=== PATIENT | female | born 1945 | race Caucasian/White ===

== ENCOUNTER 2018-03-11 15:03 | Emergency (ER) | payer MEDICARE, OTHER, SELFPAY ==
--- NOTE | 2018-03-11 15:03 | DT_ITS ---
This patient was seen during an EMR downtime March 07, 2018 - March 14, 2018. This patient may have a combination of paper and electronic documentation or all paper documentation. All documentation is viewable within the e-chart portion of [facility] for each patient visit.
== END 2018-03-11 16:35 | disposition left against medical advice (07) ==
LOC: ED 03-16 13:37
PROVIDERS: Emergency Provider Emergency Medicine; Family Provider Family Medicine; PCP Family Medicine
DX: R69 Illness, unspecified (principal); Z53.21 Procedure and treatment not carried out due to patient leaving prior to being seen by health care provider

== ENCOUNTER 2018-05-21 18:51 | Inpatient (IN) | payer MEDICARE, SELFPAY ==
[2018-05-21 19:14] VITALS: BP 139/58; BP 140/70; PULSE 67; PULSE 75; RESP 17; RESP 18; TEMP 36.8; TEMP 37.1; O2SAT 93; O2SAT 95; BMI 37.4
[2018-05-21 21:45] LABS: Bedside Glucose 392 mg/dL (70-110)
[2018-05-21] MEDS: Calcium Carb/Vitamin D 1 TABLET Tablet PO (22:38)
[2018-05-21] MEDS: Atorvastatin Calcium 80 MG Tablet PO (22:38)
[2018-05-21] MEDS: Famotidine 20 MG Tablet PO (22:38)
[2018-05-21] MEDS: Latanoprost 0.005% 1 Bottle 1 DRP EACH EYE (22:41)
[2018-05-21] MEDS: Insulin Lispro 100 UNIT/ML INSULN.PEN SC (22:45)
[2018-05-22 03:11] LABS: Bedside Glucose 243 mg/dL (70-110)
[2018-05-22 06:29] LABS: Absolute Lymphocyte Count 1.23 X10^3/ul (0.83-4.51); Absolute Neutrophil Count 5.8 X10^3/uL (2.0-7.7); Basophil# 0.01 X10^3/uL; Basophil% 0.1 % (0-1); Eosinophil# 0.13 X10^3/uL; Eosinophils% 1.6 % (0-5); Hematocrit 36.9 % (37-47); Hemoglobin 11.8 g/dl (12.0-15.0); Lymphocyte # 1.23 X10^3/ul (4.0); Lymphocyte % 15.6 % (19-41); Mean Corpuscular Hgb 27.6 pg (27.0-32.0); Mean Corpuscular Volume 86.2 fL (81-99); Mean Platelet Vol. 10.3 fl (6.2-12.0); Monocyte# 0.71 X10^3/uL; Neutrophil # 5.78 X10^3/uL (2.7-7.7); Neutrophil % 73.4 % (47-70); Platelet Count 207 K/mm3 (150-450); RBC Distribution Width CV 12.6 % (11.6-14.6); Red Blood Count 4.28 M/mm3 (4.2-5.4); White Blood Count 7.9 K/mm3 (4.4-11.0)
[2018-05-22] MEDS: Enoxaparin 40 MG/0.4 ML Syringe SC (06:38)
[2018-05-22 06:43] LABS: POSITIVE COUNT NO; POSITIVE DIFFERENTIAL NO; POSITIVE MORPHOLOGY NO
[2018-05-22 06:51] LABS: Bedside Glucose 261 mg/dL (70-110)
[2018-05-22 07:05] LABS: ALB/GLOB Ratio 0.6 RATIO (0.9-2.4); AST(SGOT) 14 U/L (15-37); Alanine Aminotransfer ALT/SGPT 11 U/L (13-56); Albumin, Serum 2.6 g/dL (3.2-5.0); Alkaline Phosphatase 65 U/L (45-117); Anion Gap 11 (5-15); BUN 24 mg/dL (7-18); BUN/Creat Ratio 17.8 RATIO (10-20); Calcium,Total 8.7 mg/dL (8.5-10.1); Chloride 104 mmol/L (98-107); Creatinine, Serum 1.35 mg/dL (0.55-1.02); EST Glomerular Filtration Rate 41 mL/min (>60); Est Glom Filt Rate - Afr Amer 49 mL/min (>60); Estimated Creatinine Clearance 31.57 ml/min; Globulin 4.3 g/dL (2.2-4.2); Glucose 260 mg/dL (74-106); Potassium 3.8 mmol/L (3.5-5.1); Protein, Total 6.9 g/dL (6.4-8.2); Sodium Level 142 mmol/L (136-145)
[2018-05-22] MEDS: Furosemide 40 MG Tablet PO ×2 (07:49→17:24)
[2018-05-22] MEDS: Lisinopril 20 MG Tablet PO (07:49)
[2018-05-22] MEDS: Insulin Lispro 100 UNIT/ML INSULN.PEN SC ×4 (07:49→21:29)
[2018-05-22] MEDS: amLODIPine 10 MG Tablet PO (07:49)
[2018-05-22] MEDS: Cyanocobalamin 500 MCG Tablet 1000 MCG PO (07:49)
[2018-05-22] MEDS: Famotidine 20 MG Tablet PO ×2 (07:49→21:26)
[2018-05-22] MEDS: Calcium Carb/Vitamin D 1 TABLET Tablet PO ×2 (07:49→21:26)
[2018-05-22] MEDS: Aspirin 81 MG TAB.CHEW PO (07:49)
[2018-05-22] MEDS: FLUoxetine 20 MG Capsule 40 MG PO (07:49)
[2018-05-22] MEDS: Clopidogrel Bisulfate 75 MG Tablet PO (07:50)
[2018-05-22 07:55] VITALS: BP 138/60; PULSE 71; RESP 16; TEMP 36.9; O2SAT 92
--- NOTE | 2018-05-22 08:02 | NURSING ---
Addendum entered by Janae Valdes 05/22/18 08:44: not tough but through Original Note: patient coughing with mechanical soft diet, diet decreased to puree and will reassess. no coughing noted with thin liquids. mechanical soft was ordered from previous hospital as discharge order to rehab. severe n/t to erica feet and c/o pain with movement or tough to ble. dr machado aware, new order for duplex to ble.
--- NOTE | 2018-05-22 08:43 | PCM.HP.STD ---
Problem List (1) Debility Status: Acute (2) Stroke Status: Acute Qualifiers: CVA mechanism: thrombosis Precerebral and cerebral artery: middle cerebral artery Laterality of affected vessel: left Qualified Code(s): I63.312 - Cerebral infarction due to thrombosis of left middle cerebral artery (3) HTN (hypertension) Status: Chronic (4) HLD (hyperlipidemia) Status: Chronic (5) Diabetes Status: Chronic Qualifiers: Diabetes mellitus type: type 2 (6) Neuropathy Status: Chronic (7) GUERITA (obstructive sleep apnea) Status: Chronic History of Present Illness Date of Admission: 05/22/18 Chief Complaint: Debility post stroke The patient is a 73 year old CF with PMH HTN, HLD, DM, DM Neuropathy, GUERITA not on CPAP, recent acute left MCA stroke (05/17/18), now admitted to [facility] with debility post acute left MCA stroke, for >3hrs therapy daily, with the goal of returning home at or near her prior level of functional baseline. Per patient she was admitted to [facility] on 05/17/18 with acute onset right sided weakness and dysarthria, had a fall at home due to right sided weakness with bruise and laceration to the right forehead and right side of the face, MRI brain done at OSH reported to show lacunar infarct in the periventricular distribution (left LACE STRIPPER-left MCA per neurology consult note), MRA head reported to show 3mm Acomm aneurysm, carotid ultrasound reported to show B/L ICA 1-19% stenosis, Hba1c 8.7%, LDL-25, had normal EEG. Patient at present continues to have right sided weakness with speech disturbances, needs max assist for her ADLs. Complained to nursing about bilateral leg pain but denied the same to me at present. Per patient she lives with her , lives in a 2 storeyed house, has no steps going into the house, has steps to go to the second level but has no basement. Per patient she does not use CPAP for her sleep apnea at home. Patient was not on any AP prior to her stroke. Patient was started on ASA and Plavix following her stroke. Per documentation patient was treated for UTI prior to coming to the Rehab. [] Past Medical History Past Medical History (Chronic Problems): Chronic Problems HTN (hypertension) (Chronic) HLD (hyperlipidemia) (Chronic) Diabetes (Chronic) Neuropathy (Chronic) GUERITA (obstructive sleep apnea) (Chronic) Allergies No Known Allergies Allergy (Verified 05/21/18 19:14) Home Medications: Ambulatory Orders Medication Instructions Recorded Amlodipine [Norvasc] 10 mg PO DAILY 05/21/18 Aspirin [Aspirin, Baby] 81 mg PO DAILY@0800 05/21/18 Atorvastatin Calcium [Lipitor] 80 mg PO QHS 05/21/18 Calcium Carbonate/Vitamin D3 1 each PO BID 05/21/18 [Calcium 500 mg-Vit D3 600 Unit] Clopidogrel Bisulfate [Plavix] 75 mg PO DAILY 05/21/18 Cyanocobalamin (Vitamin B-12) 1,000 mcg PO DAILY 05/21/18 [Vitamin B-12] Famotidine [Pepcid] 20 mg PO BID 05/21/18 Fluoxetine HCl [Prozac] 40 mg PO DAILY 05/21/18 Furosemide [Lasix] 40 mg PO BID 05/21/18 Hydroxyzine HCl 25 mg PO Q6H PRN PRN 05/21/18 Insulin Glargine [Lantus (BKC)] 18 units SC QHS 05/21/18 Lactobacillus Acidophilus 1 each PO DAILY 05/21/18 [Acidophilus] Latanoprost 0.005% [Xalatan 1 drop EACH EYE QHS 05/21/18 Opthalmic] Lipase/Protease/Amylase [Creon Dr 1 capsule PO TID 05/21/18 24,000 Units Capsule] Lisinopril [Zestril] 20 mg PO DAILY 05/21/18 Mecobal/Levomefolat Ca/B6 Phos 2 tab PO DAILY 05/21/18 [[id number] Tablet] Lives: Spouse/ Significant Other Smoking Status: Never smoker Alcohol: None Drugs: None Review of Systems Constitutional: Reports: - - complete ROS negative except as documented in HPI VTE Information - Inpt Only VTE Present on Admission: No VTE Mechan Device Prophylaxis: SCD's, Thigh High BROOKE Hose VTE Pharm Prophylaxis ordered?: Yes Patient Problems: Active and Suspected Problems Debility (Acute) Stroke (Acute) - Physical Exam General: Alert HEENT: Normocephalic Neck: Supple Lungs: Clear to auscultation Cardiovascular: Normal S1, Normal S2 Abdomen: Bowel Sounds Present Extremities: No cyanosis Skin: - - bruise and laceration on the right forehead and right face from fall (per pateint fall was at home when she had stroke on 05/17/18) Musculoskeletal: No Tenderness to Palpation of Joints or Extremities Neurological: - - consious, alert, CN- right 7th UMN facial palsy, pupils BERL, power right UE 3/5, LE 3/4, left UE/LE 5/5, denies any sensory loss, no cerebellar signs, Reflexes + B/L B/S/T/K/A, gait deferred. Psych/Mental Status: Normal Affect Vital Signs Temp Pulse Resp BP Pulse Ox 98.4 F 71 16 138/60 H 92 05/22/18 07:55 05/22/18 07:55 05/22/18 07:55 05/22/18 07:55 05/22/18 07:55 Oxygen Delivery Method Room Air Weight: 98.883 kg Body Mass Index (BMI) 37.4 Intake and Output for Last 24 Hours 05/20/18 05/21/18 05/22/18 23:59 23:59 23:59 Intake Total 118 / 118 Balance 118 / 118 Laboratory Tests Past 24 Hrs 05/22/18 05/22/18 05:52 05:52 WBC 7.9 RBC 4.28 Hgb 11.8 L Hct 36.9 L MCV 86.2 MCH 27.6 MCHC 32.0 RDW 12.6 RDW Differential 40.0 Plt Count 207 MPV 10.3 Immature Gran % (Auto) 0.300 Neut % (Auto) 73.4 H Lymph % (Auto) 15.6 L [place] % (Auto) 9.0 Eos % (Auto) 1.6 Baso % (Auto) 0.1 Absolute Neuts (auto) 5.8 Absolute Lymphs (auto) 1.23 Total Counted Not Reportable Sodium 142 Potassium 3.8 Chloride 104 Carbon Dioxide 27.0 Anion Gap 11 BUN 24 H Creatinine 1.35 H Estim Creat Clear Calc 31.57 Est GFR (MDRD) Af Amer 49 L Est GFR (MDRD) Non-Af 41 L BUN/Creatinine Ratio 17.8 Glucose 260 H Calcium 8.7 Total Bilirubin 0.40 AST 14 L ALT 11 L Alkaline Phosphatase 65 Total Protein 6.9 Albumin 2.6 L Globulin 4.3 H Albumin/Globulin Ratio 0.6 L POC Glucose 05/22/18 05/22/1805/21/18 06:41 03:07 21:38 POC Glucose 261 H 243 H 392 H Assessment/Plan All Active Problems Debility (Acute) Stroke (Acute) The patient is a 73 year old CF with PMH HTN, HLD, DM, DM Neuropathy, GUERITA not on CPAP, recent acute left MCA stroke (05/17/18), now admitted to [facility] with debility post acute left MCA stroke, for >3hrs therapy daily, with the goal of returning home at or near her prior level of functional baseline. Plan -PT for gait stability -OT for ADLs -ST for swallow evaluation -Analgesics PRN -Bowel protocol -Stroke-acute left MCA stroke- on ASA/Plavix and Lipitor. Stroke risk factors discussed and stroke education provided -HTN-stable, on Amlodipine, Lisinopril and Lasix -HLD-on Lipitor -DM- uncontrolled, on Lantus, may need endocrinology evaluation as outpatient, Hba1c 8.7%. Consult hospitalist for further management of DM. -DM Neuropathy- patient complaints of pain in the feet. Start Neurontin 100 mg PO TID for 5 days then increase to 300 mg PO TID to continue -GUERITA-needs to be on CPAP -Check B/L LE venous Doppler-complained to leg/calf pain to the nursing. -Fall precautions -GI/DVT prophylaxis-Lovenox 40 mg SQ daily -Further medical management per hospitalist recommendations. Code Visit Inpatient E&M: 32457 Init Hosp L3
--- NOTE | 2018-05-22 08:50 | HP.PCM_ITS ---
Problem List (1) Debility Status: Acute (2) Stroke Status: Acute Qualifiers: CVA mechanism: thrombosis Precerebral and cerebral artery: middle cerebral artery Laterality of affected vessel: left Qualified Code(s): I63.312 - Cerebral infarction due to thrombosis of left middle cerebral artery (3) HTN (hypertension) Status: Chronic (4) HLD (hyperlipidemia) Status: Chronic (5) Diabetes Status: Chronic Qualifiers: Diabetes mellitus type: type 2 (6) Neuropathy Status: Chronic (7) GUERITA (obstructive sleep apnea) Status: Chronic History of Present Illness Date of Admission: 05/22/18 Chief Complaint: Debility post stroke The patient is a 73 year old CF with PMH HTN, HLD, DM, DM Neuropathy, GUERITA not on CPAP, recent acute left MCA stroke (05/17/18), now admitted to [facility] with debility post acute left MCA stroke, for >3hrs therapy daily, with the goal of returning home at or near her prior level of functional baseline. 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 Patient at present continues to have right sided weakness with speech disturbances, needs max assist for her ADLs. Complained to nursing about bilateral leg pain but denied the same to me at present. Per patient she lives with her , lives in a 2 storeyed house , has no steps going into the house, has steps to go to the second level but has no basement. Per patient she does not use CPAP for her sleep apnea at home. Patient was not on any AP prior to her stroke. Patient was started on ASA and Plavix following her stroke. Per documentation patient was treated for UTI prior to coming to the Rehab. [] Past Medical History Past Medical History (Chronic Problems): Chronic Problems HTN (hypertension) (Chronic) HLD (hyperlipidemia) (Chronic) Diabetes (Chronic) Neuropathy (Chronic) GUERITA (obstructive sleep apnea) (Chronic) Allergies No Known Allergies Allergy (Verified 05/21/18 19:14) Home Medications: Ambulatory Orders Medication Instructions Recorded Amlodipine [Norvasc] 10 mg PO DAILY 05/21/18 Aspirin [Aspirin, Baby] 81 mg PO DAILY@0800 05/21/18 Atorvastatin Calcium [Lipitor] 80 mg PO QHS 05/21/18 Calcium Carbonate/Vitamin D3 1 each PO BID 05/21/18 [Calcium 500 mg-Vit D3 600 Unit] Clopidogrel Bisulfate [Plavix] 75 mg PO DAILY 05/21/18 Cyanocobalamin (Vitamin B-12) 1,000 mcg PO DAILY 05/21/18 [Vitamin B-12] Famotidine [Pepcid] 20 mg PO BID 05/21/18 Fluoxetine HCl [Prozac] 40 mg PO DAILY 05/21/18 Furosemide [Lasix] 40 mg PO BID 05/21/18 Hydroxyzine HCl 25 mg PO Q6H PRN PRN 05/21/18 Insulin Glargine [Lantus (BKC)] 18 units SC QHS 05/21/18 Lactobacillus Acidophilus 1 each PO DAILY 05/21/18 [Acidophilus] Latanoprost 0.005% [Xalatan 1 drop EACH EYE QHS 05/21/18 Opthalmic] Lipase/Protease/Amylase [Creon Dr 1 capsule PO TID 05/21/18 24,000 Units Capsule] Lisinopril [Zestril] 20 mg PO DAILY 05/21/18 Mecobal/Levomefolat Ca/B6 Phos 2 tab PO DAILY 05/21/18 [[id number]-[id number] Tablet] Lives: Spouse/ Significant Other Smoking Status: Never smoker Alcohol: None Drugs: None Review of Systems Constitutional: Reports: - - complete ROS negative except as documented in HPI VTE Information - Inpt Only VTE Present on Admission: No VTE Mechan Device Prophylaxis: SCD's, Thigh High BROOKE Hose VTE Pharm Prophylaxis ordered?: Yes Patient Problems: Active and Suspected Problems Debility (Acute) Stroke (Acute) - Physical Exam General: Alert HEENT: Normocephalic Neck: Supple Lungs: Clear to auscultation Cardiovascular: Normal S1, Normal S2 Abdomen: Bowel Sounds Present Extremities: No cyanosis Skin: - - bruise and laceration on the right forehead and right face from fall ( per pateint fall was at home when she had stroke on 05/17/18) Musculoskeletal: No Tenderness to Palpation of Joints or Extremities Neurological: - - consious, alert, CN- right 7th UMN facial palsy, pupils BERL, power right UE 3/5, LE 3/4, left UE/LE 5/5, denies any sensory loss, no cerebellar signs, Reflexes + B/L B/S/T/K/A, gait deferred. Psych/Mental Status: Normal Affect Vital Signs Temp Pulse Resp BP Pulse Ox 98.4 F 71 16 138/60 H 92 05/22/18 07:55 05/22/18 07:55 05/22/18 07:55 05/22/18 07:55 05/22/18 07:55 Oxygen Delivery Method Room Air Weight: 98.883 kg Body Mass Index (BMI) 37.4 Intake and Output for Last 24 Hours 05/20/18 05/21/18 05/22/18 23:59 23:59 23:59 Intake Total 118 / 118 Balance 118 / 118 Laboratory Tests Past 24 Hrs 05/22/18 05/22/18 05:52 05:52 WBC 7.9 RBC 4.28 Hgb 11.8 L Hct 36.9 L MCV 86.2 MCH 27.6 MCHC 32.0 RDW 12.6 RDW Differential 40.0 Plt Count 207 MPV 10.3 Immature Gran % (Auto) 0.300 Neut % (Auto) 73.4 H Lymph % (Auto) 15.6 L [place] % (Auto) 9.0 Eos % (Auto) 1.6 Baso % (Auto) 0.1 Absolute Neuts (auto) 5.8 Absolute Lymphs (auto) 1.23 Total Counted Not Reportable Sodium 142 Potassium 3.8 Chloride 104 Carbon Dioxide 27.0 Anion Gap 11 BUN 24 H Creatinine 1.35 H Estim Creat Clear Calc 31.57 Est GFR (MDRD) Af Amer 49 L Est GFR (MDRD) Non-Af 41 L BUN/Creatinine Ratio 17.8 Glucose 260 H Calcium 8.7 Total Bilirubin 0.40 AST 14 L ALT 11 L Alkaline Phosphatase 65 Total Protein 6.9 Albumin 2.6 L Globulin 4.3 H Albumin/Globulin Ratio 0.6 L POC Glucose 05/22/18 05/22/1805/21/18 06:41 03:07 21:38 POC Glucose 261 H 243 H 392 H Assessment/Plan All Active Problems Debility (Acute) Stroke (Acute) The patient is a 73 year old CF with PMH HTN, HLD, DM, DM Neuropathy, GUERITA not on CPAP, recent acute left MCA stroke (05/17/18), now admitted to [facility] with debility post acute left MCA stroke, for >3hrs therapy daily, with the goal of returning home at or near her prior level of functional baseline. Plan -PT for gait stability -OT for ADLs -ST for swallow evaluation -Analgesics PRN -Bowel protocol -Stroke-acute left MCA stroke- on ASA/Plavix and Lipitor. Stroke risk factors discussed and stroke education provided -HTN-stable, on Amlodipine, Lisinopril and Lasix -HLD-on Lipitor -DM- uncontrolled, on Lantus, may need endocrinology evaluation as outpatient, Hba1c 8.7%. Consult hospitalist for further management of DM. -DM Neuropathy- patient complaints of pain in the feet. Start Neurontin 100 mg PO TID for 5 days then increase to 300 mg PO TID to continue -GUERITA-needs to be on CPAP -Check B/L LE venous Doppler-complained to leg/calf pain to the nursing. -Fall precautions -GI/DVT prophylaxis-Lovenox 40 mg SQ daily -Further medical management per hospitalist recommendations. Code Visit Inpatient E&M: 27831 Init Hosp L3
--- NOTE | 2018-05-22 08:58 | PCM.RU.PYE ---
Admission Information Status Changes from Prescreening?: No changes Identified Actual Problem List:: Falls, Mobility Impaired, Self Care Deficit, Diabetes, Hyperglycemia, BP, Hypertension Potential Problem List:: DVT, Bleeding, Infection, UTI, Aspiration, Falls, Skin Integrity, Depression Risk of Complications DVT: LMWH, BROOKE Hose, Sequential Compression Device Bleeding: Monitor Lab Values, Nursing to Teach Precautions for anti-coagulation therapy., Wound, if applicable, to be assessed every shift., Stroke patients assessed for lethargy or change in status. Infection: Clinical Staff to Monitor for S/S of infection:, S/S of infection include fever, redness, warmth, etc. Urinary Tract Infection: Monitor for frequency, burning, discomfort, or incontinence., Nursing will obtain urine sample for urinalysis and C&S when ordered. Aspiration: Clinical staff will monitor for coughing, drooling, congestion., Speech will evaluate swallowing and dsyphasia., Nursing will monitor patient swallowing during meals. Falls: Patient will be evaluated for Fall Precautions, Patient will be placed on Fall Precautions as indicated per protocol. Skin Breakdown: Nursing will assess skin daily using assessment tool., Nursing will place on Skin Breakdown Precautions as indicated. Pain: Clinical staff will assess patient's pain level per protocol., Medications will be given, if needed, and the pain level reassessed., Other methods: Massage, distraction, decrease stimulus, etc. used PRN. Plan of Care Patient requires physician specializing in physical medicine and rehab oversight to provide close medical supervision of rehab issues including: Pain Management, Sleep Problems, Bowel and Bladder, Medical and co-morbidity Management, DVT prophylaxis, Rehabilitation Leadership, Coordination of treatment team Patient needs Physical Therapy: For a minimum of 1 hour, At least 5 out of 7 days Patient needs Physical Therapy to improve:: Mobility, Mobility, Mobility, Strengthening, Transfers, Stretching, ROM, Endurance, Stairs, Gait, Balance Patient needs Occupational Therapy: For a minimum of 1 hour, At least 5 out of 7 days Patient needs Occupational Therapy to improve ADL's incl.: Eating, Grooming, Bathing, Dressing, Toileting, Toilet transfers, Community Reintegration, Higher functioning activities, Household tasks, Adaptive Equipment, Splinting, Other activities as determined Patient requires speech therapy: For a minimum of 1 hour, At least 5 out of 7 days Patient requires speech therapy for: Swallowing, Cognition, Language Skills, Compensatory Strategies Patient requires 24/7 Rehabilitation Nursing for: Pain Issues, Identifying and preventing risk factors, Monitoring and reporting current medical conditions, Assisting with ambulation, transfer, and all ADL's, Teaching patients about disease process and medications, Family teaching, Providing safe environment, Bowel and Bladder Issues, Skin integrity, Medication Management Patient needs Piano Instructor/ Case Management for: Discharge Planning, Arranging Home Equipment or Services, Family Interventions Patient needs Dietary and Nutrition Services for: Adequate Nutrition, Nutritional Supplements, Nutritional Education Goals Patient will remain: free from falls, or injury at time of discharge. Patient will perform bed mobility at: MOD I level of assist. Patient will complete transfers from bed to chair at: MOD I level of assist. Patient will ambulate: 100 feet, with MOD I assist, with LRD Patient will complete upper body dressing at: MOD I level of assist. Patient will complete lower body dressing at: MOD I level of assist. Patient will complete toileting at: MOD I level of assist. Patient will perform bathing at: MOD I level of assist. Patient will complete grooming at: MOD I level of assist. Patient will complete home management skills at: MOD I level of assist. Patient will achieve: 12 stairs, at MOD I assist Patient will have pain level of: of 3 or less Patient's skin will: remain intact, free from infection. Patient will receive: adequate nutrition. Discharge Planning Pt Prognosis for Sig. Practical Improv. w/in Reasonable Time: Good Estimated Length of stay (days): 16 Anticipated D/C Destination: Home with Outpt Therapy Was Preadmission Assessment Accurate?: Yes
--- NOTE | 2018-05-22 09:51 | PCM.PN.HOSP ---
Patient Problems: Active and Suspected Problems Debility (Acute) Stroke (Acute) Subjective: Patient with no acute events per self since transition to [facility]. She has had continued blood sugar elevations above goal. Discussed current status at length and she is willing to transition insulin to a more aggressive regimen for better control. Discussed CPAP usage in the past and she has not used her machine in several years secondary to issues with the mask. She is willing to try again. Discussed diet and lifestyle changes at length. Patient eager to continue therapies to improve hemiplegia. Patient denies fevers, chills, nausea, emesis, abdominal pain, chest pain or dyspnea. Objective: Physical Examination: General: awake, alert, oriented x 3 and cooperative, seated upright in bed in no apparent distress. Skin: normal color, turgor, no icterus, cyanosis, improving facial ecchymoses status post fall. HEENT: AT/NC, EOMI, PERRLA, MMM. Lungs: Diminished BS BL bases, moderate effort, no rales, ronchi or wheezing. Heart: Regular rate and rhythm; no gallop, rub audible. Abdomen: soft, obese, NTTP, ND, normal BS Extremities: no cyanosis, clubbing, or edema. Neurological: patient awake, alert, oriented x 3; cognitive function intact; pupils equally reactive to light and accomodation; cranial nerves II-XII grossly normal except R 7th facial nerve palsy, R hemiplegia, strength RU/RL 3-4/5, L intact, sensation intact, FTN/HTS deficits L sided as expected. Psychiatric: affect appears mildly flat, no acute evidence of depressive or anxiety feelings. Vitals/I&O's: Vital Signs Temp Pulse Resp BP Pulse Ox 98.4 F 71 16 138/60 H 92 05/22/18 07:55 05/22/18 07:55 05/22/18 07:55 05/22/18 07:55 05/22/18 07:55 Oxygen Delivery Method Room Air Weight: 218 lb Body Mass Index (BMI) 37.4 Intake and Output for Last 24 Hours 05/20/18 05/21/18 05/22/18 23:59 23:59 23:59 Intake Total 118 / 118 Balance 118 / 118 Laboratory Results 05/21/18 21:38: POC Glucose 392 H 05/22/18 03:07: POC Glucose 243 H 05/22/18 05:52: WBC 7.9, RBC 4.28, Hgb 11.8 L, Hct 36.9 L, MCV 86.2, MCH 27.6, MCHC 32.0, RDW 12.6, RDW Differential 40.0, Plt Count 207, MPV 10.3, Immature Gran % (Auto) 0.300, Neut % (Auto) 73.4 H, Lymph % (Auto) 15.6 L, [place] % (Auto) 9.0, Eos % (Auto) 1.6, Baso % (Auto) 0.1, Absolute Neuts (auto) 5.8, Absolute Lymphs (auto) 1.23, Total Counted Not Reportable 05/22/18 05:52: Sodium 142, Potassium 3.8, Chloride 104, Carbon Dioxide 27.0, Anion Gap 11, BUN 24 H, Creatinine 1.35 H, Estim Creat Clear Calc 31.57, Est GFR (MDRD) Af Amer 49 L, Est GFR (MDRD) Non-Af 41 L, BUN/Creatinine Ratio 17.8, Glucose 260 H, Calcium 8.7, Total Bilirubin 0.40, AST 14 L, ALT 11 L, Alkaline Phosphatase 65, Total Protein 6.9, Albumin 2.6 L, Globulin 4.3 H, Albumin/Globulin Ratio 0.6 L 05/22/18 06:41: POC Glucose 261 H Current Medications Acetaminophen (Tylenol) 650 mg PO Q6H PRN PRN PRN Reason: Mild Pain (0-3/10)/Headache Amlodipine Besylate (Norvasc) 10 mg PO DAILY [facility] Last Admin: 05/22/18 07:49 Dose: 10 mg Aspirin (Aspirin, Baby) 81 mg PO DAILY@0800 [facility] Last Admin: 05/22/18 07:49 Dose: 81 mg Atorvastatin Calcium (Lipitor) 80 mg PO QHS [facility] Last Admin: 05/21/18 22:38 Dose: 80 mg Bisacodyl (Dulcolax) 10 mg RECTAL .PRN X 1 PRN PRN Reason: Constipation Calcium/Vitamin D (Os-Josue 500mg + D) 1 tablet PO BID [facility] Last Admin: 05/22/18 07:49 Dose: 1 tablet Clopidogrel Bisulfate (Plavix) 75 mg PO DAILY [facility] Last Admin: 05/22/18 07:50 Dose: 75 mg Cyanocobalamin (Vitamin B12) 1,000 mcg PO DAILY [facility] Last Admin: 05/22/18 07:49 Dose: 1,000 mcg Dextrose (D50w Syringe) 0 gm IV X1 PRN; Protocol PRN Reason: Hypoglycemia Enoxaparin Sodium (Lovenox) 30 mg SC DAILY@0600 [facility] Famotidine (Pepcid) 20 mg PO BID [facility] Last Admin: 05/22/18 07:49 Dose: 20 mg Fluoxetine HCl (Prozac) 40 mg PO DAILY [facility] Last Admin: 05/22/18 07:49 Dose: 40 mg Furosemide (Lasix) 40 mg PO BIDLX [facility] Last Admin: 05/22/18 07:49 Dose: 40 mg Gabapentin (Neurontin) 100 mg PO TIDCM [facility] Stop: 05/27/18 09:07 Gabapentin (Neurontin) 300 mg PO TIDCM [facility] Glucagon () 1 mg IM .X1 PRN PRN Reason: Hypoglycemia Hydroxyzine Pamoate (Vistaril Pamoate Capsule) 25 mg PO Q6H PRN PRN PRN Reason: ITCHING Insulin Glargine (Lantus (Bkc)) 20 units SC BID [facility] Insulin Human Lispro (Humalog Kwikpen (Bkc)) 0 unit SC ACHS [facility] PRN Reason: Protocol Last Admin: 05/22/18 07:49 Dose: 9 u Lactobacillus Acidophilus (Acidophilus) 1 tablet PO DAILY [facility] Last Admin: 05/22/18 07:49 Dose: 1 tablet Latanoprost (Xalatan Opthalmic) 1 drop EACH EYE QHS [facility] Last Admin: 05/21/18 22:41 Dose: 1 drop Lisinopril (Zestril) 20 mg PO DAILY [facility] Last Admin: 05/22/18 07:49 Dose: 20 mg Magnesium Hydroxide (Milk Of Magnesia) 30 ml PO .PRN X 1 PRN PRN Reason: Constipation Non-Formulary Medication (Mecobal/Levomefolat Ca/B6 Phos) 2 tab PO DAILY [facility] Pancrelipase (Creon Dr 12,000 Unit Capsule) 2 capsule PO TIDCM [facility] Last Admin: 05/22/18 08:13 Dose: 2 capsule Medical Necessity - Tobacco Use Smoking Status: Never smoker Assessment/Plan All Active Problems Debility (Acute) Stroke (Acute) The patient is a 73 y/o F w/ PMHx: HTN, HLD, Diabetes mellitus type II w/ Neuropathy, Obesity, Depression and Anxiety, appearance CKD stage III, GUERITA no on CPAP who presents to the Acute Rehabilitation Facility on 05/22/18 with history of Acute L MCA Stroke w/ associated Fall which occurred on 05/17/18 with R hemiplegia and dysarthria for ongoing therapies and rehabilitation. (1) Recent Acute L MCA Stroke: Noted CVA on 05/17/18, onset R hemiplegia and dysarthria, evaluated initially at [facility] w/ transfer to [facility], OSH evaluation included MRI brain w/ acute lacunar infarct in the periventricular distribution, MRA head w/ 3mm aneurysm, CUS w/ B/L ICA 1-19% stenosis, given DM hx and hyperglycemia obtained HgbA1c 8.7%, FLP w/ noted LDL-25, EEG unremarkable. Continue aspiration, fall precautions, HOB, encourage IS, PT, OT, Speech therapies ongoing, will increase lantus to 20 BID to attempt to achieve < 140 BS with further changes as needed, continue asa, plavix, BP regimen and alterations as needed to achieve goal BP, high dose statin. (2) Diabetes mellitus type II w/ neuropathy: Will increase lantus regimen given trends of BS notably elevated to 20 u BID and further alter as needed to improve BS trending, HgbA1c 8.7% obtained during recent acute CVA work-up OSH, continue ADA diet, accu checks w/ ISS currently high dose but if BS improve will de-escalate to moderate ISS to avoid hypoglycemia. Continue education and teaching. Continue gabapentin regimen. (3) Hypertension: Continue home regimen including Norvasc, Lasix, lisinopril, PRN hydralazine. (4) Hyperlipidemia: Continue home statin regimen. (5) Suspect CKD stage III: Admission Rehab facility BUN/Cr 24/1.35, will trend further as needed, suspect CKD stage III, maintain on current BP regimen which includes ACEI and lasix but monitor function, change to renally dosed lovenox. (6) Normocytic Anemia, Unclear if Chronic: Admission Hgb 11.8, MCV 86.2, iron panel, ferritin consistent w/ potential mixed AOCD/Fe deficiency, pending vitamin B12, folic acid low normal range, will add supplementation, pending vitamin B12 level. (7) Obesity: Weight loss and lifestyle changes encouraged, attrition consulted for education and teaching. (8) Depression and anxiety: Continue home Prozac regimen. (9) GERD: Continue home famotidine. (10) GUERITA: Trial CPAP and continue if able to tolerate. (11) BL LE Calf Discomfort: Noted ongoing discomfort, BL LE DVT US ordered per Rehabilitation physician, pending. If negative consider addition BROOKE. May be secondary to her lasix usage if was increased from prior or new addition to her HTN regimen. (12) DVT prophylaxis: SCDs, change to renally dosed lovenox. Code Visit Inpatient E&M: 89977 Subs Hosp L3
[2018-05-22 10:01] LABS: Bedside Glucose 336 mg/dL (70-110)
[2018-05-22] MEDS: Gabapentin 100 MG Capsule PO ×3 (10:09→17:24)
[2018-05-22 11:10] VITALS: O2SAT 94
[2018-05-22 11:23] LABS: Ferritin 113 ng/mL (8-252); Iron 21 ug/dL (50-170); Iron Binding Capacity,Total 201 ug/dL (250-450); PERCENT IRON SATURATION 10.4 % (15.0-55.0)
[2018-05-22 12:20] LABS: Bedside Glucose 364 mg/dL (70-110)
[2018-05-22] MEDS: Folic Acid 1 MG Tablet PO (12:24)
--- NOTE | 2018-05-22 12:56 | NURSING ---
discussed with shannon BERNAL recommendations use mahesh lift for transfers d/t severe n/t peripheral neuropathy to bilateral feet. patient is unable to stand d/t pain to bilateral feet. therapy will continue to reassess for ambulation. neurontin started per dr machado.
--- NOTE | 2018-05-22 12:58 | NURSING ---
patient assisted back to bed after lunch from chair. oral care provided, patient tolerated pureed food without coughing. thin liquids continue without coughing.
--- NOTE | 2018-05-22 16:15 | NURSING ---
patient up to chair via mahesh and tolerated well. family present and discussed visiting hours, rehab routine and orders.
[2018-05-22 16:36] LABS: Bedside Glucose 270 mg/dL (70-110)
[2018-05-22] MEDS: Ferrous Gluconate 325 MG Tablet PO (17:24)
[2018-05-22 17:25] VITALS: BP 138/59; PULSE 65
[2018-05-22 21:25] VITALS: BP 131/59; PULSE 68; RESP 16; TEMP 37.5; O2SAT 94
[2018-05-22] MEDS: Atorvastatin Calcium 80 MG Tablet PO (21:26)
[2018-05-22] MEDS: Latanoprost 0.005% 1 Bottle 1 DRP EACH EYE (21:26)
[2018-05-22 21:50] LABS: Bedside Glucose 407 mg/dL (70-110)
[2018-05-23] MEDS: Enoxaparin 30 MG/0.3 ML Syringe SC (06:47)
[2018-05-23 07:35] LABS: Bedside Glucose 209 mg/dL (70-110)
[2018-05-23 08:00] VITALS: BP 122/60; PULSE 76; RESP 17; TEMP 36.8; O2SAT 93
[2018-05-23] MEDS: Lisinopril 20 MG Tablet PO (08:09)
[2018-05-23] MEDS: Cyanocobalamin 500 MCG Tablet 1000 MCG PO (08:09)
[2018-05-23] MEDS: Aspirin 81 MG TAB.CHEW PO (08:09)
[2018-05-23] MEDS: FLUoxetine 20 MG Capsule 40 MG PO (08:10)
[2018-05-23] MEDS: amLODIPine 10 MG Tablet PO (08:10)
[2018-05-23] MEDS: Furosemide 40 MG Tablet PO ×2 (08:10→17:17)
[2018-05-23] MEDS: Clopidogrel Bisulfate 75 MG Tablet PO (08:10)
[2018-05-23] MEDS: Famotidine 20 MG Tablet PO ×2 (08:10→20:24)
[2018-05-23] MEDS: Folic Acid 1 MG Tablet PO (08:10)
[2018-05-23] MEDS: Calcium Carb/Vitamin D 1 TABLET Tablet PO ×2 (08:10→20:24)
[2018-05-23] MEDS: Ferrous Gluconate 325 MG Tablet PO ×2 (08:10→17:17)
[2018-05-23] MEDS: Gabapentin 100 MG Capsule PO ×3 (08:10→17:17)
[2018-05-23] MEDS: Insulin Lispro 100 UNIT/ML INSULN.PEN SC ×4 (08:11→20:22)
[2018-05-23 08:31] LABS: Vitamin B12 > 2000 pg/mL (211-911)
[2018-05-23 11:36] LABS: Bedside Glucose 336 mg/dL (70-110)
[2018-05-23 16:41] LABS: Bedside Glucose 404 mg/dL (70-110)
[2018-05-23 19:30] VITALS: BP 141/71; PULSE 69; RESP 18; TEMP 36.7; O2SAT 95
[2018-05-23] MEDS: Atorvastatin Calcium 80 MG Tablet PO (20:24)
[2018-05-23] MEDS: Latanoprost 0.005% 1 Bottle 1 DRP EACH EYE (20:24)
--- NOTE | 2018-05-23 21:12 | SLEEP ---
set pt up on home CPAP unit.
[2018-05-23 23:15] LABS: Bedside Glucose 396 mg/dL (70-110)
--- NOTE | 2018-05-24 03:33 | NURSING ---
Reviewed and agree with HOUSEMAN documentation and FIMs charting.
[2018-05-24] MEDS: Acetaminophen 325 MG Tablet 650 MG PO ×2 (04:54→20:20)
[2018-05-24] MEDS: Enoxaparin 30 MG/0.3 ML Syringe SC (04:54)
[2018-05-24 07:04] VITALS: O2SAT 95
[2018-05-24 07:05] LABS: Bedside Glucose 258 mg/dL (70-110)
[2018-05-24] MEDS: FLUoxetine 20 MG Capsule 40 MG PO (08:14)
[2018-05-24] MEDS: Cyanocobalamin 500 MCG Tablet 1000 MCG PO (08:14)
[2018-05-24] MEDS: Lisinopril 20 MG Tablet PO (08:14)
[2018-05-24] MEDS: Gabapentin 100 MG Capsule PO ×3 (08:15→17:01)
[2018-05-24] MEDS: Calcium Carb/Vitamin D 1 TABLET Tablet PO ×2 (08:15→20:20)
[2018-05-24] MEDS: Famotidine 20 MG Tablet PO ×2 (08:20→20:20)
[2018-05-24] MEDS: Aspirin 81 MG TAB.CHEW PO (08:20)
[2018-05-24] MEDS: amLODIPine 10 MG Tablet PO (08:20)
[2018-05-24] MEDS: Ferrous Gluconate 325 MG Tablet PO ×2 (08:21→17:11)
[2018-05-24] MEDS: Folic Acid 1 MG Tablet PO (08:24)
[2018-05-24] MEDS: Clopidogrel Bisulfate 75 MG Tablet PO (08:28)
[2018-05-24] MEDS: Furosemide 40 MG Tablet PO ×2 (08:28→17:01)
[2018-05-24] MEDS: Insulin Lispro 100 UNIT/ML INSULN.PEN SC ×4 (08:30→20:30)
--- NOTE | 2018-05-24 09:30 | SP.MBSS_ITS ---
PRIMARY / SECONDARY DIAGNOSIS: dysphagia (R13.10) REFERRING PHYSICIAN: Dr. Elam CURRENT DIET: Pureed Textures, Thin Liquids DENTITION: Natural dentition present w/ partially missing/decayed molars MENTAL STATUS: WNL for participation in MBS RESPIRATORY STATUS: Oxygenating on room air PREVIOUS MODIFIED BARIUM SWALLOW STUDY: n/a REASON FOR REFERRAL: Further objective assessment of swallow function recommended under fluoroscopy d/t suspected premature pharyngeal bolus entry/delayed swallow onset/incomplete laryngeal vestibule closure w/ increased likelihood of penetration/aspiration. MEDICAL HISTORY: Patient is a 73 year old female with a past medical history significant for HTN , HLD, DM, diabetic neuropathy, GUERITA not on CPAP w/ recent acute left MCA stroke (05/17/18) STUDY FINDINGS: Patient participated in a Modified Barium Swallow (MBS) study on 05/24/2018. Dr. Gutierrez as the radiologist present for this evaluation. This study was recorded in the lateral view and images were sent to PACs for storage. The following consistencies were presented to this patient for analysis of oropharyngeal swallow function: thin liquid, nectar thickened liquid pudding, and a regular texture [place] Shortbread cookie. Results of the MBS are as follows: PENETRATION / ASPIRATION SCALE ([place]): 1 = does not enter airway 2 = enters airway/above vocal folds/ejected 3 = enters airway/above vocal folds/not ejected 4 = enters airway/contacts vocal folds/ejected 5 = enters airway/contacts vocal folds/not ejected 6 = enters airway/below vocal folds/ejected 7 = enters airway/below vocal folds/not ejected despite effort 8 = enters airway/below vocal folds/no effort PENETRATION / ASPIRATION SCALE (SCORE): Thin liquid - 5 mL tsp: 7 Thin liquid - 5 mL tsp: 7 Thin liquids via cup (single sip): 3 Thin liquids via cup (chin tuck): 1 Thin liquids via cup (chin tuck): 1 Pudding via spoon: 1 Regular textured cookie: 1 Thin liquids via cup (single sip): 5 Thin liquids via cup (chin tuck): 1 [place] thickened liquids via spoon (chin tuck): 2 IMPRESSION: DIAGNOSIS: moderate oropharyngeal dysphagia (R13.12) ORAL PHASE CHARACTERIZED BY: LABIAL SEAL: escape beyond mid chin TONGUE CONTROL DURING BOLUS MANIPULATION: cohesive bolus between tongue to palatal seal BOLUS PREPARATION / MASTICATION: slow prolonged chewing/mashing with complete recollection BOLUS TRANSPORT / LINGUAL MOTION: slowed tongue motion ORAL RESIDUE: majority of bolus remaining PHARYNGEAL PHASE CHARACTERIZED BY: INITIATION OF PHARYNGEAL SWALLOW: bolus head in pyriforms at first hyoid excursion SOFT PALATE ELEVATION: no bolus between soft palate and pharyngeal wall LARYNGEAL ELEVATION: minimal superior movement of thyroid cartilage/minimal approximation of arytenoids cartilage to epiglottic petiole ANTERIOR HYOID EXCURSION: partial anterior movement EPIGLOTTIC MOVEMENT: complete epiglottic inversion LARYNGEAL VESTIBULE CLOSURE AT HEIGHT OF SWALLOW: incomplete laryngeal vestibule closure with narrow column of air/contrast in laryngeal vestibule PHARYNGEAL STRIPPING WAVE: pharyngeal stripping wave present / diminished PHARYNGOESOPHAGEAL SEGMENT OPENING: complete distension and complete duration with no obstruction of flow TONGUE BASE RETRACTION: narrow column of contrast between tongue base and posterior pharyngeal wall PHARYNGEAL RESIDUE: collection of residue within or on pharyngeal structures ESOPHAGEAL PHASE CHARACTERIZED BY: ESOPHAGEAL BOLUS CLEARANCE IN THE UPRIGHT POSITION: complete clearance; esophageal coating EFFECTS OF TREATMENT STRATEGIES ATTEMPTED: Chin tuck posture = effective Cough and reswallow = not effective to expel aspirated contrast from the laryngeal vestibule/trachea RECOMMENDATIONS: Will recommend a pureed texture, thin liquid diet. COMPENSATORY STRATEGIES RECOMMENDED: Chin tuck w/ all liquids, Small bites and sips, one sip at a time, no straws, no liquids via spoon (avoid cereal, soup consumed via drinking from cup/bowl), remain upright for 30-60 minutes post meal (GERD precaution). INTERPRETATION OF RESULTS: Patient presents with moderate oropharyngeal dysphagia (R13.12) Oral phase is marked by mastication inefficiency resulting in insufficient bolus breakdown and increased likelihood of fatigue w/ increased risk for aspiration. Insufficient labial control resulting in anterior bolus loss w/ thin liquids. Poor oral clearance w/ majority of solid texture bolus remaining w /in the oral cavity following the initial swallow, requiring additional swallows to achieve oral bolus clearance. Pharyngeal phase is marked by suboptimal bolus location upon swallow onset ( liquids in pyriforms), reduced tongue based retraction and reduced pharyngeal stripping wave resulting in impaired pharyngeal motility (residue retention w/ in valleculae post deglutition). Reduced laryngeal elevation and reduced anterior hyoid excursion resulting in incomplete laryngeal vestibule closure w/ penetration and aspiration of thin liquids during/post deglutition. Use of a chin tuck posture was effective to improve laryngeal vestibule closure and ameliorate penetration/aspiration of thin liquids via cup. NEED FOR SKILLED SPEECH LANGUAGE SERVICES: Patient requires intensive skilled speech-language intervention targeting: * continued diet texture management * training and implementation of recommended compensatory strategies * training and implementation of recommended oral strengthening exercises to facilitate improved intraoral bolus manipulation and A-P bolus transfer, oral clearance * training and implementation of recommended oropharyngeal strengthening exercises to facilitate improved hyolaryngeal excursion/laryngeal vestibule closure/pharyngeal clearance Patient noted to inconsistently demonstrate overt aspiration during trials of thin liquids, w/ no outward response to penetration contacting the vocal folds. Clinical assessment at bedside relying on identification of classic overt signs and symptoms of aspiration may not be sufficient to determine appropriateness for elimination of chin tuck posture, consider a repeat MBS prior to removing this compensatory strategy. ADDITIONAL COMMENTS/RECOMMENDATIONS: Results and recommendations were discussed with this patient immediately following MBS completion. Images were reviewed wand importance of strict adherence to compensatory strategies and improve comprehension of deficits identified. IMAGE COUNT: [id number]
[2018-05-24 10:00] VITALS: BP 125/49; PULSE 58; RESP 17; TEMP 36.6; O2SAT 94
[2018-05-24 11:25] LABS: Bedside Glucose 416 mg/dL (70-110)
--- NOTE | 2018-05-24 11:50 | PCM.PN.NEU ---
Patient Problems: Active and Suspected Problems Debility (Acute) Stroke (Acute) Subjective: No new complaints. Tolerating therapies. No GI or complaints. - Physical Exam General: Alert, Oriented x3, Cooperative, No apparent distress Neurological: - - Right facial droop and hemiparesis stable Psych/Mental Status: Flat Affect Vital Signs Temp Pulse Resp BP Pulse Ox 36.6 C 58 L 17 125/49 H 94 05/24/18 10:00 05/24/18 10:00 05/24/18 10:00 05/24/18 10:00 05/24/18 10:00 Oxygen Delivery Method Room Air Weight: 98.883 kg Body Mass Index (BMI) 37.4 Intake and Output for Last 24 Hours 05/22/18 05/23/18 05/24/18 23:59 23:59 23:59 Intake Total 198 / 198 200 / 200 100 / 100 Balance 198 / 198 200 / 200 100 / 100 POC Glucose 05/24/18 05/24/18 05/23/18 11:18 07:01 20:17 POC Glucose 416 H 258 H 396 H 05/23/18 16:34 POC Glucose 404 H Current Medications Generic Name Dose Route Start Last Admin Trade Name Freq PRN Reason Stop Dose Admin Acetaminophen 650 mg 05/21/18 19:18 05/24/18 04:54 Tylenol PO 650 mg Q6H PRN PRN Administration Mild Pain (0-3/10)/Headache Amlodipine Besylate 10 mg 05/22/18 10:00 05/24/18 08:20 Norvasc PO 10 mg DAILY [facility] Administration Aspirin 81 mg 05/22/18 08:00 05/24/18 08:20 Aspirin, Baby PO 81 mg DAILY@0800 [facility] Administration Atorvastatin Calcium 80 mg 05/21/18 22:00 05/23/18 20:24 Lipitor PO 80 mg QHS [facility] Administration Bisacodyl 10 mg 05/21/18 19:18 Dulcolax RECTAL .PRN X 1 PRN Constipation Calcium/Vitamin D 1 tablet 05/21/18 22:00 05/24/18 08:15 Os-Josue 500mg + D PO 1 tablet BID [facility] Administration Clopidogrel Bisulfate 75 mg 05/22/18 10:00 05/24/18 08:28 Plavix PO 75 mg DAILY [facility] Administration Cyanocobalamin 1,000 mcg 05/22/18 10:00 05/24/18 08:14 Vitamin B12 PO 1,000 mcg DAILY [facility] Administration Dextrose 0 gm 05/22/18 09:49 D50w Syringe IV X1 PRN Hypoglycemia Protocol Enoxaparin Sodium 30 mg 05/22/18 09:50 05/24/18 04:54 Lovenox SC 30 mg DAILY@0600 [facility] Administration Famotidine 20 mg 05/21/18 22:00 05/24/18 08:20 Pepcid PO 20 mg BID [facility] Administration Ferrous Gluconate 325 mg 05/22/18 17:00 05/24/18 08:21 Ferrous Gluconate PO 325 mg BIDCM [facility] Administration Fluoxetine HCl 40 mg 05/22/18 10:00 05/24/18 08:14 Prozac PO 40 mg DAILY [facility] Administration Folic Acid 1 mg 05/22/18 11:27 05/24/18 08:24 Folic Acid PO 1 mg DAILY@0800 [facility] Administration Furosemide 40 mg 05/22/18 10:00 05/24/18 08:28 Lasix PO 40 mg BIDLX [facility] Administration Gabapentin 100 mg 05/22/18 09:06 05/24/18 08:15 Neurontin PO 05/27/18 09:07 100 mg TIDCM [facility] Administration Gabapentin 300 mg 05/27/18 12:00 Neurontin PO TIDCM [facility] Glucagon 1 mg 05/22/18 09:49 IM .X1 PRN Hypoglycemia Hydroxyzine Pamoate 25 mg 05/21/18 20:00 Vistaril Pamoate Capsule PO Q6H PRN PRN ITCHING Insulin Glargine 25 units 05/23/18 22:00 05/24/18 08:31 Lantus ([facility]) SC 25 u BID [facility] Administration Insulin Human Lispro 0 unit 05/21/18 22:00 05/24/18 08:30 Humalog Kwikpen ([facility]) SC 6 u ACHS [facility] Administration Protocol Lactobacillus Acidophilus 1 tablet 05/22/18 10:00 05/24/18 08:24 Acidophilus PO 1 tablet DAILY [facility] Administration Latanoprost 1 drop 05/21/18 22:00 05/23/18 20:24 Xalatan Opthalmic EACH EYE 1 drop QHS [facility] Administration Lisinopril 20 mg 05/22/18 10:00 05/24/18 08:14 Zestril PO 20 mg DAILY [facility] Administration Magnesium Hydroxide 30 ml 05/21/18 19:18 Milk Of Magnesia PO .PRN X 1 PRN Constipation Pancrelipase 2 capsule 05/22/18 08:00 05/24/18 08:14 Arnaud Camargo 12,000 Unit Capsule PO 2 capsule TIDCM [facility] Administration Medical Necessity - Tobacco Use Smoking Status: Never smoker Assessment/Plan All Active Problems Debility (Acute) Stroke (Acute) 73 year old CF with PMH HTN, HLD, DM, DM Neuropathy, GUERITA not on CPAP, recent acute left MCA stroke (05/17/18), now admitted to [facility] with debility post acute left MCA stroke, for >3hrs therapy daily, with the goal of returning home at or near her prior level of functional baseline. Plan -PT for gait stability -OT for ADLs -ST for swallow evaluation -Analgesics PRN -Bowel protocol -Stroke-acute left MCA stroke- on ASA/Plavix and Lipitor. Stroke risk factors discussed and stroke education provided. 05/24: STABLE -HTN-stable, on Amlodipine, Lisinopril and Lasix -HLD-on Lipitor -DM- uncontrolled, on Lantus, may need endocrinology evaluation as outpatient, Hba1c 8.7%. Consult hospitalist for further management of DM. 05/24, improved, hospitalist managing -DM Neuropathy- patient complaints of pain in the feet. Start Neurontin 100 mg PO TID for 5 days then increase to 300 mg PO TID to continue -GUERITA-needs to be on CPAP. 05/24 on home cpap, will need repeat titration as outpt, last study 5yrs ago -Check B/L LE venous Doppler-complained to leg/calf pain to the nursing. -Fall precautions -GI/DVT prophylaxis-Lovenox 40 mg SQ daily -Further medical management per hospitalist recommendations.
--- NOTE | 2018-05-24 11:53 | PN.NEURO_ITS ---
Patient Problems: Active and Suspected Problems Debility (Acute) Stroke (Acute) Subjective: No new complaints. Tolerating therapies. No GI or complaints. - Physical Exam General: Alert, Oriented x3, Cooperative, No apparent distress Neurological: - - Right facial droop and hemiparesis stable Psych/Mental Status: Flat Affect Vital Signs Temp Pulse Resp BP Pulse Ox 36.6 C 58 L 17 125/49 H 94 05/24/18 10:00 05/24/18 10:00 05/24/18 10:00 05/24/18 10:00 05/24/18 10:00 Oxygen Delivery Method Room Air Weight: 98.883 kg Body Mass Index (BMI) 37.4 Intake and Output for Last 24 Hours 05/22/18 05/23/18 05/24/18 23:59 23:59 23:59 Intake Total 198 / 198 200 / 200 100 / 100 Balance 198 / 198 200 / 200 100 / 100 POC Glucose 05/24/18 05/24/18 05/23/18 11:18 07:01 20:17 POC Glucose 416 H 258 H 396 H 05/23/18 16:34 POC Glucose 404 H Current Medications Generic Name Dose Route Start Last Admin Trade Name Freq PRN Reason Stop Dose Admin Acetaminophen 650 mg 05/21/18 19:18 05/24/18 04:54 Tylenol PO 650 mg Q6H PRN PRN Administration Mild Pain (0-3/10)/Headache Amlodipine Besylate 10 mg 05/22/18 10:00 05/24/18 08:20 Norvasc PO 10 mg DAILY [facility] Administration Aspirin 81 mg 05/22/18 08:00 05/24/18 08:20 Aspirin, Baby PO 81 mg DAILY@0800 [facility] Administration Atorvastatin Calcium 80 mg 05/21/18 22:00 05/23/18 20:24 Lipitor PO 80 mg QHS [facility] Administration Bisacodyl 10 mg 05/21/18 19:18 Dulcolax RECTAL .PRN X 1 PRN Constipation Calcium/Vitamin D 1 tablet 05/21/18 22:00 05/24/18 08:15 Os-Josue 500mg + D PO 1 tablet BID [facility] Administration Clopidogrel Bisulfate 75 mg 05/22/18 10:00 05/24/18 08:28 Plavix PO 75 mg DAILY [facility] Administration Cyanocobalamin 1,000 mcg 05/22/18 10:00 05/24/18 08:14 Vitamin B12 PO 1,000 mcg DAILY [facility] Administration Dextrose 0 gm 05/22/18 09:49 D50w Syringe IV X1 PRN Hypoglycemia Protocol Enoxaparin Sodium 30 mg 05/22/18 09:50 05/24/18 04:54 Lovenox SC 30 mg DAILY@0600 [facility] Administration Famotidine 20 mg 05/21/18 22:00 05/24/18 08:20 Pepcid PO 20 mg BID [facility] Administration Ferrous Gluconate 325 mg 05/22/18 17:00 05/24/18 08:21 Ferrous Gluconate PO 325 mg BIDCM [facility] Administration Fluoxetine HCl 40 mg 05/22/18 10:00 05/24/18 08:14 Prozac PO 40 mg DAILY [facility] Administration Folic Acid 1 mg 05/22/18 11:27 05/24/18 08:24 Folic Acid PO 1 mg DAILY@0800 [facility] Administration Furosemide 40 mg 05/22/18 10:00 05/24/18 08:28 Lasix PO 40 mg BIDLX [facility] Administration Gabapentin 100 mg 05/22/18 09:06 05/24/18 08:15 Neurontin PO 05/27/18 09:07 100 mg TIDCM [facility] Administration Gabapentin 300 mg 05/27/18 12:00 Neurontin PO TIDCM [facility] Glucagon 1 mg 05/22/18 09:49 IM .X1 PRN Hypoglycemia Hydroxyzine Pamoate 25 mg 05/21/18 20:00 Vistaril Pamoate Capsule PO Q6H PRN PRN ITCHING Insulin Glargine 25 units 05/23/18 22:00 05/24/18 08:31 Lantus ([facility]) SC 25 u BID [facility] Administration Insulin Human Lispro 0 unit 05/21/18 22:00 05/24/18 08:30 Humalog Kwikpen ([facility]) SC 6 u ACHS [facility] Administration Protocol Lactobacillus Acidophilus 1 tablet 05/22/18 10:00 05/24/18 08:24 Acidophilus PO 1 tablet DAILY [facility] Administration Latanoprost 1 drop 05/21/18 22:00 05/23/18 20:24 Xalatan Opthalmic EACH EYE 1 drop QHS [facility] Administration Lisinopril 20 mg 05/22/18 10:00 05/24/18 08:14 Zestril PO 20 mg DAILY [facility] Administration Magnesium Hydroxide 30 ml 05/21/18 19:18 Milk Of Magnesia PO .PRN X 1 PRN Constipation Pancrelipase 2 capsule 05/22/18 08:00 05/24/18 08:14 Arnaud Camargo 12,000 Unit Capsule PO 2 capsule TIDCM [facility] Administration Medical Necessity - Tobacco Use Smoking Status: Never smoker Assessment/Plan All Active Problems Debility (Acute) Stroke (Acute) 73 year old CF with PMH HTN, HLD, DM, DM Neuropathy, GUERITA not on CPAP, recent acute left MCA stroke (05/17/18), [facility] with debility post acute left MCA stroke, for >3hrs therapy daily, with the goal of returning home at or near her prior level of functional baseline. Plan -PT for gait stability -OT for ADLs -ST for swallow evaluation -Analgesics PRN -Bowel protocol -Stroke-acute left MCA stroke- on ASA/Plavix and Lipitor. Stroke risk factors discussed and stroke education provided. 05/24: STABLE -HTN-stable, on Amlodipine, Lisinopril and Lasix -HLD-on Lipitor -DM- uncontrolled, on Lantus, may need endocrinology evaluation as outpatient, Hba1c 8.7%. Consult hospitalist for further management of DM. 05/24, improved, hospitalist managing -DM Neuropathy- patient complaints of pain in the feet. Start Neurontin 100 mg PO TID for 5 days then increase to 300 mg PO TID to continue -GUERITA-needs to be on CPAP. 05/24 on home cpap, will need repeat titration as outpt , last study 5yrs ago -Check B/L LE venous Doppler-complained to leg/calf pain to the nursing. -Fall precautions -GI/DVT prophylaxis-Lovenox 40 mg SQ daily -Further medical management per hospitalist recommendations.
--- NOTE | 2018-05-24 16:24 | PCM.PN.HOSP ---
Patient Problems: Active and Suspected Problems Debility (Acute) Stroke (Acute) Subjective: Patient with no acute events per self and per nursing report except continued elevated blood sugars above goal despite changes following prior evaluation. Discussed plan for increased long-acting as well as addition of short-acting with meals and continued sliding scale coverage with continued attempts and likely future change needs to maintain appropriate blood sugar less than 140. Patient did discuss intake of diet pop and related studies on weight loss which supports intake of water versus diet pop. Patient denies fevers, chills, nausea, emesis, abdominal pain, chest pain or dyspnea. Objective: Physical Examination: General: awake, alert, oriented x 3 and cooperative, seated upright in bed in no apparent distress. Skin: normal color, turgor, no icterus, cyanosis, improving facial ecchymoses status post fall. HEENT: AT/NC, EOMI, PERRLA, MMM. Lungs: Diminished BS BL bases, moderate effort, no rales, ronchi or wheezing. Heart: Regular rate and rhythm; no gallop, rub audible. Abdomen: soft, obese, NTTP, ND, normal BS Extremities: no cyanosis, clubbing, or edema. Neurological: patient awake, alert, oriented x 3; cognitive function intact; pupils equally reactive to light and accomodation; cranial nerves II-XII grossly normal except R 7th facial nerve palsy, R hemiplegia, strength RU/RL 3-4/5, L intact, sensation intact, FTN/HTS deficits L sided as expected. Psychiatric: affect appears mildly flat, no acute evidence of depressive or anxiety feelings. Vitals/I&O's: Vital Signs Temp Pulse Resp BP Pulse Ox 97.9 F 58 L 17 125/49 H 94 05/24/18 10:00 05/24/18 10:00 05/24/18 10:00 05/24/18 10:00 05/24/18 10:00 Oxygen Delivery Method Room Air Weight: 217 lb 15.995 oz Body Mass Index (BMI) 37.4 Intake and Output for Last 24 Hours 05/22/18 05/23/18 05/24/18 23:59 23:59 23:59 Intake Total 198 / 198 200 / 200 320 / 320 Balance 198 / 198 200 / 200 320 / 320 Laboratory Results 05/23/18 16:34: POC Glucose 404 H 05/23/18 20:17: POC Glucose 396 H 05/24/18 07:01: POC Glucose 258 H 05/24/18 11:18: POC Glucose 416 H Current Medications Acetaminophen (Tylenol) 650 mg PO Q6H PRN PRN PRN Reason: Mild Pain (0-3/10)/Headache Last Admin: 05/24/18 04:54 Dose: 650 mg Amlodipine Besylate (Norvasc) 10 mg PO DAILY [facility] Last Admin: 05/24/18 08:20 Dose: 10 mg Aspirin (Aspirin, Baby) 81 mg PO DAILY@0800 [facility] Last Admin: 05/24/18 08:20 Dose: 81 mg Atorvastatin Calcium (Lipitor) 80 mg PO QHS [facility] Last Admin: 05/23/18 20:24 Dose: 80 mg Bisacodyl (Dulcolax) 10 mg RECTAL .PRN X 1 PRN PRN Reason: Constipation Calamine/Phenol (Calmoseptine Ointment) 1 applic TOPICAL BID@0600,2200 [facility] PRN Reason: Protocol Calcium/Vitamin D (Os-Josue 500mg + D) 1 tablet PO BID [facility] Last Admin: 05/24/18 08:15 Dose: 1 tablet Clopidogrel Bisulfate (Plavix) 75 mg PO DAILY [facility] Last Admin: 05/24/18 08:28 Dose: 75 mg Cyanocobalamin (Vitamin B12) 1,000 mcg PO DAILY [facility] Last Admin: 05/24/18 08:14 Dose: 1,000 mcg Dextrose (D50w Syringe) 0 gm IV X1 PRN; Protocol PRN Reason: Hypoglycemia Enoxaparin Sodium (Lovenox) 30 mg SC DAILY@0600 [facility] Last Admin: 05/24/18 04:54 Dose: 30 mg Famotidine (Pepcid) 20 mg PO BID [facility] Last Admin: 05/24/18 08:20 Dose: 20 mg Ferrous Gluconate (Ferrous Gluconate) 325 mg PO BIDCM [facility] Last Admin: 05/24/18 08:21 Dose: 325 mg Fluoxetine HCl (Prozac) 40 mg PO DAILY [facility] Last Admin: 05/24/18 08:14 Dose: 40 mg Folic Acid (Folic Acid) 1 mg PO DAILY@0800 [facility] Last Admin: 05/24/18 08:24 Dose: 1 mg Furosemide (Lasix) 40 mg PO BIDLX [facility] Last Admin: 05/24/18 08:28 Dose: 40 mg Gabapentin (Neurontin) 100 mg PO TIDCM [facility] Stop: 05/27/18 09:07 Last Admin: 05/24/18 12:12 Dose: 100 mg Gabapentin (Neurontin) 300 mg PO TIDCM [facility] Glucagon () 1 mg IM .X1 PRN PRN Reason: Hypoglycemia Hydroxyzine Pamoate (Vistaril Pamoate Capsule) 25 mg PO Q6H PRN PRN PRN Reason: ITCHING Insulin Glargine (Lantus ([facility])) 25 units SC BID [facility] Last Admin: 05/24/18 08:31 Dose: 25 u Insulin Human Lispro (Humalog Kwikpen (Bk)) 0 unit SC ACHS [facility] PRN Reason: Protocol Last Admin: 05/24/18 12:14 Dose: 16 u Lactobacillus Acidophilus (Acidophilus) 1 tablet PO DAILY [facility] Last Admin: 05/24/18 08:24 Dose: 1 tablet Latanoprost (Xalatan Opthalmic) 1 drop EACH EYE QHS [facility] Last Admin: 05/23/18 20:24 Dose: 1 drop Lisinopril (Zestril) 20 mg PO DAILY [facility] Last Admin: 05/24/18 08:14 Dose: 20 mg Magnesium Hydroxide (Milk Of Magnesia) 30 ml PO .PRN X 1 PRN PRN Reason: Constipation Nystatin (Nystatin) 500,000 unit PO 4X/DAY [facility] Pancrelipase (Creon Dr 12,000 Unit Capsule) 2 capsule PO TIDCM [facility] Last Admin: 05/24/18 12:12 Dose: 2 capsule Medical Necessity - Tobacco Use Smoking Status: Never smoker Assessment/Plan All Active Problems Debility (Acute) Stroke (Acute) The patient is a 73 y/o F w/ PMHx: HTN, HLD, Diabetes mellitus type II w/ Neuropathy, Obesity, Depression and Anxiety, appearance CKD stage III, GUERITA no on CPAP who [facility] on 05/22/18 with history of Acute L MCA Stroke w/ associated Fall which occurred on 05/17/18 with R hemiplegia and dysarthria for ongoing therapies and rehabilitation. (1) Recent Acute L MCA Stroke: Noted CVA on 05/17/18, onset R hemiplegia and dysarthria, evaluated initially at [facility] w/ transfer to [facility], OSH evaluation included MRI brain w/ acute lacunar infarct in the periventricular distribution, MRA head w/ 3mm aneurysm, CUS w/ B/L ICA 1-19% stenosis, given DM hx and hyperglycemia obtained HgbA1c 8.7%, FLP w/ noted LDL-25, EEG unremarkable. Continue aspiration, fall precautions, HOB, encourage IS, PT, OT, Speech therapies ongoing, will again increase lantus as ongoing BS above goal significantly, add TID scheduled lispro with meals and continue overlapping ISS in attempt to achieve < 140 BS with further changes as needed, continue asa, plavix, BP regimen and alterations as needed to achieve goal BP, high dose statin. (2) Diabetes mellitus type II w/ neuropathy: Ongoing hyperglycemia, above goal, will further increase lantus 35 u BID, add TIDw/ meals scheduled 10 units lispro with overlapping continued ISS currently high dose but if BS improve will de-escalate to moderate ISS to avoid hypoglycemia. HgbA1c 8.7% obtained during recent acute CVA work-up OSH, continue ADA diet, accu checks w/ ISS currently Continue education and teaching. Continue gabapentin regimen. (3) Hypertension: Continue home regimen including Norvasc, Lasix, lisinopril, PRN hydralazine. (4) Hyperlipidemia: Continue home statin regimen. (5) Suspect CKD stage III: Admission Rehab facility BUN/Cr 24/1.35, will trend further as needed, suspect CKD stage III, maintain on current BP regimen which includes ACEI and lasix but monitor function, change to renally dosed lovenox. (6) Normocytic Anemia, Unclear if Chronic: Admission Hgb 11.8, MCV 86.2, iron panel, ferritin consistent w/ potential mixed AOCD/Fe deficiency, vitamin B12 level elevated, folic acid low normal range, continue supplementations with iron and folic acid addition. (7) Obesity: Weight loss and lifestyle changes encouraged, attrition consulted for education and teaching. (8) Depression and anxiety: Continue home Prozac regimen. (9) GERD: Continue home famotidine. (10) GUERITA: CPAP q HS. (11) BL LE Calf Discomfort: Noted ongoing discomfort, BL LE DVT US ordered per Rehabilitation physician, pending. If negative consider addition BROOKE. May be secondary to her lasix usage if was increased from prior or new addition to her HTN regimen. (12) DVT prophylaxis: SCDs, change to renally dosed lovenox. Code Visit Inpatient E&M: 15428 Subs Hosp L2
[2018-05-24 17:15] LABS: Bedside Glucose 403 mg/dL (70-110)
[2018-05-24] MEDS: NYSTATIN 500,000 UNIT/5 ML UDC 500000 UNIT PO ×2 (19:00→23:57)
[2018-05-24 19:30] VITALS: BP 105/69; PULSE 73; RESP 16; TEMP 36.8; O2SAT 100
[2018-05-24 20:00] VITALS: PULSE 73; RESP 16; O2SAT 100
[2018-05-24] MEDS: Atorvastatin Calcium 80 MG Tablet PO (20:19)
[2018-05-24] MEDS: Latanoprost 0.005% 1 Bottle 1 DRP EACH EYE (20:22)
[2018-05-24] MEDS: Menthol/Lanolin/Calamine/Znox 113 GM Tube 1 APPLIC TOPICAL (20:22)
--- NOTE | 2018-05-24 22:05 | CPS ---
Pt placed on home pap unit for HS. No further needs at this time.
[2018-05-24 22:11] LABS: Bedside Glucose 392 mg/dL (70-110)
--- NOTE | 2018-05-24 23:39 | NURSING ---
Reviewed and agree with MOBILE LAB TECHNICIAN documentation and FIMs charting.
[2018-05-25 02:56] LABS: Bedside Glucose 187 mg/dL (70-110)
[2018-05-25 06:22] LABS: Anion Gap 10 (5-15); BUN 44 mg/dL (7-18); BUN/Creat Ratio 29.1 RATIO (10-20); Calcium,Total 9.1 mg/dL (8.5-10.1); Chloride 104 mmol/L (98-107); Creatinine, Serum 1.51 mg/dL (0.55-1.02); EST Glomerular Filtration Rate 36 mL/min (>60); Est Glom Filt Rate - Afr Amer 43 mL/min (>60); Estimated Creatinine Clearance 28.23 ml/min; Glucose 199 mg/dL (74-106); Potassium 3.8 mmol/L (3.5-5.1); Sodium Level 143 mmol/L (136-145)
[2018-05-25] MEDS: Enoxaparin 30 MG/0.3 ML Syringe SC (06:51)
[2018-05-25] MEDS: Menthol/Lanolin/Calamine/Znox 113 GM Tube 1 APPLIC TOPICAL ×2 (06:52→22:00)
[2018-05-25] MEDS: Acetaminophen 325 MG Tablet 650 MG PO (06:52)
[2018-05-25 07:01] LABS: Bedside Glucose 198 mg/dL (70-110)
[2018-05-25] MEDS: Insulin Lispro 100 UNIT/ML INSULN.PEN SC ×4 (07:43→22:01)
[2018-05-25] MEDS: Insulin Lispro 100 UNIT/ML INSULN.PEN 10 UNIT SC ×3 (07:43→17:20)
[2018-05-25] MEDS: Calcium Carb/Vitamin D 1 TABLET Tablet PO ×2 (07:44→22:03)
[2018-05-25] MEDS: FLUoxetine 20 MG Capsule 40 MG PO (07:44)
[2018-05-25] MEDS: Furosemide 40 MG Tablet PO ×2 (07:44→17:23)
[2018-05-25] MEDS: Ferrous Gluconate 325 MG Tablet PO ×2 (07:44→17:20)
[2018-05-25] MEDS: Clopidogrel Bisulfate 75 MG Tablet PO (07:44)
[2018-05-25] MEDS: Cyanocobalamin 500 MCG Tablet 1000 MCG PO (07:44)
[2018-05-25] MEDS: Gabapentin 100 MG Capsule PO ×3 (07:44→17:20)
[2018-05-25] MEDS: Aspirin 81 MG TAB.CHEW PO (07:45)
[2018-05-25] MEDS: Folic Acid 1 MG Tablet PO (07:50)
[2018-05-25 07:54] VITALS: BP 135/69; PULSE 71; RESP 17; TEMP 36.7; O2SAT 92
[2018-05-25] MEDS: Famotidine 20 MG Tablet PO ×2 (10:24→22:03)
[2018-05-25] MEDS: amLODIPine 10 MG Tablet PO (10:24)
[2018-05-25] MEDS: Lisinopril 20 MG Tablet PO (10:24)
[2018-05-25] MEDS: NYSTATIN 500,000 UNIT/5 ML UDC 500000 UNIT PO ×4 (10:25→22:02)
[2018-05-25 11:41] LABS: Bedside Glucose 267 mg/dL (70-110)
[2018-05-25 17:10] LABS: Bedside Glucose 239 mg/dL (70-110)
[2018-05-25 21:57] VITALS: BP 117/52; PULSE 63; RESP 18; TEMP 36.9; O2SAT 94
[2018-05-25] MEDS: Atorvastatin Calcium 80 MG Tablet PO (22:02)
[2018-05-25] MEDS: Latanoprost 0.005% 1 Bottle 1 DRP EACH EYE (22:03)
[2018-05-25 22:26] LABS: Bedside Glucose 335 mg/dL (70-110)
--- NOTE | 2018-05-25 23:13 | NURSING ---
2230: While doing HS oral care, pt noted to be coughing post swish and spit of fluids. HOB was elevated to 90 degrees at the time. Will continue to monitor with am am oral care.
--- NOTE | 2018-05-26 01:23 | NURSING ---
Reviewed and agree with CARBON BRUSHER ASSEMBLER documentation and FIMs charting.
[2018-05-26] MEDS: Enoxaparin 30 MG/0.3 ML Syringe SC (06:44)
[2018-05-26] MEDS: Menthol/Lanolin/Calamine/Znox 113 GM Tube 1 APPLIC TOPICAL ×2 (06:45→21:44)
[2018-05-26 07:16] LABS: Bedside Glucose 211 mg/dL (70-110)
[2018-05-26 08:10] VITALS: BP 155/73; PULSE 69; RESP 18; TEMP 36.8; O2SAT 94
[2018-05-26] MEDS: Insulin Lispro 100 UNIT/ML INSULN.PEN 10 UNIT SC ×3 (08:23→17:19)
[2018-05-26] MEDS: Insulin Lispro 100 UNIT/ML INSULN.PEN SC ×4 (08:23→21:43)
[2018-05-26] MEDS: Aspirin 81 MG TAB.CHEW PO (08:24)
[2018-05-26] MEDS: Gabapentin 100 MG Capsule PO ×3 (08:25→17:20)
[2018-05-26] MEDS: amLODIPine 10 MG Tablet PO (08:25)
[2018-05-26] MEDS: Ferrous Gluconate 325 MG Tablet PO ×2 (08:25→17:20)
[2018-05-26] MEDS: Furosemide 40 MG Tablet PO ×2 (08:25→17:20)
[2018-05-26] MEDS: Folic Acid 1 MG Tablet PO (08:25)
[2018-05-26] MEDS: Clopidogrel Bisulfate 75 MG Tablet PO (08:26)
[2018-05-26] MEDS: Cyanocobalamin 500 MCG Tablet 1000 MCG PO (08:26)
[2018-05-26] MEDS: Famotidine 20 MG Tablet PO ×2 (08:26→21:41)
[2018-05-26] MEDS: Lisinopril 20 MG Tablet PO (08:26)
[2018-05-26] MEDS: Calcium Carb/Vitamin D 1 TABLET Tablet PO ×2 (08:26→21:41)
[2018-05-26] MEDS: FLUoxetine 20 MG Capsule 40 MG PO (08:26)
[2018-05-26] MEDS: NYSTATIN 500,000 UNIT/5 ML UDC 500000 UNIT PO ×4 (08:36→21:41)
--- NOTE | 2018-05-26 10:11 | PN.NEURO_ITS ---
Patient Problems: Active and Suspected Problems Debility (Acute) Stroke (Acute) Subjective: Staffed in team meeting today. is present. Questions are answered. With physical therapy and occupational therapy she remains max assist of 2 but is able to stand for 30-40 seconds at the parallel bar. Speech therapy notes that her risk of aspiration is eliminated by modified barium swallow with chin tuck maneuvers. Doing well from nursing standpoint, blood sugars are improving. Objective: Examination she is awake and alert, right hemiparesis is stable. - Physical Exam Vital Signs Temp Pulse Resp BP Pulse Ox 36.8 C 69 18 155/73 H 94 05/26/18 08:10 05/26/18 08:10 05/26/18 08:10 05/26/18 08:10 05/26/18 08:10 Oxygen Delivery Method Room Air Weight: 98.3 kg Body Mass Index (BMI) 37.4 Finger Stick Blood Glucose 187 Intake and Output for Last 24 Hours 05/24/18 05/25/18 05/26/18 23:59 23:59 23:59 Intake Total 320 / 320 360 / 360 40 / 40 Balance 320 / 320 360 / 360 40 / 40 POC Glucose 05/26/18 05/25/18 05/25/18 07:10 21:59 16:32 POC Glucose 211 H 335 H 239 H 05/25/18 11:34 POC Glucose 267 H Current Medications Generic Name Dose Route Start Last Admin Trade Name Freq PRN Reason Stop Dose Admin Acetaminophen 650 mg 05/21/18 19:18 05/25/18 06:52 Tylenol PO 650 mg Q6H PRN PRN Administration Mild Pain (0-3/10)/Headache Amlodipine Besylate 10 mg 05/22/18 10:00 05/26/18 08:25 Norvasc PO 10 mg DAILY [facility] Administration Aspirin 81 mg 05/22/18 08:00 05/26/18 08:24 Aspirin, Baby PO 81 mg DAILY@0800 [facility] Administration Atorvastatin Calcium 80 mg 05/21/18 22:00 05/25/18 22:02 Lipitor PO 80 mg QHS [facility] Administration Bisacodyl 10 mg 05/21/18 19:18 Dulcolax RECTAL .PRN X 1 PRN Constipation Calamine/Phenol 1 applic 05/24/18 22:00 05/26/18 06:45 Calmoseptine Ointment TOPICAL 1 applicatio BID@0600,2200 [facility] Administration Protocol Calcium/Vitamin D 1 tablet 05/21/18 22:00 05/26/18 08:26 Os-Josue 500mg + D PO 1 tablet BID [facility] Administration Clopidogrel Bisulfate 75 mg 05/22/18 10:00 05/26/18 08:26 Plavix PO 75 mg DAILY [facility] Administration Cyanocobalamin 1,000 mcg 05/22/18 10:00 05/26/18 08:26 Vitamin B12 PO 1,000 mcg DAILY [facility] Administration Dextrose 0 gm 05/22/18 09:49 D50w Syringe IV X1 PRN Hypoglycemia Protocol Enoxaparin Sodium 30 mg 05/22/18 09:50 05/26/18 06:44 Lovenox SC 30 mg DAILY@0600 [facility] Administration Famotidine 20 mg 05/21/18 22:00 05/26/18 08:26 Pepcid PO 20 mg BID [facility] Administration Ferrous Gluconate 325 mg 05/22/18 17:00 05/26/18 08:25 Ferrous Gluconate PO 325 mg BIDCM [facility] Administration Fluoxetine HCl 40 mg 05/22/18 10:00 05/26/18 08:26 Prozac PO 40 mg DAILY [facility] Administration Folic Acid 1 mg 05/22/18 11:27 05/26/18 08:25 Folic Acid PO 1 mg DAILY@0800 [facility] Administration Furosemide 40 mg 05/22/18 10:00 05/26/18 08:25 Lasix PO 40 mg BIDLX [facility] Administration Gabapentin 100 mg 05/22/18 09:06 05/26/18 08:25 Neurontin PO 05/27/18 09:07 100 mg TIDCM [facility] Administration Gabapentin 300 mg 05/27/18 12:00 Neurontin PO TIDCM [facility] Glucagon 1 mg 05/22/18 09:49 IM .X1 PRN Hypoglycemia Hydroxyzine Pamoate 25 mg 05/21/18 20:00 Vistaril Pamoate Capsule PO Q6H PRN PRN ITCHING Insulin Glargine 35 units 05/24/18 16:25 05/26/18 08:36 Lantus ([facility]) SC 35 units BID [facility] Administration Insulin Human Lispro 0 unit 05/21/18 22:00 05/26/18 08:23 Humalog Kwikpen ([facility]) SC 6 u ACHS [facility] Administration Protocol Insulin Human Lispro 10 unit 05/25/18 07:00 05/26/18 08:23 Humalog Kee ([facility]) SC 10 u TIDAC [facility] Administration Lactobacillus Acidophilus 1 tablet 05/22/18 10:00 05/26/18 08:25 Acidophilus PO 1 tablet DAILY [facility] Administration Latanoprost 1 drop 05/21/18 22:00 05/25/18 22:03 Xalatan Opthalmic EACH EYE 1 drop QHS [facility] Administration Lisinopril 20 mg 05/22/18 10:00 05/26/18 08:26 Zestril PO 20 mg DAILY [facility] Administration Magnesium Hydroxide 30 ml 05/21/18 19:18 Milk Of Magnesia PO .PRN X 1 PRN Constipation Nystatin 500,000 unit 05/24/18 14:00 05/26/18 08:36 Nystatin PO 500,000 unit 4X/DAY [facility] Administration Pancrelipase 2 capsule 05/22/18 08:00 05/26/18 08:24 Creon 12,000 Unit Capsule PO 2 capsule TIDCM [facility] Administration Medical Necessity - Tobacco Use Smoking Status: Never smoker Assessment/Plan All Active Problems Debility (Acute) Stroke (Acute) 73 year old CF with PMH HTN, HLD, DM, DM Neuropathy, GUERITA not on CPAP, recent acute left MCA stroke (05/17/18), now admitted to [facility] with debility post acute left MCA stroke, for >3hrs therapy daily, with the goal of returning home at or near her prior level of functional baseline. Plan -PT for gait stability -OT for ADLs -ST for swallow evaluation -Analgesics PRN -Bowel protocol -Stroke-acute left MCA stroke- on ASA/Plavix and Lipitor. Stroke risk factors discussed and stroke education provided. 05/24: STABLE -HTN-stable, on Amlodipine, Lisinopril and Lasix -HLD-on Lipitor -DM- uncontrolled, on Lantus, may need endocrinology evaluation as outpatient, Hba1c 8.7%. Consult hospitalist for further management of DM. 05/24, improved, hospitalist managing -DM Neuropathy- patient complaints of pain in the feet. Start Neurontin 100 mg PO TID for 5 days then increase to 300 mg PO TID to continue -GUERITA-needs to be on CPAP. 05/24 on home cpap, will need repeat titration as outpt , last study 5yrs ago -Check B/L LE venous Doppler-complained to leg/calf pain to the nursing. -Fall precautions -GI/DVT prophylaxis-Lovenox 40 mg SQ daily -Further medical management per hospitalist recommendations. Oral candidiasis: Improved with nystatin
--- NOTE | 2018-05-26 11:22 | CASEMGMT ---
Insurance Clinical information faxed. Pending continued stay approval. Auth#[id number] Carole LEDESMA, SHIP WORKER
--- NOTE | 2018-05-26 11:24 | CASEMGMT ---
Team meeting held. Patient present as well as patient family. No discharge date set at this time. Patient to continue with further care and treatment on the Inpatient Rehab Unit. Patient with insurance update due on 05/26/18, patient and patient family aware that continued stay approval is not guaranteed at this time. Support given. Will continue to follow. Carole LEDESMA, DISTRIBUTION SALES MANAGER
[2018-05-26 11:51] LABS: Bedside Glucose 246 mg/dL (70-110)
[2018-05-26 13:26] VITALS: BP 127/66; PULSE 70; RESP 16; O2SAT 94
[2018-05-26] MEDS: Acetaminophen 325 MG Tablet 650 MG PO (13:43)
[2018-05-26 16:40] LABS: Bedside Glucose 173 mg/dL (70-110)
[2018-05-26 19:44] VITALS: BP 148/82; PULSE 64; RESP 17; TEMP 36.6; O2SAT 92
[2018-05-26 21:25] LABS: Bedside Glucose 338 mg/dL (70-110)
[2018-05-26] MEDS: Latanoprost 0.005% 1 Bottle 1 DRP EACH EYE (21:40)
[2018-05-26] MEDS: Atorvastatin Calcium 80 MG Tablet PO (21:41)
[2018-05-27] MEDS: Enoxaparin 30 MG/0.3 ML Syringe SC (05:59)
[2018-05-27] MEDS: Menthol/Lanolin/Calamine/Znox 113 GM Tube 1 APPLIC TOPICAL ×2 (05:59→21:49)
[2018-05-27 06:21] LABS: Bedside Glucose 199 mg/dL (70-110)
[2018-05-27 07:33] VITALS: BP 117/71; PULSE 61; RESP 18; TEMP 36.4; O2SAT 94
[2018-05-27] MEDS: Cyanocobalamin 500 MCG Tablet 1000 MCG PO (07:42)
[2018-05-27] MEDS: FLUoxetine 20 MG Capsule 40 MG PO (07:42)
[2018-05-27] MEDS: NYSTATIN 500,000 UNIT/5 ML UDC 500000 UNIT PO ×4 (07:42→21:51)
[2018-05-27] MEDS: Famotidine 20 MG Tablet PO ×2 (07:43→21:51)
[2018-05-27] MEDS: Clopidogrel Bisulfate 75 MG Tablet PO (07:43)
[2018-05-27] MEDS: Ferrous Gluconate 325 MG Tablet PO ×2 (07:43→16:52)
[2018-05-27] MEDS: Aspirin 81 MG TAB.CHEW PO (07:43)
[2018-05-27] MEDS: Calcium Carb/Vitamin D 1 TABLET Tablet PO ×2 (07:43→21:51)
[2018-05-27] MEDS: Acetaminophen 325 MG Tablet 650 MG PO (07:44)
[2018-05-27] MEDS: Folic Acid 1 MG Tablet PO (07:44)
[2018-05-27] MEDS: Furosemide 40 MG Tablet PO ×2 (07:47→16:52)
[2018-05-27] MEDS: amLODIPine 10 MG Tablet PO (07:47)
[2018-05-27] MEDS: Lisinopril 20 MG Tablet PO (07:48)
[2018-05-27] MEDS: Gabapentin 100 MG Capsule PO (07:52)
[2018-05-27] MEDS: Insulin Lispro 100 UNIT/ML INSULN.PEN SC ×3 (09:41→21:50)
[2018-05-27] MEDS: Insulin Lispro 100 UNIT/ML INSULN.PEN 10 UNIT SC ×3 (09:42→16:51)
--- NOTE | 2018-05-27 10:05 | PCM.PN.NEU ---
Patient Problems: Active and Suspected Problems Debility (Acute) Stroke (Acute) Subjective: Patient reports a new headache this morning, posterior. No other complaints. She was given Tylenol and she says this has adequately improved her headache. She agrees to have a CAT scan. Objective: Neurologically stable with right hemiparesis and right central 7. - Physical Exam General: Alert, Oriented x3 Vital Signs Temp Pulse Resp BP Pulse Ox 36.4 C L 61 18 117/71 94 05/27/18 07:33 05/27/18 07:33 05/27/18 07:33 05/27/18 07:33 05/27/18 07:33 Oxygen Delivery Method Room Air Weight: 98.3 kg Body Mass Index (BMI) 37.4 Finger Stick Blood Glucose 187 Intake and Output for Last 24 Hours 05/25/18 05/26/18 05/27/18 23:59 23:59 23:59 Intake Total 360 / 360 120 / 120 60 / 60 Balance 360 / 360 120 / 120 60 / 60 POC Glucose 05/27/18 05/26/18 05/26/18 06:14 21:18 16:32 POC Glucose 199 H 338 H 173 H 05/26/18 11:43 POC Glucose 246 H Current Home Med List Medication Instructions Recorded Confirmed Type Amlodipine [Norvasc] 10 mg PO DAILY 05/21/18 05/21/18 History Aspirin [Aspirin, Baby] 81 mg PO DAILY@0800 05/21/18 05/21/18 History Atorvastatin Calcium [Lipitor] 80 mg PO QHS 05/21/18 05/21/18 History Calcium Carbonate/Vitamin D3 1 each PO BID 05/21/18 05/21/18 History [Calcium 500 mg-Vit D3 600 Unit] Clopidogrel Bisulfate [Plavix] 75 mg PO DAILY 05/21/18 05/21/18 History Cyanocobalamin (Vitamin B-12) 1,000 mcg PO DAILY 05/21/18 05/21/18 History [Vitamin B-12] Famotidine [Pepcid] 20 mg PO BID 05/21/18 05/21/18 History Fluoxetine HCl [Prozac] 40 mg PO DAILY 05/21/18 05/21/18 History Furosemide [Lasix] 40 mg PO BID 05/21/18 05/21/18 History Hydroxyzine HCl 25 mg PO Q6H PRN PRN 05/21/18 05/21/18 History Insulin Glargine [Lantus (BKC)] 18 units SC QHS 05/21/18 05/21/18 History Lactobacillus Acidophilus 1 each PO DAILY 05/21/18 05/21/18 History [Acidophilus] Latanoprost 0.005% [Xalatan 1 drop EACH EYE QHS 05/21/18 05/21/18 History Opthalmic] Lipase/Protease/Amylase [Creon Dr 1 capsule PO TID 05/21/18 05/22/18 History 24,000 Units Capsule] Lisinopril [Zestril] 20 mg PO DAILY 05/21/18 05/21/18 History Mecobal/Levomefolat Ca/B6 Phos 2 tab PO DAILY 05/21/18 05/21/18 History [[id number] Tablet] Current Medications Generic Name Dose Route Start Last Admin Trade Name Freq PRN Reason Stop Dose Admin Acetaminophen 650 mg 05/21/18 19:18 05/27/18 07:44 Tylenol PO 650 mg Q6H PRN PRN Administration Mild Pain (0-3/10)/Headache Amlodipine Besylate 10 mg 05/22/18 10:00 05/27/18 07:47 Norvasc PO 10 mg DAILY [facility] Administration Aspirin 81 mg 05/22/18 08:00 05/27/18 07:43 Aspirin, Baby PO 81 mg DAILY@0800 [facility] Administration Atorvastatin Calcium 80 mg 05/21/18 22:00 05/26/18 21:41 Lipitor PO 80 mg QHS [facility] Administration Bisacodyl 10 mg 05/21/18 19:18 Dulcolax RECTAL .PRN X 1 PRN Constipation Calamine/Phenol 1 applic 05/24/18 22:00 05/27/18 05:59 Calmoseptine Ointment TOPICAL 1 applicatio BID@0600,2200 [facility] Administration Protocol Calcium/Vitamin D 1 tablet 05/21/18 22:00 05/27/18 07:43 Os-Jouse 500mg + D PO 1 tablet BID [facility] Administration Clopidogrel Bisulfate 75 mg 05/22/18 10:00 05/27/18 07:43 Plavix PO 75 mg DAILY [facility] Administration Cyanocobalamin 1,000 mcg 05/22/18 10:00 05/27/18 07:42 Vitamin B12 PO 1,000 mcg DAILY [facility] Administration Dextrose 0 gm 05/22/18 09:49 D50w Syringe IV X1 PRN Hypoglycemia Protocol Enoxaparin Sodium 30 mg 05/22/18 09:50 05/27/18 05:59 Lovenox SC 30 mg DAILY@0600 [facility] Administration Famotidine 20 mg 05/21/18 22:00 05/27/18 07:43 Pepcid PO 20 mg BID [facility] Administration Ferrous Gluconate 325 mg 05/22/18 17:00 05/27/18 07:43 Ferrous Gluconate PO 325 mg BIDCM [facility] Administration Fluoxetine HCl 40 mg 05/22/18 10:00 05/27/18 07:42 Prozac PO 40 mg DAILY [facility] Administration Folic Acid 1 mg 05/22/18 11:27 05/27/18 07:44 Folic Acid PO 1 mg DAILY@0800 [facility] Administration Furosemide 40 mg 05/22/18 10:00 05/27/18 07:47 Lasix PO 40 mg BIDLX [facility] Administration Gabapentin 300 mg 05/27/18 12:00 Neurontin PO TIDCM [facility] Glucagon 1 mg 05/22/18 09:49 IM .X1 PRN Hypoglycemia Hydroxyzine Pamoate 25 mg 05/21/18 20:00 Vistaril Pamoate Capsule PO Q6H PRN PRN ITCHING Insulin Glargine 35 units 05/24/18 16:25 05/27/18 09:42 Lantus ([facility]) SC 35 units BID [facility] Administration Insulin Human Lispro 0 unit 05/21/18 22:00 05/27/18 09:41 Humalog Kwikpen ([facility]) SC 3 u ACHS [facility] Administration Protocol Insulin Human Lispro 10 unit 05/25/18 07:00 05/27/18 09:42 Humalog Kwikpen ([facility]) SC 10 u TIDAC [facility] Administration Lactobacillus Acidophilus 1 tablet 05/22/18 10:00 05/27/18 07:44 Acidophilus PO 1 tablet DAILY [facility] Administration Latanoprost 1 drop 05/21/18 22:00 05/26/18 21:40 Xalatan Opthalmic EACH EYE 1 drop QHS [facility] Administration Lisinopril 20 mg 05/22/18 10:00 05/27/18 07:48 Zestril PO 20 mg DAILY [facility] Administration Magnesium Hydroxide 30 ml 05/21/18 19:18 Milk Of Magnesia PO .PRN X 1 PRN Constipation Nystatin 500,000 unit 05/24/18 14:00 05/27/18 07:42 Nystatin PO 500,000 unit 4X/DAY [facility] Administration Pancrelipase 2 capsule 05/22/18 08:00 05/27/18 07:43 Creon 12,000 Unit Capsule PO 2 capsule TIDCM [facility] Administration Medical Necessity - Tobacco Use Smoking Status: Never smoker Assessment/Plan All Active Problems Debility (Acute) Stroke (Acute) 73 year old CF with PMH HTN, HLD, DM, DM Neuropathy, GUERITA not on CPAP, recent acute left MCA stroke (05/17/18), now admitted to [facility] with debility post acute left MCA stroke, for >3hrs therapy daily, with the goal of returning home at or near her prior level of functional baseline. Plan -PT for gait stability -OT for ADLs -ST for swallow evaluation -Analgesics PRN -Bowel protocol -Stroke-acute left MCA stroke- on ASA/Plavix and Lipitor. Stroke risk factors discussed and stroke education provided. 05/24: STABLE -HTN-stable, on Amlodipine, Lisinopril and Lasix -HLD-on Lipitor -DM- uncontrolled, on Lantus, may need endocrinology evaluation as outpatient, Hba1c 8.7%. Consult hospitalist for further management of DM. 05/24, improved, hospitalist managing -DM Neuropathy- patient complaints of pain in the feet. Start Neurontin 100 mg PO TID for 5 days then increase to 300 mg PO TID to continue -GUERITA-needs to be on CPAP. 05/24 on home cpap, will need repeat titration as outpt, last study 5yrs ago -Check B/L LE venous Doppler-complained to leg/calf pain to the nursing. -Fall precautions -GI/DVT prophylaxis-Lovenox 40 mg SQ daily -Further medical management per hospitalist recommendations. Oral candidiasis: Improved with nystatin New headache: This is improved with Tylenol acceptably. I will check a CAT scan of the brain.
[2018-05-27 11:30] LABS: Bedside Glucose 301 mg/dL (70-110)
--- NOTE | 2018-05-27 12:55 | PCM.PROGNOTE ---
Patient Problems: Active and Suspected Problems Debility (Acute) Stroke (Acute) Subjective: Chief complaint: Follow-up after consultation for medical management after admission to inpatient rehabilitation unit for acute left MCA stroke with resultant right-sided hemiplegia and dysarthria. Patient seen and examined. No acute events overnight. Nursing staff reported that patient had episode of vomiting this afternoon. At this time, she denies any abdominal pain. Also, it was reported that she had an episode of double vision this morning for which CT scan head performed and reported findings consistent with ongoing left temporoparietal lobe ischemia compatible with left MCA stroke. Her vital signs are stable, blood pressure under control, afebrile. - Physical Exam General: Alert, Cooperative, No apparent distress HEENT: Atraumatic, PERRLA, EOMI, Normocephalic Oral: Moist Mucosa, No Gingival or Mucosal Lesions/ Ulcerations Neck: Supple, No JVD, Negative Carotid Bruits, Trachea Midline, Thyroid Normal Size and Texture Lungs: Clear to auscultation, No rhonchi, No wheeze, No rales, Diminished Cardiovascular: Regular rate, Regular Rhythm, Normal S1, Normal S2, PMI Normal Abdomen: Bowel Sounds Present, Soft, Non Tender, Non-Distended, No Hepato-splenomegaly, Obese Extremities: No clubbing, No cyanosis, No edema Skin: No rashes, No breakdown Neurological: - - Right seventh facial palsy, right facial droop, dysarthria, right hemiplegia. Psych/Mental Status: Normal Affect, Appropriate Vital Signs Temp Pulse Resp BP Pulse Ox 97.5 F L 61 18 117/71 94 05/27/18 07:33 05/27/18 07:33 05/27/18 07:33 05/27/18 07:33 05/27/18 07:33 Oxygen Delivery Method Room Air Weight: 216 lb 11.43 oz Body Mass Index (BMI) 37.4 Finger Stick Blood Glucose 187 Intake and Output for Last 24 Hours 05/25/18 05/26/18 05/27/18 23:59 23:59 23:59 Intake Total 360 / 360 120 / 120 60 / 60 Balance 360 / 360 120 / 120 60 / 60 POC Glucose 05/27/18 05/27/18 05/26/18 11:26 06:14 21:18 POC Glucose 301 H 199 H 338 H 05/26/18 16:32 POC Glucose 173 H Clinical Impression(s) from Imaging Studies Videofluoroscopic Swallow 05/24/18 09:35 IMPRESSION: Aspiration with thin liquids when given by spoon. This improved with the chin tuck maneuver The swallow study findings were discussed with the patient by the speech pathologist at the conclusion of the examination. Please see speech pathology report for more information and recommendations. Electronically Signed: Valeriano Gutierrez MD at 11:27 EDT Tel [phone], Service support , Brain CT 05/27/18 10:00 IMPRESSION: Decreased attenuation in the left temporoparietal lobe suggestive of a ongoing ischemia. No significant mass effect is seen. Electronically Signed: Valeriano Gutierrez MD at 10:29 EDT Tel [phone], Service support , Medical Necessity - Tobacco Use Smoking Status: Never smoker Assessment/Plan All Active Problems Debility (Acute) Stroke (Acute) This is a 73 years old female patient admitted to rehabilitation unit after she suffered acute left MCA stroke with resultant right-sided hemiplegia, and dysarthria and I am seeing this patient in follow-up for consultation for medical management. #1 acute left MCA ischemic stroke: With resultant right-sided hemiplegia, right facial droop and dysarthria. She is on aspirin and statins as well as Plavix. Blood pressure under control, other vital signs are stable. Today, CT scan brain repeated because patient complained of diplopia and revealed findings consistent with left MCA stroke. Recommend neurology to review the CAT scan again. Plan to continue PT OT according to rehab team. #2 type 2 diabetes mellitus: Blood sugar has been fluctuating significantly. She is on pre-meal Humalog, Lantus twice daily and sliding scale. Plan to continue monitoring. #3 hypertension: Blood pressure stable, continue Norvasc and lisinopril. #4 hyperlipidemia: Continue statins. #5 suspect stage III chronic kidney disease: Serum creatinine has been around 1.3-1.5 and has been stable. Plan to continue monitor. #6 depression: Continue Prozac. #7 GERD: Continue Pepcid. #8 DVT prophylaxis: SCDs, subcu Lovenox. This note was generated with [employer] dictation software. It may contain incorrect words, spelling, and punctuation that were not noted in checking the note before signing. Code Visit Inpatient E&M: 80697 Subs Hosp L2
[2018-05-27] MEDS: Gabapentin 300 MG Capsule PO ×2 (13:17→16:52)
[2018-05-27 16:50] LABS: Bedside Glucose 147 mg/dL (70-110)
[2018-05-27 21:20] LABS: Bedside Glucose 182 mg/dL (70-110)
[2018-05-27] MEDS: Atorvastatin Calcium 80 MG Tablet PO (21:51)
[2018-05-27] MEDS: Latanoprost 0.005% 1 Bottle 1 DRP EACH EYE (21:52)
[2018-05-27 21:53] VITALS: BP 123/48; PULSE 84; RESP 16; TEMP 36.6; O2SAT 93
[2018-05-27 22:00] VITALS: PULSE 84; RESP 16; O2SAT 93
--- NOTE | 2018-05-28 00:51 | NURSING ---
Reviewed and agree with LPNs fims and handoff
[2018-05-28] MEDS: Enoxaparin 30 MG/0.3 ML Syringe SC (05:29)
[2018-05-28] MEDS: Menthol/Lanolin/Calamine/Znox 113 GM Tube 1 APPLIC TOPICAL ×2 (05:29→23:10)
[2018-05-28 06:46] LABS: Bedside Glucose 121 mg/dL (70-110)
[2018-05-28 08:28] VITALS: BP 105/52; PULSE 62; RESP 16; TEMP 36.8; O2SAT 94
[2018-05-28] MEDS: Clopidogrel Bisulfate 75 MG Tablet PO (08:39)
[2018-05-28] MEDS: Famotidine 20 MG Tablet PO ×2 (08:39→23:08)
[2018-05-28] MEDS: Ferrous Gluconate 325 MG Tablet PO ×2 (08:39→17:56)
[2018-05-28] MEDS: Cyanocobalamin 500 MCG Tablet 1000 MCG PO (08:39)
[2018-05-28] MEDS: Calcium Carb/Vitamin D 1 TABLET Tablet PO ×2 (08:39→23:08)
[2018-05-28] MEDS: FLUoxetine 20 MG Capsule 40 MG PO (08:39)
[2018-05-28] MEDS: Folic Acid 1 MG Tablet PO (08:40)
[2018-05-28] MEDS: Gabapentin 300 MG Capsule PO ×3 (08:40→17:49)
[2018-05-28] MEDS: Aspirin 81 MG TAB.CHEW PO (08:40)
[2018-05-28] MEDS: NYSTATIN 500,000 UNIT/5 ML UDC 500000 UNIT PO ×4 (08:40→23:08)
[2018-05-28] MEDS: Insulin Lispro 100 UNIT/ML INSULN.PEN 10 UNIT SC ×3 (08:41→17:51)
[2018-05-28 10:13] VITALS: BP 119/51; PULSE 65
[2018-05-28] MEDS: Lisinopril 20 MG Tablet PO (10:15)
[2018-05-28] MEDS: Furosemide 40 MG Tablet PO ×2 (10:15→17:49)
[2018-05-28] MEDS: amLODIPine 10 MG Tablet PO (10:15)
[2018-05-28] MEDS: Acetaminophen 325 MG Tablet 650 MG PO (10:53)
[2018-05-28 12:01] LABS: Bedside Glucose 215 mg/dL (70-110)
[2018-05-28] MEDS: Insulin Lispro 100 UNIT/ML INSULN.PEN SC ×3 (12:36→23:09)
[2018-05-28 17:16] LABS: Bedside Glucose 252 mg/dL (70-110)
[2018-05-28 19:31] VITALS: BP 116/57; PULSE 95; RESP 16; TEMP 36.6; O2SAT 95
[2018-05-28 21:41] LABS: Bedside Glucose 323 mg/dL (70-110)
[2018-05-28] MEDS: Latanoprost 0.005% 1 Bottle 1 DRP EACH EYE (23:07)
[2018-05-28] MEDS: Atorvastatin Calcium 80 MG Tablet PO (23:08)
[2018-05-28 23:31] LABS: Bedside Glucose 288 mg/dL (70-110)
[2018-05-29] MEDS: Enoxaparin 30 MG/0.3 ML Syringe SC (06:22)
[2018-05-29] MEDS: Menthol/Lanolin/Calamine/Znox 113 GM Tube 1 APPLIC TOPICAL ×2 (06:23→20:37)
[2018-05-29 06:36] LABS: Bedside Glucose 150 mg/dL (70-110)
[2018-05-29 07:46] VITALS: BP 129/70; PULSE 60; RESP 16; TEMP 36.7; O2SAT 93
[2018-05-29] MEDS: Lisinopril 20 MG Tablet PO (07:52)
[2018-05-29] MEDS: Cyanocobalamin 500 MCG Tablet 1000 MCG PO (07:52)
[2018-05-29] MEDS: Clopidogrel Bisulfate 75 MG Tablet PO (07:53)
[2018-05-29] MEDS: amLODIPine 10 MG Tablet PO (07:53)
[2018-05-29] MEDS: Famotidine 20 MG Tablet PO ×2 (07:53→20:34)
[2018-05-29] MEDS: Furosemide 40 MG Tablet PO ×2 (07:53→17:35)
[2018-05-29] MEDS: Calcium Carb/Vitamin D 1 TABLET Tablet PO ×2 (07:53→20:34)
[2018-05-29] MEDS: NYSTATIN 500,000 UNIT/5 ML UDC 500000 UNIT PO ×4 (07:53→20:34)
[2018-05-29] MEDS: FLUoxetine 20 MG Capsule 40 MG PO (07:53)
[2018-05-29] MEDS: Ferrous Gluconate 325 MG Tablet PO ×2 (07:54→17:35)
[2018-05-29] MEDS: Folic Acid 1 MG Tablet PO (07:54)
[2018-05-29] MEDS: Gabapentin 300 MG Capsule PO ×3 (07:54→17:35)
[2018-05-29] MEDS: Aspirin 81 MG TAB.CHEW PO (07:54)
[2018-05-29] MEDS: Insulin Lispro 100 UNIT/ML INSULN.PEN 10 UNIT SC ×3 (07:55→17:35)
[2018-05-29] MEDS: Insulin Lispro 100 UNIT/ML INSULN.PEN SC ×4 (07:55→20:36)
[2018-05-29 12:00] LABS: Bedside Glucose 283 mg/dL (70-110)
[2018-05-29 12:05] LABS: Bedside Glucose 291 mg/dL (70-110)
[2018-05-29 17:06] LABS: Bedside Glucose 158 mg/dL (70-110)
[2018-05-29 19:32] VITALS: BP 152/71; PULSE 81; RESP 18; TEMP 37.1; O2SAT 94
[2018-05-29] MEDS: Latanoprost 0.005% 1 Bottle 1 DRP EACH EYE (20:34)
[2018-05-29] MEDS: Atorvastatin Calcium 80 MG Tablet PO (20:34)
[2018-05-29 20:46] LABS: Bedside Glucose 216 mg/dL (70-110)
[2018-05-30] MEDS: Enoxaparin 30 MG/0.3 ML Syringe SC (06:14)
[2018-05-30] MEDS: Menthol/Lanolin/Calamine/Znox 113 GM Tube 1 APPLIC TOPICAL ×2 (06:14→23:11)
[2018-05-30 06:36] LABS: Bedside Glucose 125 mg/dL (70-110)
[2018-05-30] MEDS: Insulin Lispro 100 UNIT/ML INSULN.PEN 10 UNIT SC ×3 (07:45→17:34)
[2018-05-30] MEDS: Aspirin 81 MG TAB.CHEW PO (07:47)
[2018-05-30] MEDS: Gabapentin 300 MG Capsule PO ×3 (07:48→17:35)
[2018-05-30] MEDS: Folic Acid 1 MG Tablet PO (07:48)
[2018-05-30] MEDS: NYSTATIN 500,000 UNIT/5 ML UDC 500000 UNIT PO ×4 (07:48→22:29)
[2018-05-30] MEDS: amLODIPine 10 MG Tablet PO (07:48)
[2018-05-30] MEDS: Ferrous Gluconate 325 MG Tablet PO ×2 (07:48→17:35)
[2018-05-30] MEDS: Furosemide 40 MG Tablet PO ×2 (07:48→17:35)
[2018-05-30] MEDS: Lisinopril 20 MG Tablet PO (07:49)
[2018-05-30] MEDS: Calcium Carb/Vitamin D 1 TABLET Tablet PO ×2 (07:49→22:29)
[2018-05-30] MEDS: Clopidogrel Bisulfate 75 MG Tablet PO (07:49)
[2018-05-30] MEDS: FLUoxetine 20 MG Capsule 40 MG PO (07:49)
[2018-05-30] MEDS: Famotidine 20 MG Tablet PO ×2 (07:49→22:29)
[2018-05-30] MEDS: Cyanocobalamin 500 MCG Tablet 1000 MCG PO (07:49)
[2018-05-30 08:17] VITALS: BP 125/58; PULSE 57; RESP 12; TEMP 36.4; O2SAT 95
[2018-05-30] MEDS: Acetaminophen 325 MG Tablet 650 MG PO (09:23)
[2018-05-30 11:35] LABS: Bedside Glucose 206 mg/dL (70-110)
[2018-05-30] MEDS: Insulin Lispro 100 UNIT/ML INSULN.PEN SC ×2 (12:07→22:28)
--- NOTE | 2018-05-30 13:01 | PN.NEURO_ITS ---
Patient Problems: Active and Suspected Problems Debility (Acute) Stroke (Acute) Subjective: Patient seen and examined. No new complaints. Tolerating therapy. Denies any headaches today, blurry vision or double vision. No issues with GI/. - Physical Exam General: Alert, Oriented x3, Cooperative HEENT: Atraumatic, PERRLA, EOMI, Normocephalic Neck: Supple, No JVD, Negative Carotid Bruits Lungs: Clear to auscultation, Normal air movement Cardiovascular: Regular rate, No murmurs Abdomen: Bowel Sounds Present, Soft, Non Tender Extremities: No edema, Capillary Refill Less than 3 Seconds Skin: No rashes, No breakdown Musculoskeletal: No Tenderness to Palpation of Joints or Extremities Neurological: Cranial nerves II-XII grossly intact, - - Right seventh facial palsy, right facial droop, dysarthria, right hemiplegia. Psych/Mental Status: Normal Affect, Appropriate Vital Signs Temp Pulse Resp BP Pulse Ox 97.6 F L 57 L 12 125/58 H 95 05/30/18 08:17 05/30/18 08:17 05/30/18 08:17 05/30/18 08:17 05/30/18 08:17 Oxygen Delivery Method Room Air Weight: 98.3 kg Body Mass Index (BMI) 37.4 Finger Stick Blood Glucose 187 Intake and Output for Last 24 Hours 05/28/18 05/29/18 05/30/18 23:59 23:59 23:59 Intake Total 480 / 480 700 / 700 240 / 240 Output Total 300 / 300 Balance 480 / 480 400 / 400 240 / 240 POC Glucose 05/30/18 05/30/18 05/29/18 11:33 06:23 20:32 POC Glucose 206 H 125 H 216 H 05/29/18 16:59 POC Glucose 158 H Active Medications Acetaminophen (Tylenol) 650 mg PO Q6H PRN PRN PRN Reason: Mild Pain (0-3/10)/Headache Last Admin: 05/30/18 09:23 Dose: 650 mg Amlodipine Besylate (Norvasc) 10 mg PO DAILY [facility] Last Admin: 05/30/18 07:48 Dose: 10 mg Aspirin (Aspirin, Baby) 81 mg PO DAILY@0800 [facility] Last Admin: 05/30/18 07:47 Dose: 81 mg Atorvastatin Calcium (Lipitor) 80 mg PO QHS [facility] Last Admin: 05/29/18 20:34 Dose: 80 mg Bisacodyl (Dulcolax) 10 mg RECTAL .PRN X 1 PRN PRN Reason: Constipation Calamine/Phenol (Calmoseptine Ointment) 1 applic TOPICAL BID@0600,2200 [facility] PRN Reason: Protocol Last Admin: 05/30/18 06:14 Dose: 1 applicatio Calcium/Vitamin D (Os-Josue 500mg + D) 1 tablet PO BID [facility] Last Admin: 05/30/18 07:49 Dose: 1 tablet Clopidogrel Bisulfate (Plavix) 75 mg PO DAILY [facility] Last Admin: 05/30/18 07:49 Dose: 75 mg Cyanocobalamin (Vitamin B12) 1,000 mcg PO DAILY [facility] Last Admin: 05/30/18 07:49 Dose: 1,000 mcg Dextrose (D50w Syringe) 0 gm IV X1 PRN; Protocol PRN Reason: Hypoglycemia Enoxaparin Sodium (Lovenox) 30 mg SC DAILY@0600 [facility] Last Admin: 05/30/18 06:14 Dose: 30 mg Famotidine (Pepcid) 20 mg PO BID [facility] Last Admin: 05/30/18 07:49 Dose: 20 mg Ferrous Gluconate (Ferrous Gluconate) 325 mg PO BIDCM [facility] Last Admin: 05/30/18 07:48 Dose: 325 mg Fluoxetine HCl (Prozac) 40 mg PO DAILY [facility] Last Admin: 05/30/18 07:49 Dose: 40 mg Folic Acid (Folic Acid) 1 mg PO DAILY@0800 [facility] Last Admin: 05/30/18 07:48 Dose: 1 mg Furosemide (Lasix) 40 mg PO BIDLX [facility] Last Admin: 05/30/18 07:48 Dose: 40 mg Gabapentin (Neurontin) 300 mg PO TIDCM [facility] Last Admin: 05/30/18 12:07 Dose: 300 mg Glucagon () 1 mg IM .X1 PRN PRN Reason: Hypoglycemia Hydroxyzine Pamoate (Vistaril Pamoate Capsule) 25 mg PO Q6H PRN PRN PRN Reason: ITCHING Insulin Glargine (Lantus (Bkc)) 35 units SC BID [facility] Last Admin: 05/30/18 07:45 Dose: 35 units Insulin Human Lispro (Humalog Kwikpen (Bkc)) 0 unit SC ACHS [facility] PRN Reason: Protocol Last Admin: 05/30/18 12:07 Dose: 3 u Insulin Human Lispro (Humalog Kwikpen (Bkc)) 10 unit SC TIDAC [facility] Last Admin: 05/30/18 12:07 Dose: 10 u Lactobacillus Acidophilus (Acidophilus) 1 tablet PO DAILY [facility] Last Admin: 05/30/18 07:48 Dose: 1 tablet Latanoprost (Xalatan Opthalmic) 1 drop EACH EYE QHS [facility] Last Admin: 05/29/18 20:34 Dose: 1 drop Lisinopril (Zestril) 20 mg PO DAILY [facility] Last Admin: 05/30/18 07:49 Dose: 20 mg Magnesium Hydroxide (Milk Of Magnesia) 30 ml PO .PRN X 1 PRN PRN Reason: Constipation Nystatin (Nystatin) 500,000 unit PO 4X/DAY [facility] Last Admin: 05/30/18 07:48 Dose: 500,000 unit Pancrelipase (Creon Dr 12,000 Unit Capsule) 2 capsule PO TIDCM [facility] Last Admin: 05/30/18 12:20 Dose: Not Given Medical Necessity - Tobacco Use Smoking Status: Never smoker Assessment/Plan All Active Problems Debility (Acute) Stroke (Acute) 73 year old CF with PMH HTN, HLD, DM, DM Neuropathy, GUERITA not on CPAP, recent acute left MCA stroke (05/17/18), now admitted to [facility] with debility post acute left MCA stroke, for >3hrs therapy daily, with the goal of returning home at or near her prior level of functional baseline. Plan -PT for gait stability -OT for ADLs -ST for swallow evaluation -Analgesics PRN -Bowel protocol -Stroke-acute left MCA stroke- on ASA/Plavix and Lipitor. Stroke risk factors discussed and stroke education provided. 05/24: STABLE -HTN-stable, on Amlodipine, Lisinopril and Lasix -HLD-on Lipitor -DM- uncontrolled, on Lantus, may need endocrinology evaluation as outpatient, Hba1c 8.7%. Consult hospitalist for further management of DM. 05/24, improved, hospitalist managing -DM Neuropathy- patient complaints of pain in the feet. Start Neurontin 100 mg PO TID for 5 days then increase to 300 mg PO TID to continue -GUERITA-needs to be on CPAP. 05/24 on home cpap, will need repeat titration as outpt , last study 5yrs ago -Check B/L LE venous Doppler-complained to leg/calf pain to the nursing. -Fall precautions -GI/DVT prophylaxis-Lovenox 40 mg SQ daily -Further medical management per hospitalist recommendations. - Oral candidiasis: Improved with nystatin - New headache: This is improved with Tylenol acceptably. check a CAT scan of the brain, no acute changes noted
[2018-05-30 17:16] LABS: Bedside Glucose 148 mg/dL (70-110)
[2018-05-30 19:05] VITALS: BP 120/63; PULSE 63; RESP 16; TEMP 36.8; O2SAT 95
[2018-05-30] MEDS: Latanoprost 0.005% 1 Bottle 1 DRP EACH EYE (22:29)
[2018-05-30] MEDS: Atorvastatin Calcium 80 MG Tablet PO (22:29)
[2018-05-30 23:06] LABS: Bedside Glucose 266 mg/dL (70-110)
--- NOTE | 2018-05-31 02:59 | NURSING ---
Reviewed and agree with AUTOMOBILE PAINTER documentation and FIMs charting
[2018-05-31] MEDS: Menthol/Lanolin/Calamine/Znox 113 GM Tube 1 APPLIC TOPICAL ×2 (05:24→20:30)
[2018-05-31] MEDS: Enoxaparin 30 MG/0.3 ML Syringe SC (05:25)
[2018-05-31 07:06] LABS: Bedside Glucose 117 mg/dL (70-110)
[2018-05-31] MEDS: Insulin Lispro 100 UNIT/ML INSULN.PEN 10 UNIT SC ×3 (07:49→17:48)
[2018-05-31] MEDS: Calcium Carb/Vitamin D 1 TABLET Tablet PO ×2 (07:50→20:32)
[2018-05-31] MEDS: Furosemide 40 MG Tablet PO ×2 (07:51→17:48)
[2018-05-31] MEDS: FLUoxetine 20 MG Capsule 40 MG PO (07:51)
[2018-05-31] MEDS: Aspirin 81 MG TAB.CHEW PO (07:51)
[2018-05-31] MEDS: amLODIPine 10 MG Tablet PO (07:51)
[2018-05-31] MEDS: Cyanocobalamin 500 MCG Tablet 1000 MCG PO (07:51)
[2018-05-31] MEDS: Folic Acid 1 MG Tablet PO (07:51)
[2018-05-31] MEDS: Clopidogrel Bisulfate 75 MG Tablet PO (07:51)
[2018-05-31] MEDS: Gabapentin 300 MG Capsule PO ×3 (07:51→17:48)
[2018-05-31] MEDS: Famotidine 20 MG Tablet PO ×2 (07:51→20:32)
[2018-05-31] MEDS: NYSTATIN 500,000 UNIT/5 ML UDC 500000 UNIT PO ×4 (07:52→20:31)
[2018-05-31] MEDS: Lisinopril 20 MG Tablet PO (07:52)
[2018-05-31] MEDS: Ferrous Gluconate 325 MG Tablet PO ×2 (07:52→17:50)
[2018-05-31 07:53] VITALS: BP 131/63; PULSE 60; RESP 16; TEMP 36.6; O2SAT 94
[2018-05-31 11:25] LABS: Bedside Glucose 198 mg/dL (70-110)
[2018-05-31] MEDS: Insulin Lispro 100 UNIT/ML INSULN.PEN SC ×3 (12:22→20:29)
[2018-05-31 16:50] LABS: Bedside Glucose 209 mg/dL (70-110)
--- NOTE | 2018-05-31 16:53 | PCM.PN.NEU ---
Patient Problems: Active and Suspected Problems Debility (Acute) Stroke (Acute) Subjective: Patient seen, no new complaints. Tolerating therapy. Denies any headaches today, any blurry vision or double vision. Tolerating diet, lungs clear. - Physical Exam General: Alert, Oriented x3, Cooperative HEENT: Atraumatic, PERRLA, EOMI, Normocephalic Neck: Supple, No JVD, Negative Carotid Bruits Lungs: Clear to auscultation, Normal air movement Cardiovascular: Regular rate, No murmurs Abdomen: Bowel Sounds Present, Soft, Non Tender Extremities: No edema, Capillary Refill Less than 3 Seconds Skin: No rashes, No breakdown Musculoskeletal: No Tenderness to Palpation of Joints or Extremities Neurological: Cranial nerves II-XII grossly intact Psych/Mental Status: Normal Affect, Appropriate Vital Signs Temp Pulse Resp BP Pulse Ox 97.8 F 60 16 131/63 H 94 05/31/18 07:53 05/31/18 07:53 05/31/18 07:53 05/31/18 07:53 05/31/18 07:53 Oxygen Delivery Method Room Air Weight: 98.3 kg Body Mass Index (BMI) 37.4 Finger Stick Blood Glucose 187 Intake and Output for Last 24 Hours 05/29/18 05/30/18 05/31/18 23:59 23:59 23:59 Intake Total 700 / 700 480 / 480 360 / 360 Output Total 300 / 300 Balance 400 / 400 480 / 480 360 / 360 POC Glucose 05/31/18 05/31/18 05/31/18 16:44 11:22 07:01 POC Glucose 209 H 198 H 117 H 05/30/18 05/30/18 22:27 17:09 POC Glucose 266 H 148 H Active Medications Acetaminophen (Tylenol) 650 mg PO Q6H PRN PRN PRN Reason: Mild Pain (0-3/10)/Headache Last Admin: 05/30/18 09:23 Dose: 650 mg Amlodipine Besylate (Norvasc) 10 mg PO DAILY [facility] Last Admin: 05/31/18 07:51 Dose: 10 mg Aspirin (Aspirin, Baby) 81 mg PO DAILY@0800 [facility] Last Admin: 05/31/18 07:51 Dose: 81 mg Atorvastatin Calcium (Lipitor) 80 mg PO QHS [facility] Last Admin: 05/30/18 22:29 Dose: 80 mg Bisacodyl (Dulcolax) 10 mg RECTAL .PRN X 1 PRN PRN Reason: Constipation Calamine/Phenol (Calmoseptine Ointment) 1 applic TOPICAL BID@0600,2200 [facility] PRN Reason: Protocol Last Admin: 05/31/18 05:24 Dose: 1 applicatio Calcium/Vitamin D (Os-Josue 500mg + D) 1 tablet PO BID [facility] Last Admin: 05/31/18 07:50 Dose: 1 tablet Clopidogrel Bisulfate (Plavix) 75 mg PO DAILY [facility] Last Admin: 05/31/18 07:51 Dose: 75 mg Cyanocobalamin (Vitamin B12) 1,000 mcg PO DAILY [facility] Last Admin: 05/31/18 07:51 Dose: 1,000 mcg Dextrose (D50w Syringe) 0 gm IV X1 PRN; Protocol PRN Reason: Hypoglycemia Enoxaparin Sodium (Lovenox) 30 mg SC DAILY@0600 [facility] Last Admin: 05/31/18 05:25 Dose: 30 mg Famotidine (Pepcid) 20 mg PO BID [facility] Last Admin: 05/31/18 07:51 Dose: 20 mg Ferrous Gluconate (Ferrous Gluconate) 325 mg PO BIDCM [facility] Last Admin: 05/31/18 07:52 Dose: 325 mg Fluoxetine HCl (Prozac) 40 mg PO DAILY [facility] Last Admin: 05/31/18 07:51 Dose: 40 mg Folic Acid (Folic Acid) 1 mg PO DAILY@0800 [facility] Last Admin: 05/31/18 07:51 Dose: 1 mg Furosemide (Lasix) 40 mg PO BIDLX [facility] Last Admin: 05/31/18 07:51 Dose: 40 mg Gabapentin (Neurontin) 300 mg PO TIDCM [facility] Last Admin: 05/31/18 12:22 Dose: 300 mg Glucagon () 1 mg IM .X1 PRN PRN Reason: Hypoglycemia Hydroxyzine Pamoate (Vistaril Pamoate Capsule) 25 mg PO Q6H PRN PRN PRN Reason: ITCHING Insulin Glargine (Lantus (Bkc)) 35 units SC BID [facility] Last Admin: 05/31/18 11:02 Dose: 35 units Insulin Human Lispro (Humalog Kwikpen (Bkc)) 0 unit SC ACHS [facility] PRN Reason: Protocol Last Admin: 05/31/18 12:22 Dose: 3 u Insulin Human Lispro (Humalog Kwikpen (Bkc)) 10 unit SC TIDAC [facility] Last Admin: 05/31/18 12:22 Dose: 10 u Lactobacillus Acidophilus (Acidophilus) 1 tablet PO DAILY [facility] Last Admin: 05/31/18 07:51 Dose: 1 tablet Latanoprost (Xalatan Opthalmic) 1 drop EACH EYE QHS [facility] Last Admin: 05/30/18 22:29 Dose: 1 drop Lisinopril (Zestril) 20 mg PO DAILY [facility] Last Admin: 05/31/18 07:52 Dose: 20 mg Magnesium Hydroxide (Milk Of Magnesia) 30 ml PO .PRN X 1 PRN PRN Reason: Constipation Nystatin (Nystatin) 500,000 unit PO 4X/DAY [facility] Last Admin: 05/31/18 13:42 Dose: 500,000 unit Pancrelipase (Creon Dr 12,000 Unit Capsule) 2 capsule PO TIDCM [facility] Last Admin: 05/31/18 16:27 Dose: Not Given Medical Necessity - Tobacco Use Smoking Status: Never smoker Assessment/Plan All Active Problems Debility (Acute) Stroke (Acute) 73 year old CF with PMH HTN, HLD, DM, DM Neuropathy, GUERITA not on CPAP, recent acute left MCA stroke (05/17/18), now admitted to [facility] with debility post acute left MCA stroke, for >3hrs therapy daily, with the goal of returning home at or near her prior level of functional baseline. Plan -PT for gait stability -OT for ADLs -ST for swallow evaluation -Analgesics PRN -Bowel protocol -Stroke-acute left MCA stroke- on ASA/Plavix and Lipitor. Stroke risk factors discussed and stroke education provided. 05/24: STABLE -HTN-stable, on Amlodipine, Lisinopril and Lasix -HLD-on Lipitor -DM- uncontrolled, on Lantus, may need endocrinology evaluation as outpatient, Hba1c 8.7%. Consult hospitalist for further management of DM. 05/24, improved, hospitalist managing -DM Neuropathy- patient complaints of pain in the feet. Start Neurontin 100 mg PO TID for 5 days then increase to 300 mg PO TID to continue -GUERITA-needs to be on CPAP. 05/24 on home cpap, will need repeat titration as outpt, last study 5yrs ago -Check B/L LE venous Doppler-complained to leg/calf pain to the nursing. -Fall precautions -GI/DVT prophylaxis-Lovenox 40 mg SQ daily -Further medical management per hospitalist recommendations. - Oral candidiasis: Improved with nystatin - New headache: This is improved with Tylenol acceptably. check a CAT scan of the brain, no acute changes noted
[2018-05-31 20:22] VITALS: BP 122/53; PULSE 66; RESP 18; TEMP 36.8; O2SAT 94
[2018-05-31 20:30] VITALS: RESP 18
[2018-05-31] MEDS: Atorvastatin Calcium 80 MG Tablet PO (20:31)
[2018-05-31] MEDS: Latanoprost 0.005% 1 Bottle 1 DRP EACH EYE (20:32)
[2018-05-31 20:45] LABS: Bedside Glucose 242 mg/dL (70-110)
--- NOTE | 2018-06-01 01:10 | NURSING ---
Reviewed and agree with DISPENSARY TECHNICIAN documentation and FIMs charting
[2018-06-01] MEDS: Enoxaparin 30 MG/0.3 ML Syringe SC (05:01)
[2018-06-01] MEDS: Menthol/Lanolin/Calamine/Znox 113 GM Tube 1 APPLIC TOPICAL ×2 (05:21→21:46)
[2018-06-01 07:25] LABS: Bedside Glucose 170 mg/dL (70-110)
[2018-06-01] MEDS: Insulin Lispro 100 UNIT/ML INSULN.PEN SC ×4 (07:52→21:45)
[2018-06-01] MEDS: Insulin Lispro 100 UNIT/ML INSULN.PEN 10 UNIT SC ×3 (07:52→17:04)
[2018-06-01] MEDS: Aspirin 81 MG TAB.CHEW PO (07:53)
[2018-06-01] MEDS: Gabapentin 300 MG Capsule PO ×3 (07:53→17:01)
[2018-06-01] MEDS: Folic Acid 1 MG Tablet PO (07:53)
[2018-06-01] MEDS: Ferrous Gluconate 325 MG Tablet PO ×2 (07:53→17:10)
[2018-06-01] MEDS: NYSTATIN 500,000 UNIT/5 ML UDC 500000 UNIT PO ×4 (07:54→21:44)
[2018-06-01] MEDS: Calcium Carb/Vitamin D 1 TABLET Tablet PO ×2 (07:54→21:44)
[2018-06-01] MEDS: amLODIPine 10 MG Tablet PO (07:54)
[2018-06-01] MEDS: Furosemide 40 MG Tablet PO ×2 (07:54→17:01)
[2018-06-01] MEDS: Famotidine 20 MG Tablet PO ×2 (07:55→21:44)
[2018-06-01] MEDS: Clopidogrel Bisulfate 75 MG Tablet PO (07:55)
[2018-06-01] MEDS: Cyanocobalamin 500 MCG Tablet 1000 MCG PO (07:55)
[2018-06-01] MEDS: Lisinopril 20 MG Tablet PO (07:55)
[2018-06-01] MEDS: FLUoxetine 20 MG Capsule 40 MG PO (07:55)
[2018-06-01 08:41] VITALS: BP 114/53; PULSE 67; RESP 16; TEMP 36.6; O2SAT 93
[2018-06-01] MEDS: Senna/Docusate Sodium 1 Tablet 2 TABLET PO ×2 (10:50→21:43)
--- NOTE | 2018-06-01 10:50 | PCM.PN.NEU ---
Patient Problems: Active and Suspected Problems Debility (Acute) Stroke (Acute) Subjective: Patient seen and examined. No acute issues overnight. Tolerating therapy, Still no movement in the right upper or lower extremity. Tolerating Pureed diet with thicken liquids. - Physical Exam General: Alert, Oriented x3, Cooperative HEENT: Atraumatic, PERRLA, EOMI, Normocephalic Neck: Supple, No JVD, Negative Carotid Bruits Lungs: Clear to auscultation, Normal air movement Cardiovascular: Regular rate, No murmurs Abdomen: Bowel Sounds Present, Soft, Non Tender Extremities: No edema, Capillary Refill Less than 3 Seconds Skin: No rashes, No breakdown Musculoskeletal: No Tenderness to Palpation of Joints or Extremities Neurological: Cranial nerves II-XII grossly intact Psych/Mental Status: Normal Affect, Appropriate, Alert and oriented to time, place, person, mood and affect Vital Signs Temp Pulse Resp BP Pulse Ox 97.9 F 67 16 114/53 L 93 06/01/18 08:41 06/01/18 08:41 06/01/18 08:41 06/01/18 08:41 06/01/18 08:41 Oxygen Delivery Method Room Air Weight: 98.3 kg Body Mass Index (BMI) 37.4 Finger Stick Blood Glucose 187 Intake and Output for Last 24 Hours 05/30/18 05/31/18 06/01/18 23:59 23:59 23:59 Intake Total 480 / 480 600 / 600 160 / 160 Balance 480 / 480 600 / 600 160 / 160 POC Glucose 06/01/18 05/31/18 05/31/18 07:22 20:27 16:44 POC Glucose 170 H 242 H 209 H 05/31/18 11:22 POC Glucose 198 H Active Medications Acetaminophen (Tylenol) 650 mg PO Q6H PRN PRN PRN Reason: Mild Pain (0-3/10)/Headache Last Admin: 05/30/18 09:23 Dose: 650 mg Amlodipine Besylate (Norvasc) 10 mg PO DAILY COUNTS [facility] 234 BEDS AT [facility] Last Admin: 06/01/18 07:54 Dose: 10 mg Aspirin (Aspirin, Baby) 81 mg PO DAILY@0800 [facility]S [facility]CLUDE 234 BEDS AT THE [facility] Last Admin: 06/01/18 07:53 Dose: 81 mg Atorvastatin Calcium (Lipitor) 80 mg PO QHS COUNTS INCLUDE 234 BEDS AT THE [facility] Last Admin: 05/31/18 20:31 Dose: 80 mg Bisacodyl (Dulcolax) 10 mg RECTAL .PRN X 1 PRN PRN Reason: Constipation Calamine/Phenol (Calmoseptine Ointment) 1 applic TOPICAL BID@0600,2200 [facility]S [facility]CLUDE 234 BEDS AT THE [facility] PRN Reason: Protocol Last Admin: 06/01/18 05:21 Dose: 1 applicatio Calcium/Vitamin D (Os-Josue 500mg + D) 1 tablet PO BID [facility]S [facility]CLUDE 234 BEDS AT THE [facility] Last Admin: 06/01/18 07:54 Dose: 1 tablet Clopidogrel Bisulfate (Plavix) 75 mg PO DAILY COUNTS INCLUDE 234 BEDS AT THE [facility] Last Admin: 06/01/18 07:55 Dose: 75 mg Cyanocobalamin (Vitamin B12) 1,000 mcg PO DAILY [facility]S [facility]CLUDE 234 BEDS AT THE [facility] Last Admin: 06/01/18 07:55 Dose: 1,000 mcg Dextrose (D50w Syringe) 0 gm IV X1 PRN; Protocol PRN Reason: Hypoglycemia Enoxaparin Sodium (Lovenox) 30 mg SC DAILY@0600 [facility]S [facility]CLUDE 234 BEDS AT [facility] Last Admin: 06/01/18 05:01 Dose: 30 mg Famotidine (Pepcid) 20 mg PO BID [facility]S [facility]CLUDE 234 BEDS AT THE [facility] Last Admin: 06/01/18 07:55 Dose: 20 mg Ferrous Gluconate (Ferrous Gluconate) 325 mg PO BIDCM COUNTS INCLUDE 234 BEDS AT THE [facility] Last Admin: 06/01/18 07:53 Dose: 325 mg Fluoxetine HCl (Prozac) 40 mg PO DAILY COUNTS INCLUDE 234 BEDS AT THE [facility] Last Admin: 06/01/18 07:55 Dose: 40 mg Folic Acid (Folic Acid) 1 mg PO DAILY@0800 COUNTS [facility]CLUDE 234 BEDS AT [facility] Last Admin: 06/01/18 07:53 Dose: 1 mg Furosemide (Lasix) 40 mg PO BIDLX COUNTS INCLUDE 234 BEDS AT THE [facility] Last Admin: 06/01/18 07:54 Dose: 40 mg Gabapentin (Neurontin) 300 mg PO TIDCM COUNTS INCLUDE 234 BEDS AT THE [facility] Last Admin: 06/01/18 07:53 Dose: 300 mg Glucagon () 1 mg IM .X1 PRN PRN Reason: Hypoglycemia Hydroxyzine Pamoate (Vistaril Pamoate Capsule) 25 mg PO Q6H PRN PRN PRN Reason: ITCHING Insulin Glargine (Lantus (Bkc)) 35 units SC BID COUNTS INCLUDE 234 BEDS AT THE [facility] Last Admin: 06/01/18 09:11 Dose: 35 units Insulin Human Lispro (Humalog Kwikpen (Bkc)) 0 unit SC ACHS [facility]S [facility]CLUDE 234 BEDS AT THE [facility] PRN Reason: Protocol Last Admin: 08/29/18 07:52 Dose: 3 u Insulin Human Lispro (Humalog Kwikpen (Bkc)) 10 unit SC TIDAC [facility]S [facility]CLUDE 234 BEDS AT THE [facility] Last Admin: 06/01/18 07:52 Dose: 10 u Lactobacillus Acidophilus (Acidophilus) 1 tablet PO DAILY COUNTS INCLUDE 234 BEDS AT THE [facility] Last Admin: 06/01/18 07:54 Dose: 1 tablet Latanoprost (Xalatan Opthalmic) 1 drop EACH EYE QHS COUNTS INCLUDE 234 BEDS AT THE [facility] Last Admin: 05/31/18 20:32 Dose: 1 drop Lisinopril (Zestril) 20 mg PO DAILY COUNTS INCLUDE 234 BEDS AT [facility] Last Admin: 06/01/18 07:55 Dose: 20 mg Magnesium Hydroxide (Milk Of Magnesia) 30 ml PO .PRN X 1 PRN PRN Reason: Constipation Nystatin (Nystatin) 500,000 unit PO 4X/DAY COUNTS INCLUDE 234 BEDS AT THE [facility] Last Admin: 06/01/18 07:54 Dose: 500,000 unit Pancrelipase (Creon Dr 12,000 Unit Capsule) 2 capsule PO TIDCM COUNTS INCLUDE 234 BEDS AT THE [facility] Last Admin: 05/31/18 16:27 Dose: Not Given Senna/Docusate Sodium (Senokot-S, Jessica-Colace) 2 tablet PO BID COUNTS INCLUDE 234 BEDS AT THE [facility] Medical Necessity - Tobacco Use Smoking Status: Never smoker Assessment/Plan All Active Problems Debility (Acute) Stroke (Acute) 73 year old CF with PMH HTN, HLD, DM, DM Neuropathy, GUERITA not on CPAP, recent acute left MCA stroke (05/17/18), now admitted to [facility] with debility post acute left MCA stroke, for >3hrs therapy daily, with the goal of returning home at or near her prior level of functional baseline. Plan -PT for gait stability -OT for ADLs -ST for swallow evaluation -Analgesics PRN -Bowel protocol -Stroke-acute left MCA stroke- on ASA/Plavix and Lipitor. Stroke risk factors discussed and stroke education provided. 05/24: STABLE -HTN-stable, on Amlodipine, Lisinopril and Lasix -HLD-on Lipitor -DM- uncontrolled, on Lantus, may need endocrinology evaluation as outpatient, Hba1c 8.7%. Consult hospitalist for further management of DM. 05/24, improved, hospitalist managing -DM Neuropathy- patient complaints of pain in the feet. Start Neurontin 100 mg PO TID for 5 days then increase to 300 mg PO TID to continue -GUERITA-needs to be on CPAP. 05/24 on home cpap, will need repeat titration as outpt, last study 5yrs ago -Check B/L LE venous Doppler-complained to leg/calf pain to the nursing. -Fall precautions -GI/DVT prophylaxis-Lovenox 40 mg SQ daily -Further medical management per hospitalist recommendations. - Oral candidiasis: Improved with nystatin - New headache: This is improved with Tylenol acceptably. check a CAT scan of the brain, no acute changes noted
--- NOTE | 2018-06-01 10:57 | PN.NEURO_ITS ---
Patient Problems: Active and Suspected Problems Debility (Acute) Stroke (Acute) Subjective: Patient seen and examined. No acute issues overnight. Tolerating therapy, Still no movement in the right upper or lower extremity. Tolerating Pureed diet with thicken liquids. - Physical Exam General: Alert, Oriented x3, Cooperative HEENT: Atraumatic, PERRLA, EOMI, Normocephalic Neck: Supple, No JVD, Negative Carotid Bruits Lungs: Clear to auscultation, Normal air movement Cardiovascular: Regular rate, No murmurs Abdomen: Bowel Sounds Present, Soft, Non Tender Extremities: No edema, Capillary Refill Less than 3 Seconds Skin: No rashes, No breakdown Musculoskeletal: No Tenderness to Palpation of Joints or Extremities Neurological: Cranial nerves II-XII grossly intact Psych/Mental Status: Normal Affect, Appropriate, Alert and oriented to time, place, person, mood and affect Vital Signs Temp Pulse Resp BP Pulse Ox 97.9 F 67 16 114/53 L 93 06/01/18 08:41 06/01/18 08:41 06/01/18 08:41 06/01/18 08:41 06/01/18 08:41 Oxygen Delivery Method Room Air Weight: 98.3 kg Body Mass Index (BMI) 37.4 Finger Stick Blood Glucose 187 Intake and Output for Last 24 Hours 05/30/18 05/31/18 06/01/18 23:59 23:59 23:59 Intake Total 480 / 480 600 / 600 160 / 160 Balance 480 / 480 600 / 600 160 / 160 POC Glucose 06/01/18 05/31/18 05/31/18 07:22 20:27 16:44 POC Glucose 170 H 242 H 209 H 05/31/18 11:22 POC Glucose 198 H Active Medications Acetaminophen (Tylenol) 650 mg PO Q6H PRN PRN PRN Reason: Mild Pain (0-3/10)/Headache Last Admin: 05/30/18 09:23 Dose: 650 mg Amlodipine Besylate (Norvasc) 10 mg PO DAILY [facility] Last Admin: 06/01/18 07:54 Dose: 10 mg Aspirin (Aspirin, Baby) 81 mg PO DAILY@0800 [facility] Last Admin: 06/01/18 07:53 Dose: 81 mg Atorvastatin Calcium (Lipitor) 80 mg PO QHS [facility] Last Admin: 05/31/18 20:31 Dose: 80 mg Bisacodyl (Dulcolax) 10 mg RECTAL .PRN X 1 PRN PRN Reason: Constipation Calamine/Phenol (Calmoseptine Ointment) 1 applic TOPICAL BID@0600,2200 [facility] PRN Reason: Protocol Last Admin: 06/01/18 05:21 Dose: 1 applicatio Calcium/Vitamin D (Os-Josue 500mg + D) 1 tablet PO BID [facility] Last Admin: 06/01/18 07:54 Dose: 1 tablet Clopidogrel Bisulfate (Plavix) 75 mg PO DAILY [facility] Last Admin: 06/01/18 07:55 Dose: 75 mg Cyanocobalamin (Vitamin B12) 1,000 mcg PO DAILY [facility] Last Admin: 06/01/18 07:55 Dose: 1,000 mcg Dextrose (D50w Syringe) 0 gm IV X1 PRN; Protocol PRN Reason: Hypoglycemia Enoxaparin Sodium (Lovenox) 30 mg SC DAILY@0600 [facility] Last Admin: 06/01/18 05:01 Dose: 30 mg Famotidine (Pepcid) 20 mg PO BID [facility] Last Admin: 06/01/18 07:55 Dose: 20 mg Ferrous Gluconate (Ferrous Gluconate) 325 mg PO BIDCM [facility] Last Admin: 06/01/18 07:53 Dose: 325 mg Fluoxetine HCl (Prozac) 40 mg PO DAILY [facility] Last Admin: 06/01/18 07:55 Dose: 40 mg Folic Acid (Folic Acid) 1 mg PO DAILY@0800 [facility] Last Admin: 06/01/18 07:53 Dose: 1 mg Furosemide (Lasix) 40 mg PO BIDLX [facility] Last Admin: 06/01/18 07:54 Dose: 40 mg Gabapentin (Neurontin) 300 mg PO TIDCM [facility] Last Admin: 06/01/18 07:53 Dose: 300 mg Glucagon () 1 mg IM .X1 PRN PRN Reason: Hypoglycemia Hydroxyzine Pamoate (Vistaril Pamoate Capsule) 25 mg PO Q6H PRN PRN PRN Reason: ITCHING Insulin Glargine (Lantus (Bkc)) 35 units SC BID [facility] Last Admin: 06/01/18 09:11 Dose: 35 units Insulin Human Lispro (Humalog Kwikpen (Bkc)) 0 unit SC ACHS [facility] PRN Reason: Protocol Last Admin: 08/29/18 07:52 Dose: 3 u Insulin Human Lispro (Humalog Kwikpen (Bkc)) 10 unit SC TIDAC [facility] Last Admin: 06/01/18 07:52 Dose: 10 u Lactobacillus Acidophilus (Acidophilus) 1 tablet PO DAILY [facility] Last Admin: 06/01/18 07:54 Dose: 1 tablet Latanoprost (Xalatan Opthalmic) 1 drop EACH EYE QHS [facility] Last Admin: 05/31/18 20:32 Dose: 1 drop Lisinopril (Zestril) 20 mg PO DAILY [facility] Last Admin: 06/01/18 07:55 Dose: 20 mg Magnesium Hydroxide (Milk Of Magnesia) 30 ml PO .PRN X 1 PRN PRN Reason: Constipation Nystatin (Nystatin) 500,000 unit PO 4X/DAY [facility] Last Admin: 06/01/18 07:54 Dose: 500,000 unit Pancrelipase (Creon Dr 12,000 Unit Capsule) 2 capsule PO TIDCM [facility] Last Admin: 05/31/18 16:27 Dose: Not Given Senna/Docusate Sodium (Senokot-S, Jessica-Colace) 2 tablet PO BID [facility] Medical Necessity - Tobacco Use Smoking Status: Never smoker Assessment/Plan All Active Problems Debility (Acute) Stroke (Acute) 73 year old CF with PMH HTN, HLD, DM, DM Neuropathy, GUERITA not on CPAP, recent acute left MCA stroke (05/17/18), now admitted to [facility] with debility post acute left MCA stroke, for >3hrs therapy daily, with the goal of returning home at or near her prior level of functional baseline. Plan -PT for gait stability -OT for ADLs -ST for swallow evaluation -Analgesics PRN -Bowel protocol -Stroke-acute left MCA stroke- on ASA/Plavix and Lipitor. Stroke risk factors discussed and stroke education provided. 05/24: STABLE -HTN-stable, on Amlodipine, Lisinopril and Lasix -HLD-on Lipitor -DM- uncontrolled, on Lantus, may need endocrinology evaluation as outpatient, Hba1c 8.7%. Consult hospitalist for further management of DM. 05/24, improved, hospitalist managing -DM Neuropathy- patient complaints of pain in the feet. Start Neurontin 100 mg PO TID for 5 days then increase to 300 mg PO TID to continue -GUERITA-needs to be on CPAP. 05/24 on home cpap, will need repeat titration as outpt , last study 5yrs ago -Check B/L LE venous Doppler-complained to leg/calf pain to the nursing. -Fall precautions -GI/DVT prophylaxis-Lovenox 40 mg SQ daily -Further medical management per hospitalist recommendations. - Oral candidiasis: Improved with nystatin - New headache: This is improved with Tylenol acceptably. check a CAT scan of the brain, no acute changes noted
[2018-06-01 11:26] LABS: Bedside Glucose 280 mg/dL (70-110)
[2018-06-01] MEDS: Acetaminophen 325 MG Tablet 650 MG PO (13:42)
[2018-06-01 16:40] LABS: Bedside Glucose 249 mg/dL (70-110)
[2018-06-01 19:47] VITALS: BP 113/51; PULSE 57; RESP 17; TEMP 36.5; O2SAT 92
[2018-06-01] MEDS: Latanoprost 0.005% 1 Bottle 1 DRP EACH EYE (21:43)
[2018-06-01] MEDS: Atorvastatin Calcium 80 MG Tablet PO (21:44)
[2018-06-01 21:55] LABS: Bedside Glucose 379 mg/dL (70-110)
[2018-06-02] MEDS: Enoxaparin 30 MG/0.3 ML Syringe SC (05:48)
[2018-06-02] MEDS: Menthol/Lanolin/Calamine/Znox 113 GM Tube 1 APPLIC TOPICAL ×2 (05:50→21:03)
[2018-06-02 06:36] LABS: Bedside Glucose 140 mg/dL (70-110)
[2018-06-02] MEDS: Senna/Docusate Sodium 1 Tablet 2 TABLET PO ×2 (07:47→20:54)
[2018-06-02] MEDS: Insulin Lispro 100 UNIT/ML INSULN.PEN 10 UNIT SC (07:47)
[2018-06-02] MEDS: Lisinopril 20 MG Tablet PO (07:47)
[2018-06-02] MEDS: Cyanocobalamin 500 MCG Tablet 1000 MCG PO (07:48)
[2018-06-02] MEDS: Folic Acid 1 MG Tablet PO (07:48)
[2018-06-02] MEDS: Famotidine 20 MG Tablet PO ×2 (07:48→20:54)
[2018-06-02] MEDS: Furosemide 40 MG Tablet PO ×2 (07:48→17:01)
[2018-06-02] MEDS: FLUoxetine 20 MG Capsule 40 MG PO (07:48)
[2018-06-02] MEDS: Clopidogrel Bisulfate 75 MG Tablet PO (07:48)
[2018-06-02] MEDS: Calcium Carb/Vitamin D 1 TABLET Tablet PO ×2 (07:48→20:54)
[2018-06-02] MEDS: amLODIPine 10 MG Tablet PO (07:48)
[2018-06-02] MEDS: NYSTATIN 500,000 UNIT/5 ML UDC 500000 UNIT PO ×4 (07:48→20:54)
[2018-06-02] MEDS: Gabapentin 300 MG Capsule PO ×3 (07:48→17:00)
[2018-06-02] MEDS: Aspirin 81 MG TAB.CHEW PO (07:49)
[2018-06-02] MEDS: Ferrous Gluconate 325 MG Tablet PO ×2 (07:50→17:02)
[2018-06-02 07:57] VITALS: BP 119/60; PULSE 60; RESP 16; TEMP 36.6; O2SAT 95
--- NOTE | 2018-06-02 08:51 | PN.NEURO_ITS ---
Patient Problems: Active and Suspected Problems Debility (Acute) Stroke (Acute) Subjective: Staffed in team meeting. at bedside, questions answered. With Physical therapy, she is able to get in and out of bed with the assist of 2 people, the [place] lift is also being used to help with standing to strengthen muscles and increase endurance. They used the E-stim to her right leg. With Occupational therapy, she is able to do her personal care and upper body with moderate assistance. She is max assist for dressing and she requires total assist for lower body and toileting. With speech therapy, she has been changed from thicken liquids to nectar thicken liquids, also has been started on the [place] water protocol. Will continue to work on oral strengthen exercises and respiratory muscles strengthen exercises. Will continue to work on motor planning cues, and cognitive issues. With nursing, her blood pressure has been stable, lungs clear, some issues with constipation has changed medications in her bowel regimen. Will re-team again next June 09. - Physical Exam General: Alert, Oriented x3, Cooperative HEENT: Atraumatic, PERRLA, EOMI, Normocephalic Neck: Supple, No JVD, Negative Carotid Bruits Lungs: Clear to auscultation, Normal air movement Cardiovascular: Regular rate, No murmurs Abdomen: Bowel Sounds Present, Soft, Non Tender Extremities: No edema, Capillary Refill Less than 3 Seconds Skin: No rashes, No breakdown Musculoskeletal: No Tenderness to Palpation of Joints or Extremities Neurological: Cranial nerves II-XII grossly intact Psych/Mental Status: Normal Affect, Appropriate, Alert and oriented to time, place, person, mood and affect Vital Signs Temp Pulse Resp BP Pulse Ox 97.9 F 60 16 119/60 95 06/02/18 07:57 06/02/18 07:57 06/02/18 07:57 06/02/18 07:57 06/02/18 07:57 Oxygen Delivery Method Room Air Weight: 102.1 kg Body Mass Index (BMI) 37.4 Finger Stick Blood Glucose 187 Intake and Output for Last 24 Hours 05/31/18 06/01/18 06/02/18 23:59 23:59 23:59 Intake Total 600 / 600 400 / 400 Balance 600 / 600 400 / 400 POC Glucose 06/02/18 06/01/18 06/01/18 06:29 21:42 16:33 POC Glucose 140 H 379 H 249 H 06/01/18 11:21 POC Glucose 280 H Active Medications Acetaminophen (Tylenol) 650 mg PO Q6H PRN PRN PRN Reason: Mild Pain (0-3/10)/Headache Last Admin: 06/01/18 13:42 Dose: 650 mg Amlodipine Besylate (Norvasc) 10 mg PO DAILY [facility] Last Admin: 06/02/18 07:48 Dose: 10 mg Aspirin (Aspirin, Baby) 81 mg PO DAILY@0800 [facility] Last Admin: 06/02/18 07:49 Dose: 81 mg Atorvastatin Calcium (Lipitor) 80 mg PO QHS [facility] Last Admin: 06/01/18 21:44 Dose: 80 mg Bisacodyl (Dulcolax) 10 mg RECTAL .PRN X 1 PRN PRN Reason: Constipation Calamine/Phenol (Calmoseptine Ointment) 1 applic TOPICAL BID@0600,2200 [facility] PRN Reason: Protocol Last Admin: 06/02/18 05:50 Dose: 1 applicatio Calcium/Vitamin D (Os-Josue 500mg + D) 1 tablet PO BID [facility] Last Admin: 06/02/18 07:48 Dose: 1 tablet Clopidogrel Bisulfate (Plavix) 75 mg PO DAILY [facility] Last Admin: 06/02/18 07:48 Dose: 75 mg Cyanocobalamin (Vitamin B12) 1,000 mcg PO DAILY [facility] Last Admin: 06/02/18 07:48 Dose: 1,000 mcg Dextrose (D50w Syringe) 0 gm IV X1 PRN; Protocol PRN Reason: Hypoglycemia Enoxaparin Sodium (Lovenox) 30 mg SC DAILY@0600 [facility] Last Admin: 06/02/18 05:48 Dose: 30 mg Famotidine (Pepcid) 20 mg PO BID [facility] Last Admin: 06/02/18 07:48 Dose: 20 mg Ferrous Gluconate (Ferrous Gluconate) 325 mg PO BIDCM [facility] Last Admin: 06/02/18 07:50 Dose: 325 mg Fluoxetine HCl (Prozac) 40 mg PO DAILY [facility] Last Admin: 06/02/18 07:48 Dose: 40 mg Folic Acid (Folic Acid) 1 mg PO DAILY@0800 [facility] Last Admin: 06/02/18 07:48 Dose: 1 mg Furosemide (Lasix) 40 mg PO BIDLX [facility] Last Admin: 06/02/18 07:48 Dose: 40 mg Gabapentin (Neurontin) 300 mg PO TIDCM [facility] Last Admin: 06/02/18 07:48 Dose: 300 mg Glucagon () 1 mg IM .X1 PRN PRN Reason: Hypoglycemia Hydroxyzine Pamoate (Vistaril Pamoate Capsule) 25 mg PO Q6H PRN PRN PRN Reason: ITCHING Insulin Glargine (Lantus (Bkc)) 35 units SC BID [facility] Last Admin: 06/02/18 08:59 Dose: 35 units Insulin Human Lispro (Humalog Kwikpen (Bkc)) 14 unit SC TIDAC [facility] Insulin Human Lispro (Humalog Kwikpen (Bkc)) 0 unit SC TIDAC [facility] PRN Reason: Protocol Lactobacillus Acidophilus (Acidophilus) 1 tablet PO DAILY [facility] Last Admin: 06/02/18 07:48 Dose: 1 tablet Latanoprost (Xalatan Opthalmic) 1 drop EACH EYE QHS [facility] Last Admin: 06/01/18 21:43 Dose: 1 drop Lisinopril (Zestril) 20 mg PO DAILY [facility] Last Admin: 06/02/18 07:47 Dose: 20 mg Magnesium Hydroxide (Milk Of Magnesia) 30 ml PO .PRN X 1 PRN PRN Reason: Constipation [facility] Nystatin (Nystatin) 500,000 unit PO 4X/DAY [facility] Last Admin: 06/02/18 07:48 Dose: 500,000 unit Pancrelipase (Creon Dr 12,000 Unit Capsule) 2 capsule PO TIDCM [facility] Last Admin: 06/02/18 07:48 Dose: 2 capsule Senna/Docusate Sodium (Senokot-S, Jessica-Colace) 2 tablet PO BID [facility] Last Admin: 06/02/18 07:47 Dose: 2 tablet Medical Necessity - Tobacco Use Smoking Status: Never smoker Assessment/Plan All Active Problems Debility (Acute) Stroke (Acute) 73 year old CF with PMH HTN, HLD, DM, DM Neuropathy, GUERITA not on CPAP, recent acute left MCA stroke (05/17/18), now admitted to [facility] with debility post acute left MCA stroke, for >3hrs therapy daily, with the goal of returning home at or near her prior level of functional baseline. Plan -PT for gait stability -OT for ADLs -ST for swallow evaluation -Analgesics PRN -Bowel protocol -Stroke-acute left MCA stroke- on ASA/Plavix and Lipitor. Stroke risk factors discussed and stroke education provided. 05/24: STABLE -HTN-stable, on Amlodipine, Lisinopril and Lasix -HLD-on Lipitor -DM- uncontrolled, on Lantus, may need endocrinology evaluation as outpatient, Hba1c 8.7%. Consult hospitalist for further management of DM. 05/24, improved, hospitalist managing -DM Neuropathy- patient complaints of pain in the feet. Start Neurontin 100 mg PO TID for 5 days then increase to 300 mg PO TID to continue -GUERITA-needs to be on CPAP. 05/24 on home cpap, will need repeat titration as outpt , last study 5yrs ago -Check B/L LE venous Doppler-complained to leg/calf pain to the nursing. -Fall precautions -GI/DVT prophylaxis-Lovenox 40 mg SQ daily -Further medical management per hospitalist recommendations. - Oral candidiasis: Improved with nystatin - New headache: This is improved with Tylenol acceptably. check a CAT scan of the brain, no acute changes noted
--- NOTE | 2018-06-02 10:43 | CASEMGMT ---
Insurance Clinical information faxed. Pending continued stay approval. Auth#[id number] Carole LEDESMA, NOTCHER
--- NOTE | 2018-06-02 10:53 | CASEMGMT ---
Team meeting held. Patient present as well as patient spouse. No discharge date set at this time. Patient with insurance update due on 06/02/18, patient and patient family aware that continued stay approval is not guaranteed. Patient plans to discharge to home with spouse. This social insurance adviser broaching topic of plan B in the event that continued stay approval is denied and patient spouse is unable to care for patient within the home. Patient reporting that plan to discharge to [facility] in the event that continued stay approval is denied with attempting approval for skilled services. In the event that skilled services would be denied as well patient and patient spouse reporting that patient would return home with spouse. This social insurance adviser expressing concerns of patient spouse being able to care for patient within the home at this time. Patient spouse voicing understanding but declining to complete medicaid application or pay privately for the retirement. Patient spouse reporting to have a mahesh lift and hospital bed at home as well as help within the home. Support given. Will continue to follow to see what insurances says as well as assist with support and discharge planning. Will continue to follow. Carole LEDESMA, [employer] SYSTEM[employer]
[2018-06-02 11:20] LABS: Bedside Glucose 313 mg/dL (70-110)
[2018-06-02] MEDS: Insulin Lispro 100 UNIT/ML INSULN.PEN 14 UNIT SC ×2 (12:06→17:00)
[2018-06-02] MEDS: Insulin Lispro 100 UNIT/ML INSULN.PEN SC ×2 (12:09→17:00)
[2018-06-02 17:10] LABS: Bedside Glucose 340 mg/dL (70-110)
[2018-06-02] MEDS: Atorvastatin Calcium 80 MG Tablet PO (20:54)
[2018-06-02] MEDS: Latanoprost 0.005% 1 Bottle 1 DRP EACH EYE (20:55)
[2018-06-02 21:17] VITALS: BP 108/48; PULSE 66; RESP 16; TEMP 36.4; O2SAT 94
[2018-06-02 21:19] VITALS: RESP 16
[2018-06-02 21:20] LABS: Bedside Glucose 241 mg/dL (70-110)
[2018-06-03] MEDS: Enoxaparin 30 MG/0.3 ML Syringe SC (05:11)
[2018-06-03] MEDS: Menthol/Lanolin/Calamine/Znox 113 GM Tube 1 APPLIC TOPICAL ×2 (05:11→21:24)
--- NOTE | 2018-06-03 06:56 | NURSING ---
Reviewed and agree with LPNs fims and handoff
[2018-06-03 07:30] LABS: Bedside Glucose 128 mg/dL (70-110)
[2018-06-03] MEDS: Insulin Lispro 100 UNIT/ML INSULN.PEN 14 UNIT SC ×3 (07:58→17:09)
[2018-06-03] MEDS: Cyanocobalamin 500 MCG Tablet 1000 MCG PO (07:59)
[2018-06-03] MEDS: Gabapentin 300 MG Capsule PO ×3 (07:59→17:14)
[2018-06-03] MEDS: Clopidogrel Bisulfate 75 MG Tablet PO (07:59)
[2018-06-03] MEDS: Senna/Docusate Sodium 1 Tablet 2 TABLET PO ×2 (07:59→21:23)
[2018-06-03] MEDS: Calcium Carb/Vitamin D 1 TABLET Tablet PO ×2 (08:00→21:24)
[2018-06-03] MEDS: Folic Acid 1 MG Tablet PO (08:00)
[2018-06-03] MEDS: Furosemide 40 MG Tablet PO ×2 (08:00→17:14)
[2018-06-03] MEDS: Aspirin 81 MG TAB.CHEW PO (08:00)
[2018-06-03] MEDS: NYSTATIN 500,000 UNIT/5 ML UDC 500000 UNIT PO ×4 (08:01→21:24)
[2018-06-03] MEDS: Ferrous Gluconate 325 MG Tablet PO ×2 (08:01→17:13)
[2018-06-03] MEDS: FLUoxetine 20 MG Capsule 40 MG PO (08:01)
[2018-06-03] MEDS: Famotidine 20 MG Tablet PO ×2 (08:20→21:24)
[2018-06-03 09:03] VITALS: BP 112/47; PULSE 61; RESP 14; TEMP 36.4; O2SAT 95
--- NOTE | 2018-06-03 11:53 | PCM.PN.NEU ---
Patient Problems: Active and Suspected Problems Debility (Acute) Stroke (Acute) Subjective: Patient seen and examined. No new complaints. Tolerating therapy. Denies any headaches today, blurry vision or double vision. No issues with GI/. - Physical Exam General: Alert, Oriented x3, Cooperative HEENT: Atraumatic, PERRLA, EOMI, Normocephalic Neck: Supple, No JVD, Negative Carotid Bruits Lungs: Clear to auscultation, Normal air movement Cardiovascular: Regular rate, No murmurs Abdomen: Bowel Sounds Present, Soft, Non Tender Extremities: No edema, Capillary Refill Less than 3 Seconds Skin: No rashes, No breakdown Musculoskeletal: No Tenderness to Palpation of Joints or Extremities Neurological: Cranial nerves II-XII grossly intact Psych/Mental Status: Normal Affect, Appropriate, Alert and oriented to time, place, person, mood and affect Vital Signs Temp Pulse Resp BP Pulse Ox 97.5 F L 61 14 112/47 L 95 06/03/18 09:03 06/03/18 09:03 06/03/18 09:03 06/03/18 09:03 06/03/18 09:03 Oxygen Delivery Method Room Air Weight: 102.1 kg Body Mass Index (BMI) 37.4 Finger Stick Blood Glucose 187 Intake and Output for Last 24 Hours 06/01/18 06/02/18 06/03/18 23:59 23:59 23:59 Intake Total 400 / 400 360 / 360 120 / 120 Balance 400 / 400 360 / 360 120 / 120 POC Glucose 06/03/18 06/02/18 06/02/18 07:22 20:52 16:58 POC Glucose 128 H 241 H 340 H Active Medications Acetaminophen (Tylenol) 650 mg PO Q6H PRN PRN PRN Reason: Mild Pain (0-3/10)/Headache Last Admin: 06/01/18 13:42 Dose: 650 mg Amlodipine Besylate (Norvasc) 10 mg PO DAILY [facility] Last Admin: 06/03/18 10:18 Dose: Not Given Aspirin (Aspirin, Baby) 81 mg PO DAILY@0800 [facility] Last Admin: 06/03/18 08:00 Dose: 81 mg Atorvastatin Calcium (Lipitor) 80 mg PO QHS [facility] Last Admin: 06/02/18 20:54 Dose: 80 mg Bisacodyl (Dulcolax) 10 mg RECTAL .PRN X 1 PRN PRN Reason: Constipation Calamine/Phenol (Calmoseptine Ointment) 1 applic TOPICAL BID@0600,2200 [facility] PRN Reason: Protocol Last Admin: 06/03/18 05:11 Dose: 1 applicatio Calcium/Vitamin D (Os-Josue 500mg + D) 1 tablet PO BID [facility] Last Admin: 06/03/18 08:00 Dose: 1 tablet Clopidogrel Bisulfate (Plavix) 75 mg PO DAILY [facility] Last Admin: 06/03/18 07:59 Dose: 75 mg Cyanocobalamin (Vitamin B12) 1,000 mcg PO DAILY [facility] Last Admin: 06/03/18 07:59 Dose: 1,000 mcg Dextrose (D50w Syringe) 0 gm IV X1 PRN; Protocol PRN Reason: Hypoglycemia Enoxaparin Sodium (Lovenox) 30 mg SC DAILY@0600 [facility] Last Admin: 06/03/18 05:11 Dose: 30 mg Famotidine (Pepcid) 20 mg PO BID [facility] Last Admin: 06/03/18 08:20 Dose: 20 mg Ferrous Gluconate (Ferrous Gluconate) 325 mg PO BIDCM [facility] Last Admin: 06/03/18 08:01 Dose: 325 mg Fluoxetine HCl (Prozac) 40 mg PO DAILY [facility] Last Admin: 06/03/18 08:01 Dose: 40 mg Folic Acid (Folic Acid) 1 mg PO DAILY@0800 [facility] Last Admin: 06/03/18 08:00 Dose: 1 mg Furosemide (Lasix) 40 mg PO BIDLX [facility] Last Admin: 06/03/18 08:00 Dose: 40 mg Gabapentin (Neurontin) 300 mg PO TIDCM [facility] Last Admin: 06/03/18 07:59 Dose: 300 mg Glucagon () 1 mg IM .X1 PRN PRN Reason: Hypoglycemia Hydroxyzine Pamoate (Vistaril Pamoate Capsule) 25 mg PO Q6H PRN PRN PRN Reason: ITCHING Insulin Glargine (Lantus (Bkc)) 35 units SC BID [facility] Last Admin: 06/03/18 10:39 Dose: 35 units Insulin Human Lispro (Humalog Kwikpen (Bkc)) 14 unit SC TIDAC [facility] Last Admin: 06/03/18 07:58 Dose: 14 u Insulin Human Lispro (Humalog Kwikpen (Bkc)) 0 unit SC TIDAC [facility] PRN Reason: Protocol Last Admin: 06/03/18 07:59 Dose: Not Given Lactobacillus Acidophilus (Acidophilus) 1 tablet PO DAILY [facility] Last Admin: 06/03/18 08:01 Dose: 1 tablet Latanoprost (Xalatan Opthalmic) 1 drop EACH EYE QHS [facility] Last Admin: 06/02/18 20:55 Dose: 1 drop Lisinopril (Zestril) 20 mg PO DAILY [facility] Last Admin: 06/03/18 10:19 Dose: Not Given Magnesium Hydroxide (Milk Of Magnesia) 30 ml PO .PRN X 1 PRN PRN Reason: Constipation Metformin HCl (Glucophage) 500 mg PO BIDCM [facility] Last Admin: 06/03/18 08:00 Dose: 500 mg Nystatin (Nystatin) 500,000 unit PO 4X/DAY [facility] Last Admin: 06/03/18 08:01 Dose: 500,000 unit Pancrelipase (Creon Dr 12,000 Unit Capsule) 2 capsule PO TIDCM [facility] Last Admin: 06/03/18 07:59 Dose: 2 capsule Senna/Docusate Sodium (Senokot-S, Jessica-Colace) 2 tablet PO BID [facility] Last Admin: 06/03/18 07:59 Dose: 2 tablet Medical Necessity - Tobacco Use Smoking Status: Never smoker Assessment/Plan All Active Problems Debility (Acute) Stroke (Acute) 73 year old CF with PMH HTN, HLD, DM, DM Neuropathy, GUERITA not on CPAP, recent acute left MCA stroke (05/17/18), now admitted to [facility] with debility post acute left MCA stroke, for >3hrs therapy daily, with the goal of returning home at or near her prior level of functional baseline. Plan -PT for gait stability -OT for ADLs -ST for swallow evaluation -Analgesics PRN -Bowel protocol -Stroke-acute left MCA stroke- on ASA/Plavix and Lipitor. Stroke risk factors discussed and stroke education provided. 05/24: STABLE -HTN-stable, on Amlodipine, Lisinopril and Lasix -HLD-on Lipitor -DM- uncontrolled, on Lantus, may need endocrinology evaluation as outpatient, Hba1c 8.7%. Consult hospitalist for further management of DM. 05/24, improved, hospitalist managing -DM Neuropathy- patient complaints of pain in the feet. Start Neurontin 100 mg PO TID for 5 days then increase to 300 mg PO TID to continue -GUERITA-needs to be on CPAP. 05/24 on home cpap, will need repeat titration as outpt, last study 5yrs ago -Check B/L LE venous Doppler-complained to leg/calf pain to the nursing. -Fall precautions -GI/DVT prophylaxis-Lovenox 40 mg SQ daily -Further medical management per hospitalist recommendations. - Oral candidiasis: Improved with nystatin - New headache: This is improved with Tylenol acceptably. check a CAT scan of the brain, no acute changes noted
[2018-06-03 12:00] LABS: Bedside Glucose 197 mg/dL (70-110)
[2018-06-03] MEDS: Insulin Lispro 100 UNIT/ML INSULN.PEN SC ×2 (12:08→17:10)
--- NOTE | 2018-06-03 15:01 | PCM.PN.HOSP ---
Patient Problems: Active and Suspected Problems Debility (Acute) Stroke (Acute) Subjective: f/u for stroke and diabetes Patient seen and examined Chart extensively reviewed In bed and asleep at this time Vitals/I&O's: Vital Signs Temp Pulse Resp BP Pulse Ox 97.5 F L 61 14 112/47 L 95 06/03/18 09:03 06/03/18 09:03 06/03/18 09:03 06/03/18 09:03 06/03/18 09:03 Oxygen Delivery Method Room Air Weight: 102.1 kg Body Mass Index (BMI) 37.4 Finger Stick Blood Glucose 187 Intake and Output for Last 24 Hours 06/01/18 06/02/18 06/03/18 23:59 23:59 23:59 Intake Total 400 / 400 360 / 360 120 / 120 Balance 400 / 400 360 / 360 120 / 120 General: Alert, No apparent distress Lungs: - - non labored breathing Abdomen: - - MWR Laboratory Results 06/02/18 16:58: POC Glucose 340 H 06/02/18 20:52: POC Glucose 241 H 06/03/18 07:22: POC Glucose 128 H 06/03/18 11:54: POC Glucose 197 H Current Medications Acetaminophen (Tylenol) 650 mg PO Q6H PRN PRN PRN Reason: Mild Pain (0-3/10)/Headache Last Admin: 06/01/18 13:42 Dose: 650 mg Amlodipine Besylate (Norvasc) 10 mg PO DAILY [facility] Last Admin: 06/03/18 10:18 Dose: Not Given Aspirin (Aspirin, Baby) 81 mg PO DAILY@0800 [facility] Last Admin: 06/03/18 08:00 Dose: 81 mg Atorvastatin Calcium (Lipitor) 80 mg PO QHS [facility] Last Admin: 06/02/18 20:54 Dose: 80 mg Bisacodyl (Dulcolax) 10 mg RECTAL .PRN X 1 PRN PRN Reason: Constipation Calamine/Phenol (Calmoseptine Ointment) 1 applic TOPICAL BID@0600,2200 [facility] PRN Reason: Protocol Last Admin: 06/03/18 05:11 Dose: 1 applicatio Calcium/Vitamin D (Os-Josue 500mg + D) 1 tablet PO BID [facility] Last Admin: 06/03/18 08:00 Dose: 1 tablet Clopidogrel Bisulfate (Plavix) 75 mg PO DAILY [facility] Last Admin: 06/03/18 07:59 Dose: 75 mg Cyanocobalamin (Vitamin B12) 1,000 mcg PO DAILY [facility] Last Admin: 06/03/18 07:59 Dose: 1,000 mcg Dextrose (D50w Syringe) 0 gm IV X1 PRN; Protocol PRN Reason: Hypoglycemia Enoxaparin Sodium (Lovenox) 30 mg SC DAILY@0600 [facility] Last Admin: 06/03/18 05:11 Dose: 30 mg Famotidine (Pepcid) 20 mg PO BID [facility] Last Admin: 06/03/18 08:20 Dose: 20 mg Ferrous Gluconate (Ferrous Gluconate) 325 mg PO BIDCM [facility] Last Admin: 06/03/18 08:01 Dose: 325 mg Fluoxetine HCl (Prozac) 40 mg PO DAILY [facility] Last Admin: 06/03/18 08:01 Dose: 40 mg Folic Acid (Folic Acid) 1 mg PO DAILY@0800 [facility] Last Admin: 06/03/18 08:00 Dose: 1 mg Furosemide (Lasix) 40 mg PO BIDLX [facility] Last Admin: 06/03/18 08:00 Dose: 40 mg Gabapentin (Neurontin) 300 mg PO TIDCM [facility] Last Admin: 06/03/18 12:08 Dose: 300 mg Glucagon () 1 mg IM .X1 PRN PRN Reason: Hypoglycemia Hydroxyzine Pamoate (Vistaril Pamoate Capsule) 25 mg PO Q6H PRN PRN PRN Reason: ITCHING Insulin Glargine (Lantus (Bkc)) 35 units SC BID [facility] Last Admin: 06/03/18 10:39 Dose: 35 units Insulin Human Lispro (Humalog Kwikpen (Bkc)) 14 unit SC TIDAC [facility] Last Admin: 06/03/18 12:07 Dose: 14 u Insulin Human Lispro (Humalog Kwikpen (Bkc)) 0 unit SC TIDAC [facility] PRN Reason: Protocol Last Admin: 06/03/18 12:08 Dose: 3 u Lactobacillus Acidophilus (Acidophilus) 1 tablet PO DAILY [facility] Last Admin: 06/03/18 08:01 Dose: 1 tablet Latanoprost (Xalatan Opthalmic) 1 drop EACH EYE QHS [facility] Last Admin: 06/02/18 20:55 Dose: 1 drop Lisinopril (Zestril) 20 mg PO DAILY [facility] Last Admin: 06/03/18 10:19 Dose: Not Given Magnesium Hydroxide (Milk Of Magnesia) 30 ml PO .PRN X 1 PRN PRN Reason: Constipation Metformin HCl (Glucophage) 500 mg PO BIDCM [facility] Last Admin: 06/03/18 08:00 Dose: 500 mg Nystatin (Nystatin) 500,000 unit PO 4X/DAY [facility] Last Admin: 06/03/18 14:12 Dose: 500,000 unit Pancrelipase (Creon Dr 12,000 Unit Capsule) 2 capsule PO TIDCM [facility] Last Admin: 06/03/18 12:08 Dose: 2 capsule Senna/Docusate Sodium (Senokot-S, Jessica-Colace) 2 tablet PO BID [facility] Last Admin: 06/03/18 07:59 Dose: 2 tablet Medical Necessity - Tobacco Use Smoking Status: Never smoker Assessment/Plan All Active Problems Debility (Acute) Stroke (Acute) #1 acute left MCA ischemic stroke: With resultant right-sided hemiplegia, right facial droop and dysarthria. She is on aspirin and statins as well as Plavix for secondary stroke prophylaxis. Blood pressure under control, other vital signs are stable. Continue with post stroke rehab #2 type 2 diabetes mellitus. Not well controlled. On basal and meal time insulin. Added metformin yesterday for better control #3 Hypertension: Blood pressure stable, continue Norvasc and lisinopril. #4 Hyperlipidemia: Continue statins. #5 Stage III chronic kidney disease: Serum creatinine has been around 1.3-1.5 and has been stable. Plan to continue monitor. Likely diabetic nephropathy and hypertensive nephrosclerosis #6 Depression: Clinically euthymic at this time. Continue Prozac. #7 GERD: Continue Pepcid. #8 DVT prophylaxis: SCDs, subcu Lovenox. Code Visit Inpatient E&M: 89590 Subs Hosp L3
--- NOTE | 2018-06-03 15:08 | CASEMGMT ---
Addendum entered by Rosalba Santiago 06/03/18 15:40: Reviewed insurance coverage for in network and out of network facilities with pt spouse and he would prefer pt goes to TCU (in network). VM left with Kay in TCU with request to start precert. Anshul at [facility] notified of pt preference due to not in network. SW to follow for d/c planning. BALTAZAR Gilbert Original Note: Insurance/Social Work Received phone call from insurance and continued stay is denied with last covered day 06/07/18. RN stating pt is not improving in any way and SNF may be more appropriate for pt. Met with pt in room and informed of above. Pt disappointed but agreeable for to make referral to [facility]. Requesting spouse be notified. Referral made to [facility]. They do have beds available but are out of network with pt insurance. Insurance cards faxed to [facility] to check on out of network benefits. Linda to call SW back with benefit information. Phone call to pt and informed of the above. Spouse agreeable to [facility] but dependent on the insurance coverage. Spouse inquired about TCU. SW confirmed they are in network and can check on bed availability. Phone call to Kay in TCU and a bed is available and they can accept pt. Will await insurance coverage information from [facility] and notify pt spouse for final decision. BALTAZAR Gilbert
[2018-06-03 17:00] LABS: Bedside Glucose 250 mg/dL (70-110)
[2018-06-03 19:41] VITALS: BP 113/50; PULSE 69; RESP 16; TEMP 36.4; O2SAT 91
[2018-06-03 19:46] VITALS: PULSE 69; RESP 16; O2SAT 91
[2018-06-03] MEDS: Atorvastatin Calcium 80 MG Tablet PO (21:24)
[2018-06-03] MEDS: Latanoprost 0.005% 1 Bottle 1 DRP EACH EYE (21:24)
[2018-06-03] MEDS: Acetaminophen 325 MG Tablet 650 MG PO (21:29)
--- NOTE | 2018-06-03 23:17 | NURSING ---
Reviewed and agree with LPNs fims and handoff
[2018-06-04] MEDS: Enoxaparin 30 MG/0.3 ML Syringe SC (05:38)
[2018-06-04] MEDS: Menthol/Lanolin/Calamine/Znox 113 GM Tube 1 APPLIC TOPICAL ×2 (05:41→21:29)
[2018-06-04 07:51] VITALS: BP 111/59; PULSE 67; RESP 18; TEMP 36.6; O2SAT 95
[2018-06-04 08:11] LABS: Bedside Glucose 102 mg/dL (70-110)
[2018-06-04] MEDS: Cyanocobalamin 500 MCG Tablet 1000 MCG PO (08:42)
[2018-06-04] MEDS: Folic Acid 1 MG Tablet PO (08:42)
[2018-06-04] MEDS: Aspirin 81 MG TAB.CHEW PO (08:42)
[2018-06-04] MEDS: Gabapentin 300 MG Capsule PO ×3 (08:42→17:36)
[2018-06-04] MEDS: Clopidogrel Bisulfate 75 MG Tablet PO (08:42)
[2018-06-04] MEDS: Calcium Carb/Vitamin D 1 TABLET Tablet PO ×2 (08:43→20:21)
[2018-06-04] MEDS: Senna/Docusate Sodium 1 Tablet 2 TABLET PO ×2 (08:43→20:21)
[2018-06-04] MEDS: Famotidine 20 MG Tablet PO ×2 (08:43→20:22)
[2018-06-04] MEDS: FLUoxetine 20 MG Capsule 40 MG PO (08:43)
[2018-06-04] MEDS: Ferrous Gluconate 325 MG Tablet PO ×2 (08:44→17:36)
[2018-06-04 09:36] LABS: Bedside Glucose 214 mg/dL (70-110)
[2018-06-04] MEDS: Insulin Lispro 100 UNIT/ML INSULN.PEN 14 UNIT SC ×3 (10:12→17:35)
[2018-06-04] MEDS: Lisinopril 20 MG Tablet PO (10:58)
[2018-06-04] MEDS: NYSTATIN 500,000 UNIT/5 ML UDC 500000 UNIT PO ×4 (10:58→20:22)
[2018-06-04] MEDS: amLODIPine 10 MG Tablet PO (10:58)
[2018-06-04] MEDS: Furosemide 40 MG Tablet PO ×2 (10:58→17:36)
[2018-06-04 11:30] LABS: Bedside Glucose 170 mg/dL (70-110)
[2018-06-04] MEDS: Insulin Lispro 100 UNIT/ML INSULN.PEN SC ×2 (12:21→17:36)
[2018-06-04 16:31] LABS: Bedside Glucose 242 mg/dL (70-110)
[2018-06-04 19:52] VITALS: BP 114/50; PULSE 70; RESP 16; TEMP 36.7; O2SAT 94
[2018-06-04 20:01] VITALS: PULSE 71; RESP 16; O2SAT 91
[2018-06-04] MEDS: Latanoprost 0.005% 1 Bottle 1 DRP EACH EYE (20:22)
[2018-06-04] MEDS: Atorvastatin Calcium 80 MG Tablet PO (20:22)
[2018-06-04 21:36] LABS: Bedside Glucose 173 mg/dL (70-110)
--- NOTE | 2018-06-05 00:17 | NURSING ---
Reviewed and agree with [employer] documentation and FIMs charting.
[2018-06-05] MEDS: Enoxaparin 30 MG/0.3 ML Syringe SC (05:46)
[2018-06-05] MEDS: Menthol/Lanolin/Calamine/Znox 113 GM Tube 1 APPLIC TOPICAL ×2 (05:46→21:34)
[2018-06-05 06:31] LABS: Bedside Glucose 131 mg/dL (70-110)
[2018-06-05 07:21] VITALS: BP 109/48; PULSE 79; RESP 18; TEMP 36.7; O2SAT 94
[2018-06-05] MEDS: Insulin Lispro 100 UNIT/ML INSULN.PEN 14 UNIT SC ×3 (07:58→16:58)
[2018-06-05] MEDS: Aspirin 81 MG TAB.CHEW PO (07:59)
[2018-06-05] MEDS: Clopidogrel Bisulfate 75 MG Tablet PO (08:00)
[2018-06-05] MEDS: Gabapentin 300 MG Capsule PO ×3 (08:00→16:58)
[2018-06-05] MEDS: FLUoxetine 20 MG Capsule 40 MG PO (08:00)
[2018-06-05] MEDS: Calcium Carb/Vitamin D 1 TABLET Tablet PO ×2 (08:00→21:33)
[2018-06-05] MEDS: amLODIPine 10 MG Tablet PO (08:00)
[2018-06-05] MEDS: Famotidine 20 MG Tablet PO ×2 (08:00→21:33)
[2018-06-05] MEDS: Furosemide 40 MG Tablet PO ×2 (08:00→17:00)
[2018-06-05] MEDS: Folic Acid 1 MG Tablet PO (08:00)
[2018-06-05] MEDS: Ferrous Gluconate 325 MG Tablet PO ×2 (08:01→17:01)
[2018-06-05] MEDS: Lisinopril 20 MG Tablet PO (08:01)
[2018-06-05] MEDS: NYSTATIN 500,000 UNIT/5 ML UDC 500000 UNIT PO ×4 (08:01→21:33)
[2018-06-05] MEDS: Cyanocobalamin 500 MCG Tablet 1000 MCG PO (08:02)
[2018-06-05 11:26] LABS: Bedside Glucose 139 mg/dL (70-110)
[2018-06-05 16:50] LABS: Bedside Glucose 117 mg/dL (70-110)
[2018-06-05] MEDS: metFORMIN HCl 1,000 MG Tablet 1000 MG PO (17:04)
[2018-06-05 19:24] VITALS: BP 102/71; PULSE 67; RESP 17; TEMP 36.6; O2SAT 92
[2018-06-05] MEDS: Acetaminophen 325 MG Tablet 650 MG PO (20:25)
[2018-06-05] MEDS: Atorvastatin Calcium 80 MG Tablet PO (21:33)
[2018-06-05] MEDS: Senna/Docusate Sodium 1 Tablet 2 TABLET PO (21:33)
[2018-06-05] MEDS: Latanoprost 0.005% 1 Bottle 1 DRP EACH EYE (21:33)
--- NOTE | 2018-06-05 21:53 | NURSING ---
DR CAPONE NOTIFIED THAT PT'S BLOOD SUGAR IS 100 AND THAT SHE WAS GIVEN A SNACK. ORDERS GIVEN. INFORMED THAT PT IS DUE FOR LANTUS 30 U NOW. ORDER GIVEN
[2018-06-05 22:10] LABS: Bedside Glucose 100 mg/dL (70-110)
--- NOTE | 2018-06-05 23:00 | NURSING ---
PAGE PLACED TO DR CAPONE TO INFORM HER OF REPEAT BLOOD SUGAR.
[2018-06-05 23:05] LABS: Bedside Glucose 117 mg/dL (70-110)
--- NOTE | 2018-06-05 23:20 | NURSING ---
DR CAPONE PAGED. INFORMED THAT PT'S REPEAT BLOOD SUGAR IS 117. ORDERS GIVEN.
[2018-06-06] MEDS: Menthol/Lanolin/Calamine/Znox 113 GM Tube 1 APPLIC TOPICAL ×2 (05:09→22:25)
[2018-06-06] MEDS: Enoxaparin 30 MG/0.3 ML Syringe SC (05:09)
[2018-06-06 05:11] LABS: Bedside Glucose 112 mg/dL (70-110)
[2018-06-06 07:01] LABS: Bedside Glucose 116 mg/dL (70-110)
[2018-06-06] MEDS: Senna/Docusate Sodium 1 Tablet 2 TABLET PO (07:50)
[2018-06-06] MEDS: Cyanocobalamin 500 MCG Tablet 1000 MCG PO (07:50)
[2018-06-06] MEDS: Lisinopril 20 MG Tablet PO (07:50)
[2018-06-06] MEDS: Calcium Carb/Vitamin D 1 TABLET Tablet PO ×2 (07:51→22:24)
[2018-06-06] MEDS: FLUoxetine 20 MG Capsule 40 MG PO (07:51)
[2018-06-06] MEDS: amLODIPine 10 MG Tablet PO (07:51)
[2018-06-06] MEDS: Clopidogrel Bisulfate 75 MG Tablet PO (07:51)
[2018-06-06] MEDS: metFORMIN HCl 1,000 MG Tablet 1000 MG PO ×2 (07:51→17:41)
[2018-06-06] MEDS: Furosemide 40 MG Tablet PO ×2 (07:51→17:42)
[2018-06-06] MEDS: Gabapentin 300 MG Capsule PO ×3 (07:51→17:42)
[2018-06-06] MEDS: Folic Acid 1 MG Tablet PO (07:51)
[2018-06-06] MEDS: Famotidine 20 MG Tablet PO ×2 (07:51→22:24)
[2018-06-06] MEDS: Aspirin 81 MG TAB.CHEW PO (07:52)
[2018-06-06] MEDS: Insulin Lispro 100 UNIT/ML INSULN.PEN 14 UNIT SC ×2 (07:52→17:40)
[2018-06-06] MEDS: Ferrous Gluconate 325 MG Tablet PO ×2 (07:53→17:41)
[2018-06-06] MEDS: NYSTATIN 500,000 UNIT/5 ML UDC 500000 UNIT PO ×4 (07:53→22:24)
[2018-06-06 08:44] VITALS: BP 108/49; PULSE 63; RESP 16; TEMP 36.6; O2SAT 96
[2018-06-06 08:48] VITALS: PULSE 63; RESP 16; O2SAT 96
[2018-06-06 09:00] LABS: Bedside Glucose 180 mg/dL (70-110)
--- NOTE | 2018-06-06 11:55 | NURSING ---
glucose level 73 patient asymptomatic at this time. dr lepe aware ok to hold humalog 14 units with lunch.
[2018-06-06 16:45] LABS: Bedside Glucose 73 mg/dL (70-110)
[2018-06-06 16:56] LABS: Bedside Glucose 123 mg/dL (70-110)
[2018-06-06 18:43] VITALS: BP 108/73; PULSE 72; RESP 18; TEMP 36.6; O2SAT 95
[2018-06-06 22:01] LABS: Bedside Glucose 115 mg/dL (70-110)
[2018-06-06] MEDS: Latanoprost 0.005% 1 Bottle 1 DRP EACH EYE (22:23)
[2018-06-06] MEDS: Atorvastatin Calcium 80 MG Tablet PO (22:24)
[2018-06-07 02:46] LABS: Bedside Glucose 76 mg/dL (70-110)
--- NOTE | 2018-06-07 02:53 | NURSING ---
Pt had nausea with emesis at beginning of hs shift. Pt finished had dinner late d/t visitors and had a large amount of emesis. Pt denied intervention suggestions & staff cleaned up pt and changed bed linens. Upon further monitoring, pt resting quietly in bed and denied needs.
--- NOTE | 2018-06-07 03:04 | NURSING ---
BS check @ 02:40 d/t pt vomiting after dinner and BS medication adjustment recently. BS =76 and asymptomatic. Mchenry juice provided. Will continue to monitor pt.
[2018-06-07] MEDS: Menthol/Lanolin/Calamine/Znox 113 GM Tube 1 APPLIC TOPICAL ×2 (05:10→22:28)
[2018-06-07] MEDS: Enoxaparin 30 MG/0.3 ML Syringe SC (05:10)
[2018-06-07 07:10] LABS: Bedside Glucose 145 mg/dL (70-110)
[2018-06-07] MEDS: Folic Acid 1 MG Tablet PO (08:00)
[2018-06-07] MEDS: Ferrous Gluconate 325 MG Tablet PO ×2 (08:00→17:16)
[2018-06-07] MEDS: metFORMIN HCl 1,000 MG Tablet 1000 MG PO ×2 (08:00→17:16)
[2018-06-07] MEDS: Gabapentin 300 MG Capsule PO ×3 (08:00→17:16)
[2018-06-07] MEDS: Insulin Lispro 100 UNIT/ML INSULN.PEN 14 UNIT SC ×3 (08:00→18:28)
[2018-06-07] MEDS: Aspirin 81 MG TAB.CHEW PO (08:00)
[2018-06-07 08:20] VITALS: BP 110/50; PULSE 83; RESP 16; TEMP 37; O2SAT 95
[2018-06-07] MEDS: Calcium Carb/Vitamin D 1 TABLET Tablet PO ×2 (08:24→22:27)
[2018-06-07] MEDS: Furosemide 40 MG Tablet PO ×2 (08:24→17:15)
[2018-06-07] MEDS: Lisinopril 20 MG Tablet PO (08:24)
[2018-06-07] MEDS: Famotidine 20 MG Tablet PO ×2 (08:24→22:27)
[2018-06-07] MEDS: amLODIPine 10 MG Tablet PO (08:24)
[2018-06-07] MEDS: Cyanocobalamin 500 MCG Tablet 1000 MCG PO (08:24)
[2018-06-07] MEDS: Clopidogrel Bisulfate 75 MG Tablet PO (08:24)
[2018-06-07] MEDS: FLUoxetine 20 MG Capsule 40 MG PO (08:26)
--- NOTE | 2018-06-07 09:23 | PN.NEURO_ITS ---
Patient Problems: Active and Suspected Problems Debility (Acute) Stroke (Acute) Subjective: Patient seen and examined. During the night she had a emesis x 1, after consuming 100% of her dinner which was provided by the family. Otherwise she is doing better. She is tolerating therapy, an E-Stim of her right leg produced movement, still no movement in her right arm. - Physical Exam General: Alert, Oriented x3, Cooperative HEENT: Atraumatic, PERRLA, EOMI, Normocephalic Neck: Supple, No JVD, Negative Carotid Bruits Lungs: Clear to auscultation, Normal air movement Cardiovascular: Regular rate, No murmurs Abdomen: Bowel Sounds Present, Soft, Non Tender Extremities: No edema, Capillary Refill Less than 3 Seconds Skin: No rashes, No breakdown Musculoskeletal: No Tenderness to Palpation of Joints or Extremities Neurological: Cranial nerves II-XII grossly intact Psych/Mental Status: Normal Affect, Appropriate Vital Signs Temp Pulse Resp BP Pulse Ox 98.6 F 83 16 110/50 L 95 06/07/18 08:20 06/07/18 08:20 06/07/18 08:20 06/07/18 08:20 06/07/18 08:20 Oxygen Delivery Method Room Air Weight: 102.1 kg Body Mass Index (BMI) 37.4 Finger Stick Blood Glucose 187 Intake and Output for Last 24 Hours 06/05/18 06/06/18 06/07/18 23:59 23:59 23:59 Intake Total 220 / 220 400 / 400 Balance 220 / 220 400 / 400 POC Glucose 06/07/18 06/07/18 06/06/18 07:05 02:40 21:54 POC Glucose 145 H 76 115 H 06/06/18 06/06/18 16:50 11:37 POC Glucose 123 H 73 Medical Necessity - Tobacco Use Smoking Status: Never smoker Assessment/Plan All Active Problems Debility (Acute) Stroke (Acute) 73 year old CF with PMH HTN, HLD, DM, DM Neuropathy, GUERITA not on CPAP, recent acute left MCA stroke (05/17/18), now admitted to [facility] with debility post acute left MCA stroke, for >3hrs therapy daily, with the goal of returning home at or near her prior level of functional baseline. Plan -PT for gait stability -OT for ADLs -ST for swallow evaluation -Analgesics PRN -Bowel protocol -Stroke-acute left MCA stroke- on ASA/Plavix and Lipitor. Stroke risk factors discussed and stroke education provided. 05/24: STABLE -HTN-stable, on Amlodipine, Lisinopril and Lasix -HLD-on Lipitor -DM- uncontrolled, on Lantus, may need endocrinology evaluation as outpatient, Hba1c 8.7%. Consult hospitalist for further management of DM. 05/24, improved, hospitalist managing -DM Neuropathy- patient complaints of pain in the feet. Start Neurontin 100 mg PO TID for 5 days then increase to 300 mg PO TID to continue -GUERITA-needs to be on CPAP. 05/24 on home cpap, will need repeat titration as outpt , last study 5yrs ago -Check B/L LE venous Doppler-complained to leg/calf pain to the nursing. -Fall precautions -GI/DVT prophylaxis-Lovenox 40 mg SQ daily -Further medical management per hospitalist recommendations. - Oral candidiasis: Improved with nystatin - New headache: This is improved with Tylenol acceptably. check a CAT scan of the brain, no acute changes noted - Patient will be discharged to TCU or a Skill Nursing Facility tomorrow 06/08
[2018-06-07] MEDS: NYSTATIN 500,000 UNIT/5 ML UDC 500000 UNIT PO ×3 (10:42→22:27)
[2018-06-07 11:21] LABS: Bedside Glucose 80 mg/dL (70-110)
--- NOTE | 2018-06-07 17:01 | TREXTCAR_ITS ---
- Diet 05/21/18 19:19 Diet: Calorie Controlled Food consistency:: Puree Liquid Consistency:: [place] Thick Dietary Modifications:: Pureed Diet [place] Thick Liquids How many daily calories?: 1800 calorie Diet: Cardiac/Low Cholesterol Food consistency:: Puree Liquid Consistency:: [place] Thick Dietary Modifications:: [place] Thick Liquids - Wound(s) right cheek, forehead Wound Type: Abrasion - Therapies Weight Bearing: Weight bearing as tolerated Physical Therapy: Eval and Treat Occupational Therapy: Eval and Treat Speech Therapy: Eval and Treat - Allergies/Procedures Done in Hospital Allergies/Adverse Reactions: Allergies No Known Allergies Allergy (Verified 05/21/18 19:14) - Type of Care/Length of Stay Estimated LOS: More Than 30 Days Type of Care Needed: Skilled Rehab Potential: Fair Prognosis: Fair - Additional Orders/Day of Discharge Day of Discharge: 06/08/18 - Follow Up Care Primary Care Physician: Alexander Jack MD [Primary Care Provider] -
[2018-06-07 17:16] LABS: Bedside Glucose 90 mg/dL (70-110)
[2018-06-07 19:51] VITALS: BP 108/52; PULSE 68; RESP 16; TEMP 36.9; O2SAT 93
[2018-06-07] MEDS: Acetaminophen 325 MG Tablet 650 MG PO (22:25)
[2018-06-07] MEDS: Atorvastatin Calcium 80 MG Tablet PO (22:27)
[2018-06-07] MEDS: Latanoprost 0.005% 1 Bottle 1 DRP EACH EYE (22:27)
[2018-06-07 22:41] LABS: Bedside Glucose 74 mg/dL (70-110)
--- NOTE | 2018-06-07 22:47 | NURSING ---
pt BS was 73 this hs and asymptomatic. Hospitalist, Dr Jostin Walls, alerted and N/O for Lantus [address] of Lantus 35 units.
--- NOTE | 2018-06-08 00:09 | NURSING ---
Pt refused CPAP this hs.
[2018-06-08 03:06] LABS: Bedside Glucose 95 mg/dL (70-110)
[2018-06-08] MEDS: Enoxaparin 30 MG/0.3 ML Syringe SC (05:16)
[2018-06-08] MEDS: Menthol/Lanolin/Calamine/Znox 113 GM Tube 1 APPLIC TOPICAL (05:17)
[2018-06-08 06:00] VITALS: BP 120/50; PULSE 70; RESP 16; TEMP 36.9; O2SAT 95
[2018-06-08 06:41] LABS: Bedside Glucose 112 mg/dL (70-110)
[2018-06-08] MEDS: Cyanocobalamin 500 MCG Tablet 1000 MCG PO (08:10)
[2018-06-08] MEDS: Lisinopril 20 MG Tablet PO (08:11)
[2018-06-08] MEDS: Famotidine 20 MG Tablet PO (08:11)
[2018-06-08] MEDS: metFORMIN HCl 1,000 MG Tablet 1000 MG PO (08:11)
[2018-06-08] MEDS: Furosemide 40 MG Tablet PO (08:11)
[2018-06-08] MEDS: Clopidogrel Bisulfate 75 MG Tablet PO (08:11)
[2018-06-08] MEDS: Calcium Carb/Vitamin D 1 TABLET Tablet PO (08:11)
[2018-06-08] MEDS: amLODIPine 10 MG Tablet PO (08:11)
[2018-06-08] MEDS: Gabapentin 300 MG Capsule PO ×2 (08:11→12:01)
[2018-06-08] MEDS: Folic Acid 1 MG Tablet PO (08:11)
[2018-06-08] MEDS: FLUoxetine 20 MG Capsule 40 MG PO (08:11)
[2018-06-08] MEDS: Ferrous Gluconate 325 MG Tablet PO (08:12)
[2018-06-08] MEDS: Aspirin 81 MG TAB.CHEW PO (08:12)
--- NOTE | 2018-06-08 08:35 | CASEMGMT ---
Social Work Spoke with Kay on the Transitional Care Unit. Patient precert has been obtained and TCU is able to accept patient today. Spoke with patient and patient family. This psychosocial rehabilitation counselor communicating above information. All agreeable to discharge plan. Support given. Proposed discharge date: 06/08/18 PLAN: Discharge to the TCU skilled. Carole LEDESMA, [employer]
[2018-06-08 09:56] VITALS: PULSE 70; RESP 16; O2SAT 95
--- NOTE | 2018-06-08 10:00 | PCM.DC ---
- Discharge Diagnoses Current Active Problems: Current Active and Chronic Problems Debility (Acute) Stroke (Acute) HTN (hypertension) (Chronic) HLD (hyperlipidemia) (Chronic) Diabetes (Chronic) Neuropathy (Chronic) GUERITA (obstructive sleep apnea) (Chronic) Reason(s) for Visit for Discharge Instructions: Stroke You will use the following diet at home:: Calorie/Carbohydrate Controlled (specify 1200, 1400, etc), Cardiac, Other Your food should be the consistency of: Puree Your liquids should be the consistency of: [place] Thick Discharge Activity: May Not Drive, May Shower Weight Bearing Status: Weight bearing as tolerated Call your doctor if you observe: Fever of 101 or Higher, Coldness, Increased Pain, Numbness or Tingling, Change in Color, Inability to urinate, Inability to have a bowel movement, Using more than one pad per hour, Shortness of breath, Dizziness, Fainting spells, Swelling in the ankles, Chest pain, Prolonged hiccoughing, Increased palpitations (irregular heartbeat), Calf discomfort, Uncontrolled pain Allergies/Adverse Reactions: Allergies No Known Allergies Allergy (Verified 05/21/18 19:14) Medications to take at Discharge Insulin Glargine [Lantus (BKC)] 18 units SC QHS 05/21/18 Lipase/Protease/Amylase [Creon Dr 24,000 Units Capsule] 1 capsule PO TID 05/21/18 Mecobal/Levomefolat Ca/B6 Phos [[id number] Tablet] 2 tab PO DAILY 05/21/18 Acetaminophen [Tylenol Tablet] 650 mg PO Q6H PRN PRN tablet 06/08/18 Amlodipine [Norvasc] 10 mg PO DAILY tablet 06/08/18 Aspirin [Aspirin, Baby] 81 mg PO DAILY@0800 tab.chew 06/08/18 Atorvastatin Calcium [Lipitor] 80 mg PO QHS tablet 06/08/18 Bisacodyl [Dulcolax] 10 mg RECTAL .PRN X 1 PRN suppos. 06/08/18 Calcium Carb/Vitamin D [Os-Josue 500MG + D] 1 tablet PO BID tablet 06/08/18 Clopidogrel Bisulfate [Plavix] 75 mg PO DAILY tablet 06/08/18 Cyanocobalamin [Vitamin B12] 1,000 mcg PO DAILY tablet 06/08/18 Enoxaparin [Lovenox] 30 mg SC DAILY@0600 syringe 06/08/18 Famotidine [Pepcid] 20 mg PO BID tablet 06/08/18 Ferrous Gluconate 325 mg PO BIDCM tablet 06/08/18 Fluoxetine [Prozac] 40 mg PO DAILY capsule 06/08/18 Folic Acid 1 mg PO DAILY@0800 tablet 06/08/18 Furosemide [Lasix] 40 mg PO BIDLX tablet 06/08/18 Gabapentin [Neurontin] 300 mg PO TIDCM capsule 06/08/18 Glucagon 1 mg IM .X1 PRN syringe 06/08/18 Insulin Glargine [Lantus SoloStar Pen] 15 units SC BID pen 06/08/18 Insulin Lispro [Humalog KwikPen] 14 unit SC TIDAC insuln.pen 06/08/18 Insulin Lispro [Humalog KwikPen] See Protocol SC TIDAC insuln.pen 06/08/18 Lactobacillus Acidophilus [Acidophilus] 1 tablet PO DAILY tablet 06/08/18 Latanoprost 0.005% [Xalatan Opthalmic] 1 drop EACH EYE QHS bottle 06/08/18 Lisinopril [Zestril] 20 mg PO DAILY tablet 06/08/18 Magnesium Hydroxide [Milk Of Magnesia] 30 ml PO .PRN X 1 PRN udc 06/08/18 Menthol/Lanolin/Calamine/Znox [Calmoseptine Ointment] 1 applic TOPICAL BID@0600,2200 tube 06/08/18 Metformin HCl [Glucophage] 1,000 mg PO BIDCM tablet 06/08/18 Nystatin 500,000 unit PO 4X/DAY udc 06/08/18 Senna/Docusate Sodium [Senokot-S] 2 tablet PO BID tablet 06/08/18 hydrOXYzine pamoate capsule [Vistaril pamoate capsule] 25 mg PO Q6H PRN PRN capsule 06/08/18 lipase/protease/amylase [Creon DR 12,000 Unit Capsule] 2 capsule PO TIDCM capsule 06/08/18 Primary Care Physician: Alexander Jack MD [Primary Care Provider] - Test Results: Test results from this visit will be discussed in further detail at your follow-up appointment, if applicable. Proposed Discharge Date: 06/08/18
--- NOTE | 2018-06-08 10:05 | DS.PCM_ITS ---
Rehab Discharge Summary DATE OF ADMISSION: 05/21/18 DATE OF DISCHARGE: 06/08/18 - Rehab Diagnosis Stroke Discharge Diet: Low fat/ Low Cholesterol, 2000 Calorie Control Diet, 2000 mg Sodium Diet Discharge Activity: May Not Drive, May Shower Weight Bearing Status: Weight bearing as tolerated Call your doctor if you observe: Fever of 101 or Higher, Coldness, Increased Pain, Numbness or Tingling, Change in Color, Inability to urinate, Inability to have a bowel movement, Using more than one pad per hour, Shortness of breath, Dizziness, Fainting spells, Swelling in the ankles, Chest pain, Prolonged hiccoughing, Increased palpitations (irregular heartbeat), Calf discomfort, Uncontrolled pain Home Medications: Medications to take at Discharge Insulin Glargine [Lantus (BKC)] 18 units SC QHS 05/21/18 Lipase/Protease/Amylase [Creon Dr 24,000 Units Capsule] 1 capsule PO TID Mecobal/Levomefolat Ca/B6 Phos [q-[id number]-S8-B12 Tablet] 2 tab PO DAILY 05/21/18 Acetaminophen [Tylenol Tablet] 650 mg PO Q6H PRN PRN tablet 06/08/18 Amlodipine [Norvasc] 10 mg PO DAILY tablet 06/08/18 Aspirin [Aspirin, Baby] 81 mg PO DAILY@0800 tab.chew 06/08/18 Atorvastatin Calcium [Lipitor] 80 mg PO QHS tablet 06/08/18 Bisacodyl [Dulcolax] 10 mg RECTAL .PRN X 1 PRN suppos. 06/08/18 Calcium Carb/Vitamin D [Os-Josue 500MG + D] 1 tablet PO BID tablet 06/08/18 Clopidogrel Bisulfate [Plavix] 75 mg PO DAILY tablet 06/08/18 Cyanocobalamin [Vitamin B12] 1,000 mcg PO DAILY tablet 06/08/18 Enoxaparin [Lovenox] 30 mg SC DAILY@0600 syringe 06/08/18 Famotidine [Pepcid] 20 mg PO BID tablet 06/08/18 Ferrous Gluconate 325 mg PO BIDCM tablet 06/08/18 Fluoxetine [Prozac] 40 mg PO DAILY capsule 06/08/18 Folic Acid 1 mg PO DAILY@0800 tablet 06/08/18 Furosemide [Lasix] 40 mg PO BIDLX tablet 06/08/18 Gabapentin [Neurontin] 300 mg PO TIDCM capsule 06/08/18 Glucagon 1 mg IM .X1 PRN syringe 06/08/18 Insulin Glargine [Lantus SoloStar Pen] 15 units SC BID pen 06/08/18 Insulin Lispro [Humalog KwikPen] 14 unit SC TIDAC insuln.pen 06/08/18 Insulin Lispro [Humalog KwikPen] See Protocol SC TIDAC insuln.pen 06/08/18 Lactobacillus Acidophilus [Acidophilus] 1 tablet PO DAILY tablet 06/08/18 Latanoprost 0.005% [Xalatan Opthalmic] 1 drop EACH EYE QHS bottle 06/08/18 Lisinopril [Zestril] 20 mg PO DAILY tablet 06/08/18 Magnesium Hydroxide [Milk Of Magnesia] 30 ml PO .PRN X 1 PRN udc 06/08/18 Menthol/Lanolin/Calamine/Znox [Calmoseptine Ointment] 1 applic TOPICAL BID@0600, 2200 tube 06/08/18 Metformin HCl [Glucophage] 1,000 mg PO BIDCM tablet 06/08/18 Nystatin 500,000 unit PO 4X/DAY udc 06/08/18 Senna/Docusate Sodium [Senokot-S] 2 tablet PO BID tablet 06/08/18 hydrOXYzine pamoate capsule [Vistaril pamoate capsule] 25 mg PO Q6H PRN PRN capsule 06/08/18 lipase/protease/amylase [Creon DR 12,000 Unit Capsule] 2 capsule PO TIDCM capsule 06/08/18 Primary Care Physician: Alexander Jack MD [Primary Care Provider] - Disposition: Senior Living facility Minutes spent on discharge:: 40 Patient Condition:: Fair Rehab Course The patient is a 73 year old CF with PMH HTN, HLD, DM, DM Neuropathy, GUERITA not on CPAP, recent acute left MCA stroke (05/17/18), now admitted to [facility] with debility post acute left MCA stroke, for >3hrs therapy daily, with the goal of returning home at or near her prior level of functional baseline. Per patient she was admitted to [facility] on 05/17/18 with acute onset right sided weakness and dysarthria, had a fall at home due to right sided weakness with bruise and laceration to the right forehead and right side of the face, MRI brain done at OSH reported to show lacunar infarct in the periventricular distribution (left MARINA PORTER-left MCA per neurology consult note), MRA head reported to show 3mm Acomm aneurysm, carotid ultrasound reported to show B/L ICA 1-19% stenosis, Hba1c 8.7%, LDL-25, had normal EEG. Patient at present continues to have right sided weakness with speech disturbances, needs max assist for her ADLs. Complained to nursing about bilateral leg pain but denied the same to me at present. Per patient she lives with her , lives in a 2 storeyed house , has no steps going into the house, has steps to go to the second level but has no basement. Per patient she does not use CPAP for her sleep apnea at home. Patient was not on any AP prior to her stroke. Patient was started on ASA and Plavix following her stroke. Per documentation patient was treated for UTI prior to coming to the Rehab. With Physical therapy, she is able to get in and out of bed with the assist of 2 people, the [place] lift is also being used to help with standing to strengthen muscles and increase endurance. They used the E -stim to her right leg. With Occupational therapy, she is able to do her personal care and upper body with moderate assistance. She is max assist for dressing and she requires total assist for lower body and toileting. With speech therapy, she has been changed from thicken liquids to nectar thicken liquids, also has been started on the [place] water protocol. Will continue to work on oral strengthen exercises and respiratory muscles strengthen exercises. Will continue to work on motor planning cues, and cognitive issues. With nursing , her blood pressure has been stable, lungs clear, some issues with constipation has changed medications in her bowel regimen. Patient will be discharged to TCU, [facility] on 06/08. Meaningful Use Info Meaningful Use Diagnoses (Choose all that apply): Ischemic CVA - CVA Therapy Assessed for PT,OT and/or ST?: Yes - Ischemic Stroke Antithrombotic order at d/c?: Yes Dx of Atrial fib/flutter?: No Statins at discharge?: Yes Primary Dx Acute Ischemic CVA?: Yes IV tPA ordered during stay?: No Reason IV t-PA not ordered: Medical Contraindication
[2018-06-08] MEDS: NYSTATIN 500,000 UNIT/5 ML UDC 500000 UNIT PO (10:21)
[2018-06-08] MEDS: Insulin Lispro 100 UNIT/ML INSULN.PEN 14 UNIT SC (12:00)
[2018-06-08] MEDS: Insulin Lispro 100 UNIT/ML INSULN.PEN SC (12:01)
[2018-06-08 12:10] LABS: Bedside Glucose 182 mg/dL (70-110)
--- NOTE | 2018-06-08 14:08 | NURSING ---
Gave report to DELORES vinson
--- NOTE | 2018-06-08 14:08 | NURSING ---
Gave report to DELORES Jones on TCU pt will be in room 7
[2018-06-08 14:16] LABS: Bedside Glucose 152 mg/dL (70-110)
--- NOTE | 2018-06-08 14:40 | CASEMGMT ---
Insurance Notified insurance of patient discharge on 06/08/18 to skilled facility. Auth#[id number] Carole LEDESMA, TALLOW MAKER
== END 2018-06-08 14:10 | disposition skilled nursing facility (03) | DRG 57 ==
PROVIDERS: Family Medicine; Hospitalist; Internal Medicine; Admitting Provider Psychiatry & Neurology Neurology; Family Provider Family Medicine; PCP Family Medicine
DX: I69.351 Hemiplegia and hemiparesis following cerebral infarction affecting right dominant side (principal); B37.0 Candidal stomatitis; I69.322 Dysarthria following cerebral infarction; I69.328 Other speech and language deficits following cerebral infarction; E78.5 Hyperlipidemia, unspecified; E11.40 Type 2 diabetes mellitus with diabetic neuropathy, unspecified; I12.9 Hypertensive chronic kidney disease with stage 1 through stage 4 chronic kidney disease, or unspecified chronic kidney disease; N18.3 Chronic kidney disease, stage 3 (moderate); G47.33 Obstructive sleep apnea (adult) (pediatric); S01.81XD Laceration without foreign body of other part of head, subsequent encounter; W19.XXXD Unspecified fall, subsequent encounter; E66.9 Obesity, unspecified; Z68.38 Body mass index [BMI] 38.0-38.9, adult; Z71.3 Dietary counseling and surveillance; K21.9 Gastro-esophageal reflux disease without esophagitis; F32.9 Major depressive disorder, single episode, unspecified; F41.9 Anxiety disorder, unspecified; I69.392 Facial weakness following cerebral infarction; E11.22 Type 2 diabetes mellitus with diabetic chronic kidney disease
CPT/HCPCS: 36415; 70450; 74230; 80048; 80053; 82607; 82728; 82746; 82962; 83540; 83550; 85025; 92507; 92523; 92526; 92611; 93970; 97032; 97110; 97163; 97166; 97530; 97535; 97802

== ENCOUNTER 2018-06-08 14:00 | Inpatient (IN) | payer MEDICARE, SELFPAY ==
--- NOTE | 2018-06-08 14:18 | NURSING ---
PT ARRIVED BY RECLINER AT 1400 FROM REHAB.
[2018-06-08 15:30] VITALS: BP 113/50; PULSE 79; RESP 20; TEMP 36.7; O2SAT 95; BMI 38.6
[2018-06-08 15:45] VITALS: BMI 38.6
[2018-06-08 17:05] LABS: Bedside Glucose 86 mg/dL (70-110)
[2018-06-08 18:16] LABS: Bedside Glucose 114 mg/dL (70-110)
[2018-06-08] MEDS: Senna/Docusate Sodium 1 Tablet 2 TABLET PO (18:20)
[2018-06-08] MEDS: Ferrous Gluconate 325 MG Tablet PO (18:20)
[2018-06-08] MEDS: Calcium Carb/Vitamin D 1 TABLET Tablet PO (18:20)
[2018-06-08] MEDS: Famotidine 20 MG Tablet PO (18:20)
[2018-06-08] MEDS: NYSTATIN 500,000 UNIT/5 ML UDC 500000 UNIT PO ×2 (18:21→21:33)
[2018-06-08] MEDS: Gabapentin 300 MG Capsule PO (18:28)
[2018-06-08 19:54] VITALS: PULSE 70; O2SAT 92
--- NOTE | 2018-06-08 19:57 | PCM.HP.STD ---
Problem List (1) Acute ischemic left MCA stroke Status: Acute (2) Diabetic polyneuropathy Status: Chronic (3) Sleep apnea Status: Chronic (4) GERD (gastroesophageal reflux disease) Status: Chronic (5) Depression Status: Chronic (6) Glaucoma Status: Chronic (7) Debility Status: Acute (8) HTN (hypertension) Status: Chronic (9) HLD (hyperlipidemia) Status: Chronic (10) Diabetes Status: Chronic History of Present Illness Date of Admission: 06/08/18 Chief Complaint: Here for rehabilitation, strengthening, prior to discharge home with spouse. The patient is a 73 year old Female with below past medical history suffered left MCA stroke, admitted to Rehab Unit 05/21/2018, underwent intensive rehabilitation. 06/08/2018 Admit to TCU with debility, to continue rehabilitation, strengthening, prior to discharge home with spouse. Past Medical History Past Medical History (Chronic Problems): Chronic Problems HTN (hypertension) (Chronic) HLD (hyperlipidemia) (Chronic) Diabetes (Chronic) Neuropathy (Chronic) UGERITA (obstructive sleep apnea) (Chronic) Diabetic polyneuropathy (Chronic) Sleep apnea (Chronic) GERD (gastroesophageal reflux disease) (Chronic) Depression (Chronic) Glaucoma (Chronic) Allergies No Known Allergies Allergy (Verified 05/21/18 19:14) Home Medications: Ambulatory Orders Medication Instructions Recorded Insulin Glargine [Lantus (BKC)] 18 units SC QHS 05/21/18 Mecobal/Levomefolat Ca/B6 Phos 2 tab PO DAILY 05/21/18 [a-[id number]-P1-B12 Tablet] Acetaminophen [Tylenol Tablet] 650 mg PO Q6H PRN PRN tablet 06/08/18 Amlodipine [Norvasc] 10 mg PO DAILY 06/08/18 Aspirin [Aspirin, Baby] 81 mg PO DAILY@0800 06/08/18 Atorvastatin Calcium [Lipitor] 80 mg PO QHS 06/08/18 Bisacodyl [Dulcolax] 10 mg RECTAL .PRN X 1 PRN suppos. 06/08/18 Calcium Carb/Vitamin D [Os-Josue 1 tablet PO BID 06/08/18 500MG + D] Clopidogrel Bisulfate [Plavix] 75 mg PO DAILY 06/08/18 Cyanocobalamin [Vitamin B12] 1,000 mcg PO DAILY 06/08/18 Enoxaparin [Lovenox] 30 mg SC DAILY@0600 06/08/18 Famotidine [Pepcid] 20 mg PO BID 06/08/18 Ferrous Gluconate 325 mg PO BIDCM 06/08/18 Fluoxetine [Prozac] 40 mg PO DAILY 06/08/18 Folic Acid 1 mg PO DAILY@0800 06/08/18 Furosemide [Lasix] 40 mg PO BIDLX 06/08/18 Gabapentin [Neurontin] 300 mg PO TIDCM 06/08/18 Glucagon 1 mg IM .X1 PRN syringe 06/08/18 Insulin Glargine [Lantus SoloStar 15 units SC BID 06/08/18 Pen] Insulin Lispro [Humalog KwikPen] 14 unit SC TIDAC 06/08/18 Insulin Lispro [Humalog KwikPen] See Protocol SC TIDAC 06/08/18 Lactobacillus Acidophilus 1 tablet PO DAILY 06/08/18 [Acidophilus] Latanoprost 0.005% [Xalatan 1 drop EACH EYE QHS 06/08/18 Opthalmic] Lisinopril [Zestril] 20 mg PO DAILY 06/08/18 Magnesium Hydroxide [Milk Of 30 ml PO .PRN X 1 PRN udc 06/08/18 Magnesia] Menthol/Lanolin/Calamine/Znox 1 applic TOPICAL BID@0600,2200 06/08/18 [Calmoseptine Ointment] Metformin HCl [Glucophage] 1,000 mg PO BIDCM 06/08/18 Nystatin 500,000 unit PO 4X/DAY 06/08/18 Senna/Docusate Sodium [Senokot-S] 2 tablet PO BID 06/08/18 hydrOXYzine pamoate capsule 25 mg PO Q6H PRN PRN capsule 06/08/18 [Vistaril pamoate capsule] lipase/protease/amylase [Creon DR 2 capsule PO TIDCM 06/08/18 12,000 Unit Capsule] Surgical History: noncontributory Psychiatric History: Anxiety, Depression DIABETES EDUCATION COORDINATOR History: No pertinent DIABETES EDUCATION COORDINATOR history Lives: Spouse/ Significant Other Smoking Status: Never smoker Tobacco Use: Non-smoker Alcohol: None Drugs: None - *Family History Maternal History Items: No pertinent history Paternal History Items: No pertinent history Review of Systems Constitutional: Denies: Chills, Fever, Weight Change HEENT: Denies: Head Aches, Sinus Congestion, Sinus Drainage Cardiovascular: Denies: Chest Pain, Palpitations Respiratory: Denies: Cough, Shortness of breath at rest, Sputum production Gastrointestinal: Denies: Abdominal Pain, Nausea, Vomiting Genitourinary: Denies: Dysuria Musculoskeletal: Denies: Joint Pain, Joint Tenderness Skin: Denies: Rash, Wounds Neurological: Denies: Numbness, Tingling, Focal weakness Psychiatric: Denies: Anxiety, Depression, Homicidal Ideations, Suicidal Ideations Hematologic/ Lymphatic: Denies: Easy Bruising, Easy Bleeding VTE Information - Inpt Only VTE Present on Admission: No VTE Mechan Device Prophylaxis: Knee High BROOKE Hose VTE Pharm Prophylaxis ordered?: Yes Patient Problems: Active and Suspected Problems Acute ischemic left MCA stroke (Acute) - Physical Exam General: Alert, Oriented x3, Cooperative HEENT: Atraumatic, PERRLA, EOMI, Normocephalic Neck: Supple, No JVD, Negative Carotid Bruits Lungs: Clear to auscultation, Normal air movement Cardiovascular: Regular rate, No murmurs Abdomen: Bowel Sounds Present, Soft, Non Tender Extremities: No edema, Capillary Refill Less than 3 Seconds Skin: No rashes, No breakdown Musculoskeletal: No Tenderness to Palpation of Joints or Extremities Neurological: Cranial nerves II-XII grossly intact, - - Right hemiparesis. Psych/Mental Status: Normal Affect, Appropriate Vital Signs Temp Pulse Resp BP Pulse Ox 98.1 F 79 20 H 113/50 L 95 06/08/18 15:30 06/08/18 15:30 06/08/18 15:30 06/08/18 15:30 06/08/18 15:30 Oxygen Delivery Method Room Air Weight: 102.1 kg Body Mass Index (BMI) 38.6 Finger Stick Blood Glucose 187 Intake and Output for Last 24 Hours 06/06/18 06/07/18 06/08/18 23:59 23:59 23:59 Intake Total 120 / 120 Balance 120 / 120 POC Glucose 06/08/18 06/08/18 18:10 16:52 POC Glucose 114 H 86 Assessment/Plan All Active Problems Debility (Acute) Stroke (Acute) Acute ischemic left MCA stroke (Acute) 73 year old female with below past medical history hospitalized for acute left MCA stroke, admitted from Rehab Unit, to continue rehabilitation, strengthening, prior to discharge home with spouse. Debility - PT/OT. Dysphagia - ST. Pain - Tylenol 1000MG Q8H PRN mild pain. Bowel - Miralax 17GM daily, Senna/colace 1 tablet BID, Dulcolax 10MG PO daily PRN. Pneumonia vaccination - Administer Prevnar 13 and/or Pneumovax 23 as necessary. DVT prophylaxis - Lovenox 30MG SC daily. Hypertension - Lisinopril 20MG daily, Amlodipine 10MG daily. Stroke - Aspirin 81MG daily, Plavix 75MG daily. Hyperlipidemia - Atorvastatin 80MG QHS. Calcium deficiency - Os-Josue 500MG BID. Vitamin B12 deficiency - B12 1000MCG daily. GERD - Famotidine 20MG BID. Iron deficiency anemia - Ferrous Gluconate 325MG BID. Depression - Fluoxetine 40MG daily. Folate deficiency - Folic Acid 1MG daily. Edema - Lasix 40MG BID. Diabetic polyneuropathy - Gabapentin 300MG TID. Diabetes Mellitus II - Lantus 15 units BID, Humalog 14 units TID, Glucagon 1MG IM PRN low blood sugar. GI prophylaxis - Lactobacillus 1 tablet daily. Glaucoma - Xalatan 0.005% 1GTT OU QHS. Pancreatic insufficiency - Creon 12,000 units 2 caps TID. Skin Irritation - Calmoseptine BID buttocks. Thrush - Nystatin 500,000 4x/day x 10 days.
[2018-06-08 20:56] LABS: Bedside Glucose 161 mg/dL (70-110)
[2018-06-08] MEDS: Atorvastatin Calcium 80 MG Tablet PO (21:33)
[2018-06-08] MEDS: Latanoprost 0.005% 1 Bottle 1 DRP EACH EYE (21:33)
[2018-06-08] MEDS: Menthol/Lanolin/Calamine/Znox 113 GM Tube 1 APPLIC TOPICAL (21:49)
--- NOTE | 2018-06-08 22:33 | NURSING ---
Dr. Vogt updated on no void since admission to unit. Bladder scan [address] Vogt updated. Straight cath x1 now and bladder scan Qshift. Start Flomax 0.4mg QHS. Call him if greater than 500cc again.
[2018-06-08 23:07] LABS: Bacteria 0 SEEN /hpf (None Seen); Mucous, Urine 0 SEEN /hpf (<or=2+); Red Blood Cells-Urine 0 SEEN /hpf (0-5); Squamous Epithelial Cells - UA 0 SEEN /hpf (5-10)
[2018-06-08] MEDS: Tamsulosin HCl 0.4 MG Capsule PO (23:09)
--- NOTE | 2018-06-08 23:12 | NURSING ---
Received a new order to straight cath pt d/t urine retention and send for a UA. Explained to pt that the doctor want a urine sample and that I would have to straight cath. Pt tolerated the procedure during this time. Void 500 via straight cath send to lab.
[2018-06-08 23:19] LABS: Color, Urine Yellow (Yellow); Glucose, Dipstick Normal (Normal); Ketone-Dipstick Negative (Negative); Leukocyte Esterase-Dipstick 25 /ul (Negative); Nitrite-Dipstick Negative (Negative); Occult Blood-Urine Negative /ul (Negative); Protein-Dipstick 15 mg/dl (Negative); Urine Bilirubin Dipstick Negative (Negative); Urine Clarity Clear (Clear); Urine Urobilinogen Normal (Normal)
[2018-06-08 23:45] LABS: White Blood Cells 0-5 SEEN /hpf (0-5)
[2018-06-09 02:06] LABS: Bedside Glucose 116 mg/dL (70-110)
[2018-06-09] MEDS: Polyethylene Glycol 3350 17 GM PACKET PO (05:05)
[2018-06-09] MEDS: amLODIPine 10 MG Tablet PO (05:07)
[2018-06-09] MEDS: Furosemide 40 MG Tablet PO (05:07)
[2018-06-09] MEDS: Calcium Carb/Vitamin D 1 TABLET Tablet PO ×2 (05:07→17:21)
[2018-06-09] MEDS: Clopidogrel Bisulfate 75 MG Tablet PO (05:08)
[2018-06-09] MEDS: Lisinopril 20 MG Tablet PO (05:08)
[2018-06-09] MEDS: NYSTATIN 500,000 UNIT/5 ML UDC 500000 UNIT PO ×4 (05:08→21:16)
[2018-06-09] MEDS: Senna/Docusate Sodium 1 Tablet PO ×2 (05:08→17:21)
[2018-06-09] MEDS: Menthol/Lanolin/Calamine/Znox 113 GM Tube 1 APPLIC TOPICAL ×2 (05:09→21:14)
[2018-06-09] MEDS: Cyanocobalamin 500 MCG Tablet 1000 MCG PO (05:10)
[2018-06-09] MEDS: Famotidine 20 MG Tablet PO ×2 (05:11→17:21)
[2018-06-09] MEDS: FLUoxetine 20 MG Capsule 40 MG PO (05:11)
[2018-06-09] MEDS: Enoxaparin 30 MG/0.3 ML Syringe SC (05:22)
[2018-06-09] MEDS: Nystatin Powder 15gm Bottle 1 APPLIC TOPICAL ×2 (05:22→21:15)
[2018-06-09 05:56] LABS: Absolute Lymphocyte Count 1.75 X10^3/ul (0.83-4.51); Basophil# 0.02 X10^3/uL; Basophil% 0.3 % (0-1); Eosinophil# 0.16 X10^3/uL; Eosinophils% 2.5 % (0-5); Hemoglobin 11.8 g/dl (12.0-15.0); Lymphocyte # 1.75 X10^3/ul (4.0); Lymphocyte % 27.3 % (19-41); Mean Corp Hgb Conc 31.1 g/gl (32-36); Mean Corpuscular Hgb 27.6 pg (27.0-32.0); Mean Corpuscular Volume 88.8 fL (81-99); Mean Platelet Vol. 10.7 fl (6.2-12.0); Monocyte# 0.52 X10^3/uL; Monocyte% 8.1 % (0-10); Neutrophil # 3.96 X10^3/uL (2.7-7.7); Neutrophil % 61.6 % (47-70); Platelet Count 190 K/mm3 (150-450); RBC Distribution Width SD 41.7 fl (35.1-43.9); Red Blood Count 4.28 M/mm3 (4.2-5.4); White Blood Count 6.4 K/mm3 (4.4-11.0)
[2018-06-09 06:12] LABS: Anion Gap 8 (5-15); BUN 68 mg/dL (7-18); BUN/Creat Ratio 22.7 RATIO (10-20); Calcium,Total 9.1 mg/dL (8.5-10.1); Chloride 101 mmol/L (98-107); EST Glomerular Filtration Rate 16 mL/min (>60); Est Glom Filt Rate - Afr Amer 20 mL/min (>60); Estimated Creatinine Clearance 14.21 ml/min; Glucose 141 mg/dL (74-106); Potassium 4.7 mmol/L (3.5-5.1); Sodium Level 142 mmol/L (136-145)
[2018-06-09 06:28] LABS: POSITIVE COUNT NO; POSITIVE DIFFERENTIAL NO; POSITIVE MORPHOLOGY NO
[2018-06-09 06:51] LABS: Bedside Glucose 168 mg/dL (70-110)
[2018-06-09] MEDS: Gabapentin 300 MG Capsule PO ×3 (09:16→17:21)
[2018-06-09] MEDS: Folic Acid 1 MG Tablet PO (09:16)
[2018-06-09] MEDS: Aspirin 81 MG TAB.CHEW PO (09:17)
[2018-06-09] MEDS: Ferrous Gluconate 325 MG Tablet PO ×2 (09:17→17:21)
[2018-06-09] MEDS: Insulin Lispro 100 UNIT/ML INSULN.PEN 14 UNIT SC ×2 (09:27→11:49)
[2018-06-09 11:40] LABS: Bedside Glucose 256 mg/dL (70-110)
[2018-06-09] MEDS: 0.9% Normal Saline 1,000 ML 60 ML IV (11:56)
--- NOTE | 2018-06-09 12:01 | NURSING ---
Dr Vogt reviewed labs this AM, new order for iv start and IVF continuous. This information writer attempted IV start with 22 gauge w/out success. RN supervisior, Sabina notified & attempted x2 without success. RN phosphatic fertilizer supervisor notified DELORES Olivarez MS2.
[2018-06-09] MEDS: Tuberculin,Purif.prot.deriv. 50 TU/ML Vial 5 ML ID (13:38)
--- NOTE | 2018-06-09 14:29 | CASEMGMT ---
Social Work Met with resident and resident spouse along with resident son-in-law, Joshua Jung - [phone]. This social security specialist collaborating on discharge plan. Resident spouse aware that current level of assist that resident requires is more then resident spouse can handle at home. This social security specialist broached topic of nursing placement in the event that resident is unable to return home. Resident and resident spouse agreeable to this as a plan B and reporting that the [facility] would be the first choice. Resident spouse then reporting to have limited financial status and to not be able to afford a fci. This social security specialist completing a medicaid application with resident spouse and resident. Resident currently lives in [facility]. Medicaid application faxed to [employer] [facility] in [facility]. Support given. Plan A: Return home with spouse Plan B: Discharge to extended care facility under medicaid Will continue to follow. Carole LEDESMA, CONSTRUCTION CONTRACTOR
--- NOTE | 2018-06-09 14:36 | PCM.PN.RX ---
<Quinn Loza D - Last Filed: 06/09/18 14:36> Progress Note - Pharmacy Subjective: TCU Admission Objective: Allergies No Known Allergies Allergy (Verified 05/21/18 19:14) Current Medications Generic Name Dose Route Start Last Admin Trade Name Freq PRN Reason Stop Dose Admin Acetaminophen 1,000 mg 06/08/18 20:18 Tylenol PO Q8H PRN MILD PAIN (1-3/10) Amlodipine Besylate 10 mg 06/09/18 06:00 06/09/18 05:07 Norvasc PO 10 mg DAILY [facility] Administration Aspirin 81 mg 06/09/18 08:00 06/09/18 09:17 Aspirin, Baby PO 81 mg DAILY@0800 [facility] Administration Atorvastatin Calcium 80 mg 06/08/18 22:00 06/08/18 21:33 Lipitor PO 80 mg QHS [facility] Administration Bisacodyl 10 mg 06/08/18 20:18 Dulcolax RECTAL DAILY PRN CONSTIPATION Calamine/Phenol 1 applic 06/08/18 22:00 06/09/18 05:09 Calmoseptine Ointment TOPICAL 1 applicatio BID@0600,2200 [facility] Administration Protocol Calcium/Vitamin D 1 tablet 06/08/18 18:00 06/09/18 05:07 Os-Josue 500mg + D PO 1 tablet BID [facility] Administration Clopidogrel Bisulfate 75 mg 06/09/18 06:00 06/09/18 05:08 Plavix PO 75 mg DAILY [facility] Administration Cyanocobalamin 1,000 mcg 06/09/18 06:00 06/09/18 05:10 Vitamin B12 PO 1,000 mcg DAILY [facility] Administration Enoxaparin Sodium 30 mg 06/09/18 06:00 06/09/18 05:22 Lovenox SC 30 mg DAILY@0600 [facility] Administration Famotidine 20 mg 06/08/18 18:00 06/09/18 05:11 Pepcid PO 20 mg BID [facility] Administration Ferrous Gluconate 325 mg 06/08/18 17:00 06/09/18 09:17 Ferrous Gluconate PO 325 mg BIDCM [facility] Administration Fluoxetine HCl 40 mg 06/09/18 06:00 06/09/18 05:11 Prozac PO 40 mg DAILY [facility] Administration Folic Acid 1 mg 06/09/18 08:00 06/09/18 09:16 Folic Acid PO 1 mg DAILY@0800 [facility] Administration Gabapentin 300 mg 06/08/18 17:45 06/09/18 11:51 Neurontin PO 300 mg TIDCM [facility] Administration Glucagon 1 mg 06/08/18 16:00 IM X1 PRN HYPOGLYCEMIA Sodium Chloride 1,000 mls @ 60 mls/hr 06/09/18 08:05 06/09/18 11:56 IV 60 mls/hr .[id number] [facility] Administration Insulin Glargine 15 units 06/08/18 18:00 06/09/18 06:44 Lantus ([facility]) SC 15 u BID [facility] Administration Insulin Human Lispro 14 unit 06/08/18 16:45 06/09/18 11:49 Humalog Kwikpen ([facility]) SC 14 units TIDAC [facility] Administration Lactobacillus Acidophilus 1 tablet 06/09/18 06:00 06/09/18 05:07 Acidophilus PO 1 tablet DAILY [facility] Administration Latanoprost 1 drop 06/08/18 22:00 06/08/18 21:33 Xalatan Opthalmic EACH EYE 1 drop QHS [facility] Administration Lisinopril 20 mg 06/09/18 06:00 06/09/18 05:08 Zestril PO 20 mg DAILY [facility] Administration Multi-Ingredient Cream 1 applic 06/09/18 06:00 06/09/18 05:03 Eucerin TOPICAL 1 applicatio 599,2199 [facility] Administration Protocol Nystatin 500,000 unit 06/08/18 17:00 06/09/18 11:50 Nystatin PO 06/18/18 17:01 500,000 unit 4X/DAY [facility] Administration Nystatin 1 applic 06/09/18 06:00 06/09/18 05:22 Mycostatin Powder TOPICAL 1 applicatio 599,2200 [facility] Administration Protocol Pancrelipase 2 capsule 06/08/18 17:45 06/09/18 11:[address] 12,000 Unit Capsule PO 2 capsule TIDCM [facility] Administration Polyethylene Glycol 17 gm 06/09/18 06:00 06/09/18 05:05 Miralax PO 17 gm DAILY [facility] Administration Senna/Docusate Sodium 1 tablet 06/08/18 18:00 06/09/18 05:08 Senokot-S, Jessica-Colace PO 1 tablet BID [facility] Administration Tamsulosin HCl 0.4 mg 06/08/18 22:38 06/08/18 23:09 Flomax PO 0.4 mg QHS [facility] Administration Tuberculin PPD 5 tu 06/16/18 10:00 Tubersol, Aplisol, Ppd ID 06/16/18 10:01 X1 ONE Problem List Acute ischemic left MCA stroke (Acute) Diabetic polyneuropathy (Chronic) Sleep apnea (Chronic) GERD (gastroesophageal reflux disease) (Chronic) Depression (Chronic) Glaucoma (Chronic) Vital Signs Temp Pulse Resp BP Pulse Ox 98.1 F 70 20 H 113/50 L 92 06/08/18 15:30 06/08/18 19:54 06/08/18 15:30 06/08/18 15:30 06/08/18 19:54 Oxygen Delivery Method Room Air Weight: 102.1 kg Body Mass Index (BMI) 38.6 Finger Stick Blood Glucose 187 Sodium 142 mmol/L (136-145) 06/09/18 05:40 Potassium 4.7 mmol/L (3.5-5.1) 06/09/18 05:40 Chloride 101 mmol/L (98-107) 06/09/18 05:40 Carbon Dioxide 33.0 mmol/L (21.0-32.0) H 06/09/18 05:40 Anion Gap 8 (5-15) 06/09/18 05:40 BUN 68 mg/dL (7-18) H 06/09/18 05:40 Creatinine 3.00 mg/dL (0.55-1.02) H 06/09/18 05:40 Est GFR (MDRD) Af Amer 20 mL/min (>60) L 06/09/18 05:40 Est GFR (MDRD) Non-Af 16 mL/min (>60) L 06/09/18 05:40 BUN/Creatinine Ratio 22.7 RATIO (10-20) H 06/09/18 05:40 Glucose 141 mg/dL (74-106) H 06/09/18 05:40 Assessment/Plan: 1) Pain APAP for mild pain, gabapentin. 2) HTN/HLD/Stroke Amlodipine, ASA, atorvastatin, clopidogrel, lisinopril. Continue to monitor BP/HR, renal function, electrolytes, lipids, s/s stroke. 3) DM2 Insulin glargine, lispro with meals. Continue to monitor BGT, s/s hyper/hypoglycemia. 4) Thrush Nystatin orally until 06/18. Continue to monitor for thrush. 5) Tamsulosin at HS. Continue to monitor symptoms. 6) Derm Calmoseptine, moisturizer, nystatin powder. Continue to monitor clinically. 7) GI Creon with meals, lactobacillus, famotidine. Continue to monitor s/s GI distress. 8) Nutrition Ca/D, Fe, B12, FA. Continue to monitor clinically. 9) DVT PPx Enoxaparin daily. Continue to monitor s/s bleeding/clot. Psychotropic Medications: 10) Depression Fluoxetine daily. Continue to monitor s/s depression. Unnecessary Medications: None Bowel Regimen: 11) Senna/s, PEG, prn bisacodyl. Continue to monitor prn medication use, for constipation/diarrhea. Date of Note:: 06/09/18 - Provider Comments Provider responsibility: Provider responsible to enter orders to implement recommendations <Kenneth Vogt Chi - Last Filed: 06/09/18 17:44> Progress Note - Pharmacy Subjective: [] Objective: Allergies No Known Allergies Allergy (Verified 05/21/18 19:14) Current Medications Generic Name Dose Route Start Last Admin Trade Name Freq PRN Reason Stop Dose Admin Acetaminophen 1,000 mg 06/08/18 20:18 Tylenol PO Q8H PRN MILD PAIN (1-3/10) Amlodipine Besylate 10 mg 06/09/18 06:00 06/09/18 05:07 Norvasc PO 10 mg DAILY [facility] Administration Aspirin 81 mg 06/09/18 08:00 06/09/18 09:17 Aspirin, Baby PO 81 mg DAILY@0800 [facility] Administration Atorvastatin Calcium 80 mg 06/08/18 22:00 06/08/18 21:33 Lipitor PO 80 mg QHS [facility] Administration Bisacodyl 10 mg 06/08/18 20:18 Dulcolax RECTAL DAILY PRN CONSTIPATION Calamine/Phenol 1 applic 06/08/18 22:00 06/09/18 05:09 Calmoseptine Ointment TOPICAL 1 applicatio BID@0600,2200 [facility] Administration Protocol Calcium/Vitamin D 1 tablet 06/08/18 18:00 06/09/18 17:21 Os-Josue 500mg + D PO 1 tablet BID [facility] Administration Clopidogrel Bisulfate 75 mg 06/09/18 06:00 06/09/18 05:08 Plavix PO 75 mg DAILY [facility] Administration Cyanocobalamin 1,000 mcg 06/09/18 06:00 06/09/18 05:10 Vitamin B12 PO 1,000 mcg DAILY [facility] Administration Enoxaparin Sodium 30 mg 06/09/18 06:00 06/09/18 05:22 Lovenox SC 30 mg DAILY@0600 [facility] Administration Famotidine 20 mg 06/08/18 18:00 06/09/18 17:21 Pepcid PO 20 mg BID [facility] Administration Ferrous Gluconate 325 mg 06/08/18 17:00 06/09/18 17:21 Ferrous Gluconate PO 325 mg BIDCM [facility] Administration Fluoxetine HCl 40 mg 06/09/18 06:00 06/09/18 05:11 Prozac PO 40 mg DAILY [facility] Administration Folic Acid 1 mg 06/09/18 08:00 06/09/18 09:16 Folic Acid PO 1 mg DAILY@0800 [facility] Administration Gabapentin 300 mg 06/08/18 17:45 06/09/18 17:21 Neurontin PO 300 mg TIDCM [facility] Administration Glucagon 1 mg 06/08/18 16:00 IM X1 PRN HYPOGLYCEMIA Sodium Chloride 1,000 mls @ 60 mls/hr 06/09/18 08:05 06/09/18 11:56 IV 60 mls/hr .[id number] [facility] Administration Insulin Glargine 15 units 06/08/18 18:00 06/09/18 17:29 Lantus ([facility]) SC 15 u BID [facility] Administration Insulin Human Lispro 14 unit 06/08/18 16:45 06/09/18 17:16 Humalog Kwikpen ([facility]) SC Not Given TIDAC [facility] Lactobacillus Acidophilus 1 tablet 06/09/18 06:00 06/09/18 05:07 Acidophilus PO 1 tablet DAILY [facility] Administration Latanoprost 1 drop 06/08/18 22:00 06/08/18 21:33 Xalatan Opthalmic EACH EYE 1 drop QHS [facility] Administration Lisinopril 20 mg 06/09/18 06:00 06/09/18 05:08 Zestril PO 20 mg DAILY [facility] Administration Multi-Ingredient Cream 1 applic 06/09/18 06:00 06/09/18 05:03 Eucerin TOPICAL 1 applicatio 0600,2200 [facility] Administration Protocol Nystatin 500,000 unit 06/08/18 17:00 06/09/18 17:24 Nystatin PO 06/18/18 17:01 500,000 unit 4X/DAY [facility] Administration Nystatin 1 applic 06/09/18 06:00 06/09/18 05:22 Mycostatin Powder TOPICAL 1 applicatio 06,2200 [facility] Administration Protocol Pancrelipase 2 capsule 06/08/18 17:45 06/09/18 17:[address] 12,000 Unit Capsule PO 2 capsule TIDCM [facility] Administration Polyethylene Glycol 17 gm 06/09/18 06:00 06/09/18 05:05 Miralax PO 17 gm DAILY [facility] Administration Senna/Docusate Sodium 1 tablet 06/08/18 18:00 06/09/18 17:21 Senokot-S, Jessica-Colace PO 1 tablet BID [facility] Administration Tamsulosin HCl 0.4 mg 06/08/18 22:38 06/08/18 23:09 Flomax PO 0.4 mg QHS [facility] Administration Tuberculin PPD 5 tu 06/16/18 10:00 Tubersol, Aplisol, Ppd ID 06/16/18 10:01 X1 ONE Problem List Acute ischemic left MCA stroke (Acute) Diabetic polyneuropathy (Chronic) Sleep apnea (Chronic) GERD (gastroesophageal reflux disease) (Chronic) Depression (Chronic) Glaucoma (Chronic) Vital Signs Temp Pulse Resp BP Pulse Ox 98.5 F 66 16 138/7 H 92 06/09/18 15:47 06/09/18 15:47 06/09/18 15:47 06/09/18 15:47 06/09/18 15:47 Oxygen Delivery Method Room Air Weight: 102.1 kg Body Mass Index (BMI) 38.6 Finger Stick Blood Glucose 187 Sodium 142 mmol/L (136-145) 06/09/18 05:40 Potassium 4.7 mmol/L (3.5-5.1) 06/09/18 05:40 Chloride 101 mmol/L (98-107) 06/09/18 05:40 Carbon Dioxide 33.0 mmol/L (21.0-32.0) H 06/09/18 05:40 Anion Gap 8 (5-15) 06/09/18 05:40 BUN 68 mg/dL (7-18) H 09/06/18 05:40 Creatinine 3.00 mg/dL (0.55-1.02) H 06/09/18 05:40 Est GFR (MDRD) Af Amer 20 mL/min (>60) L 06/09/18 05:40 Est GFR (MDRD) Non-Af 16 mL/min (>60) L 06/09/18 05:40 BUN/Creatinine Ratio 22.7 RATIO (10-20) H 06/09/18 05:40 Glucose 141 mg/dL (74-106) H 06/09/18 05:40 Assessment/Plan: Psychotropic Medications: Unnecessary Medications: Bowel Regimen: - Provider Comments Provider responsibility: Provider responsible to enter orders to implement recommendations Provider Comments to Recommendations by Pharmacy: Agree
--- NOTE | 2018-06-09 14:43 | PHA.CONS_ITS ---
<Quinn Loza D - Last Filed: 06/09/18 14:36> Progress Note - Pharmacy Subjective: TCU Admission Objective: Allergies No Known Allergies Allergy (Verified 05/21/18 19:14) Current Medications Generic Name Dose Route Start Last Admin Trade Name Freq PRN Reason Stop Dose Admin Acetaminophen 1,000 mg 06/08/18 20:18 Tylenol PO Q8H PRN MILD PAIN (1-3/10) Amlodipine Besylate 10 mg 06/09/18 06:00 06/09/18 05:07 Norvasc PO 10 mg DAILY [facility] Administration Aspirin 81 mg 06/09/18 08:00 06/09/18 09:17 Aspirin, Baby PO 81 mg DAILY@0800 [facility] Administration Atorvastatin Calcium 80 mg 06/08/18 22:00 06/08/18 21:33 Lipitor PO 80 mg QHS [facility] Administration Bisacodyl 10 mg 06/08/18 20:18 Dulcolax RECTAL DAILY PRN CONSTIPATION Calamine/Phenol 1 applic 06/08/18 22:00 06/09/18 05:09 Calmoseptine Ointment TOPICAL 1 applicatio BID@0600,2200 [facility] Administration Protocol Calcium/Vitamin D 1 tablet 06/08/18 18:00 06/09/18 05:07 Os-Josue 500mg + D PO 1 tablet BID [facility] Administration Clopidogrel Bisulfate 75 mg 06/09/18 06:00 06/09/18 05:08 Plavix PO 75 mg DAILY [facility] Administration Cyanocobalamin 1,000 mcg 06/09/18 06:00 06/09/18 05:10 Vitamin B12 PO 1,000 mcg DAILY [facility] Administration Enoxaparin Sodium 30 mg 06/09/18 06:00 06/09/18 05:22 Lovenox SC 30 mg DAILY@0600 [facility] Administration Famotidine 20 mg 06/08/18 18:00 06/09/18 05:11 Pepcid PO 20 mg BID [facility] Administration Ferrous Gluconate 325 mg 06/08/18 17:00 06/09/18 09:17 Ferrous Gluconate PO 325 mg BIDCM [facility] Administration Fluoxetine HCl 40 mg 06/09/18 06:00 06/09/18 05:11 Prozac PO 40 mg DAILY [facility] Administration Folic Acid 1 mg 06/09/18 08:00 06/09/18 09:16 Folic Acid PO 1 mg DAILY@0800 [facility] Administration Gabapentin 300 mg 06/08/18 17:45 06/09/18 11:51 Neurontin PO 300 mg TIDCM [facility] Administration Glucagon 1 mg 06/08/18 16:00 IM X1 PRN HYPOGLYCEMIA Sodium Chloride 1,000 mls @ 60 mls/hr 06/09/18 08:05 06/09/18 11:56 IV 60 mls/hr .[id number] [facility] Administration Insulin Glargine 15 units 06/08/18 18:00 06/09/18 06:44 Lantus ([facility]) SC 15 u BID [facility] Administration Insulin Human Lispro 14 unit 06/08/18 16:45 06/09/18 11:49 Humalog Kwikpen ([facility]) SC 14 units TIDAC [facility] Administration Lactobacillus Acidophilus 1 tablet 06/09/18 06:00 06/09/18 05:07 Acidophilus PO 1 tablet DAILY [facility] Administration Latanoprost 1 drop 06/08/18 22:00 06/08/18 21:33 Xalatan Opthalmic EACH EYE 1 drop QHS [facility] Administration Lisinopril 20 mg 06/09/18 06:00 06/09/18 05:08 Zestril PO 20 mg DAILY [facility] Administration Multi-Ingredient Cream 1 applic 06/09/18 06:00 06/09/18 05:03 Eucerin TOPICAL 1 applicatio 599,2199 [facility] Administration Protocol Nystatin 500,000 unit 06/08/18 17:00 06/09/18 11:50 Nystatin PO 06/18/18 17:01 500,000 unit 4X/DAY [facility] Administration Nystatin 1 applic 06/09/18 06:00 06/09/18 05:22 Mycostatin Powder TOPICAL 1 applicatio 599,2200 [facility] Administration Protocol Pancrelipase 2 capsule 06/08/18 17:45 06/09/18 11:[address] 12,000 Unit Capsule PO 2 capsule TIDCM [facility] Administration Polyethylene Glycol 17 gm 06/09/18 06:00 06/09/18 05:05 Miralax PO 17 gm DAILY [facility] Administration Senna/Docusate Sodium 1 tablet 06/08/18 18:00 06/09/18 05:08 Senokot-S, Jessica-Colace PO 1 tablet BID [facility] Administration Tamsulosin HCl 0.4 mg 06/08/18 22:38 06/08/18 23:09 Flomax PO 0.4 mg QHS [facility] Administration Tuberculin PPD 5 tu 06/16/18 10:00 Tubersol, Aplisol, Ppd ID 06/16/18 10:01 X1 ONE Problem List Acute ischemic left MCA stroke (Acute) Diabetic polyneuropathy (Chronic) Sleep apnea (Chronic) GERD (gastroesophageal reflux disease) (Chronic) Depression (Chronic) Glaucoma (Chronic) Vital Signs Temp Pulse Resp BP Pulse Ox 98.1 F 70 20 H 113/50 L 92 06/08/18 15:30 06/08/18 19:54 06/08/18 15:30 06/08/18 15:30 06/08/18 19:54 Oxygen Delivery Method Room Air Weight: 102.1 kg Body Mass Index (BMI) 38.6 Finger Stick Blood Glucose 187 Sodium 142 mmol/L (136-145) 06/09/18 05:40 Potassium 4.7 mmol/L (3.5-5.1) 06/09/18 05:40 Chloride 101 mmol/L (98-107) 06/09/18 05:40 Carbon Dioxide 33.0 mmol/L (21.0-32.0) H 06/09/18 05:40 Anion Gap 8 (5-15) 06/09/18 05:40 BUN 68 mg/dL (7-18) H 06/09/18 05:40 Creatinine 3.00 mg/dL (0.55-1.02) H 06/09/18 05:40 Est GFR (MDRD) Af Amer 20 mL/min (>60) L 06/09/18 05:40 Est GFR (MDRD) Non-Af 16 mL/min (>60) L 06/09/18 05:40 BUN/Creatinine Ratio 22.7 RATIO (10-20) H 06/09/18 05:40 Glucose 141 mg/dL (74-106) H 06/09/18 05:40 Assessment/Plan: 1) Pain APAP for mild pain, gabapentin. 2) HTN/HLD/Stroke Amlodipine, ASA, atorvastatin, clopidogrel, lisinopril. Continue to monitor BP/HR, renal function, electrolytes, lipids, s/s stroke. 3) DM2 Insulin glargine, lispro with meals. Continue to monitor BGT, s/s hyper/ hypoglycemia. 4) Thrush Nystatin orally until 06/18. Continue to monitor for thrush. 5) Tamsulosin at HS. Continue to monitor symptoms. 6) Derm Calmoseptine, moisturizer, nystatin powder. Continue to monitor clinically. 7) GI Creon with meals, lactobacillus, famotidine. Continue to monitor s/s GI distress. 8) Nutrition Ca/D, Fe, B12, FA. Continue to monitor clinically. 9) DVT PPx Enoxaparin daily. Continue to monitor s/s bleeding/clot. Psychotropic Medications: 10) Depression Fluoxetine daily. Continue to monitor s/s depression. Unnecessary Medications: None Bowel Regimen: 11) Senna/s, PEG, prn bisacodyl. Continue to monitor prn medication use, for constipation/diarrhea. Date of Note:: 06/09/18 - Provider Comments Provider responsibility: Provider responsible to enter orders to implement recommendations <Kenneth Vogt Chi - Last Filed: 06/09/18 17:44> Progress Note - Pharmacy Subjective: [] Objective: Allergies No Known Allergies Allergy (Verified 05/21/18 19:14) Current Medications Generic Name Dose Route Start Last Admin Trade Name Freq PRN Reason Stop Dose Admin Acetaminophen 1,000 mg 06/08/18 20:18 Tylenol PO Q8H PRN MILD PAIN (1-3/10) Amlodipine Besylate 10 mg 06/09/18 06:00 06/09/18 05:07 Norvasc PO 10 mg DAILY [facility] Administration Aspirin 81 mg 06/09/18 08:00 06/09/18 09:17 Aspirin, Baby PO 81 mg DAILY@0800 [facility] Administration Atorvastatin Calcium 80 mg 06/08/18 22:00 06/08/18 21:33 Lipitor PO 80 mg QHS [facility] Administration Bisacodyl 10 mg 06/08/18 20:18 Dulcolax RECTAL DAILY PRN CONSTIPATION Calamine/Phenol 1 applic 06/08/18 22:00 06/09/18 05:09 Calmoseptine Ointment TOPICAL 1 applicatio BID@0600,2200 [facility] Administration Protocol Calcium/Vitamin D 1 tablet 06/08/18 18:00 06/09/18 17:21 Os-Josue 500mg + D PO 1 tablet BID [facility] Administration Clopidogrel Bisulfate 75 mg 06/09/18 06:00 06/09/18 05:08 Plavix PO 75 mg DAILY [facility] Administration Cyanocobalamin 1,000 mcg 06/09/18 06:00 06/09/18 05:10 Vitamin B12 PO 1,000 mcg DAILY [facility] Administration Enoxaparin Sodium 30 mg 06/09/18 06:00 06/09/18 05:22 Lovenox SC 30 mg DAILY@0600 [facility] Administration Famotidine 20 mg 06/08/18 18:00 06/09/18 17:21 Pepcid PO 20 mg BID [facility] Administration Ferrous Gluconate 325 mg 06/08/18 17:00 06/09/18 17:21 Ferrous Gluconate PO 325 mg BIDCM [facility] Administration Fluoxetine HCl 40 mg 06/09/18 06:00 06/09/18 05:11 Prozac PO 40 mg DAILY [facility] Administration Folic Acid 1 mg 06/09/18 08:00 06/09/18 09:16 Folic Acid PO 1 mg DAILY@0800 [facility] Administration Gabapentin 300 mg 06/08/18 17:45 06/09/18 17:21 Neurontin PO 300 mg TIDCM [facility] Administration Glucagon 1 mg 06/08/18 16:00 IM X1 PRN HYPOGLYCEMIA Sodium Chloride 1,000 mls @ 60 mls/hr 06/09/18 08:05 06/09/18 11:56 IV 60 mls/hr .[id number] [facility] Administration Insulin Glargine 15 units 06/08/18 18:00 06/09/18 17:29 Lantus ([facility]) SC 15 u BID [facility] Administration Insulin Human Lispro 14 unit 06/08/18 16:45 06/09/18 17:16 Humalog Kwikpen ([facility]) SC Not Given TIDAC [facility] Lactobacillus Acidophilus 1 tablet 06/09/18 06:00 06/09/18 05:07 Acidophilus PO 1 tablet DAILY [facility] Administration Latanoprost 1 drop 06/08/18 22:00 06/08/18 21:33 Xalatan Opthalmic EACH EYE 1 drop QHS [facility] Administration Lisinopril 20 mg 06/09/18 06:00 06/09/18 05:08 Zestril PO 20 mg DAILY [facility] Administration Multi-Ingredient Cream 1 applic 06/09/18 06:00 06/09/18 05:03 Eucerin TOPICAL 1 applicatio 0600,2200 [facility] Administration Protocol Nystatin 500,000 unit 06/08/18 17:00 06/09/18 17:24 Nystatin PO 06/18/18 17:01 500,000 unit 4X/DAY [facility] Administration Nystatin 1 applic 06/09/18 06:00 06/09/18 05:22 Mycostatin Powder TOPICAL 1 applicatio 06,2200 [facility] Administration Protocol Pancrelipase 2 capsule 06/08/18 17:45 06/09/18 17:[address] 12,000 Unit Capsule PO 2 capsule TIDCM [facility] Administration Polyethylene Glycol 17 gm 06/09/18 06:00 06/09/18 05:05 Miralax PO 17 gm DAILY [facility] Administration Senna/Docusate Sodium 1 tablet 06/08/18 18:00 06/09/18 17:21 Senokot-S, Jessica-Colace PO 1 tablet BID [facility] Administration Tamsulosin HCl 0.4 mg 06/08/18 22:38 06/08/18 23:09 Flomax PO 0.4 mg QHS [facility] Administration Tuberculin PPD 5 tu 06/16/18 10:00 Tubersol, Aplisol, Ppd ID 06/16/18 10:01 X1 ONE Problem List Acute ischemic left MCA stroke (Acute) Diabetic polyneuropathy (Chronic) Sleep apnea (Chronic) GERD (gastroesophageal reflux disease) (Chronic) Depression (Chronic) Glaucoma (Chronic) Vital Signs Temp Pulse Resp BP Pulse Ox 98.5 F 66 16 138/7 H 92 06/09/18 15:47 06/09/18 15:47 06/09/18 15:47 06/09/18 15:47 06/09/18 15:47 Oxygen Delivery Method Room Air Weight: 102.1 kg Body Mass Index (BMI) 38.6 Finger Stick Blood Glucose 187 Sodium 142 mmol/L (136-145) 06/09/18 05:40 Potassium 4.7 mmol/L (3.5-5.1) 06/09/18 05:40 Chloride 101 mmol/L (98-107) 06/09/18 05:40 Carbon Dioxide 33.0 mmol/L (21.0-32.0) H 06/09/18 05:40 Anion Gap 8 (5-15) 06/09/18 05:40 BUN 68 mg/dL (7-18) H 09/06/18 05:40 Creatinine 3.00 mg/dL (0.55-1.02) H 06/09/18 05:40 Est GFR (MDRD) Af Amer 20 mL/min (>60) L 06/09/18 05:40 Est GFR (MDRD) Non-Af 16 mL/min (>60) L 06/09/18 05:40 BUN/Creatinine Ratio 22.7 RATIO (10-20) H 06/09/18 05:40 Glucose 141 mg/dL (74-106) H 06/09/18 05:40 Assessment/Plan: Psychotropic Medications: Unnecessary Medications: Bowel Regimen: - Provider Comments Provider responsibility: Provider responsible to enter orders to implement recommendations Provider Comments to Recommendations by Pharmacy: Agree
[2018-06-09 15:47] VITALS: BP 138/7; PULSE 66; RESP 16; TEMP 36.9; O2SAT 92
[2018-06-09 17:05] LABS: Bedside Glucose 114 mg/dL (70-110)
--- NOTE | 2018-06-09 18:20 | NURSING ---
Pt kiko held for bs 114. Pt is brittle diabetic and will drop rapidly. Dr Vogt aware
[2018-06-09 20:45] LABS: Bedside Glucose 189 mg/dL (70-110)
[2018-06-09] MEDS: Latanoprost 0.005% 1 Bottle 1 DRP EACH EYE (21:16)
[2018-06-09] MEDS: Atorvastatin Calcium 80 MG Tablet PO (21:18)
[2018-06-09] MEDS: Tamsulosin HCl 0.4 MG Capsule PO (21:18)
[2018-06-09 22:00] VITALS: PULSE 66; RESP 16; O2SAT 97
[2018-06-10 02:06] LABS: Bedside Glucose 127 mg/dL (70-110)
--- NOTE | 2018-06-10 02:06 | PCA ---
res taking off c- pap, put it back on her at 2330, res. has taken it off again at 2a.m res refused to have it put back on.. rn aware
[2018-06-10] MEDS: 0.9% Normal Saline 1,000 ML 60 ML IV ×2 (04:28→20:28)
[2018-06-10] MEDS: Nystatin Powder 15gm Bottle 1 APPLIC TOPICAL ×2 (05:07→21:36)
[2018-06-10] MEDS: Menthol/Lanolin/Calamine/Znox 113 GM Tube 1 APPLIC TOPICAL ×2 (05:07→21:34)
[2018-06-10] MEDS: Polyethylene Glycol 3350 17 GM PACKET PO (05:08)
[2018-06-10] MEDS: Calcium Carb/Vitamin D 1 TABLET Tablet PO ×2 (05:08→17:50)
[2018-06-10] MEDS: Cyanocobalamin 500 MCG Tablet 1000 MCG PO (05:09)
[2018-06-10] MEDS: Lisinopril 20 MG Tablet PO (05:09)
[2018-06-10] MEDS: Clopidogrel Bisulfate 75 MG Tablet PO (05:09)
[2018-06-10] MEDS: FLUoxetine 20 MG Capsule 40 MG PO (05:09)
[2018-06-10] MEDS: Senna/Docusate Sodium 1 Tablet PO ×2 (05:09→17:50)
[2018-06-10] MEDS: Famotidine 20 MG Tablet PO ×2 (05:10→17:50)
[2018-06-10] MEDS: amLODIPine 10 MG Tablet PO (05:10)
[2018-06-10] MEDS: NYSTATIN 500,000 UNIT/5 ML UDC 500000 UNIT PO ×4 (05:10→21:37)
[2018-06-10] MEDS: Enoxaparin 30 MG/0.3 ML Syringe SC (05:11)
[2018-06-10 06:01] LABS: Anion Gap 9 (5-15); BUN 63 mg/dL (7-18); BUN/Creat Ratio 23.6 RATIO (10-20); Calcium,Total 8.7 mg/dL (8.5-10.1); Chloride 103 mmol/L (98-107); Creatinine, Serum 2.67 mg/dL (0.55-1.02); EST Glomerular Filtration Rate 19 mL/min (>60); Est Glom Filt Rate - Afr Amer 22 mL/min (>60); Estimated Creatinine Clearance 15.96 ml/min; Glucose 165 mg/dL (74-106); Potassium 4.3 mmol/L (3.5-5.1); Sodium Level 143 mmol/L (136-145)
[2018-06-10 06:56] LABS: Bedside Glucose 184 mg/dL (70-110)
[2018-06-10] MEDS: Insulin Lispro 100 UNIT/ML INSULN.PEN 14 UNIT SC ×3 (08:06→17:50)
[2018-06-10] MEDS: Gabapentin 300 MG Capsule PO ×3 (08:06→17:50)
[2018-06-10] MEDS: Aspirin 81 MG TAB.CHEW PO (08:06)
[2018-06-10] MEDS: Folic Acid 1 MG Tablet PO (08:06)
[2018-06-10] MEDS: Ferrous Gluconate 325 MG Tablet PO ×2 (08:06→17:50)
[2018-06-10 11:56] LABS: Bedside Glucose 176 mg/dL (70-110)
--- NOTE | 2018-06-10 13:05 | NURSING ---
Pt still cintinues to have a large blackened spot on her toungue, Pt stats it is a little sore. Pt currently on nystatin swish and swallow, Pt doesn't think its helping. Will continue to monitor
[2018-06-10 16:00] VITALS: BP 106/54; PULSE 63; RESP 16; TEMP 36.6; O2SAT 92
[2018-06-10 17:16] LABS: Bedside Glucose 187 mg/dL (70-110)
[2018-06-10] MEDS: Acetaminophen 500 MG Tablet 1000 MG PO (20:34)
[2018-06-10 21:06] LABS: Bedside Glucose 294 mg/dL (70-110)
[2018-06-10 21:30] VITALS: PULSE 70; RESP 16; O2SAT 95
[2018-06-10] MEDS: Tamsulosin HCl 0.4 MG Capsule PO (21:34)
[2018-06-10] MEDS: Atorvastatin Calcium 80 MG Tablet PO (21:36)
[2018-06-10] MEDS: Latanoprost 0.005% 1 Bottle 1 DRP EACH EYE (21:37)
[2018-06-11 02:21] LABS: Bedside Glucose 223 mg/dL (70-110)
[2018-06-11] MEDS: Polyethylene Glycol 3350 17 GM PACKET PO (05:56)
[2018-06-11] MEDS: Enoxaparin 30 MG/0.3 ML Syringe SC (05:56)
[2018-06-11] MEDS: FLUoxetine 20 MG Capsule 40 MG PO (05:57)
[2018-06-11] MEDS: Senna/Docusate Sodium 1 Tablet PO ×2 (05:57→18:14)
[2018-06-11] MEDS: Famotidine 20 MG Tablet PO ×2 (05:57→18:13)
[2018-06-11] MEDS: Clopidogrel Bisulfate 75 MG Tablet PO (05:57)
[2018-06-11] MEDS: amLODIPine 10 MG Tablet PO (05:57)
[2018-06-11] MEDS: Cyanocobalamin 500 MCG Tablet 1000 MCG PO (05:57)
[2018-06-11] MEDS: NYSTATIN 500,000 UNIT/5 ML UDC 500000 UNIT PO ×4 (05:57→21:10)
[2018-06-11] MEDS: Nystatin Powder 15gm Bottle 1 APPLIC TOPICAL ×2 (05:58→21:10)
[2018-06-11] MEDS: Menthol/Lanolin/Calamine/Znox 113 GM Tube 1 APPLIC TOPICAL ×2 (05:59→21:09)
[2018-06-11] MEDS: Calcium Carb/Vitamin D 1 TABLET Tablet PO ×2 (06:00→18:12)
[2018-06-11 06:56] LABS: Bedside Glucose 253 mg/dL (70-110)
[2018-06-11 07:51] LABS: Anion Gap 9 (5-15); BUN 46 mg/dL (7-18); Calcium,Total 8.3 mg/dL (8.5-10.1); Chloride 107 mmol/L (98-107); Creatinine, Serum 1.92 mg/dL (0.55-1.02); EST Glomerular Filtration Rate 27 mL/min (>60); Est Glom Filt Rate - Afr Amer 33 mL/min (>60); Glucose 253 mg/dL (74-106); Sodium Level 141 mmol/L (136-145)
[2018-06-11] MEDS: Ferrous Gluconate 325 MG Tablet PO ×2 (08:08→18:11)
[2018-06-11] MEDS: Aspirin 81 MG TAB.CHEW PO (08:08)
[2018-06-11] MEDS: Gabapentin 300 MG Capsule PO ×3 (08:08→18:11)
[2018-06-11] MEDS: Folic Acid 1 MG Tablet PO (08:08)
[2018-06-11] MEDS: Insulin Lispro 100 UNIT/ML INSULN.PEN 14 UNIT SC ×3 (08:09→18:16)
[2018-06-11 11:21] LABS: Bedside Glucose 229 mg/dL (70-110)
[2018-06-11] MEDS: 0.9% Normal Saline 1,000 ML 60 ML IV (11:45)
[2018-06-11 16:00] VITALS: BP 131/68; PULSE 59; RESP 17; TEMP 36.6; O2SAT 98
--- NOTE | 2018-06-11 16:02 | NURSING ---
NO to increase Lantus to 20units BID.
[2018-06-11 17:05] LABS: Bedside Glucose 197 mg/dL (70-110)
--- NOTE | 2018-06-11 20:40 | NURSING ---
Dr Vogt made aware of pt's IV site being swollen and painful. N.O. for recheck BMP in morning and DC fluids.
[2018-06-11] MEDS: Atorvastatin Calcium 80 MG Tablet PO (21:10)
[2018-06-11] MEDS: Tamsulosin HCl 0.4 MG Capsule PO (21:10)
[2018-06-11] MEDS: Latanoprost 0.005% 1 Bottle 1 DRP EACH EYE (21:13)
[2018-06-11 21:21] LABS: Bedside Glucose 189 mg/dL (70-110)
[2018-06-11] MEDS: Acetaminophen 500 MG Tablet 1000 MG PO (21:53)
[2018-06-12] MEDS: Nystatin Powder 15gm Bottle 1 APPLIC TOPICAL ×2 (05:56→22:10)
[2018-06-12] MEDS: Calcium Carb/Vitamin D 1 TABLET Tablet PO ×2 (05:56→17:46)
[2018-06-12] MEDS: Polyethylene Glycol 3350 17 GM PACKET PO (05:56)
[2018-06-12] MEDS: Enoxaparin 30 MG/0.3 ML Syringe SC (05:56)
[2018-06-12] MEDS: Clopidogrel Bisulfate 75 MG Tablet PO (05:56)
[2018-06-12] MEDS: NYSTATIN 500,000 UNIT/5 ML UDC 500000 UNIT PO ×4 (05:56→22:10)
[2018-06-12] MEDS: amLODIPine 10 MG Tablet PO (05:56)
[2018-06-12] MEDS: Famotidine 20 MG Tablet PO ×2 (05:57→17:47)
[2018-06-12] MEDS: Menthol/Lanolin/Calamine/Znox 113 GM Tube 1 APPLIC TOPICAL ×2 (05:57→22:09)
[2018-06-12] MEDS: FLUoxetine 20 MG Capsule 40 MG PO (05:58)
[2018-06-12] MEDS: Senna/Docusate Sodium 1 Tablet PO ×2 (05:59→17:47)
[2018-06-12] MEDS: Cyanocobalamin 500 MCG Tablet 1000 MCG PO (05:59)
[2018-06-12 07:10] LABS: Bedside Glucose 230 mg/dL (70-110)
[2018-06-12] MEDS: Insulin Lispro 100 UNIT/ML INSULN.PEN 14 UNIT SC ×2 (07:10→12:17)
[2018-06-12 08:01] LABS: Anion Gap 8 (5-15); BUN 30 mg/dL (7-18); Calcium,Total 8.6 mg/dL (8.5-10.1); Chloride 108 mmol/L (98-107); EST Glomerular Filtration Rate 36 mL/min (>60); Est Glom Filt Rate - Afr Amer 44 mL/min (>60); Estimated Creatinine Clearance 28.41 ml/min; Glucose 199 mg/dL (74-106); Potassium 4.4 mmol/L (3.5-5.1); Sodium Level 143 mmol/L (136-145)
[2018-06-12] MEDS: Gabapentin 300 MG Capsule PO ×3 (08:02→17:45)
[2018-06-12] MEDS: Folic Acid 1 MG Tablet PO (08:02)
[2018-06-12] MEDS: Aspirin 81 MG TAB.CHEW PO (08:02)
[2018-06-12] MEDS: Ferrous Gluconate 325 MG Tablet PO ×2 (08:02→17:44)
[2018-06-12 11:30] LABS: Bedside Glucose 330 mg/dL (70-110)
[2018-06-12 15:46] VITALS: BP 129/52; PULSE 63; RESP 18; TEMP 36.8; O2SAT 96
--- NOTE | 2018-06-12 15:58 | NURSING ---
NO to increase humalog to 16 units before meals and increase lantus to 25 units BID
[2018-06-12 17:06] LABS: Bedside Glucose 191 mg/dL (70-110)
[2018-06-12] MEDS: Insulin Lispro 100 UNIT/ML INSULN.PEN 16 UNIT SC (17:51)
[2018-06-12 21:31] LABS: Bedside Glucose 186 mg/dL (70-110)
[2018-06-12 22:00] VITALS: PULSE 74; RESP 18; O2SAT 95
[2018-06-12] MEDS: Tamsulosin HCl 0.4 MG Capsule PO (22:09)
[2018-06-12] MEDS: Latanoprost 0.005% 1 Bottle 1 DRP EACH EYE (22:10)
[2018-06-12] MEDS: Atorvastatin Calcium 80 MG Tablet PO (22:10)
[2018-06-13 02:11] LABS: Bedside Glucose 105 mg/dL (70-110)
[2018-06-13] MEDS: Menthol/Lanolin/Calamine/Znox 113 GM Tube 1 APPLIC TOPICAL ×2 (05:40→22:21)
[2018-06-13] MEDS: FLUoxetine 20 MG Capsule 40 MG PO (05:41)
[2018-06-13] MEDS: Famotidine 20 MG Tablet PO ×2 (05:41→17:28)
[2018-06-13] MEDS: Nystatin Powder 15gm Bottle 1 APPLIC TOPICAL ×2 (05:41→23:54)
[2018-06-13] MEDS: amLODIPine 10 MG Tablet PO (05:41)
[2018-06-13] MEDS: Enoxaparin 30 MG/0.3 ML Syringe SC (05:41)
[2018-06-13] MEDS: NYSTATIN 500,000 UNIT/5 ML UDC 500000 UNIT PO ×4 (05:42→22:15)
[2018-06-13] MEDS: Clopidogrel Bisulfate 75 MG Tablet PO (05:42)
[2018-06-13] MEDS: Calcium Carb/Vitamin D 1 TABLET Tablet PO ×2 (05:42→17:27)
[2018-06-13] MEDS: Cyanocobalamin 500 MCG Tablet 1000 MCG PO (05:42)
[2018-06-13] MEDS: Senna/Docusate Sodium 1 Tablet PO ×2 (05:43→17:28)
[2018-06-13 07:06] LABS: Bedside Glucose 164 mg/dL (70-110)
[2018-06-13] MEDS: Insulin Lispro 100 UNIT/ML INSULN.PEN 16 UNIT SC ×3 (07:23→17:25)
[2018-06-13] MEDS: Ferrous Gluconate 325 MG Tablet PO ×2 (08:45→17:26)
[2018-06-13] MEDS: Gabapentin 300 MG Capsule PO ×3 (08:45→17:26)
[2018-06-13] MEDS: Aspirin 81 MG TAB.CHEW PO (08:45)
[2018-06-13] MEDS: Folic Acid 1 MG Tablet PO (08:45)
[2018-06-13 11:11] LABS: Bedside Glucose 228 mg/dL (70-110)
[2018-06-13 16:00] VITALS: BP 123/53; PULSE 57; RESP 18; TEMP 36.3; O2SAT 93
[2018-06-13 17:01] LABS: Bedside Glucose 171 mg/dL (70-110)
[2018-06-13 21:26] LABS: Bedside Glucose 214 mg/dL (70-110)
[2018-06-13] MEDS: Latanoprost 0.005% 1 Bottle 1 DRP EACH EYE (22:16)
[2018-06-13] MEDS: Atorvastatin Calcium 80 MG Tablet PO (22:20)
[2018-06-13] MEDS: Tamsulosin HCl 0.4 MG Capsule PO (22:20)
[2018-06-13 23:25] VITALS: PULSE 56; RESP 18; O2SAT 91
[2018-06-14 02:11] LABS: Bedside Glucose 178 mg/dL (70-110)
[2018-06-14] MEDS: Calcium Carb/Vitamin D 1 TABLET Tablet PO ×2 (04:48→17:23)
[2018-06-14] MEDS: Clopidogrel Bisulfate 75 MG Tablet PO (04:48)
[2018-06-14] MEDS: Famotidine 20 MG Tablet PO ×2 (04:48→17:23)
[2018-06-14] MEDS: Cyanocobalamin 500 MCG Tablet 1000 MCG PO (04:48)
[2018-06-14] MEDS: amLODIPine 10 MG Tablet PO (04:48)
[2018-06-14] MEDS: Nystatin Powder 15gm Bottle 1 APPLIC TOPICAL ×2 (04:49→22:22)
[2018-06-14] MEDS: NYSTATIN 500,000 UNIT/5 ML UDC 500000 UNIT PO ×4 (04:49→22:24)
[2018-06-14] MEDS: Senna/Docusate Sodium 1 Tablet PO ×2 (04:49→17:22)
[2018-06-14] MEDS: Menthol/Lanolin/Calamine/Znox 113 GM Tube 1 APPLIC TOPICAL ×2 (04:50→22:22)
[2018-06-14] MEDS: Polyethylene Glycol 3350 17 GM PACKET PO (04:51)
[2018-06-14] MEDS: Acetaminophen 500 MG Tablet 1000 MG PO (04:58)
[2018-06-14] MEDS: FLUoxetine 20 MG Capsule 40 MG PO (05:05)
[2018-06-14] MEDS: Enoxaparin 30 MG/0.3 ML Syringe SC (05:06)
[2018-06-14 06:55] LABS: Bedside Glucose 187 mg/dL (70-110)
[2018-06-14] MEDS: Aspirin 81 MG TAB.CHEW PO (08:40)
[2018-06-14] MEDS: Folic Acid 1 MG Tablet PO (08:40)
[2018-06-14] MEDS: Gabapentin 300 MG Capsule PO ×3 (08:40→17:23)
[2018-06-14] MEDS: Ferrous Gluconate 325 MG Tablet PO ×2 (08:41→17:23)
[2018-06-14] MEDS: Insulin Lispro 100 UNIT/ML INSULN.PEN 16 UNIT SC ×3 (08:41→17:28)
[2018-06-14 11:30] LABS: Bedside Glucose 218 mg/dL (70-110)
--- NOTE | 2018-06-14 12:26 | CASEMGMT ---
Insurance Clinical information faxed. Pending continued stay approval at this time. Auth#[id number] Carole LEDESMA, SURTASS ANALYST
--- NOTE | 2018-06-14 13:36 | NURSING ---
MOUTH CARE GIVEN.
[2018-06-14 16:00] VITALS: BP 137/51; PULSE 62; RESP 16; TEMP 36.6; O2SAT 94
--- NOTE | 2018-06-14 16:20 | CASEMGMT ---
Insurance Continued stay approved with next update due on 06/21/18. Auth#[id number] Carole LEDESMA, ADVISORY INTERN
--- NOTE | 2018-06-14 16:25 | CASEMGMT ---
Brief interview for mental status (BIMS) and resident mood interview (PHQ-9) completed on this day. BIMS score 13/15. PHQ-9 score
[2018-06-14 17:00] LABS: Bedside Glucose 209 mg/dL (70-110)
[2018-06-14 20:45] LABS: Bedside Glucose 203 mg/dL (70-110)
[2018-06-14 22:00] VITALS: PULSE 62; RESP 18; O2SAT 98
[2018-06-14] MEDS: Atorvastatin Calcium 80 MG Tablet PO (22:25)
[2018-06-14] MEDS: Tamsulosin HCl 0.4 MG Capsule PO (22:25)
[2018-06-14] MEDS: Latanoprost 0.005% 1 Bottle 1 DRP EACH EYE (22:26)
[2018-06-15 02:01] LABS: Bedside Glucose 155 mg/dL (70-110)
[2018-06-15] MEDS: Calcium Carb/Vitamin D 1 TABLET Tablet PO ×2 (06:08→18:11)
[2018-06-15] MEDS: Famotidine 20 MG Tablet PO ×2 (06:08→18:11)
[2018-06-15] MEDS: Cyanocobalamin 500 MCG Tablet 1000 MCG PO (06:08)
[2018-06-15] MEDS: FLUoxetine 20 MG Capsule 40 MG PO (06:08)
[2018-06-15] MEDS: Clopidogrel Bisulfate 75 MG Tablet PO (06:08)
[2018-06-15] MEDS: Senna/Docusate Sodium 1 Tablet PO ×2 (06:08→18:11)
[2018-06-15] MEDS: amLODIPine 10 MG Tablet PO (06:08)
[2018-06-15] MEDS: Polyethylene Glycol 3350 17 GM PACKET PO (06:09)
[2018-06-15] MEDS: Menthol/Lanolin/Calamine/Znox 113 GM Tube 1 APPLIC TOPICAL ×2 (06:09→22:15)
[2018-06-15] MEDS: Enoxaparin 30 MG/0.3 ML Syringe SC (06:09)
[2018-06-15] MEDS: NYSTATIN 500,000 UNIT/5 ML UDC 500000 UNIT PO ×4 (06:09→22:17)
[2018-06-15] MEDS: Nystatin Powder 15gm Bottle 1 APPLIC TOPICAL ×2 (06:11→22:16)
[2018-06-15 07:01] LABS: Bedside Glucose 171 mg/dL (70-110)
[2018-06-15] MEDS: Insulin Lispro 100 UNIT/ML INSULN.PEN 16 UNIT SC ×3 (08:46→18:11)
[2018-06-15] MEDS: Folic Acid 1 MG Tablet PO (08:47)
[2018-06-15] MEDS: Gabapentin 300 MG Capsule PO ×3 (08:47→18:11)
[2018-06-15] MEDS: Ferrous Gluconate 325 MG Tablet PO ×2 (08:47→18:11)
[2018-06-15] MEDS: Aspirin 81 MG TAB.CHEW PO (08:47)
--- NOTE | 2018-06-15 10:11 | CASEMGMT ---
Plan of care meeting held. Resident present as well as resident spouse. No discharge date set at this time. Resident to continue with further care and treatment on the Transitional Care Unit. Resident with insurance update due on 06/21/18. Resident primary discharge plan is to discharge to home with spouse. Resident secondary discharge plan is to discharge to an extended care facility under Medicaid in the event that continued stay approval is denied by insurance and resident is unable to return home. Resident is wanting to discharge to an extended care facility in [facility]. Medicaid application has been completed and faxed to [facility]. Resident family has been provided with list of [facility] extended care facilities. Support given. Will continue to follow. 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
[2018-06-15 11:45] LABS: Bedside Glucose 237 mg/dL (70-110)
[2018-06-15 15:54] VITALS: BP 118/59; PULSE 58; RESP 16; TEMP 37.1; O2SAT 95
[2018-06-15 17:01] LABS: Bedside Glucose 159 mg/dL (70-110)
[2018-06-15 20:51] LABS: Bedside Glucose 212 mg/dL (70-110)
[2018-06-15] MEDS: Latanoprost 0.005% 1 Bottle 1 DRP EACH EYE (22:17)
[2018-06-15] MEDS: Tamsulosin HCl 0.4 MG Capsule PO (22:18)
[2018-06-15] MEDS: Atorvastatin Calcium 80 MG Tablet PO (22:18)
[2018-06-16] MEDS: Acetaminophen 500 MG Tablet 1000 MG PO (02:10)
[2018-06-16 02:21] LABS: Bedside Glucose 144 mg/dL (70-110)
[2018-06-16] MEDS: Polyethylene Glycol 3350 17 GM PACKET PO (05:04)
[2018-06-16] MEDS: Nystatin Powder 15gm Bottle 1 APPLIC TOPICAL ×2 (05:07→21:08)
[2018-06-16] MEDS: Menthol/Lanolin/Calamine/Znox 113 GM Tube 1 APPLIC TOPICAL ×2 (05:07→21:07)
[2018-06-16] MEDS: amLODIPine 10 MG Tablet PO (05:08)
[2018-06-16] MEDS: Famotidine 20 MG Tablet PO ×2 (05:08→17:38)
[2018-06-16] MEDS: FLUoxetine 20 MG Capsule 40 MG PO (05:09)
[2018-06-16] MEDS: Cyanocobalamin 500 MCG Tablet 1000 MCG PO (05:09)
[2018-06-16] MEDS: Senna/Docusate Sodium 1 Tablet PO ×2 (05:09→17:38)
[2018-06-16] MEDS: Calcium Carb/Vitamin D 1 TABLET Tablet PO ×2 (05:09→17:38)
[2018-06-16] MEDS: NYSTATIN 500,000 UNIT/5 ML UDC 500000 UNIT PO ×4 (05:10→21:10)
[2018-06-16] MEDS: Enoxaparin 30 MG/0.3 ML Syringe SC (05:12)
[2018-06-16] MEDS: Clopidogrel Bisulfate 75 MG Tablet PO (05:24)
[2018-06-16 05:59] LABS: Absolute Lymphocyte Count 1.43 X10^3/ul (0.83-4.51); Absolute Neutrophil Count 3.1 X10^3/uL (2.0-7.7); Basophil# 0.02 X10^3/uL; Basophil% 0.4 % (0-1); Eosinophil# 0.19 X10^3/uL; Eosinophils% 3.6 % (0-5); Hematocrit 33.5 % (37-47); Hemoglobin 10.8 g/dl (12.0-15.0); Lymphocyte # 1.43 X10^3/ul (4.0); Lymphocyte % 27.3 % (19-41); Mean Corp Hgb Conc 32.2 g/gl (32-36); Mean Corpuscular Hgb 28.1 pg (27.0-32.0); Mean Platelet Vol. 11.3 fl (6.2-12.0); Monocyte# 0.49 X10^3/uL; Monocyte% 9.4 % (0-10); Neutrophil # 3.08 X10^3/uL (2.7-7.7); Neutrophil % 58.9 % (47-70); Platelet Count 137 K/mm3 (150-450); RBC Distribution Width CV 12.4 % (11.6-14.6); RBC Distribution Width SD 38.4 fl (35.1-43.9); Red Blood Count 3.85 M/mm3 (4.2-5.4); White Blood Count 5.2 K/mm3 (4.4-11.0)
[2018-06-16 06:04] LABS: POSITIVE COUNT NO; POSITIVE DIFFERENTIAL NO; POSITIVE MORPHOLOGY NO
[2018-06-16 06:08] LABS: Anion Gap 8 (5-15); BUN 20 mg/dL (7-18); BUN/Creat Ratio 13.2 RATIO (10-20); Calcium,Total 8.5 mg/dL (8.5-10.1); Chloride 106 mmol/L (98-107); Creatinine, Serum 1.52 mg/dL (0.55-1.02); EST Glomerular Filtration Rate 36 mL/min (>60); Est Glom Filt Rate - Afr Amer 43 mL/min (>60); Estimated Creatinine Clearance 28.04 ml/min; Glucose 159 mg/dL (74-106); Potassium 4.1 mmol/L (3.5-5.1); Sodium Level 142 mmol/L (136-145)
--- NOTE | 2018-06-16 06:46 | MDS.RN ---
Pain interview for latricia 06/15/18 was completed on 06/15/18
[2018-06-16 07:01] LABS: Bedside Glucose 163 mg/dL (70-110)
[2018-06-16] MEDS: Aspirin 81 MG TAB.CHEW PO (08:13)
[2018-06-16] MEDS: Folic Acid 1 MG Tablet PO (08:13)
[2018-06-16] MEDS: Insulin Lispro 100 UNIT/ML INSULN.PEN 16 UNIT SC ×3 (08:13→17:35)
[2018-06-16] MEDS: Gabapentin 300 MG Capsule PO ×3 (08:13→17:37)
[2018-06-16] MEDS: Ferrous Gluconate 325 MG Tablet PO ×2 (08:13→17:35)
[2018-06-16] MEDS: Tuberculin,Purif.prot.deriv. 50 TU/ML Vial 5 ML ID (10:25)
[2018-06-16 11:16] LABS: Bedside Glucose 207 mg/dL (70-110)
[2018-06-16 16:00] VITALS: BP 129/51; PULSE 60; RESP 16; TEMP 36.7; O2SAT 95
[2018-06-16 17:01] LABS: Bedside Glucose 166 mg/dL (70-110)
[2018-06-16 21:05] LABS: Bedside Glucose 174 mg/dL (70-110)
[2018-06-16] MEDS: Latanoprost 0.005% 1 Bottle 1 DRP EACH EYE (21:08)
[2018-06-16] MEDS: Atorvastatin Calcium 80 MG Tablet PO (21:11)
[2018-06-16] MEDS: Tamsulosin HCl 0.4 MG Capsule PO (21:12)
[2018-06-17] MEDS: Enoxaparin 30 MG/0.3 ML Syringe SC (04:51)
[2018-06-17] MEDS: Calcium Carb/Vitamin D 1 TABLET Tablet PO ×2 (04:55→18:06)
[2018-06-17] MEDS: Famotidine 20 MG Tablet PO ×2 (04:55→18:06)
[2018-06-17] MEDS: Clopidogrel Bisulfate 75 MG Tablet PO (04:55)
[2018-06-17] MEDS: Cyanocobalamin 500 MCG Tablet 1000 MCG PO (04:55)
[2018-06-17] MEDS: FLUoxetine 20 MG Capsule 40 MG PO (04:55)
[2018-06-17] MEDS: Senna/Docusate Sodium 1 Tablet PO (04:55)
[2018-06-17] MEDS: amLODIPine 10 MG Tablet PO (04:55)
[2018-06-17] MEDS: NYSTATIN 500,000 UNIT/5 ML UDC 500000 UNIT PO ×4 (04:57→22:12)
[2018-06-17] MEDS: Nystatin Powder 15gm Bottle 1 APPLIC TOPICAL ×2 (05:07→22:12)
[2018-06-17] MEDS: Menthol/Lanolin/Calamine/Znox 113 GM Tube 1 APPLIC TOPICAL ×2 (05:07→22:11)
[2018-06-17 06:55] LABS: Bedside Glucose 214 mg/dL (70-110)
[2018-06-17] MEDS: Insulin Lispro 100 UNIT/ML INSULN.PEN 16 UNIT SC ×3 (10:12→18:03)
[2018-06-17] MEDS: Gabapentin 300 MG Capsule PO ×3 (10:14→18:06)
[2018-06-17] MEDS: Folic Acid 1 MG Tablet PO (10:14)
[2018-06-17] MEDS: Ferrous Gluconate 325 MG Tablet PO ×2 (10:14→18:07)
[2018-06-17] MEDS: Aspirin 81 MG TAB.CHEW PO (10:15)
[2018-06-17 11:31] LABS: Bedside Glucose 352 mg/dL (70-110)
[2018-06-17 15:15] VITALS: BP 142/52; PULSE 65; RESP 18; TEMP 36.4; O2SAT 93
[2018-06-17 17:06] LABS: Bedside Glucose 345 mg/dL (70-110)
--- NOTE | 2018-06-17 19:03 | NURSING ---
Pt BGL elevated at [address] Vogt updated, continue to monitor.
[2018-06-17 21:14] VITALS: PULSE 68; RESP 18
[2018-06-17 21:21] LABS: Bedside Glucose 355 mg/dL (70-110)
[2018-06-17] MEDS: Tamsulosin HCl 0.4 MG Capsule PO (22:11)
[2018-06-17] MEDS: Atorvastatin Calcium 80 MG Tablet PO (22:12)
[2018-06-17] MEDS: Latanoprost 0.005% 1 Bottle 1 DRP EACH EYE (22:12)
[2018-06-17] MEDS: Acetaminophen 500 MG Tablet 1000 MG PO (22:15)
[2018-06-18 02:06] LABS: Bedside Glucose 282 mg/dL (70-110)
[2018-06-18] MEDS: Senna/Docusate Sodium 1 Tablet PO (05:47)
[2018-06-18] MEDS: Famotidine 20 MG Tablet PO ×2 (05:47→18:04)
[2018-06-18] MEDS: FLUoxetine 20 MG Capsule 40 MG PO (05:47)
[2018-06-18] MEDS: Menthol/Lanolin/Calamine/Znox 113 GM Tube 1 APPLIC TOPICAL ×2 (05:47→22:00)
[2018-06-18] MEDS: Cyanocobalamin 500 MCG Tablet 1000 MCG PO (05:48)
[2018-06-18] MEDS: Enoxaparin 30 MG/0.3 ML Syringe SC (05:48)
[2018-06-18] MEDS: Clopidogrel Bisulfate 75 MG Tablet PO (05:48)
[2018-06-18] MEDS: NYSTATIN 500,000 UNIT/5 ML UDC 500000 UNIT PO ×3 (05:49→18:02)
[2018-06-18] MEDS: Calcium Carb/Vitamin D 1 TABLET Tablet PO ×2 (05:49→18:04)
[2018-06-18] MEDS: Nystatin Powder 15gm Bottle 1 APPLIC TOPICAL ×2 (05:49→22:01)
[2018-06-18] MEDS: amLODIPine 10 MG Tablet PO (05:49)
[2018-06-18] MEDS: Insulin Lispro 100 UNIT/ML INSULN.PEN 16 UNIT SC ×3 (07:07→18:02)
[2018-06-18 07:11] LABS: Bedside Glucose 255 mg/dL (70-110)
--- NOTE | 2018-06-18 07:14 | NURSING ---
Pt resting comfortably in recliner chair with call light, SHAKEEL wraps on lower bilateral legs.
[2018-06-18] MEDS: Ferrous Gluconate 325 MG Tablet PO ×2 (08:18→18:04)
[2018-06-18] MEDS: Aspirin 81 MG TAB.CHEW PO (08:18)
[2018-06-18] MEDS: Folic Acid 1 MG Tablet PO (08:18)
[2018-06-18] MEDS: Gabapentin 300 MG Capsule PO ×3 (08:18→18:04)
[2018-06-18 10:00] VITALS: PULSE 77; RESP 18; O2SAT 95
[2018-06-18] MEDS: Acetaminophen 500 MG Tablet 1000 MG PO (10:15)
[2018-06-18 10:55] LABS: Bedside Glucose 252 mg/dL (70-110)
[2018-06-18 15:36] VITALS: BP 123/45; PULSE 61; RESP 20; TEMP 36.3; O2SAT 97
[2018-06-18 17:21] LABS: Bedside Glucose 234 mg/dL (70-110)
[2018-06-18 20:56] LABS: Bedside Glucose 284 mg/dL (70-110)
[2018-06-18] MEDS: Latanoprost 0.005% 1 Bottle 1 DRP EACH EYE (22:02)
[2018-06-18] MEDS: Atorvastatin Calcium 80 MG Tablet PO (22:03)
[2018-06-18] MEDS: Tamsulosin HCl 0.4 MG Capsule PO (22:03)
[2018-06-19 02:16] LABS: Bedside Glucose 279 mg/dL (70-110)
[2018-06-19] MEDS: Menthol/Lanolin/Calamine/Znox 113 GM Tube 1 APPLIC TOPICAL ×2 (05:07→21:46)
[2018-06-19] MEDS: Nystatin Powder 15gm Bottle 1 APPLIC TOPICAL ×2 (05:10→21:47)
[2018-06-19] MEDS: Cyanocobalamin 500 MCG Tablet 1000 MCG PO (05:11)
[2018-06-19] MEDS: FLUoxetine 20 MG Capsule 40 MG PO (05:11)
[2018-06-19] MEDS: Calcium Carb/Vitamin D 1 TABLET Tablet PO ×2 (05:11→18:01)
[2018-06-19] MEDS: Senna/Docusate Sodium 1 Tablet PO (05:11)
[2018-06-19] MEDS: Clopidogrel Bisulfate 75 MG Tablet PO (05:11)
[2018-06-19] MEDS: Famotidine 20 MG Tablet PO ×2 (05:11→18:01)
[2018-06-19] MEDS: amLODIPine 10 MG Tablet PO (05:12)
[2018-06-19] MEDS: Enoxaparin 30 MG/0.3 ML Syringe SC (05:12)
[2018-06-19 07:11] LABS: Bedside Glucose 256 mg/dL (70-110)
[2018-06-19] MEDS: Aspirin 81 MG TAB.CHEW PO (08:17)
[2018-06-19] MEDS: Gabapentin 300 MG Capsule PO ×3 (08:17→18:01)
[2018-06-19] MEDS: Folic Acid 1 MG Tablet PO (08:17)
[2018-06-19] MEDS: Ferrous Gluconate 325 MG Tablet PO ×2 (08:17→18:01)
[2018-06-19] MEDS: Insulin Lispro 100 UNIT/ML INSULN.PEN 16 UNIT SC (08:18)
[2018-06-19 09:14] VITALS: PULSE 70; RESP 16; O2SAT 96
[2018-06-19 11:05] LABS: Bedside Glucose 311 mg/dL (70-110)
[2018-06-19] MEDS: Insulin Lispro 100 UNIT/ML INSULN.PEN 20 UNIT SC ×2 (11:12→18:02)
[2018-06-19 15:49] VITALS: BP 119/47; PULSE 60; RESP 16; TEMP 36.7; O2SAT 95
[2018-06-19 17:15] LABS: Bedside Glucose 222 mg/dL (70-110)
[2018-06-19 20:56] LABS: Bedside Glucose 309 mg/dL (70-110)
[2018-06-19] MEDS: Latanoprost 0.005% 1 Bottle 1 DRP EACH EYE (21:47)
[2018-06-19] MEDS: Tamsulosin HCl 0.4 MG Capsule PO (21:47)
[2018-06-19] MEDS: Atorvastatin Calcium 80 MG Tablet PO (21:48)
[2018-06-19] MEDS: Acetaminophen 500 MG Tablet 1000 MG PO (23:11)
[2018-06-20 02:10] LABS: Bedside Glucose 222 mg/dL (70-110)
[2018-06-20] MEDS: Famotidine 20 MG Tablet PO (04:56)
[2018-06-20] MEDS: Clopidogrel Bisulfate 75 MG Tablet PO (04:57)
[2018-06-20] MEDS: FLUoxetine 20 MG Capsule 40 MG PO (04:57)
[2018-06-20] MEDS: Calcium Carb/Vitamin D 1 TABLET Tablet PO ×2 (04:57→17:10)
[2018-06-20] MEDS: amLODIPine 10 MG Tablet PO (04:57)
[2018-06-20] MEDS: Cyanocobalamin 500 MCG Tablet 1000 MCG PO (04:57)
[2018-06-20] MEDS: Menthol/Lanolin/Calamine/Znox 113 GM Tube 1 APPLIC TOPICAL ×2 (04:58→20:53)
[2018-06-20] MEDS: Nystatin Powder 15gm Bottle 1 APPLIC TOPICAL ×2 (04:59→20:53)
[2018-06-20] MEDS: Enoxaparin 30 MG/0.3 ML Syringe SC (05:00)
[2018-06-20] MEDS: Insulin Lispro 100 UNIT/ML INSULN.PEN 20 UNIT SC ×3 (07:57→17:17)
[2018-06-20 08:16] LABS: Bedside Glucose 243 mg/dL (70-110)
[2018-06-20] MEDS: Folic Acid 1 MG Tablet PO (09:04)
[2018-06-20] MEDS: Gabapentin 300 MG Capsule PO ×3 (09:04→17:10)
[2018-06-20] MEDS: Ferrous Gluconate 325 MG Tablet PO ×2 (09:04→17:11)
[2018-06-20] MEDS: Aspirin 81 MG TAB.CHEW PO (09:04)
[2018-06-20 11:26] LABS: Bedside Glucose 195 mg/dL (70-110)
[2018-06-20 16:00] VITALS: BP 121/50; PULSE 60; RESP 16; TEMP 36.7; O2SAT 93
[2018-06-20 17:01] LABS: Bedside Glucose 202 mg/dL (70-110)
--- NOTE | 2018-06-20 17:20 | NURSING ---
MOUTH CARE GIVEN BY THIS NURSE.
[2018-06-20] MEDS: Latanoprost 0.005% 1 Bottle 1 DRP EACH EYE (20:56)
[2018-06-20] MEDS: Tamsulosin HCl 0.4 MG Capsule PO (20:58)
[2018-06-20] MEDS: Atorvastatin Calcium 80 MG Tablet PO (21:00)
[2018-06-20 21:05] VITALS: PULSE 60; RESP 16; O2SAT 93
[2018-06-20 21:11] LABS: Bedside Glucose 191 mg/dL (70-110)
[2018-06-21 02:26] LABS: Bedside Glucose 195 mg/dL (70-110)
[2018-06-21] MEDS: Menthol/Lanolin/Calamine/Znox 113 GM Tube 1 APPLIC TOPICAL ×2 (04:55→20:44)
[2018-06-21] MEDS: Polyethylene Glycol 3350 17 GM PACKET PO (04:56)
[2018-06-21] MEDS: Nystatin Powder 15gm Bottle 1 APPLIC TOPICAL ×2 (04:58→20:45)
[2018-06-21] MEDS: Enoxaparin 30 MG/0.3 ML Syringe SC (05:01)
[2018-06-21] MEDS: Cyanocobalamin 500 MCG Tablet 1000 MCG PO (05:03)
[2018-06-21] MEDS: amLODIPine 10 MG Tablet PO (05:03)
[2018-06-21] MEDS: Senna/Docusate Sodium 1 Tablet PO ×2 (05:03→17:25)
[2018-06-21] MEDS: Clopidogrel Bisulfate 75 MG Tablet PO (05:03)
[2018-06-21] MEDS: Calcium Carb/Vitamin D 1 TABLET Tablet PO ×2 (05:03→17:25)
[2018-06-21] MEDS: Famotidine 20 MG Tablet PO ×2 (05:03→17:25)
[2018-06-21] MEDS: FLUoxetine 20 MG Capsule 40 MG PO (05:04)
[2018-06-21 07:01] LABS: Bedside Glucose 195 mg/dL (70-110)
[2018-06-21] MEDS: Insulin Lispro 100 UNIT/ML INSULN.PEN 20 UNIT SC ×3 (08:24→17:44)
[2018-06-21] MEDS: Gabapentin 300 MG Capsule PO ×3 (08:26→17:25)
[2018-06-21] MEDS: Aspirin 81 MG TAB.CHEW PO (08:27)
[2018-06-21] MEDS: Ferrous Gluconate 325 MG Tablet PO ×2 (08:27→17:25)
[2018-06-21] MEDS: Folic Acid 1 MG Tablet PO (08:27)
[2018-06-21 11:40] LABS: Bedside Glucose 266 mg/dL (70-110)
--- NOTE | 2018-06-21 13:27 | CASEMGMT ---
Insurance Clinical updates faxed. Will await continued stay determination. Auth # [id number] BALTAZAR Gilbert
--- NOTE | 2018-06-21 14:41 | MDS.RN ---
Information for the mds was obtained from review of the clinical record, interview of resident, staff, and direct observation of resident's care.
[2018-06-21 16:00] VITALS: BP 132/67; PULSE 64; RESP 16; TEMP 36.8; O2SAT 96
[2018-06-21 16:36] LABS: Bedside Glucose 220 mg/dL (70-110)
[2018-06-21 20:39] VITALS: PULSE 68; RESP 18; O2SAT 94
[2018-06-21] MEDS: Atorvastatin Calcium 80 MG Tablet PO (20:45)
[2018-06-21] MEDS: Tamsulosin HCl 0.4 MG Capsule PO (20:46)
[2018-06-21] MEDS: Latanoprost 0.005% 1 Bottle 1 DRP EACH EYE (20:46)
[2018-06-21 21:21] LABS: Bedside Glucose 284 mg/dL (70-110)
[2018-06-22 02:41] LABS: Bedside Glucose 224 mg/dL (70-110)
[2018-06-22] MEDS: Menthol/Lanolin/Calamine/Znox 113 GM Tube 1 APPLIC TOPICAL ×2 (05:45→22:08)
[2018-06-22] MEDS: FLUoxetine 20 MG Capsule 40 MG PO (05:45)
[2018-06-22] MEDS: Senna/Docusate Sodium 1 Tablet PO ×2 (05:46→17:14)
[2018-06-22] MEDS: Clopidogrel Bisulfate 75 MG Tablet PO (05:46)
[2018-06-22] MEDS: Nystatin Powder 15gm Bottle 1 APPLIC TOPICAL ×2 (05:46→22:09)
[2018-06-22] MEDS: amLODIPine 10 MG Tablet PO (05:46)
[2018-06-22] MEDS: Famotidine 20 MG Tablet PO ×2 (05:46→17:14)
[2018-06-22] MEDS: Cyanocobalamin 500 MCG Tablet 1000 MCG PO (05:47)
[2018-06-22] MEDS: Enoxaparin 30 MG/0.3 ML Syringe SC (05:47)
[2018-06-22] MEDS: Calcium Carb/Vitamin D 1 TABLET Tablet PO ×2 (05:47→17:14)
[2018-06-22] MEDS: Polyethylene Glycol 3350 17 GM PACKET PO (05:47)
[2018-06-22] MEDS: Insulin Lispro 100 UNIT/ML INSULN.PEN 20 UNIT SC ×3 (06:57→17:13)
[2018-06-22 07:06] LABS: Bedside Glucose 199 mg/dL (70-110)
[2018-06-22] MEDS: Aspirin 81 MG TAB.CHEW PO (07:53)
[2018-06-22] MEDS: Folic Acid 1 MG Tablet PO (07:53)
[2018-06-22] MEDS: Gabapentin 300 MG Capsule PO ×3 (07:53→17:14)
[2018-06-22] MEDS: Ferrous Gluconate 325 MG Tablet PO ×2 (07:53→17:14)
[2018-06-22 10:00] VITALS: PULSE 74; RESP 18; O2SAT 94
--- NOTE | 2018-06-22 10:13 | CASEMGMT ---
BIMS and PHQ9 interviews completed on this date for MDS assessment. BIMS 09/17, PHQ9 BALTAZAR Gilbert
[2018-06-22 11:31] LABS: Bedside Glucose 202 mg/dL (70-110)
[2018-06-22 16:00] VITALS: BP 132/55; PULSE 61; RESP 20; TEMP 36.7; O2SAT 94
[2018-06-22 17:01] LABS: Bedside Glucose 305 mg/dL (70-110)
--- NOTE | 2018-06-22 19:47 | NURSING ---
Addendum entered by Sabina Campbell 06/23/18 10:51: Dr vogt notified of UA results this AM, new order for ATB entered. culture sent. Original Note: Per staff patient was noted to have cloudy urine with odor. Dr. Vogt notified new orders given.
[2018-06-22 21:36] LABS: Bedside Glucose 374 mg/dL (70-110)
[2018-06-22] MEDS: Tamsulosin HCl 0.4 MG Capsule PO (22:10)
[2018-06-22] MEDS: Atorvastatin Calcium 80 MG Tablet PO (22:11)
[2018-06-22] MEDS: Latanoprost 0.005% 1 Bottle 1 DRP EACH EYE (22:11)
[2018-06-22 22:51] LABS: Mucous, Urine 0 SEEN /hpf (<or=2+)
[2018-06-22 22:52] LABS: Color, Urine Yellow (Yellow); Glucose, Dipstick 1000 mg/dl (Normal); Ketone-Dipstick Negative (Negative); Leukocyte Esterase-Dipstick 500 /ul (Negative); Nitrite-Dipstick Negative (Negative); Occult Blood-Urine 25 /ul (Negative); Protein-Dipstick 15 mg/dl (Negative); Specific Gravity, Urine 1.015 (1.002-1.030); Urine Bilirubin Dipstick Negative (Negative); Urine Clarity Cloudy (Clear); Urine Urobilinogen Normal (Normal)
[2018-06-22 22:59] LABS: Bacteria RARE /hpf (None Seen); White Blood Cells >100 SEEN /hpf (0-5)
[2018-06-22 23:00] LABS: Red Blood Cells-Urine 0-5 SEEN /hpf (0-5); Squamous Epithelial Cells - UA 0-5 SEEN /hpf (5-10)
[2018-06-23] MEDS: Menthol/Lanolin/Calamine/Znox 113 GM Tube 1 APPLIC TOPICAL ×2 (05:58→21:37)
[2018-06-23] MEDS: Nystatin Powder 15gm Bottle 1 APPLIC TOPICAL ×2 (05:58→21:36)
[2018-06-23] MEDS: Enoxaparin 30 MG/0.3 ML Syringe SC (05:59)
[2018-06-23] MEDS: Polyethylene Glycol 3350 17 GM PACKET PO (05:59)
[2018-06-23 06:00] LABS: Absolute Lymphocyte Count 1.24 X10^3/ul (0.83-4.51); Basophil# 0.01 X10^3/uL; Basophil% 0.2 % (0-1); Eosinophils% 3.3 % (0-5); Hematocrit 32.5 % (37-47); Hemoglobin 10.6 g/dl (12.0-15.0); Lymphocyte # 1.24 X10^3/ul (4.0); Lymphocyte % 20.5 % (19-41); Mean Corp Hgb Conc 32.6 g/gl (32-36); Mean Corpuscular Hgb 28.3 pg (27.0-32.0); Mean Corpuscular Volume 86.9 fL (81-99); Mean Platelet Vol. 10.9 fl (6.2-12.0); Monocyte# 0.55 X10^3/uL; Monocyte% 9.1 % (0-10); Neutrophil # 4.03 X10^3/uL (2.7-7.7); Neutrophil % 66.7 % (47-70); Platelet Count 130 K/mm3 (150-450); RBC Distribution Width CV 12.9 % (11.6-14.6); RBC Distribution Width SD 39.5 fl (35.1-43.9); Red Blood Count 3.74 M/mm3 (4.2-5.4)
[2018-06-23] MEDS: Clopidogrel Bisulfate 75 MG Tablet PO (06:01)
[2018-06-23] MEDS: Famotidine 20 MG Tablet PO ×2 (06:01→18:03)
[2018-06-23] MEDS: Cyanocobalamin 500 MCG Tablet 1000 MCG PO (06:01)
[2018-06-23] MEDS: amLODIPine 10 MG Tablet PO (06:01)
[2018-06-23] MEDS: Calcium Carb/Vitamin D 1 TABLET Tablet PO ×2 (06:01→18:03)
[2018-06-23] MEDS: FLUoxetine 20 MG Capsule 40 MG PO (06:02)
[2018-06-23] MEDS: Senna/Docusate Sodium 1 Tablet PO ×2 (06:02→18:03)
[2018-06-23] MEDS: Acetaminophen 500 MG Tablet 1000 MG PO (06:06)
[2018-06-23 06:12] LABS: POSITIVE COUNT NO; POSITIVE DIFFERENTIAL NO; POSITIVE MORPHOLOGY NO
[2018-06-23 06:25] LABS: Anion Gap 7 (5-15); BUN 18 mg/dL (7-18); BUN/Creat Ratio 14.2 RATIO (10-20); Calcium,Total 8.7 mg/dL (8.5-10.1); Chloride 104 mmol/L (98-107); Creatinine, Serum 1.27 mg/dL (0.55-1.02); EST Glomerular Filtration Rate 44 mL/min (>60); Est Glom Filt Rate - Afr Amer 53 mL/min (>60); Estimated Creatinine Clearance 33.56 ml/min; Glucose 218 mg/dL (74-106); Sodium Level 140 mmol/L (136-145)
[2018-06-23 07:06] LABS: Bedside Glucose 240 mg/dL (70-110)
[2018-06-23] MEDS: Ferrous Gluconate 325 MG Tablet PO ×2 (09:21→17:01)
[2018-06-23] MEDS: Folic Acid 1 MG Tablet PO (09:21)
[2018-06-23] MEDS: Aspirin 81 MG TAB.CHEW PO (09:21)
[2018-06-23] MEDS: Gabapentin 300 MG Capsule PO ×3 (09:21→17:01)
[2018-06-23] MEDS: Insulin Lispro 100 UNIT/ML INSULN.PEN 20 UNIT SC ×3 (09:29→17:00)
[2018-06-23 10:00] VITALS: PULSE 67; RESP 18; O2SAT 97
[2018-06-23] MEDS: Ciprofloxacin 500 MG Tablet PO ×2 (10:54→18:03)
[2018-06-23 11:11] LABS: Bedside Glucose 340 mg/dL (70-110)
--- NOTE | 2018-06-23 13:52 | CASEMGMT ---
Insurance Continued stay approved with update due 06/28/18. Family notified. Auth # [id number] BALTAZAR Gilbert
--- NOTE | 2018-06-23 14:46 | CASEMGMT ---
Social Work followup phone call placed to Caro at [facility] ([phone]) inquiring about status of Medicaid Application that had been sent on 06/09. Caro states it has not been processed yet. SW requesting this application be processed as soon as possible and that Caro notify SW of status. Pt notified. SW to follow. BALTAZAR Gilbert
[2018-06-23 15:31] VITALS: BP 128/48; PULSE 66; RESP 14; TEMP 36.8; O2SAT 95
[2018-06-23 17:06] LABS: Bedside Glucose 395 mg/dL (70-110)
[2018-06-23 21:30] LABS: Bedside Glucose 409 mg/dL (70-110)
[2018-06-23] MEDS: Latanoprost 0.005% 1 Bottle 1 DRP EACH EYE (21:36)
[2018-06-23] MEDS: Atorvastatin Calcium 80 MG Tablet PO (21:39)
[2018-06-23] MEDS: Tamsulosin HCl 0.4 MG Capsule PO (21:39)
[2018-06-24] MEDS: Nystatin Powder 15gm Bottle 1 APPLIC TOPICAL ×2 (06:18→19:55)
[2018-06-24] MEDS: Menthol/Lanolin/Calamine/Znox 113 GM Tube 1 APPLIC TOPICAL ×2 (06:18→19:54)
[2018-06-24] MEDS: FLUoxetine 20 MG Capsule 40 MG PO (06:20)
[2018-06-24] MEDS: Enoxaparin 30 MG/0.3 ML Syringe SC (06:20)
[2018-06-24] MEDS: Polyethylene Glycol 3350 17 GM PACKET PO (06:20)
[2018-06-24] MEDS: Cyanocobalamin 500 MCG Tablet 1000 MCG PO (06:21)
[2018-06-24] MEDS: amLODIPine 10 MG Tablet PO (06:21)
[2018-06-24] MEDS: Senna/Docusate Sodium 1 Tablet PO ×2 (06:21→17:51)
[2018-06-24] MEDS: Ciprofloxacin 500 MG Tablet PO ×2 (06:21→17:52)
[2018-06-24] MEDS: Famotidine 20 MG Tablet PO ×2 (06:21→17:51)
[2018-06-24] MEDS: Calcium Carb/Vitamin D 1 TABLET Tablet PO ×2 (06:21→17:51)
[2018-06-24] MEDS: Clopidogrel Bisulfate 75 MG Tablet PO (06:23)
[2018-06-24 07:10] LABS: Bedside Glucose 285 mg/dL (70-110)
[2018-06-24] MEDS: Folic Acid 1 MG Tablet PO (08:14)
[2018-06-24] MEDS: Ferrous Gluconate 325 MG Tablet PO ×2 (08:14→17:51)
[2018-06-24] MEDS: Aspirin 81 MG TAB.CHEW PO (08:14)
[2018-06-24] MEDS: Gabapentin 300 MG Capsule PO ×3 (08:14→17:51)
[2018-06-24] MEDS: Insulin Lispro 100 UNIT/ML INSULN.PEN 23 UNIT SC ×3 (08:15→17:51)
[2018-06-24 11:55] LABS: Bedside Glucose 246 mg/dL (70-110)
[2018-06-24 15:11] VITALS: BP 106/90; PULSE 65; RESP 16; TEMP 36.1; O2SAT 94
[2018-06-24 16:56] LABS: Bedside Glucose 177 mg/dL (70-110)
[2018-06-24] MEDS: Tamsulosin HCl 0.4 MG Capsule PO (19:55)
[2018-06-24] MEDS: Latanoprost 0.005% 1 Bottle 1 DRP EACH EYE (19:55)
[2018-06-24] MEDS: Atorvastatin Calcium 80 MG Tablet PO (19:55)
[2018-06-24 21:31] LABS: Bedside Glucose 228 mg/dL (70-110)
[2018-06-25] MEDS: Menthol/Lanolin/Calamine/Znox 113 GM Tube 1 APPLIC TOPICAL ×2 (05:19→20:51)
[2018-06-25] MEDS: amLODIPine 10 MG Tablet PO (05:20)
[2018-06-25] MEDS: Calcium Carb/Vitamin D 1 TABLET Tablet PO ×2 (05:20→17:33)
[2018-06-25] MEDS: Clopidogrel Bisulfate 75 MG Tablet PO (05:20)
[2018-06-25] MEDS: Nystatin Powder 15gm Bottle 1 APPLIC TOPICAL ×2 (05:20→20:52)
[2018-06-25] MEDS: Ciprofloxacin 500 MG Tablet PO ×2 (05:21→17:32)
[2018-06-25] MEDS: Polyethylene Glycol 3350 17 GM PACKET PO (05:21)
[2018-06-25] MEDS: Enoxaparin 30 MG/0.3 ML Syringe SC (05:21)
[2018-06-25] MEDS: Cyanocobalamin 500 MCG Tablet 1000 MCG PO (05:21)
[2018-06-25] MEDS: Famotidine 20 MG Tablet PO ×2 (05:22→17:34)
[2018-06-25] MEDS: Senna/Docusate Sodium 1 Tablet PO ×2 (05:22→17:34)
[2018-06-25] MEDS: FLUoxetine 20 MG Capsule 40 MG PO (05:22)
[2018-06-25 06:36] LABS: Bedside Glucose 230 mg/dL (70-110)
[2018-06-25] MEDS: Insulin Lispro 100 UNIT/ML INSULN.PEN 23 UNIT SC ×3 (07:17→17:31)
[2018-06-25] MEDS: Aspirin 81 MG TAB.CHEW PO (09:20)
[2018-06-25] MEDS: Gabapentin 300 MG Capsule PO ×3 (09:20→17:32)
[2018-06-25] MEDS: Ferrous Gluconate 325 MG Tablet PO ×2 (09:21→17:32)
[2018-06-25] MEDS: Folic Acid 1 MG Tablet PO (09:22)
[2018-06-25 11:51] LABS: Bedside Glucose 345 mg/dL (70-110)
[2018-06-25 15:32] VITALS: BP 126/55; PULSE 68; RESP 18; TEMP 36.7; O2SAT 91
[2018-06-25 17:11] LABS: Bedside Glucose 213 mg/dL (70-110)
[2018-06-25] MEDS: Latanoprost 0.005% 1 Bottle 1 DRP EACH EYE (20:53)
[2018-06-25] MEDS: Tamsulosin HCl 0.4 MG Capsule PO ×2 (20:53→20:57)
[2018-06-25 20:55] VITALS: PULSE 57; RESP 16; O2SAT 95
[2018-06-25] MEDS: Atorvastatin Calcium 80 MG Tablet PO (20:56)
[2018-06-25 21:30] LABS: Bedside Glucose 98 mg/dL (70-110)
[2018-06-26] MEDS: Polyethylene Glycol 3350 17 GM PACKET PO (05:15)
[2018-06-26] MEDS: Cyanocobalamin 500 MCG Tablet 1000 MCG PO (05:15)
[2018-06-26] MEDS: amLODIPine 10 MG Tablet PO (05:16)
[2018-06-26] MEDS: Calcium Carb/Vitamin D 1 TABLET Tablet PO ×2 (05:16→17:46)
[2018-06-26] MEDS: Famotidine 20 MG Tablet PO ×2 (05:16→17:46)
[2018-06-26] MEDS: FLUoxetine 20 MG Capsule 40 MG PO (05:16)
[2018-06-26] MEDS: Ciprofloxacin 500 MG Tablet PO ×2 (05:16→17:46)
[2018-06-26] MEDS: Senna/Docusate Sodium 1 Tablet PO ×2 (05:17→17:46)
[2018-06-26] MEDS: Enoxaparin 30 MG/0.3 ML Syringe SC (05:17)
[2018-06-26] MEDS: Menthol/Lanolin/Calamine/Znox 113 GM Tube 1 APPLIC TOPICAL ×2 (05:26→20:47)
[2018-06-26] MEDS: Nystatin Powder 15gm Bottle 1 APPLIC TOPICAL ×2 (05:26→20:47)
[2018-06-26 08:05] LABS: Bedside Glucose 130 mg/dL (70-110)
[2018-06-26] MEDS: Clopidogrel Bisulfate 75 MG Tablet PO (08:08)
[2018-06-26] MEDS: Aspirin 81 MG TAB.CHEW PO (08:29)
[2018-06-26] MEDS: Ferrous Gluconate 325 MG Tablet PO ×2 (08:29→17:46)
[2018-06-26] MEDS: Gabapentin 300 MG Capsule PO ×3 (08:29→17:46)
[2018-06-26] MEDS: Folic Acid 1 MG Tablet PO (08:29)
[2018-06-26] MEDS: Insulin Lispro 100 UNIT/ML INSULN.PEN 23 UNIT SC ×3 (08:35→18:09)
[2018-06-26 11:42] LABS: Bedside Glucose 171 mg/dL (70-110)
[2018-06-26 15:30] VITALS: BP 131/54; PULSE 59; RESP 16; TEMP 36.6; O2SAT 94
[2018-06-26 17:11] LABS: Bedside Glucose 151 mg/dL (70-110)
[2018-06-26] MEDS: Atorvastatin Calcium 80 MG Tablet PO (20:40)
[2018-06-26] MEDS: Latanoprost 0.005% 1 Bottle 1 DRP EACH EYE (20:41)
[2018-06-26 20:55] VITALS: PULSE 74; RESP 16; O2SAT 95
[2018-06-26 21:00] LABS: Bedside Glucose 140 mg/dL (70-110)
[2018-06-27] MEDS: Acetaminophen 500 MG Tablet 1000 MG PO ×2 (02:54→22:02)
--- NOTE | 2018-06-27 06:11 | NURSING ---
Pt c/o pain in right hand early in the night given prn tylenol to help with pain. Pt states pain felt like aching put pillow under arm and a warm blanket to help. At this time pt states pain level is alot better and that they prn tylenol and blanket helped.
[2018-06-27] MEDS: Enoxaparin 30 MG/0.3 ML Syringe SC (06:19)
[2018-06-27] MEDS: Famotidine 20 MG Tablet PO ×2 (06:21→17:54)
[2018-06-27] MEDS: amLODIPine 10 MG Tablet PO (06:21)
[2018-06-27] MEDS: Cyanocobalamin 500 MCG Tablet 1000 MCG PO (06:21)
[2018-06-27] MEDS: FLUoxetine 20 MG Capsule 40 MG PO (06:21)
[2018-06-27] MEDS: Calcium Carb/Vitamin D 1 TABLET Tablet PO ×2 (06:22→17:54)
[2018-06-27] MEDS: Ciprofloxacin 500 MG Tablet PO ×2 (06:22→17:54)
[2018-06-27] MEDS: Senna/Docusate Sodium 1 Tablet PO ×2 (06:22→17:54)
[2018-06-27] MEDS: Clopidogrel Bisulfate 75 MG Tablet PO (06:22)
[2018-06-27 06:26] LABS: Bedside Glucose 84 mg/dL (70-110)
[2018-06-27] MEDS: Menthol/Lanolin/Calamine/Znox 113 GM Tube 1 APPLIC TOPICAL ×2 (06:34→22:03)
[2018-06-27] MEDS: Nystatin Powder 15gm Bottle 1 APPLIC TOPICAL ×2 (06:34→22:06)
[2018-06-27] MEDS: Aspirin 81 MG TAB.CHEW PO (08:37)
[2018-06-27] MEDS: Folic Acid 1 MG Tablet PO (08:37)
[2018-06-27] MEDS: Gabapentin 300 MG Capsule PO ×3 (08:37→17:54)
[2018-06-27] MEDS: Ferrous Gluconate 325 MG Tablet PO ×2 (08:37→17:55)
[2018-06-27 09:01] LABS: Bedside Glucose 106 mg/dL (70-110)
[2018-06-27 11:15] LABS: Bedside Glucose 184 mg/dL (70-110)
[2018-06-27] MEDS: Insulin Lispro 100 UNIT/ML INSULN.PEN 23 UNIT SC ×2 (11:57→17:57)
[2018-06-27 15:44] VITALS: BP 135/60; PULSE 63; RESP 14; TEMP 36.4; O2SAT 93
[2018-06-27 17:11] LABS: Bedside Glucose 179 mg/dL (70-110)
[2018-06-27 21:36] LABS: Bedside Glucose 195 mg/dL (70-110)
[2018-06-27] MEDS: Tamsulosin HCl 0.4 MG Capsule PO (22:05)
[2018-06-27] MEDS: Atorvastatin Calcium 80 MG Tablet PO (22:05)
[2018-06-27] MEDS: Latanoprost 0.005% 1 Bottle 1 DRP EACH EYE (22:06)
[2018-06-27 22:20] VITALS: PULSE 60; RESP 20; O2SAT 93
[2018-06-28] MEDS: FLUoxetine 20 MG Capsule 40 MG PO (06:03)
[2018-06-28] MEDS: Cyanocobalamin 500 MCG Tablet 1000 MCG PO (06:03)
[2018-06-28] MEDS: Famotidine 20 MG Tablet PO ×2 (06:04→18:13)
[2018-06-28] MEDS: Senna/Docusate Sodium 1 Tablet PO ×2 (06:04→18:13)
[2018-06-28] MEDS: Ciprofloxacin 500 MG Tablet PO ×2 (06:04→18:13)
[2018-06-28] MEDS: amLODIPine 10 MG Tablet PO (06:04)
[2018-06-28] MEDS: Clopidogrel Bisulfate 75 MG Tablet PO (06:04)
[2018-06-28] MEDS: Calcium Carb/Vitamin D 1 TABLET Tablet PO ×2 (06:04→18:13)
[2018-06-28] MEDS: Menthol/Lanolin/Calamine/Znox 113 GM Tube 1 APPLIC TOPICAL ×2 (06:05→21:17)
[2018-06-28] MEDS: Enoxaparin 30 MG/0.3 ML Syringe SC (06:05)
[2018-06-28] MEDS: Nystatin Powder 15gm Bottle 1 APPLIC TOPICAL ×2 (06:06→21:18)
[2018-06-28 07:05] LABS: Bedside Glucose 152 mg/dL (70-110)
[2018-06-28] MEDS: Folic Acid 1 MG Tablet PO (08:15)
[2018-06-28] MEDS: Ferrous Gluconate 325 MG Tablet PO ×2 (08:15→18:13)
[2018-06-28] MEDS: Gabapentin 300 MG Capsule PO ×3 (08:15→18:13)
[2018-06-28] MEDS: Aspirin 81 MG TAB.CHEW PO (08:15)
[2018-06-28] MEDS: Insulin Lispro 100 UNIT/ML INSULN.PEN 23 UNIT SC ×3 (08:16→18:13)
[2018-06-28 10:00] VITALS: PULSE 78; RESP 18; O2SAT 96
--- NOTE | 2018-06-28 11:06 | CASEMGMT ---
Insurance Clinical information sent. Pending continued stay approval at this time. Auth#[id number] Carole LEDESMA, PLANT EQUIPMENT ENGINEER
[2018-06-28 11:16] LABS: Bedside Glucose 180 mg/dL (70-110)
[2018-06-28 15:51] VITALS: BP 114/52; PULSE 58; RESP 14; TEMP 36.4; O2SAT 91
--- NOTE | 2018-06-28 16:06 | CHAPLAIN ---
Type of Pastoral Visit _x__ Initial Visit ___ Follow-up Visit ___ On-call Visit ___ General Patient Visit ___ Spiritual Assessment ___ Family Conference ___ Bereavement ___ Rapid Response ___ Code Blue ___ Other (describe below) Pastoral Care Referral From _x__ Patient ___ Family ___ Nurse ___ Physician ___ Lpc ___ Workgroup Leader ___ Other (describe below) Sacrament/Intervention _x__ Active listening ___ Anointing ___ Lutheran ___ Bereavement ___ Communion _x__ Kassi exploration ___ _x__ Life review _x__ Prayer ___ Reconciliation ___ Sacrament of Sick _x__ Supportive presence ___ Wedding ___ Other (describe below) Pastoral Comments patient and family members are together in room; good interaction with pt who is making progress according to family; pt belongs to [facility] ([facility]) and has spiritual foundation; pt is interested in future visits; conversation about matters of mutual interest in [place] and in the spiritism community; spouse requested prayer support for patient
[2018-06-28 17:10] LABS: Bedside Glucose 237 mg/dL (70-110)
[2018-06-28 21:16] LABS: Bedside Glucose 261 mg/dL (70-110)
[2018-06-28] MEDS: Tamsulosin HCl 0.4 MG Capsule PO (21:19)
[2018-06-28] MEDS: Latanoprost 0.005% 1 Bottle 1 DRP EACH EYE (21:19)
[2018-06-28] MEDS: Atorvastatin Calcium 80 MG Tablet PO (21:20)
[2018-06-29] MEDS: Acetaminophen 500 MG Tablet 1000 MG PO (05:32)
[2018-06-29] MEDS: Calcium Carb/Vitamin D 1 TABLET Tablet PO ×2 (05:34→17:53)
[2018-06-29] MEDS: amLODIPine 10 MG Tablet PO (05:34)
[2018-06-29] MEDS: Clopidogrel Bisulfate 75 MG Tablet PO (05:34)
[2018-06-29] MEDS: Ciprofloxacin 500 MG Tablet PO ×2 (05:34→17:53)
[2018-06-29] MEDS: Famotidine 20 MG Tablet PO ×2 (05:34→17:52)
[2018-06-29] MEDS: Cyanocobalamin 500 MCG Tablet 1000 MCG PO (05:34)
[2018-06-29] MEDS: Senna/Docusate Sodium 1 Tablet PO ×2 (05:34→17:52)
[2018-06-29] MEDS: FLUoxetine 20 MG Capsule 40 MG PO (05:34)
[2018-06-29] MEDS: Menthol/Lanolin/Calamine/Znox 113 GM Tube 1 APPLIC TOPICAL ×2 (05:35→20:14)
[2018-06-29] MEDS: Enoxaparin 30 MG/0.3 ML Syringe SC (05:35)
[2018-06-29] MEDS: Nystatin Powder 15gm Bottle 1 APPLIC TOPICAL ×2 (05:38→20:16)
[2018-06-29 06:56] LABS: Bedside Glucose 181 mg/dL (70-110)
[2018-06-29] MEDS: Aspirin 81 MG TAB.CHEW PO (08:32)
[2018-06-29] MEDS: Folic Acid 1 MG Tablet PO (08:32)
[2018-06-29] MEDS: Ferrous Gluconate 325 MG Tablet PO ×2 (08:33→17:53)
[2018-06-29] MEDS: Gabapentin 300 MG Capsule PO ×3 (08:33→17:53)
[2018-06-29] MEDS: Insulin Lispro 100 UNIT/ML INSULN.PEN 23 UNIT SC ×3 (08:33→17:53)
[2018-06-29 11:55] LABS: Bedside Glucose 214 mg/dL (70-110)
--- NOTE | 2018-06-29 13:25 | CASEMGMT ---
Insurance Continued stay approved with next update due on 07/05/18. Auth#[id number] Carole LEDESMA, FORMS DESIGNER
[2018-06-29 16:00] VITALS: BP 128/67; PULSE 60; RESP 18; TEMP 36.1; O2SAT 97
[2018-06-29 17:21] LABS: Bedside Glucose 200 mg/dL (70-110)
[2018-06-29] MEDS: Tamsulosin HCl 0.4 MG Capsule PO (20:16)
[2018-06-29] MEDS: Latanoprost 0.005% 1 Bottle 1 DRP EACH EYE (20:16)
[2018-06-29] MEDS: Atorvastatin Calcium 80 MG Tablet PO (20:16)
[2018-06-29 21:26] LABS: Bedside Glucose 241 mg/dL (70-110)
[2018-06-30] MEDS: Menthol/Lanolin/Calamine/Znox 113 GM Tube 1 APPLIC TOPICAL ×2 (05:11→20:23)
[2018-06-30] MEDS: Nystatin Powder 15gm Bottle 1 APPLIC TOPICAL ×2 (05:12→20:24)
[2018-06-30] MEDS: Enoxaparin 30 MG/0.3 ML Syringe SC (05:12)
[2018-06-30] MEDS: Famotidine 20 MG Tablet PO ×2 (05:13→17:13)
[2018-06-30] MEDS: amLODIPine 10 MG Tablet PO (05:13)
[2018-06-30] MEDS: Calcium Carb/Vitamin D 1 TABLET Tablet PO ×2 (05:13→17:13)
[2018-06-30] MEDS: Clopidogrel Bisulfate 75 MG Tablet PO (05:13)
[2018-06-30] MEDS: Ciprofloxacin 500 MG Tablet PO ×2 (05:14→17:13)
[2018-06-30] MEDS: FLUoxetine 20 MG Capsule 40 MG PO (05:14)
[2018-06-30] MEDS: Cyanocobalamin 500 MCG Tablet 1000 MCG PO (05:14)
[2018-06-30] MEDS: Senna/Docusate Sodium 1 Tablet PO ×2 (05:14→17:13)
[2018-06-30 06:51] LABS: Bedside Glucose 173 mg/dL (70-110)
[2018-06-30] MEDS: Insulin Lispro 100 UNIT/ML INSULN.PEN 23 UNIT SC ×3 (07:18→17:25)
[2018-06-30] MEDS: Gabapentin 300 MG Capsule PO ×3 (08:36→17:13)
[2018-06-30] MEDS: Aspirin 81 MG TAB.CHEW PO (08:36)
[2018-06-30] MEDS: Folic Acid 1 MG Tablet PO (08:36)
[2018-06-30] MEDS: Ferrous Gluconate 325 MG Tablet PO ×2 (08:36→17:13)
[2018-06-30 10:00] VITALS: PULSE 68; RESP 18; O2SAT 96
[2018-06-30 11:31] LABS: Bedside Glucose 209 mg/dL (70-110)
[2018-06-30 15:33] VITALS: BP 133/56; PULSE 56; RESP 16; TEMP 36.6; O2SAT 97
[2018-06-30 16:31] LABS: Bedside Glucose 267 mg/dL (70-110)
[2018-06-30] MEDS: Latanoprost 0.005% 1 Bottle 1 DRP EACH EYE (20:25)
[2018-06-30] MEDS: Tamsulosin HCl 0.4 MG Capsule PO (20:26)
[2018-06-30] MEDS: Atorvastatin Calcium 80 MG Tablet PO (20:26)
[2018-06-30 21:21] LABS: Bedside Glucose 368 mg/dL (70-110)
[2018-07-01] MEDS: Acetaminophen 500 MG Tablet 1000 MG PO (05:18)
[2018-07-01] MEDS: Ciprofloxacin 500 MG Tablet PO ×2 (05:20→16:53)
[2018-07-01] MEDS: Senna/Docusate Sodium 1 Tablet PO (05:20)
[2018-07-01] MEDS: amLODIPine 10 MG Tablet PO (05:20)
[2018-07-01] MEDS: Clopidogrel Bisulfate 75 MG Tablet PO (05:20)
[2018-07-01] MEDS: Cyanocobalamin 500 MCG Tablet 1000 MCG PO (05:20)
[2018-07-01] MEDS: Famotidine 20 MG Tablet PO ×2 (05:21→16:53)
[2018-07-01] MEDS: FLUoxetine 20 MG Capsule 40 MG PO (05:21)
[2018-07-01] MEDS: Calcium Carb/Vitamin D 1 TABLET Tablet PO ×2 (05:21→16:53)
[2018-07-01] MEDS: Menthol/Lanolin/Calamine/Znox 113 GM Tube 1 APPLIC TOPICAL ×2 (05:21→20:03)
[2018-07-01] MEDS: Enoxaparin 30 MG/0.3 ML Syringe SC (05:23)
[2018-07-01] MEDS: Polyethylene Glycol 3350 17 GM PACKET PO (05:25)
[2018-07-01] MEDS: Nystatin Powder 15gm Bottle 1 APPLIC TOPICAL ×2 (05:31→20:05)
[2018-07-01 06:51] LABS: Bedside Glucose 236 mg/dL (70-110)
[2018-07-01] MEDS: Folic Acid 1 MG Tablet PO (08:09)
[2018-07-01] MEDS: Gabapentin 300 MG Capsule PO ×3 (08:09→16:53)
[2018-07-01] MEDS: Ferrous Gluconate 325 MG Tablet PO ×2 (08:09→16:53)
[2018-07-01] MEDS: Aspirin 81 MG TAB.CHEW PO (08:09)
[2018-07-01] MEDS: Insulin Lispro 100 UNIT/ML INSULN.PEN 23 UNIT SC ×3 (08:12→17:20)
[2018-07-01 11:31] LABS: Bedside Glucose 313 mg/dL (70-110)
[2018-07-01 15:36] VITALS: BP 132/57; PULSE 57; RESP 20; TEMP 36.7; O2SAT 95
[2018-07-01 17:16] LABS: Bedside Glucose 289 mg/dL (70-110)
[2018-07-01 19:49] VITALS: PULSE 70; RESP 16; O2SAT 93
[2018-07-01] MEDS: Atorvastatin Calcium 80 MG Tablet PO (20:01)
[2018-07-01] MEDS: Tamsulosin HCl 0.4 MG Capsule PO (20:02)
[2018-07-01] MEDS: Latanoprost 0.005% 1 Bottle 1 DRP EACH EYE (20:05)
[2018-07-01 21:26] LABS: Bedside Glucose 196 mg/dL (70-110)
[2018-07-02] MEDS: Acetaminophen 500 MG Tablet 1000 MG PO ×2 (00:13→21:12)
[2018-07-02] MEDS: Menthol/Lanolin/Calamine/Znox 113 GM Tube 1 APPLIC TOPICAL ×2 (06:12→21:14)
[2018-07-02] MEDS: Nystatin Powder 15gm Bottle 1 APPLIC TOPICAL ×2 (06:13→21:13)
[2018-07-02] MEDS: Enoxaparin 30 MG/0.3 ML Syringe SC (06:14)
[2018-07-02] MEDS: Cyanocobalamin 500 MCG Tablet 1000 MCG PO (06:16)
[2018-07-02] MEDS: Ciprofloxacin 500 MG Tablet PO ×2 (06:16→17:52)
[2018-07-02] MEDS: FLUoxetine 20 MG Capsule 40 MG PO (06:16)
[2018-07-02] MEDS: Calcium Carb/Vitamin D 1 TABLET Tablet PO ×2 (06:16→17:52)
[2018-07-02] MEDS: Clopidogrel Bisulfate 75 MG Tablet PO (06:16)
[2018-07-02] MEDS: Famotidine 20 MG Tablet PO ×2 (06:17→17:52)
[2018-07-02] MEDS: amLODIPine 10 MG Tablet PO (06:17)
[2018-07-02] MEDS: Polyethylene Glycol 3350 17 GM PACKET PO (06:17)
[2018-07-02] MEDS: Senna/Docusate Sodium 1 Tablet PO ×2 (06:18→17:52)
[2018-07-02 07:01] LABS: Bedside Glucose 170 mg/dL (70-110)
[2018-07-02] MEDS: Gabapentin 300 MG Capsule PO ×3 (08:02→17:52)
[2018-07-02] MEDS: Ferrous Gluconate 325 MG Tablet PO ×2 (08:02→17:52)
[2018-07-02] MEDS: Aspirin 81 MG TAB.CHEW PO (08:02)
[2018-07-02] MEDS: Folic Acid 1 MG Tablet PO (08:02)
[2018-07-02] MEDS: Insulin Lispro 100 UNIT/ML INSULN.PEN 23 UNIT SC ×3 (08:04→17:53)
[2018-07-02 11:01] LABS: Bedside Glucose 161 mg/dL (70-110)
[2018-07-02 15:44] VITALS: BP 120/58; PULSE 62; RESP 14; TEMP 36.7; O2SAT 93
[2018-07-02 17:06] LABS: Bedside Glucose 143 mg/dL (70-110)
[2018-07-02] MEDS: Atorvastatin Calcium 80 MG Tablet PO (21:13)
[2018-07-02] MEDS: Tamsulosin HCl 0.4 MG Capsule PO (21:13)
[2018-07-02] MEDS: Latanoprost 0.005% 1 Bottle 1 DRP EACH EYE (21:14)
[2018-07-02 21:26] LABS: Bedside Glucose 182 mg/dL (70-110)
[2018-07-02 22:00] VITALS: PULSE 68; RESP 18; O2SAT 95
[2018-07-03] MEDS: Menthol/Lanolin/Calamine/Znox 113 GM Tube 1 APPLIC TOPICAL ×2 (05:20→20:49)
[2018-07-03] MEDS: Famotidine 20 MG Tablet PO ×2 (05:21→17:51)
[2018-07-03] MEDS: Senna/Docusate Sodium 1 Tablet PO ×2 (05:21→18:01)
[2018-07-03] MEDS: Cyanocobalamin 500 MCG Tablet 1000 MCG PO (05:21)
[2018-07-03] MEDS: Calcium Carb/Vitamin D 1 TABLET Tablet PO ×2 (05:21→17:51)
[2018-07-03] MEDS: FLUoxetine 20 MG Capsule 40 MG PO (05:22)
[2018-07-03] MEDS: amLODIPine 10 MG Tablet PO (05:22)
[2018-07-03] MEDS: Polyethylene Glycol 3350 17 GM PACKET PO (05:23)
[2018-07-03] MEDS: Nystatin Powder 15gm Bottle 1 APPLIC TOPICAL ×2 (05:23→20:49)
[2018-07-03] MEDS: Clopidogrel Bisulfate 75 MG Tablet PO (05:23)
[2018-07-03] MEDS: Ciprofloxacin 500 MG Tablet PO ×2 (05:23→17:52)
[2018-07-03] MEDS: Acetaminophen 500 MG Tablet 1000 MG PO ×2 (05:23→20:51)
[2018-07-03] MEDS: Enoxaparin 30 MG/0.3 ML Syringe SC (05:24)
[2018-07-03 07:01] LABS: Bedside Glucose 160 mg/dL (70-110)
[2018-07-03] MEDS: Insulin Lispro 100 UNIT/ML INSULN.PEN 23 UNIT SC ×3 (07:12→17:58)
[2018-07-03] MEDS: Aspirin 81 MG TAB.CHEW PO (08:13)
[2018-07-03] MEDS: Folic Acid 1 MG Tablet PO (08:13)
[2018-07-03] MEDS: Gabapentin 300 MG Capsule PO ×3 (08:13→17:52)
[2018-07-03] MEDS: Ferrous Gluconate 325 MG Tablet PO ×2 (08:13→17:52)
[2018-07-03 10:00] VITALS: PULSE 62; O2SAT 95
[2018-07-03 11:16] LABS: Bedside Glucose 157 mg/dL (70-110)
[2018-07-03 15:18] VITALS: BP 133/64; PULSE 59; RESP 18; TEMP 36.8; O2SAT 93
[2018-07-03 17:00] LABS: Bedside Glucose 115 mg/dL (70-110)
[2018-07-03] MEDS: Atorvastatin Calcium 80 MG Tablet PO (20:50)
[2018-07-03] MEDS: Latanoprost 0.005% 1 Bottle 1 DRP EACH EYE (20:51)
[2018-07-03] MEDS: Tamsulosin HCl 0.4 MG Capsule PO (20:51)
[2018-07-03 21:26] LABS: Bedside Glucose 149 mg/dL (70-110)
[2018-07-04] MEDS: Nystatin Powder 15gm Bottle 1 APPLIC TOPICAL ×2 (05:15→20:48)
[2018-07-04] MEDS: Enoxaparin 30 MG/0.3 ML Syringe SC (05:15)
[2018-07-04] MEDS: Polyethylene Glycol 3350 17 GM PACKET PO (05:15)
[2018-07-04] MEDS: Menthol/Lanolin/Calamine/Znox 113 GM Tube 1 APPLIC TOPICAL ×2 (05:15→20:47)
[2018-07-04] MEDS: Calcium Carb/Vitamin D 1 TABLET Tablet PO ×2 (05:15→17:21)
[2018-07-04] MEDS: Senna/Docusate Sodium 1 Tablet PO ×2 (05:16→17:21)
[2018-07-04] MEDS: FLUoxetine 20 MG Capsule 40 MG PO (05:16)
[2018-07-04] MEDS: Clopidogrel Bisulfate 75 MG Tablet PO (05:16)
[2018-07-04] MEDS: amLODIPine 10 MG Tablet PO (05:17)
[2018-07-04] MEDS: Famotidine 20 MG Tablet PO ×2 (05:17→17:21)
[2018-07-04] MEDS: Cyanocobalamin 500 MCG Tablet 1000 MCG PO (05:17)
[2018-07-04 07:00] LABS: Bedside Glucose 86 mg/dL (70-110)
[2018-07-04] MEDS: Ferrous Gluconate 325 MG Tablet PO ×2 (08:42→17:21)
[2018-07-04] MEDS: Aspirin 81 MG TAB.CHEW PO (08:42)
[2018-07-04] MEDS: Folic Acid 1 MG Tablet PO (08:42)
[2018-07-04] MEDS: Gabapentin 300 MG Capsule PO ×3 (08:42→17:21)
[2018-07-04] MEDS: Insulin Lispro 100 UNIT/ML INSULN.PEN 23 UNIT SC ×2 (08:49→11:27)
[2018-07-04 08:51] LABS: Bedside Glucose 174 mg/dL (70-110)
[2018-07-04 10:40] VITALS: PULSE 66; RESP 18; O2SAT 93
[2018-07-04 10:55] LABS: Bedside Glucose 238 mg/dL (70-110)
--- NOTE | 2018-07-04 13:16 | NURSING ---
PT HAS +1 NONPITTING EDEMA TO RIGHT HAND. ARM AND HAND UP ON PILLOW. DELORES ROTH AWARE.
--- NOTE | 2018-07-04 13:27 | NURSING ---
FLU SHOT GIVEN IN LEFT DELT. PT TOLERATED WELL.
[2018-07-04 15:26] VITALS: BP 129/39; PULSE 61; RESP 16; TEMP 36.8; O2SAT 94
--- NOTE | 2018-07-04 15:52 | CHAPLAIN ---
Type of Pastoral Visit ___ Initial Visit _x__ Follow-up Visit ___ On-call Visit ___ General Patient Visit ___ Spiritual Assessment ___ Family Conference ___ Bereavement ___ Rapid Response ___ Code Blue ___ Other (describe below) Pastoral Care Referral From _x__ Patient ___ Family ___ Nurse ___ Physician ___ Health Assessment And Treatment Teacher ___ Disposal Operator ___ Other (describe below) Sacrament/Intervention _x__ Active listening ___ Anointing ___ Hoahaoism ___ Bereavement ___ Communion ___ Kassi exploration ___ ___ Life review _x__ Prayer ___ Reconciliation ___ Sacrament of Sick ___ Supportive presence ___ Wedding ___ Other (describe below) Pastoral Comments patient is slow to speak but is understandable; pt says that she is making progress; pt tells me she is doing her part; pt welcomes prayer; no other concerns noted
[2018-07-04 17:06] LABS: Bedside Glucose 83 mg/dL (70-110)
[2018-07-04] MEDS: Insulin Lispro 100 UNIT/ML INSULN.PEN 10 UNIT SC (17:55)
[2018-07-04] MEDS: Acetaminophen 500 MG Tablet 1000 MG PO (20:46)
[2018-07-04] MEDS: Latanoprost 0.005% 1 Bottle 1 DRP EACH EYE (20:47)
[2018-07-04] MEDS: Tamsulosin HCl 0.4 MG Capsule PO (20:47)
[2018-07-04] MEDS: Atorvastatin Calcium 80 MG Tablet PO (20:47)
--- NOTE | 2018-07-04 21:00 | PCM.TCUNOT ---
Subjective: Resident seen in room, sitting in recliner. Her is present today, she has no complaints. Vitals/I&O's: Vital Signs Temp Pulse Resp BP Pulse Ox 98.2 F 61 16 129/39 H 94 07/04/18 15:26 07/04/18 15:26 07/04/18 15:26 07/04/18 15:26 07/04/18 15:26 Oxygen Delivery Method Room Air Weight: 102.4 kg Body Mass Index (BMI) 38.6 Finger Stick Blood Glucose 187 Intake and Output for Last 24 Hours 07/02/18 07/03/18 07/04/18 23:59 23:59 23:59 Intake Total 720 / 720 660 / 660 660 / 660 Balance 720 / 720 660 / 660 660 / 660 Laboratory Results 07/03/18 21:10: POC Glucose 149 H 07/04/18 06:16: POC Glucose 86 07/04/18 08:47: POC Glucose 174 H 07/04/18 10:45: POC Glucose 238 H 07/04/18 17:01: POC Glucose 83 Past Medical History Past Medical History (Chronic Problems): Chronic Problems HTN (hypertension) (Chronic) HLD (hyperlipidemia) (Chronic) Diabetes (Chronic) Neuropathy (Chronic) GUERITA (obstructive sleep apnea) (Chronic) Diabetic polyneuropathy (Chronic) Sleep apnea (Chronic) GERD (gastroesophageal reflux disease) (Chronic) Depression (Chronic) Glaucoma (Chronic) Allergies No Known Allergies Allergy (Verified 05/21/18 19:14) Home Medications: Ambulatory Orders Medication Instructions Recorded Insulin Glargine [Lantus (BKC)] 18 units SC QHS 05/21/18 Mecobal/Levomefolat Ca/B6 Phos 2 tab PO DAILY 05/21/18 [r-[id number] Tablet] Acetaminophen [Tylenol Tablet] 650 mg PO Q6H PRN PRN tablet 06/08/18 Amlodipine [Norvasc] 10 mg PO DAILY 06/08/18 Aspirin [Aspirin, Baby] 81 mg PO DAILY@0800 06/08/18 Atorvastatin Calcium [Lipitor] 80 mg PO QHS 06/08/18 Bisacodyl [Dulcolax] 10 mg RECTAL .PRN X 1 PRN suppos. 06/08/18 Calcium Carb/Vitamin D [Os-Josue 1 tablet PO BID 06/08/18 500MG + D] Clopidogrel Bisulfate [Plavix] 75 mg PO DAILY 06/08/18 Cyanocobalamin [Vitamin B12] 1,000 mcg PO DAILY 06/08/18 Enoxaparin [Lovenox] 30 mg SC DAILY@0600 06/08/18 Famotidine [Pepcid] 20 mg PO BID 06/08/18 Ferrous Gluconate 325 mg PO BIDCM 06/08/18 Fluoxetine [Prozac] 40 mg PO DAILY 06/08/18 Folic Acid 1 mg PO DAILY@0800 06/08/18 Furosemide [Lasix] 40 mg PO BIDLX 06/08/18 Gabapentin [Neurontin] 300 mg PO TIDCM 06/08/18 Glucagon 1 mg IM .X1 PRN syringe 06/08/18 Insulin Glargine [Lantus SoloStar 15 units SC BID 06/08/18 Pen] Insulin Lispro [Humalog KwikPen] 14 unit SC TIDAC 06/08/18 Insulin Lispro [Humalog KwikPen] See Protocol SC TIDAC 06/08/18 Lactobacillus Acidophilus 1 tablet PO DAILY 06/08/18 [Acidophilus] Latanoprost 0.005% [Xalatan 1 drop EACH EYE QHS 06/08/18 Opthalmic] Lisinopril [Zestril] 20 mg PO DAILY 06/08/18 Magnesium Hydroxide [Milk Of 30 ml PO .PRN X 1 PRN udc 06/08/18 Magnesia] Menthol/Lanolin/Calamine/Znox 1 applic TOPICAL BID@0600,2200 06/08/18 [Calmoseptine Ointment] Metformin HCl [Glucophage] 1,000 mg PO BIDCM 06/08/18 Nystatin 500,000 unit PO 4X/DAY 06/08/18 Senna/Docusate Sodium [Senokot-S] 2 tablet PO BID 06/08/18 hydrOXYzine pamoate capsule 25 mg PO Q6H PRN PRN capsule 06/08/18 [Vistaril pamoate capsule] lipase/protease/amylase [Creon DR 2 capsule PO TIDCM 06/08/18 12,000 Unit Capsule] Surgical History: noncontributory Psychiatric History: Anxiety, Depression 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 INSPECTOR History: No pertinent 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 INSPECTOR history Lives: Spouse/ Significant Other Smoking Status: Never smoker Tobacco Use: Non-smoker Alcohol: None Drugs: None - *Family History Maternal History Items: No pertinent history Paternal History Items: No pertinent history Review of Systems Constitutional: Denies: Chills, Fever, Weight Change HEENT: Denies: Head Aches, Sinus Congestion, Sinus Drainage Cardiovascular: Denies: Chest Pain, Palpitations Respiratory: Denies: Cough, Shortness of breath at rest, Sputum production Gastrointestinal: Denies: Abdominal Pain, Nausea, Vomiting Genitourinary: Denies: Dysuria Musculoskeletal: Denies: Joint Pain, Joint Tenderness Skin: Denies: Rash, Wounds Neurological: Denies: Numbness, Tingling, Focal weakness Psychiatric: Denies: Anxiety, Depression, Homicidal Ideations, Suicidal Ideations Hematologic/ Lymphatic: Denies: Easy Bruising, Easy Bleeding Patient Problems: Active and Suspected Problems Acute ischemic left MCA stroke (Acute) - Physical Exam General: Alert, Oriented x3, Cooperative HEENT: Atraumatic, PERRLA, EOMI, Normocephalic Neck: Supple, No JVD, Negative Carotid Bruits Lungs: Clear to auscultation, Normal air movement Cardiovascular: Regular rate, No murmurs Abdomen: Bowel Sounds Present, Soft, Non Tender Extremities: No edema, Capillary Refill Less than 3 Seconds Skin: No rashes, No breakdown Musculoskeletal: No Tenderness to Palpation of Joints or Extremities Neurological: Cranial nerves II-XII grossly intact, - - Right hemiplegia. Psych/Mental Status: Normal Affect, Appropriate Vital Signs Temp Pulse Resp BP Pulse Ox 98.2 F 61 16 129/39 H 94 07/04/18 15:26 07/04/18 15:26 07/04/18 15:26 07/04/18 15:26 07/04/18 15:26 Oxygen Delivery Method Room Air Weight: 102.4 kg Body Mass Index (BMI) 38.6 Finger Stick Blood Glucose 187 Intake and Output for Last 24 Hours 07/02/18 07/03/18 07/04/18 23:59 23:59 23:59 Intake Total 720 / 720 660 / 660 660 / 660 Balance 720 / 720 660 / 660 660 / 660 POC Glucose 07/04/18 07/04/18 07/04/18 17:01 10:45 08:47 POC Glucose 83 238 H 174 H 07/04/18 07/03/18 06:16 21:10 POC Glucose 86 149 H Assessment/Plan All Active Problems Debility (Acute) Stroke (Acute) Acute ischemic left MCA stroke (Acute) 73 year old female with below past medical history hospitalized for acute left MCA stroke, admitted from Rehab Unit, to continue rehabilitation, strengthening, prior to discharge home with spouse. Debility - PT/OT. Dysphagia - ST. Pain - Tylenol 1000MG Q8H PRN mild pain. Bowel - Miralax 17GM daily, Senna/colace 1 tablet BID, Dulcolax 10MG PO daily PRN. Pneumonia vaccination - Administer Prevnar 13 and/or Pneumovax 23 as necessary. DVT prophylaxis - Lovenox 30MG SC daily. Hypertension - Amlodipine 10MG daily. Stroke - Aspirin 81MG daily, Plavix 75MG daily. Hyperlipidemia - Atorvastatin 80MG QHS. Calcium deficiency - Os-Josue 500MG BID. Vitamin B12 deficiency - B12 1000MCG daily. GERD - Famotidine 20MG BID. Iron deficiency anemia - Ferrous Gluconate 325MG BID. Depression - Fluoxetine 40MG daily. Folate deficiency - Folic Acid 1MG daily. Edema - Lasix 40MG BID. Diabetic polyneuropathy - Gabapentin 300MG TID. Diabetes Mellitus II - Lantus 15 units BID, Humalog 10 units TID, Glucagon 1MG IM PRN low blood sugar. GI prophylaxis - Lactobacillus 1 tablet daily. Glaucoma - Xalatan 0.005% 1GTT OU QHS. Pancreatic insufficiency - Creon 12,000 units 2 caps TID. Skin Irritation - Calmoseptine BID buttocks.
[2018-07-04 21:01] LABS: Bedside Glucose 133 mg/dL (70-110)
--- NOTE | 2018-07-04 21:03 | PN_ITS ---
Subjective: Resident seen in room, sitting in recliner. Her is present today, she has no complaints. Vitals/I&O's: Vital Signs Temp Pulse Resp BP Pulse Ox 98.2 F 61 16 129/39 H 94 07/04/18 15:26 07/04/18 15:26 07/04/18 15:26 07/04/18 15:26 07/04/18 15:26 Oxygen Delivery Method Room Air Weight: 102.4 kg Body Mass Index (BMI) 38.6 Finger Stick Blood Glucose 187 Intake and Output for Last 24 Hours 07/02/18 07/03/18 07/04/18 23:59 23:59 23:59 Intake Total 720 / 720 660 / 660 660 / 660 Balance 720 / 720 660 / 660 660 / 660 Laboratory Results 07/03/18 21:10: POC Glucose 149 H 07/04/18 06:16: POC Glucose 86 07/04/18 08:47: POC Glucose 174 H 07/04/18 10:45: POC Glucose 238 H 07/04/18 17:01: POC Glucose 83 Past Medical History Past Medical History (Chronic Problems): Chronic Problems HTN (hypertension) (Chronic) HLD (hyperlipidemia) (Chronic) Diabetes (Chronic) Neuropathy (Chronic) GUERITA (obstructive sleep apnea) (Chronic) Diabetic polyneuropathy (Chronic) Sleep apnea (Chronic) GERD (gastroesophageal reflux disease) (Chronic) Depression (Chronic) Glaucoma (Chronic) Allergies No Known Allergies Allergy (Verified 05/21/18 19:14) Home Medications: Ambulatory Orders Medication Instructions Recorded Insulin Glargine [Lantus (BKC)] 18 units SC QHS 05/21/18 Mecobal/Levomefolat Ca/B6 Phos 2 tab PO DAILY 05/21/18 [s-[id number]-F5-B12 Tablet] Acetaminophen [Tylenol Tablet] 650 mg PO Q6H PRN PRN tablet 06/08/18 Amlodipine [Norvasc] 10 mg PO DAILY 06/08/18 Aspirin [Aspirin, Baby] 81 mg PO DAILY@0800 06/08/18 Atorvastatin Calcium [Lipitor] 80 mg PO QHS 06/08/18 Bisacodyl [Dulcolax] 10 mg RECTAL .PRN X 1 PRN suppos. 06/08/18 Calcium Carb/Vitamin D [Os-Josue 1 tablet PO BID 06/08/18 500MG + D] Clopidogrel Bisulfate [Plavix] 75 mg PO DAILY 06/08/18 Cyanocobalamin [Vitamin B12] 1,000 mcg PO DAILY 06/08/18 Enoxaparin [Lovenox] 30 mg SC DAILY@0600 06/08/18 Famotidine [Pepcid] 20 mg PO BID 06/08/18 Ferrous Gluconate 325 mg PO BIDCM 06/08/18 Fluoxetine [Prozac] 40 mg PO DAILY 06/08/18 Folic Acid 1 mg PO DAILY@0800 06/08/18 Furosemide [Lasix] 40 mg PO BIDLX 06/08/18 Gabapentin [Neurontin] 300 mg PO TIDCM 06/08/18 Glucagon 1 mg IM .X1 PRN syringe 06/08/18 Insulin Glargine [Lantus SoloStar 15 units SC BID 06/08/18 Pen] Insulin Lispro [Humalog KwikPen] 14 unit SC TIDAC 06/08/18 Insulin Lispro [Humalog KwikPen] See Protocol SC TIDAC 06/08/18 Lactobacillus Acidophilus 1 tablet PO DAILY 06/08/18 [Acidophilus] Latanoprost 0.005% [Xalatan 1 drop EACH EYE QHS 06/08/18 Opthalmic] Lisinopril [Zestril] 20 mg PO DAILY 06/08/18 Magnesium Hydroxide [Milk Of 30 ml PO .PRN X 1 PRN udc 06/08/18 Magnesia] Menthol/Lanolin/Calamine/Znox 1 applic TOPICAL BID@0600,2200 06/08/18 [Calmoseptine Ointment] Metformin HCl [Glucophage] 1,000 mg PO BIDCM 06/08/18 Nystatin 500,000 unit PO 4X/DAY 06/08/18 Senna/Docusate Sodium [Senokot-S] 2 tablet PO BID 06/08/18 hydrOXYzine pamoate capsule 25 mg PO Q6H PRN PRN capsule 06/08/18 [Vistaril pamoate capsule] lipase/protease/amylase [Creon DR 2 capsule PO TIDCM 06/08/18 12,000 Unit Capsule] Surgical History: noncontributory Psychiatric History: Anxiety, Depression 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: No pertinent HEATSET WINDER OPERATOR history Lives: Spouse/ Significant Other Smoking Status: Never smoker Tobacco Use: Non-smoker Alcohol: None Drugs: None - *Family History Maternal History Items: No pertinent history Paternal History Items: No pertinent history Review of Systems Constitutional: Denies: Chills, Fever, Weight Change HEENT: Denies: Head Aches, Sinus Congestion, Sinus Drainage Cardiovascular: Denies: Chest Pain, Palpitations Respiratory: Denies: Cough, Shortness of breath at rest, Sputum production Gastrointestinal: Denies: Abdominal Pain, Nausea, Vomiting Genitourinary: Denies: Dysuria Musculoskeletal: Denies: Joint Pain, Joint Tenderness Skin: Denies: Rash, Wounds Neurological: Denies: Numbness, Tingling, Focal weakness Psychiatric: Denies: Anxiety, Depression, Homicidal Ideations, Suicidal Ideations Hematologic/ Lymphatic: Denies: Easy Bruising, Easy Bleeding Patient Problems: Active and Suspected Problems Acute ischemic left MCA stroke (Acute) - Physical Exam General: Alert, Oriented x3, Cooperative HEENT: Atraumatic, PERRLA, EOMI, Normocephalic Neck: Supple, No JVD, Negative Carotid Bruits Lungs: Clear to auscultation, Normal air movement Cardiovascular: Regular rate, No murmurs Abdomen: Bowel Sounds Present, Soft, Non Tender Extremities: No edema, Capillary Refill Less than 3 Seconds Skin: No rashes, No breakdown Musculoskeletal: No Tenderness to Palpation of Joints or Extremities Neurological: Cranial nerves II-XII grossly intact, - - Right hemiplegia. Psych/Mental Status: Normal Affect, Appropriate Vital Signs Temp Pulse Resp BP Pulse Ox 98.2 F 61 16 129/39 H 94 07/04/18 15:26 07/04/18 15:26 07/04/18 15:26 07/04/18 15:26 07/04/18 15:26 Oxygen Delivery Method Room Air Weight: 102.4 kg Body Mass Index (BMI) 38.6 Finger Stick Blood Glucose 187 Intake and Output for Last 24 Hours 07/02/18 07/03/18 07/04/18 23:59 23:59 23:59 Intake Total 720 / 720 660 / 660 660 / 660 Balance 720 / 720 660 / 660 660 / 660 POC Glucose 07/04/18 07/04/18 07/04/18 17:01 10:45 08:47 POC Glucose 83 238 H 174 H 07/04/18 07/03/18 06:16 21:10 POC Glucose 86 149 H Assessment/Plan All Active Problems Debility (Acute) Stroke (Acute) Acute ischemic left MCA stroke (Acute) 73 year old female with below past medical history hospitalized for acute left MCA stroke, admitted from Rehab Unit, to continue rehabilitation, strengthening, prior to discharge home with spouse. * Debility - PT/OT. * Dysphagia - ST. * Pain - Tylenol 1000MG Q8H PRN mild pain. * Bowel - Miralax 17GM daily, Senna/colace 1 tablet BID, Dulcolax 10MG PO daily PRN. * Pneumonia vaccination - Administer Prevnar 13 and/or Pneumovax 23 as necessary. * DVT prophylaxis - Lovenox 30MG SC daily. * Hypertension - Amlodipine 10MG daily. * Stroke - Aspirin 81MG daily, Plavix 75MG daily. * Hyperlipidemia - Atorvastatin 80MG QHS. * Calcium deficiency - Os-Josue 500MG BID. * Vitamin B12 deficiency - B12 1000MCG daily. * GERD - Famotidine 20MG BID. * Iron deficiency anemia - Ferrous Gluconate 325MG BID. * Depression - Fluoxetine 40MG daily. * Folate deficiency - Folic Acid 1MG daily. * Edema - Lasix 40MG BID. * Diabetic polyneuropathy - Gabapentin 300MG TID. * Diabetes Mellitus II - Lantus 15 units BID, Humalog 10 units TID, Glucagon 1MG IM PRN low blood sugar. * GI prophylaxis - Lactobacillus 1 tablet daily. * Glaucoma - Xalatan 0.005% 1GTT OU QHS. * Pancreatic insufficiency - Creon 12,000 units 2 caps TID. * Skin Irritation - Calmoseptine BID buttocks.
[2018-07-05] MEDS: Menthol/Lanolin/Calamine/Znox 113 GM Tube 1 APPLIC TOPICAL ×2 (05:56→20:58)
[2018-07-05] MEDS: Acetaminophen 500 MG Tablet 1000 MG PO ×2 (05:59→21:03)
[2018-07-05] MEDS: Nystatin Powder 15gm Bottle 1 APPLIC TOPICAL ×2 (06:00→20:59)
[2018-07-05] MEDS: Polyethylene Glycol 3350 17 GM PACKET PO (06:01)
[2018-07-05] MEDS: Enoxaparin 30 MG/0.3 ML Syringe SC (06:01)
[2018-07-05] MEDS: Cyanocobalamin 500 MCG Tablet 1000 MCG PO (06:02)
[2018-07-05] MEDS: Senna/Docusate Sodium 1 Tablet PO ×2 (06:02→17:46)
[2018-07-05] MEDS: Clopidogrel Bisulfate 75 MG Tablet PO (06:02)
[2018-07-05] MEDS: amLODIPine 10 MG Tablet PO (06:03)
[2018-07-05] MEDS: FLUoxetine 20 MG Capsule 40 MG PO (06:03)
[2018-07-05] MEDS: Famotidine 20 MG Tablet PO ×2 (06:03→17:46)
[2018-07-05] MEDS: Calcium Carb/Vitamin D 1 TABLET Tablet PO ×2 (06:03→17:46)
[2018-07-05 06:06] LABS: Absolute Lymphocyte Count 1.07 X10^3/ul (0.83-4.51); Absolute Neutrophil Count 3.2 X10^3/uL (2.0-7.7); Basophil# 0.01 X10^3/uL; Basophil% 0.2 % (0-1); Eosinophil# 0.24 X10^3/uL; Eosinophils% 4.8 % (0-5); Hematocrit 33.5 % (37-47); Hemoglobin 10.7 g/dl (12.0-15.0); Lymphocyte # 1.07 X10^3/ul (4.0); Lymphocyte % 21.5 % (19-41); Mean Corp Hgb Conc 31.9 g/gl (32-36); Mean Corpuscular Hgb 28.5 pg (27.0-32.0); Mean Corpuscular Volume 89.1 fL (81-99); Mean Platelet Vol. 10.5 fl (6.2-12.0); Monocyte# 0.46 X10^3/uL; Monocyte% 9.2 % (0-10); Neutrophil # 3.19 X10^3/uL (2.7-7.7); Neutrophil % 64.1 % (47-70); Platelet Count 226 K/mm3 (150-450); RBC Distribution Width CV 13.8 % (11.6-14.6); RBC Distribution Width SD 43.5 fl (35.1-43.9); Red Blood Count 3.76 M/mm3 (4.2-5.4)
[2018-07-05 06:14] LABS: POSITIVE COUNT NO; POSITIVE DIFFERENTIAL NO; POSITIVE MORPHOLOGY NO
[2018-07-05 06:25] LABS: Anion Gap 6 (5-15); BUN 18 mg/dL (7-18); Calcium,Total 8.4 mg/dL (8.5-10.1); Chloride 108 mmol/L (98-107); EST Glomerular Filtration Rate 47 mL/min (>60); Est Glom Filt Rate - Afr Amer 56 mL/min (>60); Estimated Creatinine Clearance 35.52 ml/min; Glucose 78 mg/dL (74-106); Potassium 3.6 mmol/L (3.5-5.1); Sodium Level 144 mmol/L (136-145)
[2018-07-05 07:01] LABS: Bedside Glucose 84 mg/dL (70-110)
[2018-07-05] MEDS: Aspirin 81 MG TAB.CHEW PO (08:25)
[2018-07-05] MEDS: Gabapentin 300 MG Capsule PO ×3 (08:26→17:46)
[2018-07-05] MEDS: Folic Acid 1 MG Tablet PO (08:26)
[2018-07-05] MEDS: Ferrous Gluconate 325 MG Tablet PO ×2 (08:26→17:46)
--- NOTE | 2018-07-05 10:55 | CASEMGMT ---
Brief interview for mental status (BIMS) and resident mood interview (PHQ-9) completed on this day. BIMS score 10/15. PHQ-9 score
[2018-07-05 11:45] LABS: Bedside Glucose 195 mg/dL (70-110)
[2018-07-05] MEDS: Insulin Lispro 100 UNIT/ML INSULN.PEN 10 UNIT SC ×2 (11:47→17:46)
--- NOTE | 2018-07-05 13:30 | CASEMGMT ---
Insurance Clinical information faxed. Pending continued stay approval at this time. Auth#[id number] Carole LEDESMA, LOFT PATTERNMAKER
[2018-07-05 15:51] VITALS: BP 143/71; PULSE 67; RESP 18; TEMP 36.3; O2SAT 95
[2018-07-05 17:11] LABS: Bedside Glucose 250 mg/dL (70-110)
[2018-07-05] MEDS: Atorvastatin Calcium 80 MG Tablet PO (20:58)
[2018-07-05] MEDS: Tamsulosin HCl 0.4 MG Capsule PO (20:58)
[2018-07-05] MEDS: Latanoprost 0.005% 1 Bottle 1 DRP EACH EYE (21:00)
[2018-07-05 21:31] LABS: Bedside Glucose 255 mg/dL (70-110)
[2018-07-05 22:00] VITALS: PULSE 78; RESP 16
[2018-07-06] MEDS: amLODIPine 10 MG Tablet PO (05:02)
[2018-07-06] MEDS: Calcium Carb/Vitamin D 1 TABLET Tablet PO ×2 (05:02→17:47)
[2018-07-06] MEDS: FLUoxetine 20 MG Capsule 40 MG PO (05:02)
[2018-07-06] MEDS: Clopidogrel Bisulfate 75 MG Tablet PO (05:03)
[2018-07-06] MEDS: Famotidine 20 MG Tablet PO ×2 (05:03→17:47)
[2018-07-06] MEDS: Cyanocobalamin 500 MCG Tablet 1000 MCG PO (05:03)
[2018-07-06] MEDS: Senna/Docusate Sodium 1 Tablet PO ×2 (05:03→17:47)
[2018-07-06] MEDS: Enoxaparin 30 MG/0.3 ML Syringe SC (05:04)
[2018-07-06] MEDS: Menthol/Lanolin/Calamine/Znox 113 GM Tube 1 APPLIC TOPICAL ×2 (05:09→21:01)
[2018-07-06] MEDS: Nystatin Powder 15gm Bottle 1 APPLIC TOPICAL ×2 (05:09→22:00)
[2018-07-06] MEDS: Polyethylene Glycol 3350 17 GM PACKET PO (05:11)
[2018-07-06 05:12] VITALS: PULSE 51; RESP 16; O2SAT 93
[2018-07-06 06:56] LABS: Bedside Glucose 195 mg/dL (70-110)
[2018-07-06] MEDS: Ferrous Gluconate 325 MG Tablet PO ×2 (07:58→17:47)
[2018-07-06] MEDS: Aspirin 81 MG TAB.CHEW PO (07:58)
[2018-07-06] MEDS: Gabapentin 300 MG Capsule PO ×3 (07:58→17:48)
[2018-07-06] MEDS: Folic Acid 1 MG Tablet PO (07:58)
[2018-07-06] MEDS: Insulin Lispro 100 UNIT/ML INSULN.PEN 10 UNIT SC ×3 (07:58→17:48)
--- NOTE | 2018-07-06 09:14 | CASEMGMT ---
Insurance Continued stay approved with next update due on 07/12/18. Auth#[id number] Carole LEDESMA, GROUP MANAGING DIRECTOR
[2018-07-06 11:21] LABS: Bedside Glucose 249 mg/dL (70-110)
--- NOTE | 2018-07-06 14:55 | MDS.RN ---
Information for the mds was obtained from review of the clinical record, interview of resident, staff, and direct observation of resident's care.
[2018-07-06 15:32] VITALS: BP 132/43; PULSE 66; RESP 18; TEMP 36.9; O2SAT 94
[2018-07-06 16:51] LABS: Bedside Glucose 300 mg/dL (70-110)
[2018-07-06 20:51] LABS: Bedside Glucose 318 mg/dL (70-110)
[2018-07-06] MEDS: Acetaminophen 500 MG Tablet 1000 MG PO (20:52)
[2018-07-06] MEDS: Tamsulosin HCl 0.4 MG Capsule PO (20:53)
[2018-07-06] MEDS: Atorvastatin Calcium 80 MG Tablet PO (20:53)
[2018-07-06] MEDS: Latanoprost 0.005% 1 Bottle 1 DRP EACH EYE (20:53)
[2018-07-07] MEDS: Enoxaparin 30 MG/0.3 ML Syringe SC (04:58)
[2018-07-07] MEDS: Polyethylene Glycol 3350 17 GM PACKET PO (04:58)
[2018-07-07] MEDS: Calcium Carb/Vitamin D 1 TABLET Tablet PO ×2 (04:59→17:15)
[2018-07-07] MEDS: Senna/Docusate Sodium 1 Tablet PO ×2 (04:59→17:15)
[2018-07-07] MEDS: Famotidine 20 MG Tablet PO ×2 (05:00→17:15)
[2018-07-07] MEDS: FLUoxetine 20 MG Capsule 40 MG PO (05:00)
[2018-07-07] MEDS: Cyanocobalamin 500 MCG Tablet 1000 MCG PO (05:00)
[2018-07-07] MEDS: Clopidogrel Bisulfate 75 MG Tablet PO (05:00)
[2018-07-07] MEDS: amLODIPine 10 MG Tablet PO (05:00)
[2018-07-07] MEDS: Menthol/Lanolin/Calamine/Znox 113 GM Tube 1 APPLIC TOPICAL ×2 (05:00→20:49)
[2018-07-07] MEDS: Nystatin Powder 15gm Bottle 1 APPLIC TOPICAL ×2 (05:01→20:49)
[2018-07-07 06:56] LABS: Bedside Glucose 232 mg/dL (70-110)
[2018-07-07] MEDS: Insulin Lispro 100 UNIT/ML INSULN.PEN 10 UNIT SC ×3 (08:17→17:15)
[2018-07-07] MEDS: Aspirin 81 MG TAB.CHEW PO (08:18)
[2018-07-07] MEDS: Gabapentin 300 MG Capsule PO ×3 (08:19→17:15)
[2018-07-07] MEDS: Folic Acid 1 MG Tablet PO (08:19)
[2018-07-07] MEDS: Ferrous Gluconate 325 MG Tablet PO ×2 (08:19→17:15)
[2018-07-07 10:00] VITALS: PULSE 62; RESP 18; O2SAT 94
[2018-07-07] MEDS: Acetaminophen 500 MG Tablet 1000 MG PO (10:16)
[2018-07-07 11:10] LABS: Bedside Glucose 270 mg/dL (70-110)
[2018-07-07 16:00] VITALS: BP 125/60; PULSE 74; RESP 18; TEMP 36.3; O2SAT 94
[2018-07-07 17:01] LABS: Bedside Glucose 254 mg/dL (70-110)
[2018-07-07] MEDS: Atorvastatin Calcium 80 MG Tablet PO (20:48)
[2018-07-07] MEDS: Tamsulosin HCl 0.4 MG Capsule PO (20:48)
[2018-07-07] MEDS: Latanoprost 0.005% 1 Bottle 1 DRP EACH EYE (20:49)
[2018-07-07 21:11] LABS: Bedside Glucose 277 mg/dL (70-110)
[2018-07-08] MEDS: Polyethylene Glycol 3350 17 GM PACKET PO (05:56)
[2018-07-08] MEDS: Enoxaparin 30 MG/0.3 ML Syringe SC (05:56)
[2018-07-08] MEDS: FLUoxetine 20 MG Capsule 40 MG PO (05:56)
[2018-07-08] MEDS: Cyanocobalamin 500 MCG Tablet 1000 MCG PO (05:57)
[2018-07-08] MEDS: Calcium Carb/Vitamin D 1 TABLET Tablet PO ×2 (05:57→17:15)
[2018-07-08] MEDS: amLODIPine 10 MG Tablet PO (05:57)
[2018-07-08] MEDS: Clopidogrel Bisulfate 75 MG Tablet PO (05:57)
[2018-07-08] MEDS: Senna/Docusate Sodium 1 Tablet PO (05:57)
[2018-07-08] MEDS: Famotidine 20 MG Tablet PO ×2 (05:57→17:15)
[2018-07-08] MEDS: Nystatin Powder 15gm Bottle 1 APPLIC TOPICAL ×2 (05:57→21:05)
[2018-07-08] MEDS: Menthol/Lanolin/Calamine/Znox 113 GM Tube 1 APPLIC TOPICAL ×2 (05:58→21:04)
[2018-07-08 07:01] LABS: Bedside Glucose 225 mg/dL (70-110)
[2018-07-08] MEDS: Aspirin 81 MG TAB.CHEW PO (08:20)
[2018-07-08] MEDS: Folic Acid 1 MG Tablet PO (08:20)
[2018-07-08] MEDS: Gabapentin 300 MG Capsule PO ×3 (08:21→17:15)
[2018-07-08] MEDS: Ferrous Gluconate 325 MG Tablet PO ×2 (08:21→17:15)
[2018-07-08] MEDS: Insulin Lispro 100 UNIT/ML INSULN.PEN 10 UNIT SC ×3 (08:24→17:16)
[2018-07-08 11:40] LABS: Bedside Glucose 316 mg/dL (70-110)
[2018-07-08 15:13] VITALS: BP 131/58; PULSE 70; RESP 16; TEMP 36.4; O2SAT 93
[2018-07-08 16:56] LABS: Bedside Glucose 325 mg/dL (70-110)
[2018-07-08] MEDS: Atorvastatin Calcium 80 MG Tablet PO (21:05)
[2018-07-08] MEDS: Latanoprost 0.005% 1 Bottle 1 DRP EACH EYE (21:06)
[2018-07-08] MEDS: Tamsulosin HCl 0.4 MG Capsule PO (21:06)
[2018-07-08 21:21] LABS: Bedside Glucose 347 mg/dL (70-110)
[2018-07-08 21:53] VITALS: PULSE 64; RESP 16
[2018-07-09] MEDS: Enoxaparin 30 MG/0.3 ML Syringe SC (06:02)
[2018-07-09] MEDS: Menthol/Lanolin/Calamine/Znox 113 GM Tube 1 APPLIC TOPICAL ×2 (06:02→21:45)
[2018-07-09] MEDS: Nystatin Powder 15gm Bottle 1 APPLIC TOPICAL ×2 (06:02→21:46)
[2018-07-09] MEDS: Cyanocobalamin 500 MCG Tablet 1000 MCG PO (06:03)
[2018-07-09] MEDS: Famotidine 20 MG Tablet PO ×2 (06:03→17:18)
[2018-07-09] MEDS: FLUoxetine 20 MG Capsule 40 MG PO (06:04)
[2018-07-09] MEDS: Calcium Carb/Vitamin D 1 TABLET Tablet PO ×2 (06:04→17:18)
[2018-07-09] MEDS: Clopidogrel Bisulfate 75 MG Tablet PO (06:04)
[2018-07-09] MEDS: Senna/Docusate Sodium 1 Tablet PO ×2 (06:05→17:18)
[2018-07-09] MEDS: amLODIPine 10 MG Tablet PO (06:05)
[2018-07-09 06:41] LABS: Bedside Glucose 253 mg/dL (70-110)
[2018-07-09] MEDS: Insulin Lispro 100 UNIT/ML INSULN.PEN 10 UNIT SC ×3 (06:43→17:17)
[2018-07-09] MEDS: Folic Acid 1 MG Tablet PO (08:44)
[2018-07-09] MEDS: Aspirin 81 MG TAB.CHEW PO (08:44)
[2018-07-09] MEDS: Ferrous Gluconate 325 MG Tablet PO ×2 (08:45→17:18)
[2018-07-09] MEDS: Gabapentin 300 MG Capsule PO ×3 (08:45→17:18)
[2018-07-09 11:40] LABS: Bedside Glucose 302 mg/dL (70-110)
[2018-07-09 15:45] VITALS: BP 132/65; PULSE 63; RESP 18; TEMP 37.1; O2SAT 96
[2018-07-09 17:01] LABS: Bedside Glucose 283 mg/dL (70-110)
[2018-07-09 20:50] LABS: Bedside Glucose 268 mg/dL (70-110)
[2018-07-09] MEDS: Tamsulosin HCl 0.4 MG Capsule PO (21:45)
[2018-07-09] MEDS: Atorvastatin Calcium 80 MG Tablet PO (21:45)
[2018-07-09] MEDS: Latanoprost 0.005% 1 Bottle 1 DRP EACH EYE (21:46)
[2018-07-09 22:00] VITALS: PULSE 56; RESP 15; O2SAT 99
[2018-07-10] MEDS: Polyethylene Glycol 3350 17 GM PACKET PO (05:23)
[2018-07-10] MEDS: Cyanocobalamin 500 MCG Tablet 1000 MCG PO (05:24)
[2018-07-10] MEDS: amLODIPine 10 MG Tablet PO (05:24)
[2018-07-10] MEDS: FLUoxetine 20 MG Capsule 40 MG PO (05:24)
[2018-07-10] MEDS: Famotidine 20 MG Tablet PO ×2 (05:24→17:23)
[2018-07-10] MEDS: Calcium Carb/Vitamin D 1 TABLET Tablet PO ×2 (05:24→17:23)
[2018-07-10] MEDS: Clopidogrel Bisulfate 75 MG Tablet PO (05:24)
[2018-07-10] MEDS: Senna/Docusate Sodium 1 Tablet PO ×2 (05:25→17:22)
[2018-07-10] MEDS: Menthol/Lanolin/Calamine/Znox 113 GM Tube 1 APPLIC TOPICAL ×2 (05:26→20:32)
[2018-07-10] MEDS: Nystatin Powder 15gm Bottle 1 APPLIC TOPICAL ×2 (05:26→20:32)
[2018-07-10] MEDS: Enoxaparin 30 MG/0.3 ML Syringe SC (05:28)
[2018-07-10 07:26] LABS: Bedside Glucose 223 mg/dL (70-110)
[2018-07-10] MEDS: Folic Acid 1 MG Tablet PO (08:26)
[2018-07-10] MEDS: Gabapentin 300 MG Capsule PO ×3 (08:26→17:22)
[2018-07-10] MEDS: Insulin Lispro 100 UNIT/ML INSULN.PEN 10 UNIT SC ×3 (08:26→17:29)
[2018-07-10] MEDS: Aspirin 81 MG TAB.CHEW PO (08:26)
[2018-07-10] MEDS: Ferrous Gluconate 325 MG Tablet PO ×2 (08:26→17:22)
[2018-07-10 11:11] LABS: Bedside Glucose 319 mg/dL (70-110)
[2018-07-10 15:27] VITALS: BP 132/61; PULSE 63; RESP 16; TEMP 37.1; O2SAT 92
[2018-07-10 17:15] LABS: Bedside Glucose 286 mg/dL (70-110)
[2018-07-10 20:30] VITALS: PULSE 60; RESP 16; O2SAT 94
[2018-07-10] MEDS: Latanoprost 0.005% 1 Bottle 1 DRP EACH EYE (20:34)
[2018-07-10] MEDS: Tamsulosin HCl 0.4 MG Capsule PO (20:36)
[2018-07-10] MEDS: Atorvastatin Calcium 80 MG Tablet PO (20:37)
--- NOTE | 2018-07-10 23:00 | NURSING ---
HS GLUCOSE CHECK WAS 420 AND RECHECK WAS 418 PER KIMBERLI, KENYON. SAME REPORTED TO DELORES METZ. DELORES METZ. REPORTED TO DR MURILLO. NNO. WILL CONT TO MONITOR. PATIENT DENIES ANYS/S HYPO OR HYPER GLYCEMIA.
--- NOTE | 2018-07-10 23:10 | NURSING ---
Dr. Vogt notified of HS blood sugar of 418. No new orders given.
[2018-07-11] MEDS: Famotidine 20 MG Tablet PO ×2 (05:09→17:32)
[2018-07-11] MEDS: Calcium Carb/Vitamin D 1 TABLET Tablet PO ×2 (05:09→17:32)
[2018-07-11] MEDS: Senna/Docusate Sodium 1 Tablet PO (05:09)
[2018-07-11] MEDS: Clopidogrel Bisulfate 75 MG Tablet PO (05:09)
[2018-07-11] MEDS: Cyanocobalamin 500 MCG Tablet 1000 MCG PO (05:09)
[2018-07-11] MEDS: FLUoxetine 20 MG Capsule 40 MG PO (05:09)
[2018-07-11] MEDS: amLODIPine 10 MG Tablet PO (05:10)
[2018-07-11] MEDS: Polyethylene Glycol 3350 17 GM PACKET PO (05:11)
[2018-07-11] MEDS: Menthol/Lanolin/Calamine/Znox 113 GM Tube 1 APPLIC TOPICAL ×2 (05:13→20:35)
[2018-07-11] MEDS: Nystatin Powder 15gm Bottle 1 APPLIC TOPICAL ×2 (05:13→20:35)
[2018-07-11] MEDS: Enoxaparin 30 MG/0.3 ML Syringe SC (05:14)
[2018-07-11] MEDS: Acetaminophen 500 MG Tablet 1000 MG PO ×2 (05:27→20:35)
[2018-07-11 06:30] LABS: Bedside Glucose 320 mg/dL (70-110)
[2018-07-11] MEDS: Insulin Lispro 100 UNIT/ML INSULN.PEN 10 UNIT SC (07:51)
[2018-07-11] MEDS: Ferrous Gluconate 325 MG Tablet PO ×2 (07:53→17:32)
[2018-07-11] MEDS: Folic Acid 1 MG Tablet PO (07:53)
[2018-07-11] MEDS: Gabapentin 300 MG Capsule PO ×3 (07:53→17:32)
[2018-07-11] MEDS: Aspirin 81 MG TAB.CHEW PO (07:53)
[2018-07-11 08:26] LABS: Bedside Glucose 420 mg/dL (70-110)
[2018-07-11 08:26] LABS: Bedside Glucose 418 mg/dL (70-110)
[2018-07-11 11:16] LABS: Bedside Glucose 294 mg/dL (70-110)
[2018-07-11] MEDS: Insulin Lispro 100 UNIT/ML INSULN.PEN 13 UNIT SC ×2 (11:19→17:36)
--- NOTE | 2018-07-11 14:57 | CASEMGMT ---
Brief interview for mental status (BIMS) and resident mood interview (PHQ-9) completed on this day. BIMS score 15/15. PHQ-9 score
[2018-07-11 15:16] VITALS: BP 135/68; PULSE 54; RESP 16; TEMP 36.4; O2SAT 94
[2018-07-11 17:00] LABS: Bedside Glucose 206 mg/dL (70-110)
[2018-07-11 20:00] VITALS: PULSE 64; RESP 18; O2SAT 96
[2018-07-11] MEDS: Latanoprost 0.005% 1 Bottle 1 DRP EACH EYE (20:35)
[2018-07-11] MEDS: Atorvastatin Calcium 80 MG Tablet PO (20:37)
[2018-07-11] MEDS: Tamsulosin HCl 0.4 MG Capsule PO (20:37)
[2018-07-11 21:21] LABS: Bedside Glucose 191 mg/dL (70-110)
--- NOTE | 2018-07-11 21:28 | NURSING ---
NIVIA Rojas reported to this nurse that pt was rating her pain a 9/10 in her hand and moaning in pain. Pt requesting to get something stronger since Tylenol was not effective. Dr. Vogt aware, and new order for ultram 50mg Q6 PRN for mod pain. Will continue to monitor.
[2018-07-12] MEDS: traMADol 50 MG Tablet PO ×3 (05:07→18:09)
[2018-07-12] MEDS: Clopidogrel Bisulfate 75 MG Tablet PO (05:08)
[2018-07-12] MEDS: Famotidine 20 MG Tablet PO ×2 (05:08→18:06)
[2018-07-12] MEDS: Calcium Carb/Vitamin D 1 TABLET Tablet PO ×2 (05:08→18:06)
[2018-07-12] MEDS: Cyanocobalamin 500 MCG Tablet 1000 MCG PO (05:08)
[2018-07-12] MEDS: FLUoxetine 20 MG Capsule 40 MG PO (05:08)
[2018-07-12] MEDS: Enoxaparin 30 MG/0.3 ML Syringe SC (05:09)
[2018-07-12] MEDS: Nystatin Powder 15gm Bottle 1 APPLIC TOPICAL ×2 (05:09→21:29)
[2018-07-12] MEDS: amLODIPine 10 MG Tablet PO (05:09)
[2018-07-12] MEDS: Senna/Docusate Sodium 1 Tablet PO ×2 (05:10→18:06)
[2018-07-12] MEDS: Polyethylene Glycol 3350 17 GM PACKET PO (05:10)
[2018-07-12] MEDS: Menthol/Lanolin/Calamine/Znox 113 GM Tube 1 APPLIC TOPICAL ×2 (05:10→21:28)
[2018-07-12] MEDS: Insulin Lispro 100 UNIT/ML INSULN.PEN 13 UNIT SC ×3 (06:43→18:06)
[2018-07-12 07:01] LABS: Bedside Glucose 173 mg/dL (70-110)
[2018-07-12] MEDS: Acetaminophen 500 MG Tablet 1000 MG PO ×2 (07:19→15:07)
[2018-07-12] MEDS: Gabapentin 300 MG Capsule PO ×3 (08:54→18:06)
[2018-07-12] MEDS: Aspirin 81 MG TAB.CHEW PO (08:54)
[2018-07-12] MEDS: Ferrous Gluconate 325 MG Tablet PO ×2 (08:55→18:06)
[2018-07-12] MEDS: Folic Acid 1 MG Tablet PO (08:55)
--- NOTE | 2018-07-12 09:09 | NURSING ---
Pt c/o severe right hand pain after pain medications. Dr. Vogt updated. NO for xray of right hand, cbc with diff, bmp, uric acid level, CRP and ESR. Patient aware.
[2018-07-12 09:15] VITALS: PULSE 60
--- NOTE | 2018-07-12 09:40 | RAD_ITS ---
STUDY: X-RAY - RIGHT HAND REASON FOR EXAM: Pain. TECHNIQUE: 3 view(s) of the hand. COMPARISON: None. FINDINGS: Normal radiocarpal articulation. Normal distal radioulnar joint. Normal visualized carpal bones. Normal carpal articulations Normal carpometacarpal articulation of the thumb. Normal second through fifth carpometacarpal joints. Normal metacarpi. Normal metacarpophalangeal joint of the thumb. Normal interphalangeal joint of the thumb. Normal proximal and distal phalanges of the thumb. There is arthrosis of the second metacarpophalangeal joint with marginal osteophytes and moderate joint space narrowing. Normal proximal and distal interphalangeal joints of the second through fifth fingers. Normal phalanges of the second through fifth fingers. The soft tissue structures are unremarkable. RAD/Hand 2 Views IMPRESSION: Arthrosis of the second metacarpophalangeal joint. Electronically Signed: Rajesh Tobar MD at 11:42 EDT Tel , Service support ,
[2018-07-12 10:19] LABS: Erythrocyte Sedimentation Rate 52 mm/hr (0-30)
[2018-07-12 10:22] LABS: Absolute Lymphocyte Count 1.05 X10^3/ul (0.83-4.51); Absolute Neutrophil Count 4.3 X10^3/uL (2.0-7.7); Basophil# 0.02 X10^3/uL; Basophil% 0.3 % (0-1); Eosinophil# 0.27 X10^3/uL; Eosinophils% 4.5 % (0-5); Hematocrit 35.8 % (37-47); Hemoglobin 11.5 g/dl (12.0-15.0); Lymphocyte # 1.05 X10^3/ul (4.0); Lymphocyte % 17.4 % (19-41); Mean Corp Hgb Conc 32.1 g/gl (32-36); Mean Corpuscular Hgb 28.1 pg (27.0-32.0); Mean Corpuscular Volume 87.5 fL (81-99); Mean Platelet Vol. 10.6 fl (6.2-12.0); Monocyte# 0.42 X10^3/uL; Neutrophil # 4.25 X10^3/uL (2.7-7.7); Neutrophil % 70.6 % (47-70); POSITIVE COUNT NO; POSITIVE DIFFERENTIAL NO; POSITIVE MORPHOLOGY NO; Platelet Count 189 K/mm3 (150-450); RBC Distribution Width CV 13.9 % (11.6-14.6); RBC Distribution Width SD 44.6 fl (35.1-43.9); Red Blood Count 4.09 M/mm3 (4.2-5.4)
[2018-07-12 10:37] LABS: Anion Gap 7 (5-15); BUN 18 mg/dL (7-18); BUN/Creat Ratio 13.8 RATIO (10-20); CRP 6.49 mg/L (0.0-3.0); Calcium,Total 9.1 mg/dL (8.5-10.1); Chloride 104 mmol/L (98-107); EST Glomerular Filtration Rate 43 mL/min (>60); Est Glom Filt Rate - Afr Amer 51 mL/min (>60); Estimated Creatinine Clearance 32.78 ml/min; Glucose 192 mg/dL (74-106); Potassium 3.9 mmol/L (3.5-5.1); Sodium Level 139 mmol/L (136-145); Uric Acid 4.6 mg/dL (2.6-6.0)
[2018-07-12 11:11] LABS: Bedside Glucose 209 mg/dL (70-110)
--- NOTE | 2018-07-12 12:30 | CASEMGMT ---
Insurance Clinical information faxed. Pending continued stay approval at this time. Auth#[id number] Carole LEDESMA, CONTINUOUS MINING MACHINE OPERATOR
[2018-07-12 15:30] VITALS: BP 138/62; PULSE 66; RESP 18; TEMP 36.6; O2SAT 91
[2018-07-12 17:00] LABS: Bedside Glucose 235 mg/dL (70-110)
--- NOTE | 2018-07-12 18:36 | NURSING ---
Dr. Vogt reviewed labs and xray, NNO.
[2018-07-12 21:11] LABS: Bedside Glucose 263 mg/dL (70-110)
[2018-07-12] MEDS: Tamsulosin HCl 0.4 MG Capsule PO (21:30)
[2018-07-12] MEDS: Atorvastatin Calcium 80 MG Tablet PO (21:31)
[2018-07-12] MEDS: Latanoprost 0.005% 1 Bottle 1 DRP EACH EYE (21:31)
[2018-07-13] MEDS: Acetaminophen 500 MG Tablet 1000 MG PO ×2 (05:25→22:03)
[2018-07-13] MEDS: amLODIPine 10 MG Tablet PO (05:26)
[2018-07-13] MEDS: Famotidine 20 MG Tablet PO ×2 (05:26→17:27)
[2018-07-13] MEDS: Clopidogrel Bisulfate 75 MG Tablet PO (05:26)
[2018-07-13] MEDS: Cyanocobalamin 500 MCG Tablet 1000 MCG PO (05:27)
[2018-07-13] MEDS: Nystatin Powder 15gm Bottle 1 APPLIC TOPICAL ×2 (05:27→21:50)
[2018-07-13] MEDS: Senna/Docusate Sodium 1 Tablet PO ×2 (05:27→17:28)
[2018-07-13] MEDS: Calcium Carb/Vitamin D 1 TABLET Tablet PO ×2 (05:27→17:27)
[2018-07-13] MEDS: FLUoxetine 20 MG Capsule 40 MG PO (05:27)
[2018-07-13] MEDS: Menthol/Lanolin/Calamine/Znox 113 GM Tube 1 APPLIC TOPICAL ×2 (05:28→21:50)
[2018-07-13] MEDS: Enoxaparin 30 MG/0.3 ML Syringe SC (05:29)
[2018-07-13 06:56] LABS: Bedside Glucose 180 mg/dL (70-110)
[2018-07-13 07:00] VITALS: PULSE 62; RESP 20; O2SAT 93
[2018-07-13] MEDS: Folic Acid 1 MG Tablet PO (08:23)
[2018-07-13] MEDS: Insulin Lispro 100 UNIT/ML INSULN.PEN 13 UNIT SC ×3 (08:24→17:29)
[2018-07-13] MEDS: Ferrous Gluconate 325 MG Tablet PO ×2 (08:24→17:26)
[2018-07-13] MEDS: Aspirin 81 MG TAB.CHEW PO (08:24)
[2018-07-13] MEDS: Gabapentin 300 MG Capsule PO ×3 (08:24→17:26)
[2018-07-13 11:01] LABS: Bedside Glucose 204 mg/dL (70-110)
--- NOTE | 2018-07-13 11:26 | CASEMGMT ---
Insurance Continued stay approved with next update due on 07/18/18. Auth#[id number] Carole LEDESMA, PHARMACY SPECIALIST
[2018-07-13] MEDS: traMADol 50 MG Tablet PO (15:47)
[2018-07-13 15:53] VITALS: BP 132/58; PULSE 64; RESP 20; TEMP 36.8; O2SAT 97
[2018-07-13 17:01] LABS: Bedside Glucose 193 mg/dL (70-110)
[2018-07-13 20:56] LABS: Bedside Glucose 215 mg/dL (70-110)
[2018-07-13] MEDS: Latanoprost 0.005% 1 Bottle 1 DRP EACH EYE (21:53)
[2018-07-13] MEDS: Atorvastatin Calcium 80 MG Tablet PO (21:53)
[2018-07-13] MEDS: Tamsulosin HCl 0.4 MG Capsule PO (21:54)
[2018-07-14] MEDS: Menthol/Lanolin/Calamine/Znox 113 GM Tube 1 APPLIC TOPICAL ×2 (05:27→21:46)
[2018-07-14] MEDS: Nystatin Powder 15gm Bottle 1 APPLIC TOPICAL ×2 (05:27→21:47)
[2018-07-14] MEDS: Clopidogrel Bisulfate 75 MG Tablet PO (05:30)
[2018-07-14] MEDS: Famotidine 20 MG Tablet PO ×2 (05:30→18:19)
[2018-07-14] MEDS: Senna/Docusate Sodium 1 Tablet PO ×2 (05:30→18:02)
[2018-07-14] MEDS: Cyanocobalamin 500 MCG Tablet 1000 MCG PO (05:30)
[2018-07-14] MEDS: FLUoxetine 20 MG Capsule 40 MG PO (05:30)
[2018-07-14] MEDS: amLODIPine 10 MG Tablet PO (05:31)
[2018-07-14] MEDS: Calcium Carb/Vitamin D 1 TABLET Tablet PO ×2 (05:31→18:02)
[2018-07-14] MEDS: Enoxaparin 30 MG/0.3 ML Syringe SC (05:32)
[2018-07-14 06:30] VITALS: PULSE 56; RESP 18; O2SAT 94
[2018-07-14 07:11] LABS: Bedside Glucose 195 mg/dL (70-110)
[2018-07-14] MEDS: Gabapentin 300 MG Capsule PO ×2 (08:49→18:02)
[2018-07-14] MEDS: Aspirin 81 MG TAB.CHEW PO (08:49)
[2018-07-14] MEDS: Folic Acid 1 MG Tablet PO (08:50)
[2018-07-14] MEDS: Ferrous Gluconate 325 MG Tablet PO ×2 (08:50→18:02)
[2018-07-14] MEDS: Insulin Lispro 100 UNIT/ML INSULN.PEN 13 UNIT SC ×2 (08:52→18:03)
--- NOTE | 2018-07-14 09:29 | NURSING ---
This nurse notified that Pt was lowered to floor by RED LEAD BURNER. Pt stated that she had a muscle spasm in her leg and couldn't stand. vitals WNL. no c/o pain. Therapy assisted in getting pt to her chair. Sabina/tatum Dan
--- NOTE | 2018-07-14 09:31 | PCA ---
Was putting her on the bsc and her right leg wouldnt hold and I lowered her to the floor. She did not hit anything nor did she hit the floor hard. She then told me that she had gotten a leg spasm, which she hasnt gotten before, she said. Then therapy and I got her on the bsc, she did her business and got her back into her recliner and she did great. No more leg spasm.
[2018-07-14] MEDS: traMADol 50 MG Tablet PO (10:59)
[2018-07-14 11:05] LABS: Bedside Glucose 292 mg/dL (70-110)
--- NOTE | 2018-07-14 11:39 | NURSING ---
Addendum entered by Sabina Campbell 07/14/18 11:59: DR Vogt notified, new order for depakote x1, kpad ordered for comfort. Original Note: Pt c/o pain 07/13 crying in pain and refusing meals at this time. Boris RN notified
[2018-07-14 11:52] VITALS: BP 164/73; PULSE 85; RESP 20; O2SAT 97
--- NOTE | 2018-07-14 11:55 | NURSING ---
Pt crying out in pain, complaining of pain 10/10 even after having tramadol. pt complaining of pain that is sharp, shooting and radiating from hand up into shoulders. Boris ESTRELLA aware
[2018-07-14] MEDS: Divalproex Sodium 250 MG Tablet 500 MG PO (12:37)
[2018-07-14 16:00] VITALS: BP 122/55; PULSE 60; RESP 20; TEMP 36.4; O2SAT 90
[2018-07-14 17:15] LABS: Bedside Glucose 273 mg/dL (70-110)
--- NOTE | 2018-07-14 17:30 | RAD_ITS ---
STUDY: X-RAY - RIGHT SHOULDER REASON FOR EXAM: Female, 73 years old. Pain TECHNIQUE: 2 view(s) of the shoulder. COMPARISON: None. FINDINGS: Normal glenohumeral articulation. Mild degenerative changes at the acromioclavicular joint. Normal acromion. Normal humeral head and visualized proximal humerus. The soft tissue structures are unremarkable. Normal visualized pulmonary apex. RAD/Shoulder min 2 Views IMPRESSION: No acute bony injury of the shoulder. Electronically Signed: Quique Kc DO at 20:07 EDT Tel [phone], Service support ,
--- NOTE | 2018-07-14 17:31 | NURSING ---
pt cont to c/o RT arm shoulder and RT leg pain. Dr Vogt updated that depakote helpful, new order for PRN depakote and xray shoulder.
[2018-07-14 20:56] LABS: Bedside Glucose 350 mg/dL (70-110)
[2018-07-14] MEDS: Tamsulosin HCl 0.4 MG Capsule PO (21:49)
[2018-07-14] MEDS: Atorvastatin Calcium 80 MG Tablet PO (21:49)
[2018-07-14] MEDS: Latanoprost 0.005% 1 Bottle 1 DRP EACH EYE (21:50)
[2018-07-15] MEDS: Menthol/Lanolin/Calamine/Znox 113 GM Tube 1 APPLIC TOPICAL ×2 (05:56→21:39)
[2018-07-15] MEDS: Enoxaparin 30 MG/0.3 ML Syringe SC (05:57)
[2018-07-15] MEDS: Nystatin Powder 15gm Bottle 1 APPLIC TOPICAL ×2 (05:58→21:40)
[2018-07-15 06:00] VITALS: BP 140/57; PULSE 61
[2018-07-15] MEDS: Clopidogrel Bisulfate 75 MG Tablet PO (06:02)
[2018-07-15] MEDS: Calcium Carb/Vitamin D 1 TABLET Tablet PO ×2 (06:02→17:38)
[2018-07-15] MEDS: amLODIPine 10 MG Tablet PO (06:02)
[2018-07-15] MEDS: Famotidine 20 MG Tablet PO ×2 (06:02→17:37)
[2018-07-15] MEDS: FLUoxetine 20 MG Capsule 40 MG PO (06:03)
[2018-07-15] MEDS: Cyanocobalamin 500 MCG Tablet 1000 MCG PO (06:03)
[2018-07-15] MEDS: Senna/Docusate Sodium 1 Tablet PO ×2 (06:03→17:37)
[2018-07-15] MEDS: Insulin Lispro 100 UNIT/ML INSULN.PEN 13 UNIT SC ×3 (06:11→17:37)
[2018-07-15] MEDS: Acetaminophen 500 MG Tablet 1000 MG PO ×2 (06:11→21:40)
[2018-07-15 06:50] LABS: Bedside Glucose 292 mg/dL (70-110)
[2018-07-15] MEDS: Folic Acid 1 MG Tablet PO (08:35)
[2018-07-15] MEDS: Aspirin 81 MG TAB.CHEW PO (08:35)
[2018-07-15] MEDS: Ferrous Gluconate 325 MG Tablet PO ×2 (08:36→17:38)
[2018-07-15] MEDS: Gabapentin 300 MG Capsule PO ×3 (08:36→17:38)
--- NOTE | 2018-07-15 09:00 | NURSING ---
Dr Vogt updated on xray rt shoulder results., no new orders.
[2018-07-15 11:46] LABS: Bedside Glucose 250 mg/dL (70-110)
[2018-07-15 13:28] VITALS: RESP 18
[2018-07-15 15:38] VITALS: BP 133/60; PULSE 66; RESP 18; TEMP 36.7; O2SAT 94
[2018-07-15 16:52] LABS: Bedside Glucose 291 mg/dL (70-110)
[2018-07-15 21:26] LABS: Bedside Glucose 345 mg/dL (70-110)
[2018-07-15] MEDS: Latanoprost 0.005% 1 Bottle 1 DRP EACH EYE (21:40)
[2018-07-15] MEDS: traMADol 50 MG Tablet PO (21:40)
[2018-07-15] MEDS: NYSTATIN 500,000 UNIT/5 ML UDC 500000 UNIT PO (21:41)
[2018-07-15] MEDS: Atorvastatin Calcium 80 MG Tablet PO (21:41)
[2018-07-15] MEDS: Tamsulosin HCl 0.4 MG Capsule PO (21:42)
[2018-07-16] MEDS: Menthol/Lanolin/Calamine/Znox 113 GM Tube 1 APPLIC TOPICAL ×2 (05:39→20:21)
[2018-07-16] MEDS: Nystatin Powder 15gm Bottle 1 APPLIC TOPICAL ×2 (05:39→20:26)
[2018-07-16] MEDS: NYSTATIN 500,000 UNIT/5 ML UDC 500000 UNIT PO ×4 (05:40→20:32)
[2018-07-16] MEDS: Enoxaparin 30 MG/0.3 ML Syringe SC (05:40)
[2018-07-16] MEDS: FLUoxetine 20 MG Capsule 40 MG PO (05:40)
[2018-07-16] MEDS: traMADol 50 MG Tablet PO (05:40)
[2018-07-16] MEDS: Cyanocobalamin 500 MCG Tablet 1000 MCG PO (05:41)
[2018-07-16] MEDS: Senna/Docusate Sodium 1 Tablet PO ×2 (05:41→17:28)
[2018-07-16] MEDS: Famotidine 20 MG Tablet PO ×2 (05:41→17:28)
[2018-07-16] MEDS: amLODIPine 10 MG Tablet PO (05:41)
[2018-07-16] MEDS: Calcium Carb/Vitamin D 1 TABLET Tablet PO ×2 (05:42→17:28)
[2018-07-16] MEDS: Clopidogrel Bisulfate 75 MG Tablet PO (05:42)
[2018-07-16] MEDS: Insulin Lispro 100 UNIT/ML INSULN.PEN 13 UNIT SC ×3 (06:53→17:32)
[2018-07-16 07:11] LABS: Bedside Glucose 304 mg/dL (70-110)
[2018-07-16] MEDS: Ferrous Gluconate 325 MG Tablet PO ×2 (08:25→17:28)
[2018-07-16] MEDS: Folic Acid 1 MG Tablet PO (08:26)
[2018-07-16] MEDS: Gabapentin 300 MG Capsule PO ×3 (08:26→17:28)
[2018-07-16] MEDS: Aspirin 81 MG TAB.CHEW PO (08:26)
[2018-07-16 11:27] LABS: Bedside Glucose 294 mg/dL (70-110)
[2018-07-16 15:45] VITALS: PULSE 60; RESP 16; O2SAT 93
[2018-07-16 15:57] VITALS: BP 128/44; PULSE 58; RESP 18; TEMP 36.7; O2SAT 95
[2018-07-16 17:00] LABS: Bedside Glucose 224 mg/dL (70-110)
[2018-07-16] MEDS: Tamsulosin HCl 0.4 MG Capsule PO (20:30)
[2018-07-16] MEDS: Atorvastatin Calcium 80 MG Tablet PO (20:30)
[2018-07-16] MEDS: Latanoprost 0.005% 1 Bottle 1 DRP EACH EYE (20:33)
[2018-07-16 21:16] LABS: Bedside Glucose 208 mg/dL (70-110)
[2018-07-17] MEDS: Enoxaparin 30 MG/0.3 ML Syringe SC (05:59)
[2018-07-17] MEDS: Menthol/Lanolin/Calamine/Znox 113 GM Tube 1 APPLIC TOPICAL ×2 (06:01→20:09)
[2018-07-17] MEDS: Famotidine 20 MG Tablet PO ×2 (06:02→17:26)
[2018-07-17] MEDS: Senna/Docusate Sodium 1 Tablet PO ×2 (06:02→17:26)
[2018-07-17] MEDS: amLODIPine 10 MG Tablet PO (06:02)
[2018-07-17] MEDS: Calcium Carb/Vitamin D 1 TABLET Tablet PO ×2 (06:02→17:26)
[2018-07-17] MEDS: Clopidogrel Bisulfate 75 MG Tablet PO (06:02)
[2018-07-17] MEDS: Cyanocobalamin 500 MCG Tablet 1000 MCG PO (06:02)
[2018-07-17] MEDS: NYSTATIN 500,000 UNIT/5 ML UDC 500000 UNIT PO ×4 (06:03→20:09)
[2018-07-17] MEDS: Nystatin Powder 15gm Bottle 1 APPLIC TOPICAL ×2 (06:03→20:09)
[2018-07-17] MEDS: Polyethylene Glycol 3350 17 GM PACKET PO (06:04)
[2018-07-17] MEDS: FLUoxetine 20 MG Capsule 40 MG PO (06:04)
[2018-07-17] MEDS: Divalproex Sodium 250 MG Tablet 500 MG PO ×2 (06:45→20:12)
--- NOTE | 2018-07-17 06:47 | NURSING ---
pdt c/o pain in right hand at this time didn't want heating pad on given prn depakote this morning.
[2018-07-17 07:06] LABS: Bedside Glucose 231 mg/dL (70-110)
[2018-07-17] MEDS: Insulin Lispro 100 UNIT/ML INSULN.PEN 13 UNIT SC ×3 (08:13→18:19)
[2018-07-17] MEDS: Folic Acid 1 MG Tablet PO (08:14)
[2018-07-17] MEDS: Ferrous Gluconate 325 MG Tablet PO ×2 (08:14→17:26)
[2018-07-17] MEDS: Aspirin 81 MG TAB.CHEW PO (08:14)
[2018-07-17] MEDS: Gabapentin 300 MG Capsule PO ×3 (08:14→17:26)
[2018-07-17 11:11] LABS: Bedside Glucose 247 mg/dL (70-110)
[2018-07-17] MEDS: Acetaminophen 500 MG Tablet 1000 MG PO (14:48)
[2018-07-17 16:00] VITALS: BP 130/53; PULSE 52; RESP 18; TEMP 36.1; O2SAT 96
[2018-07-17 17:10] LABS: Bedside Glucose 195 mg/dL (70-110)
[2018-07-17] MEDS: traMADol 50 MG Tablet PO (20:07)
[2018-07-17] MEDS: Latanoprost 0.005% 1 Bottle 1 DRP EACH EYE (20:08)
[2018-07-17] MEDS: Atorvastatin Calcium 80 MG Tablet PO (20:10)
[2018-07-17] MEDS: Tamsulosin HCl 0.4 MG Capsule PO (20:11)
[2018-07-17 20:25] VITALS: PULSE 60; RESP 16; O2SAT 92
[2018-07-17 21:25] LABS: Bedside Glucose 263 mg/dL (70-110)
[2018-07-18] MEDS: Acetaminophen 500 MG Tablet 1000 MG PO (05:15)
[2018-07-18] MEDS: Clopidogrel Bisulfate 75 MG Tablet PO (05:16)
[2018-07-18] MEDS: FLUoxetine 20 MG Capsule 40 MG PO (05:16)
[2018-07-18] MEDS: Calcium Carb/Vitamin D 1 TABLET Tablet PO ×2 (05:16→17:54)
[2018-07-18] MEDS: Polyethylene Glycol 3350 17 GM PACKET PO (05:16)
[2018-07-18] MEDS: amLODIPine 10 MG Tablet PO (05:16)
[2018-07-18] MEDS: Cyanocobalamin 500 MCG Tablet 1000 MCG PO (05:16)
[2018-07-18] MEDS: Famotidine 20 MG Tablet PO ×2 (05:16→17:54)
[2018-07-18] MEDS: Nystatin Powder 15gm Bottle 1 APPLIC TOPICAL ×2 (05:17→20:30)
[2018-07-18] MEDS: NYSTATIN 500,000 UNIT/5 ML UDC 500000 UNIT PO ×4 (05:17→20:26)
[2018-07-18] MEDS: Menthol/Lanolin/Calamine/Znox 113 GM Tube 1 APPLIC TOPICAL ×2 (05:17→20:23)
[2018-07-18] MEDS: Enoxaparin 30 MG/0.3 ML Syringe SC (05:18)
[2018-07-18] MEDS: Senna/Docusate Sodium 1 Tablet PO ×2 (05:23→17:54)
[2018-07-18 07:11] LABS: Bedside Glucose 145 mg/dL (70-110)
[2018-07-18 10:00] VITALS: PULSE 74; RESP 18; O2SAT 95
[2018-07-18] MEDS: Ferrous Gluconate 325 MG Tablet PO ×2 (10:18→17:54)
[2018-07-18] MEDS: Gabapentin 300 MG Capsule PO ×3 (10:19→17:54)
[2018-07-18] MEDS: Aspirin 81 MG TAB.CHEW PO (10:19)
[2018-07-18] MEDS: Insulin Lispro 100 UNIT/ML INSULN.PEN 13 UNIT SC ×2 (10:20→17:54)
[2018-07-18] MEDS: Divalproex Sodium 250 MG Tablet 500 MG PO (10:57)
[2018-07-18] MEDS: Folic Acid 1 MG Tablet PO (10:58)
[2018-07-18 11:20] LABS: Bedside Glucose 209 mg/dL (70-110)
--- NOTE | 2018-07-18 12:17 | CASEMGMT ---
Insurance Clinical information faxed. Pending continued stay approval at this time. Auth#[id number] Carole LEDESMA, PILATES INSTRUCTOR
[2018-07-18] MEDS: traMADol 50 MG Tablet PO (12:27)
[2018-07-18 15:51] VITALS: BP 128/49; PULSE 64; RESP 16; TEMP 36.8; O2SAT 95
--- NOTE | 2018-07-18 16:06 | NURSING ---
Pt having severe sharp, shooting pain to right hand/arm. Depakote ineffective. Dr. Vogt updated, NO to increase tramadol to 100mg PO [id number] PRN.
[2018-07-18 16:55] LABS: Bedside Glucose 213 mg/dL (70-110)
[2018-07-18] MEDS: Latanoprost 0.005% 1 Bottle 1 DRP EACH EYE (20:25)
[2018-07-18] MEDS: Atorvastatin Calcium 80 MG Tablet PO (20:27)
[2018-07-18] MEDS: Tamsulosin HCl 0.4 MG Capsule PO (20:27)
[2018-07-18] MEDS: traMADol 50 MG Tablet 100 MG PO (21:07)
[2018-07-18 21:21] LABS: Bedside Glucose 275 mg/dL (70-110)
[2018-07-19] MEDS: amLODIPine 10 MG Tablet PO (05:06)
[2018-07-19] MEDS: FLUoxetine 20 MG Capsule 40 MG PO (05:06)
[2018-07-19] MEDS: Calcium Carb/Vitamin D 1 TABLET Tablet PO ×2 (05:06→17:47)
[2018-07-19] MEDS: Senna/Docusate Sodium 1 Tablet PO ×2 (05:07→17:47)
[2018-07-19] MEDS: Famotidine 20 MG Tablet PO ×2 (05:07→17:47)
[2018-07-19] MEDS: Clopidogrel Bisulfate 75 MG Tablet PO (05:07)
[2018-07-19] MEDS: traMADol 50 MG Tablet 100 MG PO ×3 (05:07→20:59)
[2018-07-19] MEDS: NYSTATIN 500,000 UNIT/5 ML UDC 500000 UNIT PO ×4 (05:11→21:00)
[2018-07-19] MEDS: Menthol/Lanolin/Calamine/Znox 113 GM Tube 1 APPLIC TOPICAL ×2 (05:11→21:02)
[2018-07-19] MEDS: Enoxaparin 30 MG/0.3 ML Syringe SC (05:12)
[2018-07-19] MEDS: Nystatin Powder 15gm Bottle 1 APPLIC TOPICAL ×2 (05:15→21:02)
[2018-07-19] MEDS: Cyanocobalamin 500 MCG Tablet 1000 MCG PO (06:34)
[2018-07-19 06:55] LABS: Bedside Glucose 236 mg/dL (70-110)
[2018-07-19] MEDS: Folic Acid 1 MG Tablet PO (08:29)
[2018-07-19] MEDS: Ferrous Gluconate 325 MG Tablet PO ×2 (08:29→17:47)
[2018-07-19] MEDS: Gabapentin 300 MG Capsule PO ×3 (08:30→17:47)
[2018-07-19] MEDS: Aspirin 81 MG TAB.CHEW PO (08:30)
[2018-07-19] MEDS: Insulin Lispro 100 UNIT/ML INSULN.PEN 13 UNIT SC ×3 (08:31→17:52)
--- NOTE | 2018-07-19 10:40 | MDS.RN ---
Information for the mds was obtained from review of the clinical record, interview of resident, staff, and direct observation of resident's care.
[2018-07-19 11:51] LABS: Bedside Glucose 244 mg/dL (70-110)
[2018-07-19 11:58] LABS: Absolute Lymphocyte Count 1.15 X10^3/ul (0.83-4.51); Absolute Neutrophil Count 3.3 X10^3/uL (2.0-7.7); Basophil# 0.01 X10^3/uL; Basophil% 0.2 % (0-1); Eosinophil# 0.24 X10^3/uL; Eosinophils% 4.5 % (0-5); Hematocrit 35.2 % (37-47); Hemoglobin 11.3 g/dl (12.0-15.0); Lymphocyte # 1.15 X10^3/ul (4.0); Lymphocyte % 21.7 % (19-41); Mean Corp Hgb Conc 32.1 g/gl (32-36); Mean Corpuscular Hgb 28.6 pg (27.0-32.0); Mean Corpuscular Volume 89.1 fL (81-99); Mean Platelet Vol. 11.1 fl (6.2-12.0); Monocyte# 0.57 X10^3/uL; Monocyte% 10.7 % (0-10); Neutrophil # 3.33 X10^3/uL (2.7-7.7); Neutrophil % 62.7 % (47-70); Platelet Count 163 K/mm3 (150-450); RBC Distribution Width CV 13.7 % (11.6-14.6); RBC Distribution Width SD 44.1 fl (35.1-43.9); Red Blood Count 3.95 M/mm3 (4.2-5.4); White Blood Count 5.3 K/mm3 (4.4-11.0)
[2018-07-19 11:59] LABS: POSITIVE COUNT NO; POSITIVE DIFFERENTIAL NO; POSITIVE MORPHOLOGY NO
[2018-07-19 12:54] LABS: Anion Gap 10 (5-15); BUN 20 mg/dL (7-18); BUN/Creat Ratio 14.1 RATIO (10-20); Calcium,Total 8.9 mg/dL (8.5-10.1); Chloride 102 mmol/L (98-107); Creatinine, Serum 1.42 mg/dL (0.55-1.02); EST Glomerular Filtration Rate 38 mL/min (>60); Est Glom Filt Rate - Afr Amer 47 mL/min (>60); Estimated Creatinine Clearance 30.01 ml/min; Glucose 239 mg/dL (74-106); Potassium 3.9 mmol/L (3.5-5.1); Sodium Level 139 mmol/L (136-145)
[2018-07-19] MEDS: Acetaminophen 500 MG Tablet 1000 MG PO (13:47)
[2018-07-19 15:28] VITALS: PULSE 62; RESP 18; O2SAT 96
[2018-07-19 15:39] VITALS: BP 136/58; PULSE 64; RESP 14; TEMP 36.9; O2SAT 93
[2018-07-19 17:10] LABS: Bedside Glucose 223 mg/dL (70-110)
[2018-07-19] MEDS: Tamsulosin HCl 0.4 MG Capsule PO (21:00)
[2018-07-19] MEDS: Atorvastatin Calcium 80 MG Tablet PO (21:00)
[2018-07-19] MEDS: Latanoprost 0.005% 1 Bottle 1 DRP EACH EYE (21:01)
[2018-07-19 21:21] LABS: Bedside Glucose 223 mg/dL (70-110)
[2018-07-20] MEDS: traMADol 50 MG Tablet 100 MG PO ×3 (05:12→20:22)
[2018-07-20] MEDS: Famotidine 20 MG Tablet PO ×2 (05:17→17:36)
[2018-07-20] MEDS: Clopidogrel Bisulfate 75 MG Tablet PO (05:17)
[2018-07-20] MEDS: NYSTATIN 500,000 UNIT/5 ML UDC 500000 UNIT PO ×4 (05:17→20:21)
[2018-07-20] MEDS: amLODIPine 10 MG Tablet PO (05:17)
[2018-07-20] MEDS: FLUoxetine 20 MG Capsule 40 MG PO (05:18)
[2018-07-20] MEDS: Cyanocobalamin 500 MCG Tablet 1000 MCG PO (05:18)
[2018-07-20] MEDS: Polyethylene Glycol 3350 17 GM PACKET PO (05:18)
[2018-07-20] MEDS: Senna/Docusate Sodium 1 Tablet PO ×2 (05:19→17:36)
[2018-07-20] MEDS: Calcium Carb/Vitamin D 1 TABLET Tablet PO ×2 (05:19→17:37)
[2018-07-20] MEDS: Enoxaparin 30 MG/0.3 ML Syringe SC (05:19)
[2018-07-20 05:20] VITALS: PULSE 76; RESP 16; O2SAT 95
[2018-07-20] MEDS: Menthol/Lanolin/Calamine/Znox 113 GM Tube 1 APPLIC TOPICAL ×2 (05:25→20:19)
[2018-07-20] MEDS: Nystatin Powder 15gm Bottle 1 APPLIC TOPICAL ×2 (05:25→20:20)
--- NOTE | 2018-07-20 05:49 | NURSING ---
Pt has swelling to bilateral hands and pitting edema +2 to bilateral feet. Pt has a order for ralph wraps while up. 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 Pt c/o pain in right hand given prn tramadol during this time. Ice was offered at this time refused. Will continue to monitor. Rn aware.
[2018-07-20 06:41] LABS: Bedside Glucose 190 mg/dL (70-110)
[2018-07-20] MEDS: Gabapentin 300 MG Capsule PO ×3 (08:19→17:36)
[2018-07-20] MEDS: Aspirin 81 MG TAB.CHEW PO (08:19)
[2018-07-20] MEDS: Folic Acid 1 MG Tablet PO (08:19)
[2018-07-20] MEDS: Ferrous Gluconate 325 MG Tablet PO ×2 (08:19→17:36)
[2018-07-20] MEDS: Insulin Lispro 100 UNIT/ML INSULN.PEN 13 UNIT SC ×3 (08:20→17:40)
--- NOTE | 2018-07-20 08:29 | PCA ---
Patient also uses a stand pivot disc for assistance in transfers
[2018-07-20 11:31] LABS: Bedside Glucose 253 mg/dL (70-110)
--- NOTE | 2018-07-20 12:54 | CASEMGMT ---
Insurance Continued stay denied with last cover day being 07/22/18 and resident to discharge or financial responsibility to begin on 07/23/18. Auth#[id number] Carole LEDESMA, HOT BLAST WORKER
--- NOTE | 2018-07-20 14:25 | CASEMGMT ---
Social Work Spoke with resident and resident family. This clinical social worker communicating that continued stay has been denied with last cover day being 07/22/18 and resident to discharge or financial responsibility to begin on 07/23/18. Resident and resident family voicing understanding. Resident requesting for this clinical social worker to make a referral to [facility] with the intentions of transitioning under Medicaid pending# [id number]. Resident voicing that second option for placement would be [facility]. Resident aware that resident is unable to return home with spouse at this time. Support given. Telephone call to [facility]. [facility] reporting to have no openings at this time and to be unable to accept resident. [facility] This clinical social worker making referral. Marcie reporting to be able to review clinical information. Clinicals faxed. Transfer form initiated. Proposed discharge date: 07/23/18 PLAN: Discharge to extended care facility under intermediate level of a care. Carole LEDESMA, GREENHOUSE ASSISTANT
[2018-07-20 15:52] VITALS: BP 133/59; PULSE 68; RESP 14; TEMP 36.6; O2SAT 91
[2018-07-20 16:51] LABS: Bedside Glucose 282 mg/dL (70-110)
--- NOTE | 2018-07-20 20:15 | PCM.TXEXTCAR ---
- Diet 06/08/18 16:43 Diet: Cardiac/Low Cholesterol Food consistency:: Mechanical Soft/Ground Liquid Consistency:: Regular/Thin Dietary Modifications:: Mechanical Soft Diet Is pt able to select menu?: No Diet Comments: carb control, thin liquids with CHIN TUCK - Routine Orders/Code Status Suppository Type: Dulcolax 10mg Suppository Frequency: Daily PRN Code Status: Full Code - Therapies Weight Bearing: Weight bearing as tolerated Extremity Affected:: Bilateral Lower Physical Therapy: Eval and Treat Occupational Therapy: Eval and Treat Speech Therapy: Eval and Treat - Problem/Diagnosis (1) Acute ischemic left MCA stroke Status: Acute Current Visit: Yes (2) Diabetic polyneuropathy Status: Chronic Current Visit: Yes (3) Sleep apnea Status: Chronic Current Visit: Yes (4) GERD (gastroesophageal reflux disease) Status: Chronic Current Visit: Yes (5) Depression Status: Chronic Current Visit: Yes (6) Glaucoma Status: Chronic Current Visit: Yes (7) Debility Status: Acute Current Visit: No (8) HTN (hypertension) Status: Chronic Current Visit: No (9) HLD (hyperlipidemia) Status: Chronic Current Visit: No (10) Diabetes Status: Chronic Current Visit: No - Allergies/Procedures Done in Hospital Allergies/Adverse Reactions: Allergies No Known Allergies Allergy (Verified 05/21/18 19:14) - Type of Care/Length of Stay Estimated LOS: More Than 30 Days Type of Care Needed: Intermediate Rehab Potential: Fair Prognosis: Fair - Additional Orders/Day of Discharge Day of Discharge: 07/23/18 - Dietary and Speech Recommendations Dietitian Recommendations/Changes: Rec diet change to CHO Control/Cardiac - consistency per TUBING MACHINE TENDER - Follow Up Care Primary Care Physician: Alexander Jack MD [Primary Care Provider] - Please follow up with your Primary Care Physician in: 1 week.
--- NOTE | 2018-07-20 20:18 | TREXTCAR_ITS ---
- Diet 06/08/18 16:43 Diet: Cardiac/Low Cholesterol Food consistency:: Mechanical Soft/Ground Liquid Consistency:: Regular/Thin Dietary Modifications:: Mechanical Soft Diet Is pt able to select menu?: No Diet Comments: carb control, thin liquids with CHIN TUCK - Routine Orders/Code Status Suppository Type: Dulcolax 10mg Suppository Frequency: Daily PRN Code Status: Full Code - Therapies Weight Bearing: Weight bearing as tolerated Extremity Affected:: Bilateral Lower Physical Therapy: Eval and Treat Occupational Therapy: Eval and Treat Speech Therapy: Eval and Treat - Problem/Diagnosis (1) Acute ischemic left MCA stroke Status: Acute Current Visit: Yes (2) Diabetic polyneuropathy Status: Chronic Current Visit: Yes (3) Sleep apnea Status: Chronic Current Visit: Yes (4) GERD (gastroesophageal reflux disease) Status: Chronic Current Visit: Yes (5) Depression Status: Chronic Current Visit: Yes (6) Glaucoma Status: Chronic Current Visit: Yes (7) Debility Status: Acute Current Visit: No (8) HTN (hypertension) Status: Chronic Current Visit: No (9) HLD (hyperlipidemia) Status: Chronic Current Visit: No (10) Diabetes Status: Chronic Current Visit: No - Allergies/Procedures Done in Hospital Allergies/Adverse Reactions: Allergies No Known Allergies Allergy (Verified 05/21/18 19:14) - Type of Care/Length of Stay Estimated LOS: More Than 30 Days Type of Care Needed: Intermediate Rehab Potential: Fair Prognosis: Fair - Additional Orders/Day of Discharge Day of Discharge: 07/23/18 - Dietary and Speech Recommendations Dietitian Recommendations/Changes: Rec diet change to CHO Control/Cardiac - consistency per CUSTOMER QUALITY ENGINEER - Follow Up Care Primary Care Physician: Alexander Jack MD [Primary Care Provider] - Please follow up with your Primary Care Physician in: 1 week.
--- NOTE | 2018-07-20 20:18 | PCM.DC.SUM ---
Discharge Date and Diagnosis - Problem List Patient Problems: Active and Suspected Problems Acute ischemic left MCA stroke (Acute) Date of Admission: 06/08/18 Date of Discharge: 07/23/18 - Primary Discharge Diagnosis Active and Suspected Problems Acute ischemic left MCA stroke (Acute) - Secondary Discharge Diagnosis Chronic Problems HTN (hypertension) (Chronic) HLD (hyperlipidemia) (Chronic) Diabetes (Chronic) Neuropathy (Chronic) GUERITA (obstructive sleep apnea) (Chronic) Diabetic polyneuropathy (Chronic) Sleep apnea (Chronic) GERD (gastroesophageal reflux disease) (Chronic) Depression (Chronic) Glaucoma (Chronic) Hospital Course and Treatment Imaging Results: 06/08/18 16:43 Diet: Cardiac/Low Cholesterol Food consistency:: Mechanical Soft/Ground Liquid Consistency:: Regular/Thin Dietary Modifications:: Mechanical Soft Diet Is pt able to select menu?: No Diet Comments: carb control, thin liquids with CHIN TUCK Clinical Impression(s) from Imaging Studies Hand X-Ray 07/12/18 09:40 IMPRESSION: Arthrosis of the second metacarpophalangeal joint. Electronically Signed: Rajesh Tobar MD at 11:42 EDT Tel , Service support , Shoulder X-Ray 07/14/18 17:30 IMPRESSION: No acute bony injury of the shoulder. Electronically Signed: Quique Kc DO at 20:07 EDT Tel [phone], Service support , Labs (Last 48 Hours) 07/18/18 07/19/18 07/19/18 21:15 06:26 11:37 WBC 5.3 RBC 3.95 L Hgb 11.3 L Hct 35.2 L MCV 89.1 MCH 28.6 MCHC 32.1 RDW 13.7 RDW Differential 44.1 H Plt Count 163 MPV 11.1 Immature Gran % (Auto) 0.200 Neut % (Auto) 62.7 Lymph % (Auto) 21.7 [place] % (Auto) 10.7 H Eos % (Auto) 4.5 Baso % (Auto) 0.2 Absolute Neuts (auto) 3.3 Absolute Lymphs (auto) 1.15 Total Counted Not Reportable Sodium Potassium Chloride Carbon Dioxide Anion Gap BUN Creatinine Estim Creat Clear Calc Est GFR (MDRD) Af Amer Est GFR (MDRD) Non-Af BUN/Creatinine Ratio Glucose Calcium POC Glucose 275 H 236 H 07/19/18 07/19/18 07/19/18 11:37 11:45 16:53 WBC RBC Hgb Hct MCV MCH MCHC RDW RDW Differential Plt Count MPV Immature Gran % (Auto) Neut % (Auto) Lymph % (Auto) [place] % (Auto) Eos % (Auto) Baso % (Auto) Absolute Neuts (auto) Absolute Lymphs (auto) Total Counted Sodium 139 Potassium 3.9 Chloride 102 Carbon Dioxide 27.0 Anion Gap 10 BUN 20 H Creatinine 1.42 H Estim Creat Clear Calc 30.01 Est GFR (MDRD) Af Amer 47 L Est GFR (MDRD) Non-Af 38 L BUN/Creatinine Ratio 14.1 Glucose 239 H Calcium 8.9 POC Glucose 244 H 223 H 07/19/18 07/20/18 07/20/18 21:14 06:23 11:16 WBC RBC Hgb Hct MCV MCH MCHC RDW RDW Differential Plt Count MPV Immature Gran % (Auto) Neut % (Auto) Lymph % (Auto) [place] % (Auto) Eos % (Auto) Baso % (Auto) Absolute Neuts (auto) Absolute Lymphs (auto) Total Counted Sodium Potassium Chloride Carbon Dioxide Anion Gap BUN Creatinine Estim Creat Clear Calc Est GFR (MDRD) Af Amer Est GFR (MDRD) Non-Af BUN/Creatinine Ratio Glucose Calcium POC Glucose 223 H 190 H 253 H 07/20/18 16:47 WBC RBC Hgb Hct MCV MCH MCHC RDW RDW Differential Plt Count MPV Immature Gran % (Auto) Neut % (Auto) Lymph % (Auto) [place] % (Auto) Eos % (Auto) Baso % (Auto) Absolute Neuts (auto) Absolute Lymphs (auto) Total Counted Sodium Potassium Chloride Carbon Dioxide Anion Gap BUN Creatinine Estim Creat Clear Calc Est GFR (MDRD) Af Amer Est GFR (MDRD) Non-Af BUN/Creatinine Ratio Glucose Calcium POC Glucose 282 H Operations: None Procedures: None Summary of Care Provided: The patient is a 73 year old Female with below past medical history hospitalized for acute left MCA stroke, admitted from Rehab Unit, to continue rehabilitation, strengthening, prior to discharge home with spouse. On TCU, resident developed right hand, right arm pain consistent with reflex sympathetic dystrophy, Depakote 500MG twice daily as needed for pain. Discharged to extended care facility under intermediate level of care. [facility]. Patient Problems: Active and Suspected Problems Acute ischemic left MCA stroke (Acute) - Physical Exam Vital Signs Temp Pulse Resp BP Pulse Ox 97.9 F 68 14 133/59 H 91 07/20/18 15:52 07/20/18 15:52 07/20/18 15:52 07/20/18 15:52 07/20/18 15:52 Oxygen Delivery Method Room Air Weight: 99.45 kg Body Mass Index (BMI) 38.6 Finger Stick Blood Glucose 187 Intake and Output for Last 24 Hours 07/18/18 07/19/18 07/20/18 23:59 23:59 23:59 Intake Total 720 / 720 780 / 780 840 / 840 Balance 720 / 720 780 / 780 840 / 840 POC Glucose 07/20/18 07/20/18 07/20/18 16:47 11:16 06:23 POC Glucose 282 H 253 H 190 H 07/19/18 21:14 POC Glucose 223 H Discharge Diet: - - Diet per DIRECTOR OF CORPORATE STRATEGY. Discharge Activity: Return to Normal Activity, Use Walker Weight Bearing Status: Weight bearing as tolerated Call your doctor if you observe: Fever of 101 or Higher, Inability to urinate, Inability to have a bowel movement, Shortness of breath, Chest pain, Uncontrolled pain Home Medications: Medications to take at Discharge Amlodipine [Norvasc] 10 mg PO DAILY 06/08/18 Aspirin [Aspirin, Baby] 81 mg PO DAILY@0800 06/08/18 Atorvastatin Calcium [Lipitor] 80 mg PO QHS 06/08/18 Bisacodyl [Dulcolax] 10 mg RECTAL .PRN X 1 PRN suppos. 06/08/18 Calcium Carb/Vitamin D [Os-Josue 500MG + D] 1 tablet PO BID 06/08/18 Clopidogrel Bisulfate [Plavix] 75 mg PO DAILY 06/08/18 Cyanocobalamin [Vitamin B12] 1,000 mcg PO DAILY 06/08/18 Famotidine [Pepcid] 20 mg PO BID 06/08/18 Ferrous Gluconate 325 mg PO BIDCM 06/08/18 Fluoxetine [Prozac] 40 mg PO DAILY 06/08/18 Folic Acid 1 mg PO DAILY@0800 06/08/18 Gabapentin [Neurontin] 300 mg PO TIDCM 06/08/18 Glucagon 1 mg IM .X1 PRN syringe 06/08/18 Lactobacillus Acidophilus [Acidophilus] 1 tablet PO DAILY 06/08/18 Latanoprost 0.005% [Xalatan Opthalmic] 1 drop EACH EYE QHS 06/08/18 Menthol/Lanolin/Calamine/Znox [Calmoseptine Ointment] 1 applic TOPICAL BID@0600,2200 06/08/18 lipase/protease/amylase [Creon DR 12,000 Unit Capsule] 2 capsule PO TIDCM 06/08/18 Acetaminophen [Tylenol] 1,000 mg PO Q8H PRN tablet 07/20/18 Divalproex Sodium [Depakote] 500 mg PO BIDCM PRN tablet 07/20/18 Insulin Glargine [Lantus SoloStar Pen] 20 units SC BID pen 07/20/18 Insulin Lispro [Humalog KwikPen] 13 unit SC TIDCM insuln.pen 07/20/18 Mineral Oil/Petrolatum,White [Eucerin] 1 applic TOPICAL 0600,2200 jar 07/20/18 Nystatin Powder [Mycostatin Powder] 1 applic TOPICAL 0600,2200 bottle 07/20/18 Polyethylene Glycol 3350 [Miralax] 17 gm PO DAILY packet 07/20/18 Senna/Docusate Sodium [Senokot-S] 1 tablet PO BID tablet 07/20/18 Tamsulosin HCl [Flomax] 0.4 mg PO QHS capsule 07/20/18 traMADol [Ultram] 100 mg PO Q4H PRN PRN #30 tab 07/20/18 Following Prescrptions Were Given to Patient: traMADol [Ultram] 100 mg PO Q4H PRN PRN #30 tab PRN Reason: Moderate Pain (4-5/10) Primary Care Physician: Alexander Jack MD [Primary Care Provider] - Please follow up with your Primary Care Physician in: 1 week. Disposition: Asstd Living/Non-Skill NH Minutes spent on discharge:: 35 Patient Condition:: Stable Medical Necessity - Tobacco Use Smoking Status: Never smoker Tobacco Use: Non-smoker Meaningful Use Info Meaningful Use Diagnoses (Choose all that apply): None applicable
[2018-07-20] MEDS: Atorvastatin Calcium 80 MG Tablet PO (20:21)
[2018-07-20] MEDS: Latanoprost 0.005% 1 Bottle 1 DRP EACH EYE (20:21)
[2018-07-20] MEDS: Acetaminophen 500 MG Tablet 1000 MG PO (20:22)
[2018-07-20] MEDS: Tamsulosin HCl 0.4 MG Capsule PO (20:22)
[2018-07-20 20:56] LABS: Bedside Glucose 317 mg/dL (70-110)
[2018-07-21] MEDS: amLODIPine 10 MG Tablet PO (04:48)
[2018-07-21] MEDS: Menthol/Lanolin/Calamine/Znox 113 GM Tube 1 APPLIC TOPICAL ×2 (04:48→22:22)
[2018-07-21] MEDS: Nystatin Powder 15gm Bottle 1 APPLIC TOPICAL ×2 (04:48→22:33)
[2018-07-21] MEDS: NYSTATIN 500,000 UNIT/5 ML UDC 500000 UNIT PO ×3 (04:48→22:24)
[2018-07-21] MEDS: Calcium Carb/Vitamin D 1 TABLET Tablet PO ×2 (04:48→08:21)
[2018-07-21] MEDS: Enoxaparin 30 MG/0.3 ML Syringe SC (04:48)
[2018-07-21] MEDS: Senna/Docusate Sodium 1 Tablet PO ×2 (04:49→17:40)
[2018-07-21] MEDS: Cyanocobalamin 500 MCG Tablet 1000 MCG PO (04:49)
[2018-07-21] MEDS: Clopidogrel Bisulfate 75 MG Tablet PO (04:49)
[2018-07-21] MEDS: Famotidine 20 MG Tablet PO ×2 (04:49→17:41)
[2018-07-21] MEDS: FLUoxetine 20 MG Capsule 40 MG PO (04:49)
[2018-07-21] MEDS: traMADol 50 MG Tablet 100 MG PO ×2 (04:50→08:33)
[2018-07-21 06:40] LABS: Bedside Glucose 273 mg/dL (70-110)
[2018-07-21] MEDS: Folic Acid 1 MG Tablet PO (08:21)
[2018-07-21] MEDS: Gabapentin 300 MG Capsule PO ×3 (08:21→17:41)
[2018-07-21] MEDS: Ferrous Gluconate 325 MG Tablet PO ×2 (08:21→17:41)
[2018-07-21] MEDS: Aspirin 81 MG TAB.CHEW PO (08:21)
[2018-07-21] MEDS: Insulin Lispro 100 UNIT/ML INSULN.PEN 13 UNIT SC ×3 (08:23→17:41)
[2018-07-21 11:15] LABS: Bedside Glucose 318 mg/dL (70-110)
--- NOTE | 2018-07-21 13:56 | CASEMGMT ---
Social Work Telephone call to [facility] to follow up on referral, Marcie. [facility] reporting to currently still be reviewing resident case as resident does have an outstanding balance with [facility] at this time. Marcie reporting to be currently waiting to get in contact with resident family. This social media editor encouraged Marcie to contact residents son-in-law Joshua in regards to case as Joshua is financial power of insurance defense attorney. Resident and Joshua notified of above information. This social media editor did inquire about a third facility options, resident/Joshua not sure at this time and will get back to this social media editor Proposed discharge date: 07/23/18 PLAN: Discharge to [facility]. Carole LEDESMA, RESTORATIVE ART EMBALMER
--- NOTE | 2018-07-21 14:23 | CASEMGMT ---
Addendum entered by Carole Vazquez 07/21/18 14:26: Reviewed and approved acid conditioning worker student MDS documentation. Carole DALEYW, VESSEL ORDINARY SEAMAN Original Note: Brief interview for mental status (BIMS) and mood (PHQ-9) completed on this day. BIMS score 14/15. PHQ-9 score 0/27. Melvina Bojorquez social work student
--- NOTE | 2018-07-21 14:46 | CASEMGMT ---
Social Work Telephone call from [facility] Marcie. Marcie reporting to be unable to accept resident at this time. Spoke with resident and resident family. This outreach and education social worker communicating above information. Resident family and resident requesting for referral to now be sent to [facility] in [place]. Support given. [facility] This outreach and education social worker making referral. Clinical information faxed. Proposed discharge date: 07/23/18. PLAN: Discharge to [facility]. Carole LEDESMA, DYE LINE OPERATOR
[2018-07-21 15:28] VITALS: BP 134/54; PULSE 64; RESP 16; TEMP 36.4; O2SAT 93
[2018-07-21 17:01] LABS: Bedside Glucose 314 mg/dL (70-110)
[2018-07-21 21:26] LABS: Bedside Glucose 202 mg/dL (70-110)
[2018-07-21 22:00] VITALS: PULSE 68; RESP 15; O2SAT 93
[2018-07-21] MEDS: Latanoprost 0.005% 1 Bottle 1 DRP EACH EYE (22:21)
[2018-07-21] MEDS: Tamsulosin HCl 0.4 MG Capsule PO (22:22)
[2018-07-21] MEDS: Atorvastatin Calcium 80 MG Tablet PO (22:22)
[2018-07-22] MEDS: Menthol/Lanolin/Calamine/Znox 113 GM Tube 1 APPLIC TOPICAL ×2 (05:26→22:21)
[2018-07-22] MEDS: Nystatin Powder 15gm Bottle 1 APPLIC TOPICAL ×2 (05:27→22:24)
[2018-07-22] MEDS: Polyethylene Glycol 3350 17 GM PACKET PO (05:31)
[2018-07-22] MEDS: Calcium Carb/Vitamin D 1 TABLET Tablet PO ×2 (05:31→17:17)
[2018-07-22] MEDS: Enoxaparin 30 MG/0.3 ML Syringe SC (05:31)
[2018-07-22] MEDS: NYSTATIN 500,000 UNIT/5 ML UDC 500000 UNIT PO ×3 (05:31→17:17)
[2018-07-22] MEDS: amLODIPine 10 MG Tablet PO (05:31)
[2018-07-22] MEDS: FLUoxetine 20 MG Capsule 40 MG PO (05:31)
[2018-07-22] MEDS: Clopidogrel Bisulfate 75 MG Tablet PO (05:32)
[2018-07-22] MEDS: Cyanocobalamin 500 MCG Tablet 1000 MCG PO (05:32)
[2018-07-22] MEDS: Famotidine 20 MG Tablet PO ×2 (05:32→17:17)
[2018-07-22] MEDS: Senna/Docusate Sodium 1 Tablet PO ×2 (05:39→17:17)
[2018-07-22] MEDS: Acetaminophen 500 MG Tablet 1000 MG PO (05:42)
[2018-07-22 06:57] VITALS: PULSE 70; RESP 16; O2SAT 94
[2018-07-22 07:06] LABS: Bedside Glucose 235 mg/dL (70-110)
[2018-07-22] MEDS: Insulin Lispro 100 UNIT/ML INSULN.PEN 13 UNIT SC ×3 (08:40→17:21)
[2018-07-22] MEDS: Gabapentin 300 MG Capsule PO ×3 (08:42→17:17)
[2018-07-22] MEDS: Aspirin 81 MG TAB.CHEW PO (08:42)
[2018-07-22] MEDS: Ferrous Gluconate 325 MG Tablet PO ×2 (08:42→17:17)
[2018-07-22] MEDS: Folic Acid 1 MG Tablet PO (08:42)
--- NOTE | 2018-07-22 11:07 | NURSING ---
PT LEFT EYE IS RED. ASKED PT IF IT ITCHES OR HURTS,PT STATED NO. ASKED PT IF SHE HAS RUBBED EYE,PT STATED YES. REPORTED TO DELORES ESCALONA
--- NOTE | 2018-07-22 11:19 | CASEMGMT ---
Social Work Telephone call to [facility]. This furniture lumber production worker left voicemail inquiring about approval/clinical review status. Proposed discharge date: 07/23/18 PLAN: Discharge to [facility] Carole LEDESMA, VOICE STUDIES DIRECTOR
[2018-07-22 11:50] LABS: Bedside Glucose 278 mg/dL (70-110)
--- NOTE | 2018-07-22 11:52 | CASEMGMT ---
Social Work Spoke with resident son-in-law, Joshua and resident. This social worker clinical voicing to have still not heard back from [facility] at this time and wondering what other facilities resident may be interested in this social worker clinical looking into. Resident requesting for this social worker clinical to make a referral to [facility] ([facility]). Support given. Telephone call to [facility]. [facility] reporting to have openings and to be able to review case. Clinical information faxed. Telephone call to [facility], Emmie, no answer and was unable to leave a voicemail as the voicemail was full. Will continue to follow up on this at a later time. Proposed discharge date: 07/23/18 PLAN: Discharge to [facility]. Carole LEDESMA, LIFE INSURANCE SALESPERSON
[2018-07-22] MEDS: traMADol 50 MG Tablet 100 MG PO (11:53)
--- NOTE | 2018-07-22 13:24 | MDS.RN ---
Pain interview for MARIE 07/23/18 completed.
[2018-07-22] MEDS: Glycerin/Hypromellose/PEG400 15 ml Bottle 1 DRP EACH EYE ×2 (14:04→22:19)
--- NOTE | 2018-07-22 14:04 | CASEMGMT ---
Social Work Telephone call from [facility]. [facility] reporting to be able to accept resident. Spoke with resident and resident family. All agreeable to resident transitioning to [facility]. Resident requesting for transportation to be set up via wheelchair van. Support given. Telephone call to [facility] social staff worker confirmed that resident will be coming on 07/23/18. Will fax orders when obtained. Pending Level of Care response at this time. Telephone call to [facility]. Transportation set up for 07/23/18 at 11:00am. Transportation form completed and placed with resident discharge information. Proposed discharge date: 07/23/18 PLAN: Discharge to [facility]. Carole LEDESMA, RAILWAY SIGNALLING ENGINEER
[2018-07-22 15:54] VITALS: BP 123/48; PULSE 59; RESP 16; TEMP 36.9; O2SAT 95
--- NOTE | 2018-07-22 16:18 | CASEMGMT ---
Social Work Level of Care obtained. Results faxed to [facility] along with discharge orders and needed information. Proposed discharge date: 07/23/18 PLAN: Discharge to [facility]. Carole LEDESMA, OFFICE REP
[2018-07-22 17:00] LABS: Bedside Glucose 221 mg/dL (70-110)
--- NOTE | 2018-07-22 18:50 | NURSING ---
1800- PT W/COUGHING FIT AFTER TAKING NYSTATIN S/S, SPITTING UP CLEAR THICK SPUTUM. ABLE TO BREATH AND SPEAK. LASTS APPROX 10MIN. PT ABLE TO TAKE SIPS OF COKE WHICH HELP. AT 1850 PT SITTING COMFORTABLY IN CHAIR, LS-CTA. PT DENIES ANY FURTHER DIFF
[2018-07-22 21:16] LABS: Bedside Glucose 189 mg/dL (70-110)
[2018-07-22] MEDS: Tamsulosin HCl 0.4 MG Capsule PO (22:22)
[2018-07-22] MEDS: Atorvastatin Calcium 80 MG Tablet PO (22:23)
[2018-07-22] MEDS: Latanoprost 0.005% 1 Bottle 1 DRP EACH EYE (22:27)
[2018-07-23] MEDS: Glycerin/Hypromellose/PEG400 15 ml Bottle 1 DRP EACH EYE (06:00)
[2018-07-23] MEDS: Polyethylene Glycol 3350 17 GM PACKET PO (06:02)
[2018-07-23] MEDS: Enoxaparin 30 MG/0.3 ML Syringe SC (06:02)
[2018-07-23] MEDS: FLUoxetine 20 MG Capsule 40 MG PO (06:03)
[2018-07-23] MEDS: Cyanocobalamin 500 MCG Tablet 1000 MCG PO (06:03)
[2018-07-23] MEDS: Clopidogrel Bisulfate 75 MG Tablet PO (06:03)
[2018-07-23] MEDS: Calcium Carb/Vitamin D 1 TABLET Tablet PO (06:03)
[2018-07-23] MEDS: Senna/Docusate Sodium 1 Tablet PO (06:03)
[2018-07-23] MEDS: Famotidine 20 MG Tablet PO (06:03)
[2018-07-23] MEDS: amLODIPine 10 MG Tablet PO (06:04)
[2018-07-23] MEDS: Menthol/Lanolin/Calamine/Znox 113 GM Tube 1 APPLIC TOPICAL (06:04)
[2018-07-23] MEDS: Nystatin Powder 15gm Bottle 1 APPLIC TOPICAL (06:04)
[2018-07-23 07:00] VITALS: PULSE 66; RESP 18; O2SAT 95
[2018-07-23 07:01] LABS: Bedside Glucose 161 mg/dL (70-110)
[2018-07-23] MEDS: Insulin Lispro 100 UNIT/ML INSULN.PEN 13 UNIT SC ×2 (08:03→12:00)
[2018-07-23] MEDS: Gabapentin 300 MG Capsule PO ×2 (08:05→12:03)
[2018-07-23] MEDS: Folic Acid 1 MG Tablet PO (08:06)
[2018-07-23] MEDS: Aspirin 81 MG TAB.CHEW PO (08:06)
[2018-07-23] MEDS: Ferrous Gluconate 325 MG Tablet PO (08:09)
--- NOTE | 2018-07-23 11:58 | NURSING ---
Report given to Veronika nurse at [facility].
[2018-07-23 12:11] LABS: Bedside Glucose 238 mg/dL (70-110)
--- NOTE | 2018-07-25 12:30 | CASEMGMT ---
Insurance Notified insurance of resident discharge to [facility] on 07/23/18. Auth#[id number] Carole LEDESMA, PROOF COINS INSPECTOR
--- NOTE | 2018-08-03 08:30 | MDS.RN ---
Information for the mds was obtained from review of the clinical record, interview of resident, staff, and direct observation of resident's care. resident was dependent for W/C mobility.
== END 2018-07-23 13:00 | disposition skilled nursing facility (03) | DRG 948 ==
PROVIDERS: Admitting Provider Family Medicine Geriatric Medicine; Family Provider Family Medicine; PCP Family Medicine; Visit Provider Family Medicine Geriatric Medicine
DX: R53.81 Other malaise (principal); G90.511 Complex regional pain syndrome I of right upper limb; G81.91 Hemiplegia, unspecified affecting right dominant side; Z86.73 Personal history of transient ischemic attack (TIA), and cerebral infarction without residual deficits; Z23 Encounter for immunization; E78.5 Hyperlipidemia, unspecified; K21.9 Gastro-esophageal reflux disease without esophagitis; I10 Essential (primary) hypertension; D50.9 Iron deficiency anemia, unspecified; E11.42 Type 2 diabetes mellitus with diabetic polyneuropathy; F32.9 Major depressive disorder, single episode, unspecified; H40.9 Unspecified glaucoma; B37.9 Candidiasis, unspecified; G47.33 Obstructive sleep apnea (adult) (pediatric); F41.9 Anxiety disorder, unspecified
CPT/HCPCS: 36415; 73030; 73120; 80048; 81001; 82962; 84550; 85025; 85652; 86140; 87077; 87086; 87088; 87186; 90732; 92507; 92523; 92526; 92610; 97032; 97110; 97112; 97116; 97163; 97167; 97530; 97535; 97542; 97802; J7030; 90686